=== PATIENT | female | born 1955 | race African-American/Black ===

== ENCOUNTER 2016-12-26 05:49 | Inpatient (IN) ==
[2016-12-26] MEDS ORDERED: ceFAZolin 1,000 MG VIAL ONE ×3 (05:56→15:41)
[2016-12-26 06:22] LABS: Hematocrit 25.8 VOL% (35.7-47.0); Hemoglobin 8.2 GM/DL (12.0-16.0)
--- NOTE | 2016-12-26 06:22 | History and Physical Update ---
History and Physical Update - History and Physical H&P was reviewed, the patient examined and there: are no changes in the patients condition since last H&P was completed. - Dictation Physical: refer to scanned H&P
[2016-12-26] MEDS: SODIUM CHLORIDE 0.9% 250 ML IV SCH (06:34)
[2016-12-26] MEDS ORDERED: THROMBIN TOPICAL (RECOMBINANT) 5,000 UNIT VIAL TOP ONE (06:39)
[2016-12-26] MEDS ORDERED: HEPARIN 5,000 UNIT/1 ML VIAL ONE ×2 (06:39→13:53)
[2016-12-26] MEDS ORDERED: BUPIVACAINE 0.25% 50 ML VIAL ONE ×2 (06:39→13:54)
[2016-12-26] MEDS ORDERED: PHENYLEPHRINE 1 MG/10 ML SYRINGE IV ONE (06:59)
[2016-12-26] MEDS ORDERED: PROPOFOL 200 MG/20 ML VIAL IV ONE (06:59)
[2016-12-26] MEDS ORDERED: LIDOCAINE 1% 5 ML VIAL ONE (06:59)
[2016-12-26] MEDS ORDERED: GLYCOPYRROLATE 0.4 MG/2 ML VIAL ONE (06:59)
--- NOTE | 2016-12-26 08:55 | Operative Note ---
Date of procedure: 12/26/16 Pre-op diagnosis: End-stage renal disease Post-op diagnosis: same Procedure: Preoperative diagnosis Renal failure Postoperative diagnosis Same Procedures performed Left upper arm brachiobasilic arteriovenous graft Findings An AV graft was created between the brachial artery at the antecubital fossa and the basilic vein in the axilla. There was a good thrill and bruit in the graft and still a pulse in the wrist after the graft was sewn in. Complications None apparent Specimen None Anesthesia Monitored local Blood loss 10 mL Indications Renal failure with need for dialysis access. The operative procedure including the risks, benefits, and alternatives of the operation were discussed with the patient and his family and all questions were answered. In particular, the risk of steal syndrome, arm edema, and failure to mature/need for further surgery were discussed in detail with the patient and all the questions were answered. Description of procedure The patient was taken to the operating room and transferred to the operating table in the supine position. Pressure points were padded and SCDs were placed lower extremities. Monitored anesthesia was administered and the left arm was prepped with chlorhexidine on an armboard and draped sterilely. Preoperative antibiotics were administered, and a timeout was performed. Incision was made above the antecubital fossa, after local anesthetic was administered, using a 15 blade scalpel. Electrocautery was used to dissect through the subcutaneous tissues and the brachial artery was dissected using sharp dissection. Side branches were ligated with silk sutures. A separate incision was made near the axilla and the basilic vein was controlled with vessel loops. An AV graft was tunneled. between the brachial artery and the basilic vein with a tunneler. The anastamosis on the vein and the artery was performed with an end-to-side technique and there was no suture line bleeding. This was done after arteriotomy and venotomy was performed with 11 blade scalpel and guthrie scissors and after the system was flushed with heparinized saline.] The clamps were released by releasing the venous clamp first and allowing allowing us to bleed through the suture line. The distal arterial clamp and the proximal arterial clamp was removed there was a good thrill and bruit in the graft and still a palpable radial pulse in the wrist. The wound was irrigated and closed with skin clips. A sterile dressing was applied. The patient was awakened from anesthesia and transferred to recovery. Anesthesia: MAC, local Surgeon / Physician: Yves Gutierrez Estimated blood loss: minimal Specimens: none sent Condition: stable Disposition: PACU Results - Labs CBC & BMP: 12/26/16 06:16 12/26/16 06:16 Discharge Plan - Discharge Data Disposition: Disch To Home/Self Care Condition at Discharge: Stable Discharge Diet: advance to your usual diet Activity: no lifting Hygiene: may shower (It is okay to remove the outer dressing in 2 days and start showering. Do not submerge her incision underwater.) Weight Bearing at Discharge: weight bear as tolerated Driving: other (Do not drive or operate heavy machinery for at least 24 hours and after you are off of narcotic pain medications.) Contact your physician if you experience:: fever over 101, Difficulty voiding, Redness or swelling, Nausea/Vomiting, Shortness of breath, Bleeding, pain uncontrolled by pain medications - Discharge Medications New HYDROcodone/ACETAMIN 7.5-325 [[place] 7.5-325] 1 tablet PO Q4H PRN #10 tablet PRN Reason: Pain Continue cloNIDine TAB [Catapres Tab] 0.2 mg PO BID Citalopram [CeleXA] 20 mg PO DAILY Insulin Glargine,Hum.rec.anlog [[place]jeo SoloStar] 20 unit SUBCUT BID Furosemide Tab [Lasix Tab] 40 mg PO BID DIURETIC #60 tablet Insulin Glargine [Lantus] 50 unit SUBCUT DAILY Carvedilol 12.5 mg PO DAILY - Follow Up or Referral Follow Up: Yves Gutierrez MD [Physician] - 2 Weeks - Forms/Instructions Instructions: Petar AV graft fistula
[2016-12-26] MEDS ORDERED: MIDAZOLAM 2 MG/2 ML VIAL ONE ×2 (09:05→15:39)
[2016-12-26] MEDS ORDERED: fentaNYL 100 MCG/2 ML VIAL ONE ×2 (09:06→15:39)
[2016-12-26] MEDS ORDERED: BUPIVACAINE 0.5% /EPI 10 ML VIAL ONE (13:53)
[2016-12-26] MEDS ORDERED: LIDOCAINE 1%/EPI INJ 20 ML VIAL ONE (13:53)
--- NOTE | 2016-12-26 14:05 | Event Note ---
I examined the patient in the day surgery area where she was complaining of significant pain in her hand. She has a doppler signal there but I cannot palpate a pulse there. Her left hand is slightly cooler than the right. I am concerned that there is an issue with perfusion to her hand. I have recommended going back to the OR for exploration and discussed the possibilities with the patient and her family, which include: 1. arteriogram showing spasm in which we could give it some time to resolve 2. technical problem which we would fix in the operating room 3. steal syndrome which would require ligation of the access The patient understands this and would like to proceed to the operating room.
--- NOTE | 2016-12-26 14:17 | Anesthesia Post-Op ---
Anesthesia Post OP - Post Ansesthetic Evaluation Patient seen in post op: Yes Resp: within normal limits CV: within normal limits Mental: within normal limits Temp: within normal limits Hedw-Ap-[id number]: within normal limits Nausea and Vomiting: within normal limits Pain: within normal limits
--- NOTE | 2016-12-26 15:14 | Operative Note ---
Date of procedure: 12/26/16 Procedure: Rn Tele's note on Sally Dominguez. medical library assistant Tart Procedure Dr. Gutierrez requested intraoperative evaluation of a newly formed AV fistula with what appears to be significant distal left ischemic pain. Wound is opened the anastomosis of the AV graft to the brachial artery is intact looks very good there does not appear to be any compression initial Doppler examination reveals high-grade flow from the brachial artery through the fistula and a decreased pulse in the distal brachial artery. With the fistula close pulse in the distal brachial artery improved. The fistula was secured and arteriogram with butterfly through the graft into the artery was carried out that showed good flow in the brachial artery and down through the brachial and into the radial and ulnar segment down to the wrist. We then opened the driscoll of the graft and examined the anterior there is very good-looking anastomosis with no evidence of flaps clot or abnormality of one half coronary dilator line dilator easily passes through the anastomosis into the distal brachial artery. The opening in the graft is closed a 0 silk was used to fully ligate the fistula and there is pulsatile flow by Doppler in the brachial artery above and below the anastomosis. I assisted Dr. Gutierrez with this procedure from opening to closure Surgeon / Physician: Joby Guadarrama Results - Labs CBC & BMP: 12/26/16 06:16 12/26/16 06:16 Discharge Plan - Discharge Data Disposition: Disch To Home/Self Care - Discharge Medications New HYDROcodone/ACETAMIN 7.5-325 [[place] 7.5-325] 1 tablet PO Q4H PRN #10 tablet PRN Reason: Pain Continue cloNIDine TAB [Catapres Tab] 0.2 mg PO BID Citalopram [CeleXA] 20 mg PO DAILY Insulin Glargine,Hum.rec.anlog [Cole SolAngelia] 20 unit SUBCUT BID Furosemide Tab [Lasix Tab] 40 mg PO BID DIURETIC #60 tablet Insulin Glargine [Lantus] 50 unit SUBCUT DAILY Carvedilol 12.5 mg PO DAILY - Follow Up or Referral Follow Up: Yves Gutierrez MD [Physician] - 01/09/17 1:45 pm - Forms/Instructions Instructions: Petar AV graft fistula
[2016-12-26] MEDS ORDERED: SEVOFLURANE 1 UNIT/15 MINUTE INH ONE (15:39)
[2016-12-26] MEDS ORDERED: KETAMINE 500 MG/10 ML VIAL ONE (15:40)
[2016-12-26] MEDS ORDERED: HEPARIN 10,000 UNIT/10 ML VIAL ONE (15:41)
[2016-12-26] MEDS ORDERED: ETOMIDATE 20 MG/10 ML VIAL IV ONE ×2 (15:41)
[2016-12-26] MEDS ORDERED: SUCCINYLCHOLINE 200 MG/10 ML VIAL ONE (15:41)
--- NOTE | 2016-12-26 15:57 | XRay Report ---
XR forearm LT Indication: AV graft. Comparison: None. Technique: AP and lateral images of the left forearm were performed. Findings: There is no evidence of fracture, dislocation, or significant soft tissue abnormality. Surgical clips are noted along the medial aspect of the lower arm proximal to elbow. Impression: 1. Postoperative changes. 12/26/2016 3:54 PM PROCEDURE INTERPRETED AT [facility] DEPARTMENT OF RADIOLOGY Final Report Signed by: Dr. Jamison Segura
--- NOTE | 2016-12-26 15:58 | XRay Report ---
XR chest 1V Indication: Aspiration. Comparison: Chest x-ray 11/28/2016 Technique: Portable AP chest was performed. Findings: Heart size is normal. Pulmonary vasculature appears within normal limits. No significant abnormality of the mediastinal contours demonstrated. Minimal interval increase in linear opacification of the mid to lower left chest could reflect difference in inspiration and atelectasis. Lungs otherwise appear clear. Bones and soft tissues demonstrate no significant abnormalities. Left-sided hemodialysis catheter is stable. Impression: 1. Minimal increase in discoid atelectasis is suggested in the mid to lower left lung. 12/26/2016 3:55 PM PROCEDURE INTERPRETED AT [facility] DEPARTMENT OF RADIOLOGY Final Report Signed by: Dr. Jamison Segura
[2016-12-26] MEDS ORDERED: ALBUTEROL/IPRATROPIUM 3 ML NEB RESP TX PRN (16:04)
[2016-12-26] MEDS ORDERED: NITROGLYCERIN 2% OINT 1 INCH/GM PACK TOP ONE (16:27)
[2016-12-26] MEDS ORDERED: CARVEDILOL 12.5 MG TABLET PO SCH (16:30)
[2016-12-26] MEDS ORDERED: FUROSEMIDE 40 MG TABLET PO SCH (16:30)
[2016-12-26] MEDS ORDERED: LACTATED RINGERS 1,000 ML IV SCH (16:30)
--- NOTE | 2016-12-26 17:09 | Pulmonology Consult Note ---
Assessment and Plan (1) Aspiration into airway Status: Acute Assessment and plan: The patient has been n.p.o. all day and went to surgery twice. She possibly aspirated some biliary material. Her respiratory status is fairly stable and she seems to be breathing comfortably. Her chest x-ray is clear. She could have a component of COPD. She does wheeze a little bit. She is started on Ancef and will continue with bronchodilator therapy. She looks stable at present. Current Visit: Yes (2) Smoker Status: Acute Assessment and plan: She is a smoker and may have some chronic lung disease. Will continue with bronchodilator therapy. Current Visit: Yes (3) Chronic kidney disease, stage V Status: Acute Assessment and plan: Patient will continue with dialysis Current Visit: No (4) Hypertension Status: Chronic Assessment and plan: She will continue with high blood pressure medicines. Current Visit: No (5) Diabetes mellitus Status: Chronic Assessment and plan: Her glucoses will be monitored. Current Visit: No (6) AV fistula thrombosis Status: Acute Assessment and plan: The patient came in and had a new AV fistula. Current Visit: No History of Present Illness Chief complaint: Possible aspiration History of present illness: Ms. Dominguez is a 61 year old black female who has end-stage renal disease. She is a diabetic with hypertension. She she came in to have an AV fistula in her left arm. She previously had had a tunneled dialysis catheter and a right upper arm AV fistula. This fistula apparently has clotted off. Today she went to the OR and had the fistula created. Postop her left hand was hurting and she went back to surgery. During the second case she apparently aspirated some bile. She is a smoker and occasionally wheezes. She apparently has had some coughing but is breathing comfortably now. Her chest x-ray is clear. She seems to be breathing comfortably at the present time. Home Medications Medication Instructions Recorded Confirmed Type Citalopram [CeleXA] 20 mg PO DAILY 09/03/14 12/26/16 History cloNIDine TAB [Catapres Tab] 0.2 mg PO BID 09/03/14 12/26/16 History Insulin Glargine [Lantus] 50 unit SUBCUT DAILY 09/05/16 12/26/16 History Insulin Glargine,Hum.rec.anlog 20 unit SUBCUT BID 09/05/16 12/26/16 History [Cole Almodovar] Furosemide Tab [Lasix Tab] 40 mg PO BID DIURETIC #60 tablet 09/07/16 12/26/16 Rx Carvedilol 12.5 mg PO DAILY 11/28/16 12/26/16 History HYDROcodone/ACETAMIN 7.5-325 1 tablet PO Q4H PRN #10 tablet 12/26/16 Rx [[place] 7.5-325] Allergies Allergy/AdvReac Type Severity Reaction Status Date / Time No Known Allergies Allergy Verified 12/12/16 14:58 - Constitutional Constitutional: Absent: fever(s), weight loss - EENT Eyes: Absent: blurry vision Ears: Absent: decreased hearing Nose, mouth and throat: Absent: dysphagia, sinus pressure - Cardiovascular Cardiovascular: Absent: chest pain at rest, dyspnea - Respiratory Respiratory: Present: cough, wheezing - Gastrointestinal Gastrointestinal: Present: vomiting. Absent: abdominal pain, dysphagia - Genitourinary Genitourinary: Present: other (She has chronic renal failure.) - Musculoskeletal Musculoskeletal: Absent: arthralgias Exam (Pulmonay) H&P - Constitutional Vitals: Period Temp Pulse Resp BP Sys/Tavares Pulse Ox Last 24 Hr 98.6 F-99.4 F 57-89 16-22 101-179/59-92 95-100 General appearance: normal weight, no acute distress (She looks reasonably comfortable at the present time.) - Head Head exam: Present: normal inspection, normocephalic - Eye Eye exam: Present: EOMI. Absent: scleral icterus Pupils: Present: SHERIF - ENT ENT exam: Present: normal exam - Neck Neck exam: Present: normal inspection. Absent: lymphadenopathy, thyromegaly - Respiratory Respiratory exam: Present: rhonchi, other (Patient has fairly good breath sounds with mild rhonchi.). Absent: accessory muscle use - Cardiovascular Cardiovascular exam: Present: regular rate and rhythm. Absent: gallop, systolic murmur - GI/Abdominal GI/Abdominal exam: Present: normal bowel sounds, soft. Absent: organomegaly, tenderness - Extremities Exam Extremities exam: Present: other (The left hand is a little cooler than the right.). Absent: calf tenderness, edema - Neurological Exam Neurological exam: Present: altered (She is still a little sleepy from surgery.) - Skin Skin exam: Present: warm, dry Medical,Surgical,& Family Hx - Medical History Cardio: History of: Hypertension Psychological: History of: Depression Neurology: History of: Cerebrovascular Accident (X3 2015 left sided weakness), Migraine (OCCASIONAL) No history of: Seizures HEENT: History of: Eye Problem (GLASSES), Dental Problems (MISSING TEETH) Endocrine: History of: Diabetes Mellitus (IDDM), Dyslipidemia Respiratory: No history of: Respiratory Problems (FLU VAC- YES; PNEU VAC- YES.) Renal: History of: Dialysis (T, ,SAT), Renal Failure (DR COOPER), Renal Problems (1 kidney) Gastrointestinal: History of: GERD, GI Problems (dysphagia, gerd) - Surgical History Thoracic Surgeries: Surgical HX of;: Kidney (Renal Surgery) Abdominal Surgeries: Surgical HX of: EGD Patient denies: Abdominal Surgery Reproductive Surgeries: Surgical HX of;: Genitourinary Surgery, Gynecologic Surgery, Tubal Ligation - Social History Smoking Status: Current every day smoker Frequency of Alcohol Use: None Type of Drug Use: None Results - Labs CBC & BMP: 12/26/16 06:16 12/26/16 06:16 - Diagnostic Findings Procedure: Chest x-ray: image reviewed by me, report reviewed by me (Chest x- ray is clear) Specialty Discharge - Follow Up or Referrals Follow up with: Yves Gutierrez MD [Physician] - 01/09/17 1:45 pm
[2016-12-26] MEDS ORDERED: ceFAZolin 2,000 MG in PREMIX 1 EACH IV SCH (18:00)
--- NOTE | 2016-12-26 18:16 | Operative Note ---
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 Exploration of left arm AV graft 2. Left upper arm arteriogram with runoff 3. Ligation of left upper arm AV graft Findings There were no obvious complications at the left upper arm AV graft site. An arteriogram was performed through the AV graft with compression of the graft distally and it showed no technical problems with the anastomosis. There is good runoff into the hand but there appeared to be some vasospasm and forearm vessels. The graft was also open and the anastomosis was directly inspected with no narrowing and easy passage of coronary dilators with no intimal flaps or technical problems seen. There is no clot. The graft was ligated in order to preserve function of the hand given the severity of the patient's ischemic symptoms postoperatively. There was improved flow at the hand after this was still some vasospasm related signal on the Doppler. Unfortunately, the images were captured improperly so nothing was able to be stored in our [employer] imaging system. Dr. Guadarrama served as a fleet assistant for this operation. The patient vomited during monitored anesthetic and was converted to general endotracheal anesthesia and bronchoscopy revealed minimal contamination of her lower airway. 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 Description of procedure The patient was taken to the operating room and transferred to the operating table in the supine position. Pressure points were padded and SCDs were placed lower extremities. Monitored anesthesia was administered. Left arm was placed on arm board and prepped Betadine. Preoperative antibiotics were administered and a timeout was performed. The distal arm incision was opened after clips were removed and retractors were placed. The Vesseloops were placed around the brachial artery which had no obvious complications present on initial inspection. The Vesseloops were placed and the graft was clamped distally. The butterfly catheter was inserted into the graft in a retrograde arteriogram was performed of the left upper extremity and the anastomosis. There was no technical consultations of the anastomosis. It appeared widely patent with no intimal flaps or thrombus present. There is good runoff into the hand through the forearm vessels but there was some vasospasm present. The butterfly catheter was removed after the system was flushed with heparinized saline. The arterial clamps were then applied and the graft was opened just above the anastomosis. The anastomosis was inspected and coronary dilators were passed which easily passed through the anastomosis and there was no evidence of narrowing or compression. There is no kinking of the artery. The graftotomy was closed and the system was flushed again prior to closure with heparinized saline. The patient was also heparinized with 5000 units of heparin prior to clamping the artery. The closure was performed with 6-0 Perkins-Yonatan sutures on the graftotomy and the graft was ligated with 0 silk sutures. The Doppler signal flow significantly improved but there was still some evidence of vasospasm afterwards. There is increased signal in the hand. The incision was irrigated with warm irrigation and local anesthetic was administered. The wound was closed with skin clips and dressed sterilely. The patient was awakened from anesthesia and transferred to recovery. It should be noted that in the middle of the operation the patient did vomit and there was concern for aspiration. She was converted to a general anesthetic by the anesthesia team and bronchoscopy after intubation showed no evidence of contamination of the lower airways. There is a large amount of bilious emesis on laryngoscope in the pharynx but nothing that appeared to go past the vocal cords. She was admitted to the ICU for pulmonary consultation and monitoring as well as pulse checks. This was all discussed with the patient's after the case. Postoperative plan Chest x-ray Pulmonary consult Monitor left hand pain and pulses Anesthesia: ARIELA PATRICK Surgeon / Physician: Yves Gutierrez Estimated blood loss: minimal Specimens: none sent Condition: stable Disposition: ICU Results - Labs CBC & BMP: 12/26/16 06:16 12/26/16 06:16 Discharge Plan - Discharge Data Disposition: Disch To Home/Self Care - Discharge Medications New HYDROcodone/ACETAMIN 7.5-325 [[place] 7.5-325] 1 tablet PO Q4H PRN #10 tablet PRN Reason: Pain Continue cloNIDine TAB [Catapres Tab] 0.2 mg PO BID Citalopram [CeleXA] 20 mg PO DAILY Insulin Glargine,Hum.rec.anlog [[place] SoloStar] 20 unit SUBCUT BID Furosemide Tab [Lasix Tab] 40 mg PO BID DIURETIC #60 tablet Insulin Glargine [Lantus] 50 unit SUBCUT DAILY Carvedilol 12.5 mg PO DAILY - Follow Up or Referral Follow Up: Yves Gutierrez MD [Physician] - 01/09/17 1:45 pm - Forms/Instructions Instructions: Petar AV graft fistula
[2016-12-26] MEDS: SODIUM CHLORIDE 0.9% 1,000 ML IV SCH ×3 (18:20→22:12)
[2016-12-26] MEDS: ONDANSETRON 4 MG/2 ML VIAL IV PRN (18:22)
--- NOTE | 2016-12-26 18:39 | Event Note ---
General Surgery Progress Note Chief complaint This patient is a 61-year-old woman admitted following left upper arm AV graft complicated by severe hand pain which was treated with arteriogram and ligation of left upper arm AV graft on 12/26/2016 Interval history The patient's operation was notable for an episode of possible aspiration that converted her to a general anesthetic. She was admitted to the ICU afterwards. Chest x-ray looks unremarkable. She has been seen by pulmonary. She has been throwing up since surgery but her blood pressure has also been low. Physical exam Afebrile, low blood pressure but heart rate is normal Patient is still sleepy and recovering from anesthesia, she wakes up and follows commands and answers questions appropriately. Left hand is more warm is still no palpable pulse yet. Labs None new Imaging Chest x-ray reviewed Assessment and plan I appreciate Dr. Padilla's help management of possible aspiration perioperatively Patient will be monitored in ICU overnight Monitor left hand pulses and symptoms Repeat labs tomorrow Nephrology consult We will give a small bolus of saline and put her on low rate of fluids
[2016-12-26] MEDS: ALBUTEROL/IPRATROPIUM 3 ML NEB RESP TX SCH (19:11)
[2016-12-26] MEDS ORDERED: SODIUM CHLORIDE 0.9% 1,000 ML IV SCH (19:15)
[2016-12-26] MEDS: CITALOPRAM 20 MG TABLET PO SCH (20:13)
[2016-12-26] MEDS: PANTOPRAZOLE 40 MG TABLET PO SCH (20:13)
[2016-12-26] MEDS: MORPHINE 2 MG/1 ML SYRINGE IV PRN (22:08)
--- NOTE | 2016-12-26 22:54 | Nephrology Consult Note ---
History of Present Illness Chief complaint: ESRD History of present illness: Ms. Dominguez is a 61 year old female With ESRD secondary to diabetes. She was admitted for AV fistula surgery. She tolerated the initial procedure well but developed ischemic pain in her left hand afterward. Arteriogram showed fistula was working well but apparently stealing flow from her hand. Fistula was ligated and her hand pain is much improved. She had questionable aspiration during the procedure and was admitted to the ICU for close observation. She is now awake and states that her hand pain is almost gone. Blood pressure is borderline low Home Medications Medication Instructions Recorded Confirmed Type Citalopram [CeleXA] 20 mg PO DAILY 09/03/14 12/26/16 History cloNIDine TAB [Catapres Tab] 0.2 mg PO BID 09/03/14 12/26/16 History Insulin Glargine [Lantus] 50 unit SUBCUT DAILY 09/05/16 12/26/16 History Insulin Glargine,Hum.rec.anlog 20 unit SUBCUT BID 09/05/16 12/26/16 History [[place] Almodovar] Furosemide Tab [Lasix Tab] 40 mg PO BID DIURETIC #60 tablet 09/07/16 12/26/16 Rx Carvedilol 12.5 mg PO DAILY 11/28/16 12/26/16 History HYDROcodone/ACETAMIN 7.5-325 1 tablet PO Q4H PRN #10 tablet 12/26/16 Rx [[place] 7.5-325] Allergies Allergy/AdvReac Type Severity Reaction Status Date / Time No Known Allergies Allergy Verified 12/12/16 14:58 Medical,Surgical,& Family Hx - Medical History Cardio: History of: Hypertension Psychological: History of: Depression Neurology: History of: Cerebrovascular Accident (X3 2015 left sided weakness), Migraine (OCCASIONAL) No history of: Seizures HEENT: History of: Eye Problem (GLASSES), Dental Problems (MISSING TEETH) Endocrine: History of: Diabetes Mellitus (IDDM), Dyslipidemia Respiratory: No history of: Respiratory Problems (FLU VAC- YES; PNEU VAC- YES.) Renal: History of: Dialysis (T, TH,SAT), Renal Failure (DR COOPER), Renal Problems (1 kidney) Gastrointestinal: History of: GERD, GI Problems (dysphagia, gerd) - Surgical History Thoracic Surgeries: Surgical HX of;: Kidney (Renal Surgery) Abdominal Surgeries: Surgical HX of: EGD Patient denies: Abdominal Surgery Reproductive Surgeries: Surgical HX of;: Genitourinary Surgery, Gynecologic Surgery, Tubal Ligation - Social History Smoking Status: Current every day smoker Frequency of Alcohol Use: None Type of Drug Use: None Review of Systems 12 point system: reviewed and no additional remarkable complaints except as stated Exam - Vital Signs Vital signs: Period Temp Pulse Resp BP Sys/Tavares Pulse Ox Last 24 Hr 97.2 F-99.4 F 57-110 16-33 66-193/55-92 94-100 Exam: Gen.: Alert and oriented x3. ENT: Pupils equal round reactive to light. EOMs intact. Mucous membranes moist. Neck: Supple. No JVD or bruit. Cardiovascular: Regular rate and rhythm. No murmur rub or gallop Lungs: Clear Abdomen: Soft. Nontender. Positive bowel sounds. No organomegaly Extremities: No edema Results - Labs CBC & BMP: 12/26/16 06:16 12/26/16 06:16 Assessment and Plan (1) ESRD (end stage renal disease) Status: Acute Assessment and plan: 61-year-old woman with: * ESRD. 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 It has been ligated * Diabetes mellitus * Aspiration * Hypertension. Blood pressure is borderline low. Coreg and clonidine held Current Visit: Yes (2) Aspiration into airway Status: Acute Current Visit: Yes (3) Cerebrovascular disease Status: Chronic Current Visit: No (4) Diabetes mellitus Status: Chronic Current Visit: No (5) Hypertension Status: Chronic Current Visit: No Specialty Discharge - Follow Up or Referrals Follow up with: Yvse Gutierrez MD [Physician] - 01/09/17 1:45 pm
[2016-12-27] MEDS: MORPHINE 2 MG/1 ML SYRINGE IV PRN (00:05)
[2016-12-27] MEDS: ALBUTEROL/IPRATROPIUM 3 ML NEB RESP TX SCH ×4 (00:40→21:03)
[2016-12-27 06:15] LABS: Calcium 7.2 MG/DL (8.5-10.1)
[2016-12-27 06:36] LABS: Basophils % 0.1 % (0.0-0.8); Eosinophils # 0.1 10*3/uL (0.0-0.87); Eosinophils % 0.3 % (0.00-10.9); Hematocrit 21.6 VOL% (35.7-47.0); Immature Granulocytes % 0.6 %; Immature Granulocytes Absolute 0.12 #; Lymphocytes # 0.6 10*3/uL (1.4-4.0); Lymphocytes % 3.2 % (21.3-54.2); Mean Corpuscular HGB Conc 31.9 GM/DL (32-36); Mean Corpuscular Hemoglobin 32 PG (27-34); Mean Corpuscular Volume 100.5 FL (87-102); Mean Platelet Volume 9.3 FL (9.6-12.0); Monocytes # 1.2 10*3/uL (0.11-0.8); Monocytes % 6.1 % (1.7-12.7); Neutrophils # 17.2 10*3/uL (1.4-7.4); Neutrophils % 89.7 % (38.7-73.9); Platelet Count 197 T/CUMM (130-400); Red Blood Count 2.15 MC/CUMM (3.8-5.5); Red Cell Distribution Width 13.5 % (9.3-17.3); White Blood Count 19.1 T/CUMM (4-12)
[2016-12-27 06:41] LABS: Hemoglobin 6.9 GM/DL (12.0-16.0)
[2016-12-27 07:09] LABS: Band Neutrophils 15 % (0-10); Hypochromasia 1+; Lymphocytes 3 % (20-55); Metamyelocytes 3 %; Microcytosis Slight; Segmented Neutrophils 72 % (50-85); Total Cells Counted 100
--- NOTE | 2016-12-27 07:30 | Pulmonology Progress Note ---
Pulmonary - PN: Subj Interval history: The patient is a 61-year-old black lady with end-stage renal disease. She has diabetes and hypertension has had trouble with her AV fistula. She came in yesterday for a left arm AV fistula postop her left hand was hurting. She had to go back and have this revised. At one point yesterday she may have aspirated some biliary-looking material. She had been n.p.o. all day. She is a smoker and may have a component of COPD. She was coughing and wheezing for little bit but her chest x-ray looks clear. She has done fairly well through the night and is breathing better. She has no distress now. Exam (Progress Note) - Constitutional Vitals: Period Temp Pulse Resp BP Sys/Tavares Pulse Ox Last 24 Hr 97.2 F-99.4 F 68-110 16-33 66-193/50-92 94-100 Exam: General appearance: normal weight, no acute distress (She is alert and talking and looks comfortable.) - Head Head exam: Present: normal inspection, normocephalic - Eye Eye exam: Present: EOMI. Absent: scleral icterus Pupils: Present: SHERIF - ENT ENT exam: Present: normal exam - Neck Neck exam: Present: normal inspection. Absent: lymphadenopathy, thyromegaly - Respiratory Respiratory exam: Present: She has good breath sounds bilaterally is moving air well without any definite wheezing. - Cardiovascular Cardiovascular exam: Present: regular rate and rhythm. Absent: gallop, systolic murmur - GI/Abdominal GI/Abdominal exam: Present: normal bowel sounds, soft. Absent: organomegaly, tenderness - Extremities Exam Extremities exam: Present: She is moving her left arm okay and she has no swelling. - Neurological Exam Neurological exam: Present: altered (She is awake and wanting something to drink.) - Skin Skin exam: Present: warm, dry Results - Labs CBC & BMP: 12/27/16 06:29 12/27/16 04:12 Assessment and Plan (1) Aspiration into airway Status: Acute Assessment and plan: The patient has been n.p.o. all day and went to surgery twice. She possibly aspirated some biliary material. Her respiratory status is fairly stable and she seems to be breathing comfortably. Her chest x-ray is clear. She could have a component of COPD. She does wheeze a little bit. She was given some respiratory therapy and Ancef. She had a fairly good night and her breathing is better. She is not wheezing now. She is very anemic and may need some blood. She can probably move to a regular room. Current Visit: Yes (2) Smoker Status: Acute Assessment and plan: She is a smoker and may have some chronic lung disease. Will continue with bronchodilator therapy. Current Visit: Yes (3) Chronic kidney disease, stage V Status: Acute Assessment and plan: Patient will continue with dialysis Current Visit: No (4) Hypertension Status: Chronic Assessment and plan: She will continue with high blood pressure medicines. Her blood pressure has been stable. Current Visit: No (5) Diabetes mellitus Status: Chronic Assessment and plan: Her glucoses will be monitored. Her glucose is 90 this morning. Current Visit: No (6) AV fistula thrombosis Status: Acute Assessment and plan: The patient came in and had a new AV fistula. Current Visit: No Specialty Discharge - Follow Up or Referrals Follow up with: Yves Gutierrez MD [Physician] - 01/09/17 1:45 pm
[2016-12-27] MEDS ORDERED: ENOXAPARIN 30 MG/0.3 ML SYRINGE SUBCUT SCH (09:00)
[2016-12-27] MEDS: SODIUM CHLORIDE 0.9% 250 ML IV SCH ×2 (09:24→09:25)
[2016-12-27] MEDS ORDERED: SKIN HEALING OINT (AQUAPHOR) 50 GM TUBE TOP PRN (10:35)
[2016-12-27] MEDS: CITALOPRAM 20 MG TABLET PO SCH (11:33)
[2016-12-27] MEDS: PANTOPRAZOLE 40 MG TABLET PO SCH (11:34)
[2016-12-27] MEDS ORDERED: IRON SUCROSE 100 MG/5 ML VIAL IV PRN (13:26)
[2016-12-27] MEDS ORDERED: HEPARIN 10,000 UNIT/10 ML VIAL IV PRN (13:26)
[2016-12-27 15:07] LABS: Hepatitis B Surface Ag Quant 0.49 Index; Hepatitis B Surface Ag Result Negative (Negative)
--- NOTE | 2016-12-27 15:47 | Event Note ---
General Surgery Progress Note Chief complaint This patient is a 61-year-old woman admitted following left upper arm AV graft complicated by severe hand pain which was treated with arteriogram and ligation of left upper arm AV graft on 12/26/2016 Interval history The patient had a good night last night. Her hemoglobin is low at 6.9. Her white blood cell count is up some. She got some steroids yesterday in the OR. Her hand is completely better and she has a palpable pulse now. She is scheduled to go to dialysis shortly. Physical exam Afebrile, low blood pressure but heart rate is normal Patient is still sleepy and recovering from anesthesia, she wakes up and follows commands and answers questions appropriately. Left hand is more warm is still no palpable pulse yet. Labs None new Imaging Chest x-ray reviewed Assessment and plan Continue current management. Transfer to floor. 2 units packed red blood cells during dialysis today. Discharge home tomorrow if hemoglobin and white count are improving
[2016-12-27] MEDS: ONDANSETRON 4 MG/2 ML VIAL IV PRN (16:55)
[2016-12-27] MEDS ORDERED: GLUCAGON 1 MG VIAL IM PRN (18:56)
[2016-12-27] MEDS: INSULIN REGULAR 100 UNIT/ML SUBCUT SCH (21:00)
--- NOTE | 2016-12-27 21:38 | Nephrology Progress Note ---
Nephrology - PN: Subj Interval history: She feels better today. No shortness of breath. Pain in left hand has resolved Exam (PN)-Nephrology - Vital Signs Vital signs: Period Temp Pulse Resp BP Sys/Tavares Pulse Ox Last 24 Hr 97.0 F-99.1 F 73-95 15-28 90-175/47-74 94-100 Exam: Gen.: Alert and oriented x3. ENT: Pupils equal round reactive to light. EOMs intact. Mucous membranes moist. Neck: Supple. No JVD or bruit. Cardiovascular: Regular rate and rhythm. No murmur rub or gallop Lungs: Clear Abdomen: Soft. Nontender. Positive bowel sounds. No organomegaly Extremities: No edema - Lab 12/27/16 06:29 12/27/16 04:12 Most recent lab results Calcium 7.2 MG/DL (8.5-10.1) L 12/27/16 04:12 Assessment and Plan (1) ESRD (end stage renal disease) Status: Acute Assessment and plan: 61-year-old woman with: * ESRD. Stable during dialysis. 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 It has been ligated * Diabetes mellitus * Aspiration * Hypertension. * Anemia. She is being transfused during dialysis Current Visit: Yes (2) Aspiration into airway Status: Acute Current Visit: Yes (3) Cerebrovascular disease Status: Chronic Current Visit: No (4) Diabetes mellitus Status: Chronic Current Visit: No (5) Hypertension Status: Chronic Current Visit: No Specialty Discharge - Follow Up or Referrals Follow up with: Yves Gutierrez MD [Physician] - 01/09/17 1:45 pm
[2016-12-28] MEDS: ONDANSETRON 4 MG/2 ML VIAL IV PRN ×4 (00:57→21:49)
[2016-12-28] MEDS: ALBUTEROL/IPRATROPIUM 3 ML NEB RESP TX SCH ×4 (02:05→20:13)
[2016-12-28] MEDS: INSULIN REGULAR 100 UNIT/ML SUBCUT SCH ×5 (04:14→21:43)
[2016-12-28 05:24] LABS: Basophils % 0.1 % (0.0-0.8); Eosinophils # 0.1 10*3/uL (0.0-0.87); Eosinophils % 0.2 % (0.00-10.9); Hematocrit 33.1 VOL% (35.7-47.0); Hemoglobin 11.1 GM/DL (12.0-16.0); Immature Granulocytes % 2.9 %; Immature Granulocytes Absolute 0.71 #; Lymphocytes # 0.7 10*3/uL (1.4-4.0); Lymphocytes % 2.8 % (21.3-54.2); Mean Corpuscular HGB Conc 33.5 GM/DL (32-36); Mean Corpuscular Hemoglobin 30 PG (27-34); Mean Corpuscular Volume 89.7 FL (87-102); Mean Platelet Volume 9.8 FL (9.6-12.0); Monocytes # 1.1 10*3/uL (0.11-0.8); Monocytes % 4.6 % (1.7-12.7); Neutrophils # 21.7 10*3/uL (1.4-7.4); Neutrophils % 89.4 % (38.7-73.9); Platelet Count 199 T/CUMM (130-400); Red Blood Count 3.69 MC/CUMM (3.8-5.5); Red Cell Distribution Width 17.6 % (9.3-17.3); White Blood Count 24.3 T/CUMM (4-12)
[2016-12-28 06:19] LABS: Anisocytosis 1+; Band Neutrophils 6 % (0-10); Hypochromasia Slight; Lymphocytes 1 % (20-55); Microcytosis 1+; Platelet Estimate Adequate; Segmented Neutrophils 86 % (50-85); Total Cells Counted 100
--- NOTE | 2016-12-28 08:29 | XRay Report ---
XR abdomen 2V Indication: Nausea vomiting Comparison: None available Findings: No free fluid or free air seen. The bowel gas pattern appears within normal limits. No abnormal calcifications are present. No other abnormality is identified. Impression: No evidence of abnormality demonstrated PROCEDURE INTERPRETED AT [facility] DEPARTMENT OF RADIOLOGY Final Report Signed by: Dr. Hector Mccarthy
[2016-12-28] MEDS: PROMETHAZINE 25 MG/1 ML VIAL IM PRN (09:02)
[2016-12-28] MEDS: PANTOPRAZOLE 40 MG TABLET PO SCH (09:02)
[2016-12-28] MEDS: CITALOPRAM 20 MG TABLET PO SCH (09:02)
[2016-12-28] MEDS ORDERED: CARVEDILOL 12.5 MG TABLET PO SCH (10:00)
--- NOTE | 2016-12-28 10:39 | Hospitalist Consult Note ---
<Olive Mitchell - Last Filed: 12/28/16 10:32> Assessment and Plan (1) Hypertension Status: Chronic Assessment and plan: The patient's blood pressure has remained consistently elevated. We have reviewed her home medications and resume clonidine as previously ordered. In addition, we will add hydralazine 50 mg p.o. twice daily. We appreciate the consultation from Dr. Gutierrez. We will continue to monitor. Current Visit: No History of Present Illness - Consult Narrative Reason for consult: Hypertension magement History of present illness: This is a chronically ill 61-year-old female that presented to [facility] on November 25, 2016 for the elective creation of an arterial venous fistula to the left upper arm for continuation of hemodialysis treatment. The patient has a medical history significant for end-stage renal disease, hypertension, depression, chronic anemia, and insulin-dependent diabetes mellitus. On the day of presentation, the patient underwent left upper arm brachial basilic arteriovenous graft placement. Shortly after completion, the patient developed some significant pain in her left hand. There was concern regarding circulation compromise and the patient was sent to the OR for further evaluation. The patient subsequently underwent exploration of the left upper arm arteriovenous graft with arteriogram with runoff and ligation of the left upper arm arteriovenous graft. The patient developed an acute onset of nausea and vomiting. There was concern that the patient could have possibly aspirated. A pulmonary consultation was requested the patient was seen and evaluated and recommendations were given. The patient was noted to have a gradual increase in blood pressure. Hospital medicine was consulted to assist in the management of the patient's hypertension. CC: Yves Gutierrez MD - Home Medications and Allergies Home Medications: Home Medications Medication Instructions Recorded Confirmed Type Citalopram [CeleXA] 20 mg PO DAILY 09/03/14 12/26/16 History cloNIDine TAB [Catapres Tab] 0.2 mg PO BID 09/03/14 12/26/16 History Insulin Glargine [Lantus] 50 unit SUBCUT DAILY 09/05/16 12/26/16 History Insulin Glargine,Hum.rec.anlog 20 unit SUBCUT BID 09/05/16 12/26/16 History [[place] Almodovar] Furosemide Tab [Lasix Tab] 40 mg PO BID DIURETIC #60 tablet 09/07/16 12/26/16 Rx Carvedilol 12.5 mg PO DAILY 11/28/16 12/26/16 History HYDROcodone/ACETAMIN 7.5-325 1 tablet PO Q4H PRN #10 tablet 12/26/16 Rx [[place] 7.5-325] Allergies/Adverse Reactions: Allergies Allergy/AdvReac Type Severity Reaction Status Date / Time No Known Allergies Allergy Verified 12/12/16 14:58 Medical,Surgical,& Family Hx - Medical History Cardio: History of: Hypertension Psychological: History of: Depression Neurology: History of: Cerebrovascular Accident (X3 2015 left sided weakness), Migraine (OCCASIONAL) No history of: Seizures HEENT: History of: Eye Problem (GLASSES), Dental Problems (MISSING TEETH) Endocrine: History of: Diabetes Mellitus (IDDM), Dyslipidemia Respiratory: No history of: Respiratory Problems (FLU VAC- YES; PNEU VAC- YES.) Renal: History of: Dialysis (T, TH,SAT), Renal Failure (DR COOPER), Renal Problems (1 kidney) Gastrointestinal: History of: GERD, GI Problems (dysphagia, gerd) - Surgical History Thoracic Surgeries: Surgical HX of;: Kidney (Renal Surgery) Abdominal Surgeries: Surgical HX of: EGD Patient denies: Abdominal Surgery Reproductive Surgeries: Surgical HX of;: Genitourinary Surgery, Gynecologic Surgery, Tubal Ligation - Social History Smoking Status: Current every day smoker Frequency of Alcohol Use: None Type of Drug Use: None Exam - Constitutional Vitals: Period Temp Pulse Resp BP Sys/Tavares Pulse Ox Last 24 Hr 96.0 F-98.9 F 73-93 16-28 131-210/47-104 93-100 General appearance: no acute distress, under weight - Head Head exam: Present: normal inspection, normocephalic, atraumatic - Eye Eye exam: Present: EOMI. Absent: conjunctival injection Pupils: Present: SHERIF, normal accommodation - ENT ENT exam: Present: normal exam, normal external ear exam, normal oropharynx - Neck Neck exam: Present: normal inspection. Absent: lymphadenopathy, meningismus, thyromegaly - Respiratory Respiratory exam: Present: clear to auscultation bilaterally. Absent: rales, rhonchi, stridor, wheezes - Cardiovascular Cardiovascular exam: Present: regular rate and rhythm - GI/Abdominal GI/Abdominal exam: Present: normal bowel sounds, soft - Extremities Exam Extremities exam: Present: other (Left upper arm AV fistula intact positive bruit positive thrill) - Back Exam Back exam: Present: normal inspection - Neurological Exam Neurological exam: Present: alert, oriented X3 - Psychiatric Psychiatric exam: Present: flat affect - Skin Skin exam: Present: normal color, dry Results - Labs CBC & BMP: 12/28/16 04:50 12/27/16 04:12 Lab Results: I have reviewed the past 24 hour labs Specialty Discharge - Follow Up or Referrals Follow up with: Yves Gutierrez MD [Physician] - 01/09/17 1:45 pm <Bernard Rhoades - Last Filed: 12/28/16 15:19> Assessment and Plan - Time spent with patient Time spent with patient: Greater than 30 minutes (I saw and evaluated pt in her room today. I reviewed pt's lab results today. I discussed with pt's in regarding her clinical status today. I agree with history, physical, assessment and plan listed by our IMMIGRATION MANAGER. Resume home meds. Monitor BP. Reeval in am. Will dc hydralazine.) History of Present Illness - Consult Narrative History of present illness: Ms. Dominguez is a 61 year old female CC: Yves Gutierrez MD Exam - Constitutional Vitals: Period Temp Pulse Resp BP Sys/Tavares Pulse Ox Last 24 Hr 96.0 F-98.9 F 81-93 16-28 119-210/47-104 92-100 Results - Labs CBC & BMP: 12/28/16 04:50 12/28/16 11:25
--- NOTE | 2016-12-28 11:29 | Event Note ---
General Surgery Progress Note Chief complaint This patient is a 61-year-old woman admitted following left upper arm AV graft complicated by severe hand pain which was treated with arteriogram and ligation of left upper arm AV graft on 12/26/2016 Interval history Blood counts responded to transfusion. White blood cell count continues to rise. Patient is afebrile. She has a lot of nausea and bilious emesis still. She has no abdominal pain. Physical exam Afebrile, the patient is severely hypertensive but otherwise her vital signs are unremarkable. Chest is clear Heart is regular Abdomen is soft and nondistended nontender. Normal bowel sounds. Left arm with no infection and palpable pulse in the left wrist Labs Reviewed Imaging Abdominal x-ray with nonspecific gas pattern Assessment and plan Infectious workup including urinalysis, urine culture, and chest x-ray as well as blood cultures We will get LFTs and lipase to evaluate her nausea and vomiting. Hospitalist consult for blood pressure management
--- NOTE | 2016-12-28 11:29 | XRay Report ---
XR chest 1V portable Indication: Leukocytosis Comparison: 26 December 2016 Findings: The heart and mediastinum are normal in size and configuration. Left internal jugular catheter is unchanged in position. The pulmonary vascularity is prominent but similar to previous. Lung volumes are increased with prominent bronchial markings. No lung infiltrates, effusions, pneumothorax or other abnormality is demonstrated. Impression: Chronic lung changes. No acute process or significant change. PROCEDURE INTERPRETED AT [facility] DEPARTMENT OF RADIOLOGY Final Report Signed by: Dr. Hector Mccarthy
[2016-12-28 12:36] LABS: Alanine Aminotransferase < 6 U/L (13-56); Alkaline Phosphatase 120 U/L (45-117); Aspartate Amino Transferase 24 U/L (0-37); Blood Urea Nitrogen 33 MG/DL (7-18); Calcium 8.9 MG/DL (8.5-10.1); Glucose 159 MG/DL (74-106); Osmolality,Calculated 282.8 MOS/KG (273-304); Sodium 137 MMOL/L (136-145)
--- NOTE | 2016-12-28 13:32 | Pulmonology Progress Note ---
Pulmonary - PN: Subj Interval history: The patient is a 61-year-old black lady with end-stage renal disease. She has diabetes and hypertension has had trouble with her AV fistula. She came in yesterday for a left arm AV fistula postop her left hand was hurting. She had to go back and have this revised. At one point yesterday she may have aspirated some biliary-looking material. She had been n.p.o. all day. She is a smoker and may have a component of COPD. She was coughing and wheezing for little bit but her chest x-ray looks clear. She says her breathing is still doing well. She is not coughing or having any shortness of breath now. She is having some nausea and GI symptoms. Her arm pain is better. Exam (Progress Note) - Constitutional Vitals: Period Temp Pulse Resp BP Sys/Tavares Pulse Ox Last 24 Hr 96.0 F-98.9 F 73-93 16-28 119-210/47-104 92-100 Exam: General appearance: normal weight, no acute distress (She is alert and talking and looks comfortable. She is not having any respiratory distress.) - Head Head exam: Present: normal inspection, normocephalic - Eye Eye exam: Present: EOMI. Absent: scleral icterus Pupils: Present: SHERIF - ENT ENT exam: Present: normal exam - Neck Neck exam: Present: normal inspection. Absent: lymphadenopathy, thyromegaly - Respiratory Respiratory exam: Present: She has good breath sounds bilaterally and is moving air well without any definite wheezing. Her lungs sound okay today. - Cardiovascular Cardiovascular exam: Present: regular rate and rhythm. Absent: gallop, systolic murmur - GI/Abdominal GI/Abdominal exam: Present: normal bowel sounds, soft. She has no abdominal tenderness. - Extremities Exam Extremities exam: Present: She is moving her left arm okay and she has no swelling. - Neurological Exam Neurological exam: Present: altered (She is awake and wanting something to drink.) - Skin Skin exam: Present: warm, dry Results - Labs CBC & BMP: 12/28/16 04:50 12/28/16 11:25 Assessment and Plan (1) Aspiration into airway Status: Acute Assessment and plan: The patient has been n.p.o. all day and went to surgery twice. She possibly aspirated some biliary material. Her respiratory status is fairly stable and she seems to be breathing comfortably. Her chest x-ray is clear. She could have a component of COPD. She does wheeze a little bit. She was given some respiratory therapy and Ancef. She has continues to do well with her breathing is not short of breath. Her lungs sound reasonably clear. She is stable from a pulmonary standpoint and I will sign off. Current Visit: Yes (2) Smoker Status: Acute Assessment and plan: She is a smoker and may have some chronic lung disease. Will continue with bronchodilator therapy. Current Visit: Yes (3) Chronic kidney disease, stage V Status: Acute Assessment and plan: Patient will continue with dialysis Current Visit: No (4) Hypertension Status: Chronic Assessment and plan: She will continue with high blood pressure medicines. Her blood pressure is up this morning but is better now. Current Visit: No (5) Diabetes mellitus Status: Chronic Assessment and plan: Her glucoses will be monitored. Her glucose is 159 this morning. Current Visit: No (6) AV fistula thrombosis Status: Acute Assessment and plan: The patient came in and had a new AV fistula. Current Visit: No Specialty Discharge - Follow Up or Referrals Follow up with: Yves Gutierrez MD [Physician] - 01/09/17 1:45 pm
[2016-12-28] MEDS ORDERED: LACTATED RINGERS 250 ML IV ONE (15:40)
[2016-12-28] MEDS: hydrALAZINE 20 MG/1 ML VIAL IV PRN (15:47)
--- NOTE | 2016-12-28 22:03 | Nephrology Progress Note ---
Nephrology - PN: Subj Interval history: She has had some nausea today. Blood pressure has been higher. Left hand pain much improved Exam (PN)-Nephrology - Vital Signs Vital signs: Period Temp Pulse Resp BP Sys/Tavares Pulse Ox Last 24 Hr 96.0 F-98.3 F 83-93 18-24 119-221/62-104 92-100 Exam: ENT: Normal Cardiovascular: Regular rate and rhythm. No murmur rub or gallop Lungs: Clear Extremities: No edema - Lab 12/28/16 04:50 12/28/16 11:25 Most recent lab results Calcium 8.9 MG/DL (8.5-10.1) D 12/28/16 11:25 Assessment and Plan (1) ESRD (end stage renal disease) Status: Acute Assessment and plan: 61-year-old woman with: * ESRD. 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 It has been ligated * Diabetes mellitus * Aspiration * Hypertension. Blood pressure medications were held postop due to hypotension. They have been restarted * Anemia. Posttransfusion Current Visit: Yes (2) Aspiration into airway Status: Acute Current Visit: Yes (3) Cerebrovascular disease Status: Chronic Current Visit: No (4) Diabetes mellitus Status: Chronic Current Visit: No (5) Hypertension Status: Chronic Current Visit: No Specialty Discharge - Follow Up or Referrals Follow up with: Yves Gutierrez MD [Physician] - 01/09/17 1:45 pm
[2016-12-29] MEDS: ALBUTEROL/IPRATROPIUM 3 ML NEB RESP TX SCH ×4 (00:13→19:35)
[2016-12-29 03:29] LABS: Basophils % 0.1 % (0.0-0.8); Eosinophils # 0.1 10*3/uL (0.0-0.87); Eosinophils % 0.4 % (0.00-10.9); Hematocrit 32.3 VOL% (35.7-47.0); Hemoglobin 10.7 GM/DL (12.0-16.0); Immature Granulocytes % 1.9 %; Immature Granulocytes Absolute 0.39 #; Lymphocytes # 1.2 10*3/uL (1.4-4.0); Mean Corpuscular HGB Conc 33.1 GM/DL (32-36); Mean Corpuscular Hemoglobin 30 PG (27-34); Mean Corpuscular Volume 89.5 FL (87-102); Monocytes # 1.1 10*3/uL (0.11-0.8); Monocytes % 5.5 % (1.7-12.7); Neutrophils # 17.4 10*3/uL (1.4-7.4); Neutrophils % 86.1 % (38.7-73.9); Platelet Count 220 T/CUMM (130-400); Red Blood Count 3.61 MC/CUMM (3.8-5.5); Red Cell Distribution Width 17.6 % (9.3-17.3); White Blood Count 20.2 T/CUMM (4-12)
[2016-12-29 03:49] LABS: Alanine Aminotransferase < 6 U/L (13-56); Albumin 2.7 G/DL (3.4-5.0); Alkaline Phosphatase 113 U/L (45-117); Aspartate Amino Transferase 18 U/L (0-37); Blood Urea Nitrogen 51 MG/DL (7-18); Calcium 8.5 MG/DL (8.5-10.1); Glucose 97 MG/DL (74-106); Magnesium 2.1 MG/DL (1.8-2.4); Osmolality,Calculated 292.4 MOS/KG (273-304); Potassium 3.1 MMOL/L (3.5-5.1); Sodium 140 MMOL/L (136-145); Total Protein 6.4 G/DL (6.4-8.3)
[2016-12-29 05:10] LABS: Band Neutrophils 3 % (0-10); Lymphocytes 7 % (20-55); Metamyelocytes 1 %; Platelet Estimate Normal; Polychromasia Few; Segmented Neutrophils 85 % (50-85); Total Cells Counted 100
[2016-12-29] MEDS: INSULIN REGULAR 100 UNIT/ML SUBCUT SCH ×4 (08:00→21:29)
[2016-12-29] MEDS: ONDANSETRON 4 MG/2 ML VIAL IV PRN ×3 (09:03→21:38)
[2016-12-29] MEDS: PANTOPRAZOLE 40 MG TABLET PO SCH (09:06)
[2016-12-29] MEDS: CITALOPRAM 20 MG TABLET PO SCH (09:07)
--- NOTE | 2016-12-29 10:36 | Hospitalist Progress Note ---
Assessment and Plan (1) Hypertension Status: Chronic Assessment and plan: The patient's blood pressure has remained consistently elevated. We have reviewed her home medications and resume clonidine as previously ordered. In addition, we will add hydralazine 50 mg p.o. twice daily. We appreciate the consultation from Dr. Gutierrez. We will continue to monitor. 12/29-noted improvement in patient's blood pressure. We will continue hydralazine 50 mg twice a day and provide supportive measures. Current Visit: No Hospitalist: Subjective Interval history: Patient seen and examined. No significant overnight events reported per staff. Noted improvement in blood pressure since start of hydralazine on yesterday. Hemodialysis scheduled for today per nephrology. Exam - Constitutional Vitals: Period Temp Pulse Resp BP Sys/Tavares Pulse Ox Last 24 Hr 96.9 F-98.9 F 77-91 17-22 119-221/62-100 92-99 General appearance: under weight - Head Head exam: Present: normal inspection, normocephalic, atraumatic - Eye Eye exam: Present: EOMI. Absent: conjunctival injection Pupils: Present: SHERIF, normal accommodation - ENT ENT exam: Present: normal exam, normal external ear exam, normal oropharynx - Neck Neck exam: Present: normal inspection. Absent: lymphadenopathy, meningismus, tenderness, thyromegaly - Respiratory Respiratory exam: Present: clear to auscultation bilaterally. Absent: rales, rhonchi, stridor, wheezes - Cardiovascular Cardiovascular exam: Present: regular rate and rhythm - GI/Abdominal GI/Abdominal exam: Present: normal bowel sounds, soft - Extremities Exam Extremities exam: Present: other (AV fistula noted to left upper extremity positive bruit positive thrill noted) - Back Exam Back exam: Present: normal inspection - Neurological Exam Neurological exam: Present: alert, oriented X3, CN II-XII intact - Psychiatric Psychiatric exam: Present: normal affect, normal mood - Skin Skin exam: Present: normal color, warm, dry Results - Labs CBC & BMP: 12/29/16 02:10 12/29/16 02:11 Lab Results: I have reviewed the past 24 hour labs Specialty Discharge - Follow Up or Referrals Follow up with: Yves Gutierrez MD [Physician] - 01/09/17 1:45 pm
[2016-12-29] MEDS: CARVEDILOL 6.25 MG TABLET PO SCH (11:25)
--- NOTE | 2016-12-29 11:46 | Event Note ---
12/29/2016. Patient is afebrile at this point time and the pain in her left hand is improved since her surgery. The wound is little bit of drainage present. She is for dialysis today. She has been complaining of some nausea and vomiting abdomen looks soft this point. Will have to observe this and see how this progresses and hopefully this can get better after dialysis.
[2016-12-29 11:54] LABS: Apearance,Urine CLEAR (Clear); Bilirubin,Urine Negative (Negative); Blood, Urine Small mg/dL (Negative); Glucose,Urine (UA) 50 mg/dL (Negative); Ketones,Urine 20 mg/dL (Negative); Nitrite,Urine Negative (Negative); Protein,Urine 100 MG/DL; RBC,Urine <1 /HPF (0-4); Urine Color Yellow (Yellow); Urine Specific Gravity 1.008 (1.001-1.035); Urine Urobilinogen < 2.0 EU/DL (0.2-1.0); WBC,Urine 1 /HPF (0-6)
--- NOTE | 2016-12-29 13:55 | Dialysis Note ---
Dialysis Note - Dialysis Note Patient seen on dialysis she is tolerating the procedure. Blood pressure is 99/ 41. Cardiovascular regular rate. Lungs are clear to auscultation. Abdomen is soft.
[2016-12-29] MEDS: PROMETHAZINE 25 MG/1 ML VIAL IM PRN (18:16)
[2016-12-29] MEDS: hydrALAZINE 20 MG/1 ML VIAL IV PRN (21:42)
[2016-12-30] MEDS: ALBUTEROL/IPRATROPIUM 3 ML NEB RESP TX SCH ×4 (00:15→19:37)
[2016-12-30] MEDS: CARVEDILOL 6.25 MG TABLET PO SCH ×2 (01:35→09:00)
[2016-12-30] MEDS: ONDANSETRON 4 MG/2 ML VIAL IV PRN ×4 (02:23→21:52)
[2016-12-30] MEDS: MORPHINE 2 MG/1 ML SYRINGE IV PRN (02:23)
[2016-12-30] MEDS: hydrALAZINE 20 MG/1 ML VIAL IV PRN (03:22)
[2016-12-30] MEDS: PROMETHAZINE 25 MG/1 ML VIAL IM PRN (07:09)
[2016-12-30] MEDS ORDERED: hydrALAZINE 20 MG/1 ML VIAL IV ONE ×2 (07:52→15:23)
--- NOTE | 2016-12-30 08:20 | XRay Report ---
Exam: XR KUB Date: 12/30/2016 7:38 AM Comparison: 12/28/2016 Indication: Generalized abdominal pain, nausea and vomiting Technique:[Supine abdomen] Findings: Nonobstructed bowel gas pattern. No obvious mass or acute osseous findings. Atelectasis at the left lung base. Impression: Nonobstructed bowel gas pattern. Atelectasis at the left lung base. PROCEDURE INTERPRETED AT [facility] DEPARTMENT OF RADIOLOGY Final Report Signed by: Dr. Yamileth Argueta
[2016-12-30] MEDS: INSULIN REGULAR 100 UNIT/ML SUBCUT SCH ×4 (08:21→20:29)
[2016-12-30 08:37] LABS: Basophils % 0.2 % (0.0-0.8); Hematocrit 39.7 VOL% (35.7-47.0); Hemoglobin 13.4 GM/DL (12.0-16.0); Immature Granulocytes % 0.7 %; Immature Granulocytes Absolute 0.12 #; Lymphocytes # 0.8 10*3/uL (1.4-4.0); Lymphocytes % 4.6 % (21.3-54.2); Mean Corpuscular HGB Conc 33.8 GM/DL (32-36); Mean Corpuscular Hemoglobin 30 PG (27-34); Mean Corpuscular Volume 89.4 FL (87-102); Mean Platelet Volume 9.6 FL (9.6-12.0); Monocytes # 0.9 10*3/uL (0.11-0.8); Neutrophils # 15.7 10*3/uL (1.4-7.4); Neutrophils % 89.5 % (38.7-73.9); Platelet Count 288 T/CUMM (130-400); Red Blood Count 4.44 MC/CUMM (3.8-5.5); Red Cell Distribution Width 17.1 % (9.3-17.3); White Blood Count 17.6 T/CUMM (4-12)
--- NOTE | 2016-12-30 08:46 | Event Note ---
12/30/2016. Call this morning because patient continues to have nausea and vomiting. She had it yesterday when I saw her but she was going for dialysis. She did not clear the nausea and vomiting following dialysis and is continued to have that throughout the night. There is no real complaint of abdominal pain and does not seem to be any food intolerance prior to the onset of this. She is having some pickups and I do not know whether this could be related to gastroparesis at this time. KUB was unremarkable with no distention of the stomach and the bowel pattern was normal. We will also call because she was hypertensive with a diastolic of 144 Dr. Cruz was consulted for treatment. She is complaining of some headaches associated with that and this may be the etiology of her nausea and vomiting. Her white count is up at 17,000. We will plan to get a CT abdomen and CT brain just to see if we can understand if there is any 8 thing else going on that might be causing this problem.
[2016-12-30 09:01] LABS: Lymphocytes 3 % (20-55); Microcytosis Slight; Platelet Estimate Adequate; Segmented Neutrophils 93 % (50-85); Total Cells Counted 100
[2016-12-30 09:10] LABS: Alanine Aminotransferase < 6 U/L (13-56); Albumin 3.7 G/DL (3.4-5.0); Alkaline Phosphatase 144 U/L (45-117); Aspartate Amino Transferase 25 U/L (0-37); Blood Urea Nitrogen 63 MG/DL (7-18); Calcium 9.8 MG/DL (8.5-10.1); Glucose 243 MG/DL (74-106); Osmolality,Calculated 295.1 MOS/KG (273-304); Potassium 3.6 MMOL/L (3.5-5.1); Sodium 135 MMOL/L (136-145); Total Protein 8.5 G/DL (6.4-8.3)
--- NOTE | 2016-12-30 10:08 | Hospitalist Progress Note ---
<Olive Mitchell - Last Filed: 12/30/16 10:06> Assessment and Plan (1) Hypertension Status: Chronic Assessment and plan: The patient's blood pressure has remained consistently elevated. We have reviewed her home medications and resume clonidine as previously ordered. In addition, we will add hydralazine 50 mg p.o. twice daily. We appreciate the consultation from Dr. Gutierrez. We will continue to monitor. 12/29-noted improvement in patient's blood pressure. We will continue hydralazine 50 mg twice a day and provide supportive measures. 12/30-the patient experienced multiple episodes of hypertension on last night. Upon review of her medication, the patient's hydroxyzine previously ordered had been changed to intravenously. We will restart hydralazine 50 mg 3 times daily at 6 AM, 2 PM, and 10 PM. Upon review of the patient's medical record, the patient had been previously on a dose of Coreg which caused palpitations and profound bradycardia. We will stop Coreg and start Isordil 20 mg twice daily and reassess in a.m. Current Visit: No (2) Aspiration into airway Status: Acute Current Visit: Yes (3) ESRD (end stage renal disease) Status: Acute Assessment and plan: The patient is experiencing persistent leukocytosis. I suspect due to the multiple episodes of nausea and vomiting that the patient could have possibly aspirated. White blood cell count is noted at 17.6. We will start Zosyn 2.225 every 12 hours. We will obtain chest x-ray now and in a.m. Current Visit: Yes Hospitalist: Subjective Interval history: Patient seen and examined. Chart reviewed. The patient has experienced multiple episodes of nausea and vomiting on last night. In addition, the patient was also noted to be grossly hypertensive. Exam - Constitutional Vitals: Period Temp Pulse Resp BP Sys/Tavares Pulse Ox Last 24 Hr 96.8 F-97.5 F 63-111 16-28 160-204/79-120 92-100 General appearance: under weight - Head Head exam: Present: normal inspection, normocephalic, atraumatic - Eye Eye exam: Present: EOMI. Absent: conjunctival injection Pupils: Present: SHERIF, normal accommodation - ENT ENT exam: Present: normal exam, normal external ear exam, normal oropharynx - Neck Neck exam: Present: normal inspection. Absent: lymphadenopathy, meningismus, tenderness, thyromegaly - Respiratory Respiratory exam: Present: clear to auscultation bilaterally. Absent: rales, rhonchi, stridor, wheezes - Cardiovascular Cardiovascular exam: Present: regular rate and rhythm. Absent: carotid bruit, diastolic murmur, gallop, JVD, rubs, systolic murmur - GI/Abdominal GI/Abdominal exam: Present: normal bowel sounds, other (Multiple episodes of nausea and vomiting noted) - Extremities Exam Extremities exam: Present: normal inspection, normal capillary refill, full ROM , other (AV fistula to the left upper extremity noted positive bruit +3; ) - Back Exam Back exam: Present: normal inspection - Neurological Exam Neurological exam: Present: alert, oriented X3, CN II-XII intact - Psychiatric Psychiatric exam: Present: normal affect, normal mood - Skin Skin exam: Present: normal color, warm, dry Results - Labs CBC & BMP: 12/30/16 07:54 12/30/16 07:54 Lab Results: I have reviewed the past 24 hour labs Specialty Discharge - Follow Up or Referrals Follow up with: Yves Gutierrez MD [Physician] - 01/09/17 1:45 pm <Jose Alberto Gomez - Last Filed: 12/30/16 11:14> Assessment and Plan (1) Leukocytosis Status: Acute Assessment and plan: This is rather persistent. Chest x-ray shows improved left basilar infiltrate from a previous one she is continuing to vomit. There is no obvious aspiration pneumonia on the right side. The patient has abdominal discomfort. CT scan may inform us more as she is going for a CT scan of the abdomen and pelvis this morning. She started on Zosyn 2.25 g IV every 12 hours Current Visit: Yes Exam - Constitutional Vitals: Period Temp Pulse Resp BP Sys/Tavares Pulse Ox Last 24 Hr 96.8 F-97.5 F 63-111 16-28 160-204/79-120 92-100 Results - Labs CBC & BMP: 12/30/16 07:54 12/30/16 07:54
--- NOTE | 2016-12-30 10:22 | XRay Report ---
Exam: XR chest 1V Date: 12/30/2016 9:22 AM Comparison: 12/28/2016 Indication: Aspiration, leukocytosis Technique:[AP sitting chest] Findings: The heart is smaller in size with stable left IJ venous dialysis catheter. Decreased parenchymal findings at the left lung base with smaller left pleural effusion. Postoperative findings in the left arm with degenerative changes. Stable mediastinum. Impression: COPD with chronic scarring. Reduced infiltration in the left lower lung zone with smaller pleural effusion. PROCEDURE INTERPRETED AT [facility] DEPARTMENT OF RADIOLOGY Final Report Signed by: Dr. Yamileth Argueta
--- NOTE | 2016-12-30 10:25 | CT Report ---
Exam: CT brain without and with contrast Date: 12/30/2016 8:43 AM History: Nausea, vomiting, headache, hypertension, dialysis patient Comparison: 10/14/2013 Technique: Sequential axial scans of the brain were obtained before and after the injection of 80 cc Omnipaque 350. Total DLP: 2023.20 Findings: The left lateral ventricle is minimally larger in size in the right. 50 mm chronic left parieto-occipital infarct. Minimal bilateral basal ganglia calcifications are noted with arterial calcifications. Additional diffuse atrophy and cerebral hypodensities. No acute infarction, area of hemorrhage, mass, extra cerebral collection, or skull pathology, or abnormal enhancement. The visualized paranasal sinuses, orbits, and temporal bones have an unremarkable appearance. Impression: No acute intracranial pathology identified. Chronic left parieto-occipital infarct with atrophy and microvascular disease. This CT exam was performed using water for the following dose reduction techniques: Automated exposure control, adjustment of the MA and/or KV according to patient size, or use of iterative reconstruction technique. PROCEDURE INTERPRETED AT [facility] DEPARTMENT OF RADIOLOGY Final Report Signed by: Dr. Yamileth Argueta
[2016-12-30] MEDS ORDERED: PIPERACILLIN/TAZOBACTAM 3,375 MG in SODIUM CHLORIDE 0.9% 100 ML IV SCH (10:30)
--- NOTE | 2016-12-30 10:32 | CT Report ---
Referring physician: Yves Gutierrez EXAM: CT abdomen and pelvis with contrast DATE: 12/30/2016 COMPARISON: None REASON: Nausea, vomiting, dialysis patient TECHNIQUE: Axial images of the abdomen and pelvis were obtained after administration of 80 cc of Omnipaque 350 IV contrast. Coronal and sagittal reformatted images were also provided. Total DLP is 512.90 mGy*cm. FINDINGS: Minimal atelectasis/infiltration at the lung bases, especially the left. Cardiomegaly with small pericardial effusion. Elongation of the right lobe of the liver with no masses or dilated ducts. Layering calcified gallstones in the dependent gallbladder location. The gallbladder is distended with minimal enhancement of the wall of the gallbladder. The spleen, pancreas and adrenal glands have an unremarkable appearance. Cortical scarring in the kidneys with decreased excretion of contrast and probable small cysts. Calcification in the wall of the nondilated abdominal aorta with no adjacent adenopathy. Diffuse arterial calcifications are noted. Small hiatal hernia with possible thickening of the wall of the stomach. No dilatation of the small bowel. Limited evaluation of bowel without oral contrast with no evidence of definite diverticulitis, appendicitis, free air, or free fluid. Retroverted atrophic uterus with no definite pelvic masses. No obvious bladder pathology is identified. Degenerative changes are noted. IMPRESSION: Minimal atelectasis/infiltration at the lung bases with cardiomegaly and small pericardial effusion. Cholelithiasis with gallbladder distention and minimal enhancement of the wall of the gallbladder. Gallbladder ultrasound and/or biliary scan with ejection fraction may be helpful for further evaluation. Cortical scarring kidneys with decreased excretion of contrast and probable small renal cysts. Extensive arterial calcifications. Small hiatal hernia with limited evaluation of bowel without oral contrast. Possible thickening of the wall of the stomach which could be related to gastritis, etc. Atrophic uterus. The CT exam was performed using one or more of the following dose reduction techniques: Automated exposure control and adjustment of the mA and/or kV according to patient size. PROCEDURE INTERPRETED AT [facility] DEPARTMENT OF RADIOLOGY Final Report Signed by: Dr. Yamileth Argueta
[2016-12-30] MEDS: CITALOPRAM 20 MG TABLET PO SCH (11:52)
[2016-12-30] MEDS: PANTOPRAZOLE 40 MG TABLET PO SCH (11:52)
[2016-12-30] MEDS: ISOSORBIDE MONONITRATE 20 MG TABLET PO SCH ×2 (11:53→21:53)
[2016-12-30] MEDS: PIPERACILLIN/TAZOBACTAM 3,375 MG in SODIUM CHLORIDE 0.9% 100 ML IV SCH ×2 (12:51→23:22)
--- NOTE | 2016-12-30 14:16 | Event Note ---
12/30/2016 1430 hrs. Patient has returned from x-ray with a CT head being normal with no area of bleed or major problems associated with the brain. CT abdomen though shows gallstones and this could well be the source of her nausea and vomiting. We will set her up for ultrasound and HIDA scan tomorrow to see if this looks significant enough for her to need surgery.
--- NOTE | 2016-12-30 15:11 | Nephrology Progress Note ---
Nephrology - PN: Subj Interval history: Patient is resting comfortably. Tolerated dialysis on yesterday. Nausea vomiting throughout the day today. Workup has shown evidence of gallstones. Blood pressure has been elevated. No fevers or chills. Exam (PN)-Nephrology - Vital Signs Vital signs: Period Temp Pulse Resp BP Sys/Tavares Pulse Ox Last 24 Hr 96.8 F-97.5 F 64-111 16-28 160-204/79-120 92-100 - General Appearance General appearance: well-developed, fatigue, frail EENT: ATNC Neck: supple Respiratory: clear Cardiology: regular rate, regular rhythm Gastrointestinal: normoactive bowel sounds, no tenderness Neurologic: alert and oriented x3 Musculoskeletal: no clubbing Psychiatric: mood/affect appropriate - Lab 12/30/16 07:54 12/30/16 07:54 Most recent lab results Calcium 9.8 MG/DL (8.5-10.1) 12/30/16 07:54 Magnesium 2.1 MG/DL (1.8-2.4) 12/29/16 02:11 Assessment and Plan (1) Hypertension Status: Chronic Current Visit: No (2) Diabetes mellitus Status: Chronic Current Visit: No Qualifiers: Diabetes mellitus type: type 2 (3) ESRD (end stage renal disease) Status: Chronic Current Visit: Yes (4) Leukocytosis Status: Acute Current Visit: Yes (5) Cholelithiasis Status: Acute Assessment and plan: Ultrasound in a.m. Current Visit: Yes Specialty Discharge - Follow Up or Referrals Follow up with: Yves Gutierrez MD [Physician] - 01/09/17 1:45 pm
[2016-12-31] MEDS: ALBUTEROL/IPRATROPIUM 3 ML NEB RESP TX SCH ×4 (01:04→19:05)
[2016-12-31 06:11] LABS: Basophils % 0.2 % (0.0-0.8); Eosinophils % 0.1 % (0.00-10.9); Hematocrit 37.2 VOL% (35.7-47.0); Hemoglobin 12.7 GM/DL (12.0-16.0); Immature Granulocytes % 0.9 %; Immature Granulocytes Absolute 0.19 #; Lymphocytes # 1.4 10*3/uL (1.4-4.0); Lymphocytes % 6.7 % (21.3-54.2); Mean Corpuscular HGB Conc 34.1 GM/DL (32-36); Mean Corpuscular Hemoglobin 30 PG (27-34); Mean Corpuscular Volume 87.7 FL (87-102); Mean Platelet Volume 9.8 FL (9.6-12.0); Monocytes # 1.6 10*3/uL (0.11-0.8); Monocytes % 7.6 % (1.7-12.7); Neutrophils # 17.5 10*3/uL (1.4-7.4); Neutrophils % 84.5 % (38.7-73.9); Platelet Count 284 T/CUMM (130-400); Red Blood Count 4.24 MC/CUMM (3.8-5.5); Red Cell Distribution Width 16.6 % (9.3-17.3); White Blood Count 20.7 T/CUMM (4-12)
[2016-12-31 06:19] LABS: INR 1.1; PT Patient Result 11.5 SECS; Partial Thromboplastin Time 29.6 SECS (0-40)
[2016-12-31 06:41] LABS: Alanine Aminotransferase < 6 U/L (13-56); Alkaline Phosphatase 114 U/L (45-117); Amylase 175 U/L (25-115); Aspartate Amino Transferase 23 U/L (0-37); Blood Urea Nitrogen 83 MG/DL (7-18); Calcium 9.6 MG/DL (8.5-10.1); Glucose 139 MG/DL (74-106); Osmolality,Calculated 286.8 MOS/KG (273-304); Potassium 3.2 MMOL/L (3.5-5.1); Sodium 130 MMOL/L (136-145); Total Protein 7.5 G/DL (6.4-8.3)
[2016-12-31 06:58] LABS: Lymphocytes 8 % (20-55); Macrocytosis 1+; Polychromasia Slight; Segmented Neutrophils 85 % (50-85); Target Cells Slight; Total Cells Counted 100
[2016-12-31 06:59] LABS: Platelet Estimate Adequate
--- NOTE | 2016-12-31 09:28 | Ultrasound Report ---
US gallbladder Indication: Nausea and vomiting. Cholelithiasis on CT. ULTRASOUND ABDOMEN, limited Comparison: 09/03/2014 Findings: Liver: Diffusely echogenic. Normal size and smooth contour without focal lesion. Gallbladder: Multiple stones and sludge are present throughout the gallbladder lumen. Positive sonographic Anderson's sign. 4 mm gallbladder wall. No pericholecystic fluid. Common bile duct: 8 mm Pancreas: Unremarkable Right kidney: 8.4 cm length. No mass, cyst, calcification or obstruction Impression: 1. Cholelithiasis with secondary findings of acute cholecystitis. 2. 8 mm common bile duct is dilated. Cannot exclude downstream obstruction. Consider ERCP or MRCP. 3. Hepatic steatosis. PROCEDURE INTERPRETED AT [facility] DEPARTMENT OF RADIOLOGY Final Report Signed by: Jordon Adams M.D.
--- NOTE | 2016-12-31 11:27 | General Surgery Progress Note ---
Assessment and Plan (1) Biliary acute pancreatitis Status: Acute Assessment and plan: We will treat the patient with complete bowel rest and IV fluids as needed. This will be a little bit challenging given her renal failure. I will consult gastroenterology for preoperative ERCP given her bile duct dilation and elevated alkaline phosphatase in the face of rising lipase. We will hold off on surgical intervention until her bile duct has been cleared for pancreatitis resolves. Current Visit: Yes Subjective Patient reports: Present: no new complaints, nausea, vomiting, afebrile Narrative: The patient started having some abdominal pain over the weekend and her nausea and vomiting persisted. She was diagnosed with biliary pancreatitis. She feels about the same today. White blood cell count is still elevated. There was no evidence of necrotizing pancreatitis or air-fluid in the pancreas. Exam - Constitutional Vitals: Period Temp Pulse Resp BP Sys/Tavares Pulse Ox Last 24 Hr 96.4 F-98.0 F 83-111 16-20 103-195/65-116 94-100 General appearance: normal weight, no acute distress - Head Head exam: Present: normal inspection, normocephalic - Eye Eye exam: Present: EOMI. Absent: scleral icterus Pupils: Present: SHERIF - ENT ENT exam: Present: normal exam Mouth exam: Present: normal external inspection, normal voice - Neck Neck exam: Present: normal inspection, trachea midline - Respiratory Respiratory exam: Present: clear to auscultation bilaterally. Absent: accessory muscle use, chest wall tenderness - Cardiovascular Cardiovascular exam: Present: RRR. Absent: systolic murmur, tachycardia - GI/Abdominal GI/Abdominal exam: Present: normal bowel sounds, tenderness (Minimal right upper quadrant tenderness), soft. Absent: rebound - Extremities Exam Extremities exam: Present: normal inspection, normal capillary refill - Back Exam Back exam: Present: normal inspection - Neurological Exam Neurological exam: Present: alert, oriented X3 Speech: Present: normal - Skin Skin exam: Present: normal color, warm Results - Labs CBC & BMP: 12/31/16 05:23 12/31/16 05:23 Quality Measures - VTE Contraindication to Pharmacological VTE Prophylaxis: High Risk of Bleeding Specialty Discharge - Follow Up or Referrals Follow up with: Yves Gutierrez MD [Physician] - 01/09/17 1:45 pm
[2016-12-31] MEDS ORDERED: DEXTROSE 50% 25 GM/50 ML VIAL IV PRN (13:03)
[2016-12-31] MEDS ORDERED: GLUCAGON 1 MG VIAL IM PRN (13:03)
--- NOTE | 2016-12-31 13:08 | Nuclear Medicine Report ---
Exam: Biliary Scan Date: 12/31/2016 Comparison: Gallbladder ultrasound 12/31/2016 Reason: Nausea and vomiting, cholelithiasis Technique: The patient was administered 5 mCi of technetium 99m Choletec IV. Images of the right upper quadrant were then acquired over 60 minutes. The patient refused to drink ensure and therefore ejection fraction was not calculated. Findings: Satisfactory filling of the distended gallbladder. No evidence of bile duct obstruction. Ejection fraction not performed due to refusal of the patient to drink ensure. Impression: Satisfactorily filling of the distended gallbladder with no bile duct obstruction. PROCEDURE INTERPRETED AT [facility] DEPARTMENT OF RADIOLOGY Final Report Signed by: Dr. Yamileth Argueta
[2016-12-31] MEDS: CITALOPRAM 20 MG TABLET PO SCH (13:10)
[2016-12-31] MEDS: ISOSORBIDE MONONITRATE 20 MG TABLET PO SCH ×2 (13:11→22:11)
[2016-12-31] MEDS: PANTOPRAZOLE 40 MG TABLET PO SCH (13:11)
[2016-12-31] MEDS: INSULIN REGULAR 100 UNIT/ML SUBCUT SCH ×3 (13:12→22:12)
[2016-12-31] MEDS: PIPERACILLIN/TAZOBACTAM 3,375 MG in SODIUM CHLORIDE 0.9% 100 ML IV SCH ×2 (13:14→22:07)
--- NOTE | 2016-12-31 13:18 | Hospitalist Progress Note ---
Assessment and Plan (1) Leukocytosis Status: Acute Assessment and plan: Patient has biliary pancreatitis likely some cholangitis. Is pending MRCP Current Visit: Yes (2) ESRD (end stage renal disease) Status: Chronic Assessment and plan: Patient is on dialysis Current Visit: Yes (3) Biliary acute pancreatitis Status: Acute Assessment and plan: Patient is currently n.p.o. been planned for MRCP to evaluate the ducts more than likely in the near future have laparoscopic cholecystectomy. Current Visit: Yes Hospitalist: Subjective Interval history: Interviewed and examined chart has been reviewed. Patient remains nauseous and vomiting. Cannot find that she has gallstone pancreatitis. Her lipase is 177 122 alkaline phosphatase of 101 14. And noticed that the surgeries on the case and GI will see the patient patient for possible endoscopic retrograde pancreatography using MRI (MRCP). Previously the gallbladder will need to come out at one point and is now n.p.o. Exam - Constitutional Vitals: Period Temp Pulse Resp BP Sys/Tavares Pulse Ox Last 24 Hr 97.1 F-98.0 F 83-111 16-20 103-195/65-104 94-100 General appearance: normal weight, mild distress - Head Head exam: Present: normocephalic - Eye Eye exam: Present: EOMI, other (Anicteric sclera no conjunctival petechia) Pupils: Present: SHERIF - ENT ENT exam: Present: normal exam - Neck Neck exam: Present: normal inspection - Respiratory Respiratory exam: Present: clear to auscultation bilaterally, other (No wheezing no rales) - Cardiovascular Cardiovascular exam: Present: regular rate and rhythm - GI/Abdominal GI/Abdominal exam: Present: normal bowel sounds, soft - Extremities Exam Extremities exam: Present: other (Asthenia but no focal neurologic deficit) - Neurological Exam Neurological exam: Present: alert, oriented X3, CN II-XII intact - Psychiatric Psychiatric exam: Present: other (Subdued affect appropriate cognitive output) - Skin Skin exam: Present: normal color, warm, dry, other (Patient has a surgical site where the AV fistula was placed in the left brachial area) Results - Labs CBC & BMP: 12/31/16 05:23 12/31/16 05:23 Lab Results: I have reviewed the past 24 hour labs (Noted hypokalemia 3.2 patient is supplemented by protocol we need to check magnesium) Quality Measures - VTE Contraindication to Pharmacological VTE Prophylaxis: High Risk of Bleeding Specialty Discharge - Follow Up or Referrals Follow up with: Yves Gutierrez MD [Physician] - 01/09/17 1:45 pm
--- NOTE | 2016-12-31 14:20 | Gastrointestinal Consult Note ---
Assessment and Plan (1) Abdominal pain Status: Acute Assessment and plan: 12/31-5 day history of abdominal pain with nausea and vomiting. Findings on CT scan and ultrasound as below. LFTs are unremarkable. Elevated lipase levels. Further plan an addendum to follow by Dr. Del Rosario. Current Visit: Yes History of Present Illness Chief complaint: Abdominal pain History of present illness: Ms. Dominguez is a 61 year old female who was admitted to the hospital on 12/26 far AV graft placement by Dr. Gutierrez. Patient is noted to also have to return back for repeat exploration of AV graft ligation. Patient has a prior history of chronic kidney disease on dialysis, hypertension, diabetes mellitus. She states that she was in her usual state of health prior to coming in for AV graft placement however shortly after this, she had a fairly sudden onset of upper abdominal pain with associated nausea vomiting. She states that the pain seems to be precipitated by meals and she is unable to keep anything down at this time. She denies any fever or chills associated with this. She states that she has never had this pain before in the past. Patient denies any recent weight loss. She denies any coffee-ground or hematemesis with the vomiting episodes. She denies any melena or hematochezia. She had abdominal CT on yesterday with findings of cholelithiasis with gallbladder distention. She also was found to have 8 mm common bile duct without ability to exclude downstream obstruction. Multiple stones and sludge are seen in the gallbladder lumen. Findings also mention of hepatic steatosis. Patient also found to have elevated lipase levels at 1722 however transaminases are unremarkable. Home Medications Medication Instructions Recorded Confirmed Type Citalopram [CeleXA] 20 mg PO DAILY 09/03/14 12/26/16 History cloNIDine TAB [Catapres Tab] 0.2 mg PO BID 09/03/14 12/26/16 History Insulin Glargine [Lantus] 50 unit SUBCUT DAILY 09/05/16 12/26/16 History Insulin Glargine,Hum.rec.anlog 20 unit SUBCUT BID 09/05/16 12/26/16 History [Cole Almodovar] Furosemide Tab [Lasix Tab] 40 mg PO BID DIURETIC #60 tablet 09/07/16 12/26/16 Rx Carvedilol 12.5 mg PO DAILY 11/28/16 12/26/16 History HYDROcodone/ACETAMIN 7.5-325 1 tablet PO Q4H PRN #10 tablet 12/26/16 Rx [[place] 7.5-325] Allergies Allergy/AdvReac Type Severity Reaction Status Date / Time No Known Allergies Allergy Verified 12/12/16 14:58 Medical,Surgical,& Family Hx - Medical History Cardio: History of: Hypertension Psychological: History of: Depression Neurology: History of: Cerebrovascular Accident (X3 2015 left sided weakness), Migraine (OCCASIONAL) No history of: Seizures HEENT: History of: Eye Problem (GLASSES), Dental Problems (MISSING TEETH) Endocrine: History of: Diabetes Mellitus (IDDM), Dyslipidemia Respiratory: No history of: Respiratory Problems (FLU VAC- YES; PNEU VAC- YES.) Renal: History of: Dialysis (T, ,SAT), Renal Failure (DR COOPER), Renal Problems (1 kidney) Gastrointestinal: History of: GERD, GI Problems (dysphagia, gerd) - Surgical History Thoracic Surgeries: Surgical HX of;: Kidney (Renal Surgery) Abdominal Surgeries: Surgical HX of: EGD Patient denies: Abdominal Surgery Reproductive Surgeries: Surgical HX of;: Genitourinary Surgery, Gynecologic Surgery, Tubal Ligation - Social History Smoking Status: Current every day smoker Frequency of Alcohol Use: None Type of Drug Use: None 12 point system: reviewed and no additional remarkable complaints except as stated - Constitutional Constitutional: Present: as per HPI - EENT Eyes: Present: as per HPI Ears: Present: as per HPI Nose, mouth and throat: Present: as per HPI - Cardiovascular Cardiovascular: Present: as per HPI - Respiratory Respiratory: Present: as per HPI - Gastrointestinal Gastrointestinal: Present: as per HPI, abdominal pain, nausea, vomiting - Genitourinary Genitourinary: Present: as per HPI - Musculoskeletal Musculoskeletal: Present: as per HPI - Neurological Neurological: Present: as per HPI - Psychiatric Psychiatric: Present: as per HPI - Endocrine Endocrine: Present: as per HPI - Hematologic/Lymphatic Hematologic/Lymphatic: Present: as per HPI Exam - Constitutional Vitals: Period Temp Pulse Resp BP Sys/Tavares Pulse Ox Last 24 Hr 97.1 F-98.0 F 83-113 18-20 103-195/65-104 94-100 General appearance: normal weight, no acute distress - Head Head exam: Present: normal inspection, normocephalic - Eye Eye exam: Present: other (Lids and conjunctive are unremarkable). Absent: scleral icterus - ENT ENT exam: Present: normal exam, normal oropharynx - Neck Neck exam: Present: normal inspection - Respiratory Respiratory exam: Present: clear to auscultation bilaterally. Absent: rales, rhonchi, wheezes - Cardiovascular Cardiovascular exam: Present: regular rate and rhythm. Absent: diastolic murmur , JVD, systolic murmur - GI/Abdominal GI/Abdominal exam: Present: normal bowel sounds, soft. Absent: ascites, distended, mass, organomegaly, tenderness - Extremities Exam Extremities exam: Present: normal inspection, full ROM - Back Exam Back exam: Present: normal inspection - Neurological Exam Neurological exam: Present: alert, oriented X3 - Psychiatric Psychiatric exam: Present: normal affect, normal mood - Skin Skin exam: Present: normal color, warm, dry Results - Labs CBC & BMP: 12/31/16 05:23 12/31/16 05:23 Lab Results: I have reviewed the past 24 hour labs - Diagnostic Findings Procedure: CT Abdomen and Pelvis: report reviewed by me, Ultrasound: report reviewed by me Quality Measures - VTE Contraindication to Pharmacological VTE Prophylaxis: High Risk of Bleeding Specialty Discharge - Follow Up or Referrals Follow up with: Yves Gutierrez MD [Physician] - 01/09/17 1:45 pm
--- NOTE | 2016-12-31 22:22 | Nephrology Progress Note ---
Nephrology - PN: Subj Interval history: She has had abdominal pain and nausea over the weekend. Ultrasound shows cholelithiasis. No shortness of breath. Exam (PN)-Nephrology - Vital Signs Vital signs: Period Temp Pulse Resp BP Sys/Tavares Pulse Ox Last 24 Hr 97.1 F-97.5 F 83-113 17-21 103-167/62-98 92-99 Exam: Gen.: Alert and oriented x3. ENT: Pupils equal round reactive to light. EOMs intact. Neck: Supple. No JVD or bruit. Cardiovascular: Regular rate and rhythm. No murmur rub or gallop Lungs: Clear Abdomen: Soft. Mild right upper quadrant tenderness Extremities: No edema - Lab 12/31/16 05:23 12/31/16 05:23 Most recent lab results Calcium 9.6 MG/DL (8.5-10.1) 12/31/16 05:23 Magnesium 2.6 MG/DL (1.8-2.4) H 12/31/16 05:17 Assessment and Plan (1) ESRD (end stage renal disease) Status: Chronic Assessment and plan: 61-year-old woman with: * ESRD. 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 It has been ligated * Diabetes mellitus * Aspiration * Hypertension. Improved control * Anemia. Posttransfusion * Cholelithiasis with pancreatitis. ERCP tomorrow Current Visit: Yes (2) Aspiration into airway Status: Acute Current Visit: Yes (3) Cerebrovascular disease Status: Chronic Current Visit: No (4) Diabetes mellitus Status: Chronic Current Visit: No Qualifiers: Diabetes mellitus type: type 2 (5) Hypertension Status: Chronic Current Visit: No Specialty Discharge - Follow Up or Referrals Follow up with: Yves Gutierrez MD [Physician] - 01/09/17 1:45 pm
[2017-01-01] MEDS: ALBUTEROL/IPRATROPIUM 3 ML NEB RESP TX SCH ×4 (00:26→19:03)
[2017-01-01] MEDS: DEXTROSE 50% 25 GM/50 ML SYRINGE IV PRN (04:32)
[2017-01-01] MEDS ORDERED: DEXAMETHASONE 10 MG/1 ML VIAL ONE (07:50)
[2017-01-01] MEDS ORDERED: NEOSTIGMINE 10 MG/10 ML VIAL ONE (07:50)
[2017-01-01] MEDS ORDERED: ROCURONIUM 100 MG/10 ML VIAL IV ONE (07:50)
[2017-01-01] MEDS ORDERED: PROPOFOL 200 MG/20 ML VIAL IV ONE (07:50)
[2017-01-01] MEDS ORDERED: SUCCINYLCHOLINE 200 MG/10 ML VIAL ONE (07:50)
[2017-01-01] MEDS ORDERED: LIDOCAINE 2% 5 ML VIAL ONE (07:50)
[2017-01-01] MEDS ORDERED: PHENYLEPHRINE 50 MG/5 ML VIAL ONE (07:50)
--- NOTE | 2017-01-01 08:01 | Event Note ---
General Surgery Progress Note Chief complaint This patient is a 61-year-old woman admitted following left upper arm AV graft complicated by severe hand pain which was treated with arteriogram and ligation of left upper arm AV graft on 12/26/2016 Interval history No events overnight. Patient remains nauseated. Plans are in process for ERCP today. Physical exam Afebrile, the patient is severely hypertensive but otherwise her vital signs are unremarkable. Chest is clear Heart is regular Abdomen is soft and nondistended. Normal bowel sounds. The abdomen is minimally tender to palpation in the right upper quadrant Left arm with no infection and palpable pulse in the left wrist Labs Reviewed Imaging None new Assessment and plan Plan for ERCP today The patient will benefit from interval cholecystectomy after ERCP and after her pancreatitis has resolved. I have discussed the risks, benefits, and alternatives of laparoscopic cholecystectomy with the patient, and the expected outcomes have been reviewed. I have also discussed the possibility of open cholecystectomy if needed. In particular, I discussed the risk of bleeding, infection, hernias of the abdominal wall, injury to the intestines or liver, pancreatitis, dropped or retained stones in the abdomen, bile leak, and bile duct injury. The patient's questions have been answered.
--- NOTE | 2017-01-01 08:17 | History and Physical Update ---
History and Physical Update - History and Physical H&P was reviewed, the patient examined and there: are no changes in the patients condition since last H&P was completed. - Physical Exam Mental Status: alert and oriented Heart: regular rate and rhythm Lung: clear to auscultation Abdomen: within normal limits Vitals: within normal limits
[2017-01-01] MEDS ORDERED: GLUCAGON 1 MG VIAL ONE (08:35)
--- NOTE | 2017-01-01 09:14 | Operative Note ---
Date of procedure: 01/01/17 Pre-op diagnosis: Gallstone pancreatitis, dilated common bile duct Procedure: Procedure: Endoscopic retrograde cholangiopancreatography with common bile duct sphincterotomy Brief clinical abstract: Patient is a 61-year-old female with multiple medical problems. She has had a gallstone pancreatitis episode this admission with dilated common bile duct and cholelithiasis noted on ultrasound. Liver tests were notable only for mild alkaline phosphatase elevation. Procedure findings: After informed consent was obtained, patient was placed in the prone position. Diagnostic video duodenoscope was inserted into the upper esophagus in blind fashion with no resistance encountered. Esophageal mucosa appeared normal. Stomach was examined including retroflex view with no abnormality seen. The pyloric channel, duodenal bulb, second and third portion of the duodenum including the appearance of the ampulla were normal. Sphincterotome was used and initially pancreatogram obtained. Pancreatic duct was moderately ectatic with ductal diameter in the head around 4 mm but no obstructive lesions were seen. Caliber of the main pancreatic duct and side branches appeared normal. The endoscope was repositioned. Cholangiogram was obtained. Right and left intrahepatic systems were normal. Common bile duct and common hepatic duct were moderately dilated to 9-10 mm maximally. No obvious filling defects were seen. There was a small submucosal injection near the ampulla which limited visibility in the distal common bile duct. Deep cannulation of common bile duct was achieved. I elected to do a common bile duct sphincterotomy given dilated bile duct and inability to completely visualize distal common bile duct with the submucosal injection. An approximately 1 cm common bile duct sphincterotomy was performed over a 0.035 inch guidewire located in the bile duct. No bleeding was noted from the sphincterotomy site. The sphincterotome was removed leaving the guidewire in place. 10 mm occlusion balloon was advanced into the proximal common hepatic duct this was dragged distally. A few sand-like fragments of sludge material were noted on the balloon with initial passage into the duodenum. 2 other passes were made dragging the bile duct with no other significant stones/sludge material seen. There was excellent drainage through the sphincterotomy opening afterwards. The cystic duct never filled during the procedure. The endoscope was removed. She appeared to tolerate the procedure well. Impression: #1 small amount of common bile duct sludge removed with occlusion balloon #2 dilated common bile duct #3 nonfilling of cystic duct-? Occluded #4 ectatic pancreatic duct Recommendations: Cholecystectomy as planned. Anesthesia: GETA Surgeon / Physician: Urban Del Rosario Estimated blood loss: none Specimens: none sent Condition: stable Disposition: post procedure unit Results - Labs CBC & BMP: 12/31/16 05:23 12/31/16 05:23 Discharge Plan - Discharge Medications New HYDROcodone/ACETAMIN 7.5-325 [[place] 7.5-325] 1 tablet PO Q4H PRN #10 tablet PRN Reason: Pain Continue cloNIDine TAB [Catapres Tab] 0.2 mg PO BID Citalopram [CeleXA] 20 mg PO DAILY Insulin Glargine,Hum.rec.anlog [[place] SoloStar] 20 unit SUBCUT BID Furosemide Tab [Lasix Tab] 40 mg PO BID DIURETIC #60 tablet Insulin Glargine [Lantus] 50 unit SUBCUT DAILY Carvedilol 12.5 mg PO DAILY - Follow Up or Referral Follow Up: Yves Gutierrez MD [Physician] - 01/09/17 1:45 pm - Forms/Instructions Instructions: Petar AV graft fistula
--- NOTE | 2017-01-01 09:33 | Anesthesia Post-Op ---
Anesthesia Post OP - Post Ansesthetic Evaluation Patient seen in post op: Yes Resp: within normal limits CV: within normal limits Mental: within normal limits Temp: within normal limits [id number]: within normal limits Nausea and Vomiting: within normal limits Pain: within normal limits
--- NOTE | 2017-01-01 09:58 | Fluoroscopy Report ---
[place] ERCP w sphincterotomy Indication: Acute pancreatitis. Gallstones. ERCP: Fluoroscopy time 10.27 minutes. 20 images captured in total. Initial contrast injection opacifies the pancreatic duct which shows a small filling defect distally near the confluence of the common bile duct, present only a small stone. Pancreatic duct is not dilated. Balloon sweep of the distal pancreatic duct is then performed. Retrograde filling of the common bile duct shows no persistent filling defects after balloon sweep of the CHD and CBD. No dilation, strictures or masses shown. Impression: Balloon sweep of both the distal pancreatic duct and common hepatic and common bile ducts. No residual stones identified. PROCEDURE INTERPRETED AT [facility] DEPARTMENT OF RADIOLOGY Final Report Signed by: Jordon Adams M.D.
[2017-01-01] MEDS: PIPERACILLIN/TAZOBACTAM 3,375 MG in SODIUM CHLORIDE 0.9% 100 ML IV SCH ×2 (12:01→22:06)
[2017-01-01] MEDS: PANTOPRAZOLE 40 MG TABLET PO SCH (12:06)
[2017-01-01] MEDS: CITALOPRAM 20 MG TABLET PO SCH (12:06)
[2017-01-01] MEDS: ISOSORBIDE MONONITRATE 20 MG TABLET PO SCH ×2 (12:06→22:18)
--- NOTE | 2017-01-01 12:30 | Hospitalist Progress Note ---
Assessment and Plan (1) Leukocytosis Status: Acute Assessment and plan: Patient has biliary pancreatitis likely some cholangitis. Patient has a sludge taken out on ERCP this morning. Continue to follow clinically Current Visit: Yes (2) ESRD (end stage renal disease) Status: Chronic Assessment and plan: Patient is on dialysis Current Visit: Yes (3) Biliary acute pancreatitis Status: Acute Assessment and plan: Patient is currently n.p.o. been planned for MRCP to evaluate the ducts more than likely in the near future have laparoscopic cholecystectomy. 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 Patient should have a venous Doppler to rule out DVT. Check a d-dimer Current Visit: Yes Hospitalist: Subjective Interval history: Patient is seen interviewed and examined and chart has been reviewed. Patient has been seen after ERCP. she is still complaining of being nauseous. Also noticed that the right upper extremity is swollen. Swelling all the way from the hand into the brachial areas I will order an ultrasound to rule out DVT. Patient admitted to the hospital end-stage renal disease had an AV fistula placed and subsequently developed distal arterial steal. Patient is on dialysis. She also has a cholecystitis with cholelithiasis and they undergone ERCP today with the finding of sludge in the common bile duct. Reportedly this was clean. Has had a leukocytosis this has not resolved. Today the total white count of 20,700 and neutrophilia. I will broaden the antibiotics with addition of vancomycin to P penicillin tazobactam. Will consult pharmacy for management of vancomycin dosing on pharmacokinetics. On and off she has had hypokalemia there that is associated with hyponatremia 1 30 mmol/L chloride of 8 and 9 which is suspect is due to her nonstop vomiting she does have elevated lipase ingesting gallstone pancreatitis. Surgery is on the case and GI is on the case. Exam - Constitutional Vitals: Period Temp Pulse Resp BP Sys/Tavares Pulse Ox Last 24 Hr 96.3 F-97.9 F 63-113 14-21 79-167/44-98 92-100 General appearance: normal weight, mild distress - Head Head exam: Present: normocephalic, atraumatic - Eye Eye exam: Present: EOMI, other (Anicteric sclera no conjunctival petechia) Pupils: Present: SEHRIF - Respiratory Respiratory exam: Present: clear to auscultation bilaterally - Cardiovascular Cardiovascular exam: Present: regular rate and rhythm - GI/Abdominal GI/Abdominal exam: Present: normal bowel sounds, soft - Extremities Exam Extremities exam: Present: full ROM, other (Generalized) - Neurological Exam Neurological exam: Present: alert, oriented X3, CN II-XII intact - Psychiatric Psychiatric exam: Present: other - Skin Skin exam: Present: normal color (Subdued affect and weak), warm, dry, other ( She has an area of surgery on the left brachium) Results - Labs CBC & BMP: 12/31/16 05:23 12/31/16 05:23 Lab Results: I have reviewed the past 24 hour labs (Persistent leukocytosis a history of cholecystitis and cholangitis status post ERCP patient also has elevated lipase. I notice hypokalemia and mild hyponatremia. Potassium was supplemented per protocol) Quality Measures - VTE Contraindication to Pharmacological VTE Prophylaxis: High Risk of Bleeding Specialty Discharge - Follow Up or Referrals Follow up with: Yves Gutierrez MD [Physician] - 01/09/17 1:45 pm
[2017-01-01] MEDS: INSULIN REGULAR 100 UNIT/ML SUBCUT SCH ×4 (13:30→22:18)
[2017-01-01] MEDS ORDERED: VANCOMYCIN INJ 750 MG in SODIUM CHLORIDE 0.9% 250 ML IV PRN (14:41)
[2017-01-01] MEDS ORDERED: SODIUM CHLORIDE 0.9% 250 ML IV ONE (14:59)
[2017-01-01] MEDS ORDERED: SEVOFLURANE 1 UNIT/15 MINUTE INH ONE (14:59)
[2017-01-01] MEDS ORDERED: VANCOMYCIN INJ 1,250 MG in SODIUM CHLORIDE 0.9% 250 ML IV ONE (15:00)
[2017-01-01] MEDS ORDERED: VANCOMYCIN INJ 500 MG in SODIUM CHLORIDE 0.9% 250 ML IV PRN (15:00)
[2017-01-01] MEDS ORDERED: VANCOMYCIN INJ 750 MG in SODIUM CHLORIDE 0.9% 250 ML IV ONE (15:00)
--- NOTE | 2017-01-01 15:06 | Ultrasound Report ---
Right upper extremity venous Doppler. Indication: Pain and swelling. Right upper extremity venous Doppler. Indication: Pain and swelling. Grayscale, color-flow, and spectral analysis performed and interpreted. There is occlusive thrombus present within the jugular vein, basilic vein and proximal brachial vein. The second brachial vein is patent. The cephalic vein is not identified. The axillary vein is patent. Impression: Multifocal occlusive thrombus involving the right jugular vein, the basilic vein, and the proximal brachial vein. The Ultrasound images were captured and stored. PROCEDURE INTERPRETED AT [facility] DEPARTMENT OF RADIOLOGY Final Report Signed by: Dr. Rosa Maria Garcia
--- NOTE | 2017-01-01 18:08 | Nephrology Progress Note ---
Nephrology - PN: Subj Interval history: She was seen just after ERCP completed. She is still mildly sedated. She denies shortness of breath. She still has nausea Exam (PN)-Nephrology - Vital Signs Vital signs: Period Temp Pulse Resp BP Sys/Tavares Pulse Ox Last 24 Hr 96.3 F-97.9 F 63-101 14-21 79-152/44-76 92-100 Exam: ENT: Normal Cardiovascular: Regular rate and rhythm. No murmur rub or gallop Lungs: Clear Extremities: No edema - Lab 12/31/16 05:23 12/31/16 05:23 Most recent lab results Calcium 9.6 MG/DL (8.5-10.1) 12/31/16 05:23 Magnesium 2.6 MG/DL (1.8-2.4) H 12/31/16 05:17 Assessment and Plan (1) ESRD (end stage renal disease) Status: Chronic Assessment and plan: 61-year-old woman with: * ESRD. 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 It has been ligated * Diabetes mellitus * Aspiration * Hypertension. Improved control * Anemia. Posttransfusion * Cholelithiasis with pancreatitis. ERCP today Current Visit: Yes (2) Aspiration into airway Status: Acute Current Visit: Yes (3) Cerebrovascular disease Status: Chronic Current Visit: No (4) Diabetes mellitus Status: Chronic Current Visit: No Qualifiers: Diabetes mellitus type: type 2 (5) Hypertension Status: Chronic Current Visit: No Specialty Discharge - Follow Up or Referrals Follow up with: Yves Gutierrez MD [Physician] - 01/09/17 1:45 pm
[2017-01-01] MEDS: ONDANSETRON 4 MG/2 ML VIAL IV PRN (22:06)
[2017-01-02] MEDS: ALBUTEROL/IPRATROPIUM 3 ML NEB RESP TX SCH ×4 (00:20→19:35)
[2017-01-02] MEDS: PROMETHAZINE 25 MG/1 ML VIAL IM PRN ×2 (01:36→08:55)
[2017-01-02] MEDS: ONDANSETRON 4 MG/2 ML VIAL IV PRN ×2 (05:05→14:05)
[2017-01-02 05:31] LABS: Basophils % 0.2 % (0.0-0.8); Hematocrit 29.9 VOL% (35.7-47.0); Hemoglobin 10.2 GM/DL (12.0-16.0); Immature Granulocytes % 2.8 %; Immature Granulocytes Absolute 0.56 #; Lymphocytes # 1.5 10*3/uL (1.4-4.0); Lymphocytes % 7.4 % (21.3-54.2); Mean Corpuscular HGB Conc 34.1 GM/DL (32-36); Mean Corpuscular Hemoglobin 30 PG (27-34); Mean Platelet Volume 9.9 FL (9.6-12.0); Monocytes # 2.1 10*3/uL (0.11-0.8); Monocytes % 10.6 % (1.7-12.7); Neutrophils # 15.6 10*3/uL (1.4-7.4); Platelet Count 295 T/CUMM (130-400); Red Blood Count 3.36 MC/CUMM (3.8-5.5); Red Cell Distribution Width 15.9 % (9.3-17.3); White Blood Count 19.8 T/CUMM (4-12)
[2017-01-02 05:58] LABS: Band Neutrophils 2 % (0-10); Giant Platelets Few; Hypochromasia Slight; Lymphocytes 6 % (20-55); Ovalocytes Slight; Platelet Estimate Adequate; Segmented Neutrophils 87 % (50-85); Total Cells Counted 100
[2017-01-02 05:59] LABS: Microcytosis Slight
[2017-01-02 06:18] LABS: Albumin 2.8 G/DL (3.4-5.0); Bilirubin,Total 0.7 MG/DL (0.2-1.0); Calcium 9.1 MG/DL (8.5-10.1); Osmolality,Calculated 290.2 MOS/KG (273-304); Potassium 3.5 MMOL/L (3.5-5.1); Total Protein 6.5 G/DL (6.4-8.3)
--- NOTE | 2017-01-02 08:28 | General Surgery Progress Note ---
Assessment and Plan (1) Biliary acute pancreatitis Status: Acute Assessment and plan: This patient has resolving pancreatitis clinically with her lipase went up today. I think it be better to wait another day prior to cholecystectomy to allow her pancreatic inflammation to calm down. We will repeat her labs tomorrow and plan for surgery tomorrow if she is improving on her serology. This was discussed with the patient and her in the room. Current Visit: Yes Subjective Patient reports: Present: no new complaints, pain is less, nausea, afebrile. Absent: vomiting Exam - Constitutional Vitals: Period Temp Pulse Resp BP Sys/Tavares Pulse Ox Last 24 Hr 96.5 F-98.0 F 63-99 14-22 85-152/49-91 95-100 General appearance: normal weight, no acute distress - Head Head exam: Present: normal inspection, normocephalic - Eye Eye exam: Present: EOMI. Absent: scleral icterus Pupils: Present: SHERIF - ENT ENT exam: Present: normal exam Mouth exam: Present: normal external inspection, normal voice - Neck Neck exam: Present: normal inspection, trachea midline - Respiratory Respiratory exam: Present: clear to auscultation bilaterally. Absent: accessory muscle use, chest wall tenderness - Cardiovascular Cardiovascular exam: Present: RRR. Absent: systolic murmur, tachycardia - GI/Abdominal GI/Abdominal exam: Present: tenderness (There is some right upper quadrant tenderness present), soft. Absent: rebound - Extremities Exam Extremities exam: Present: normal inspection, normal capillary refill - Back Exam Back exam: Present: normal inspection - Neurological Exam Neurological exam: Present: alert, oriented X3 Speech: Present: normal - Skin Skin exam: Present: normal color, warm Results - Labs CBC & BMP: 01/02/17 04:27 01/02/17 04:27 Quality Measures - VTE Contraindication to Pharmacological VTE Prophylaxis: High Risk of Bleeding Specialty Discharge - Follow Up or Referrals Follow up with: Yves Gutierrez MD [Physician] - 01/09/17 1:45 pm
[2017-01-02] MEDS: CITALOPRAM 20 MG TABLET PO SCH (08:51)
[2017-01-02] MEDS: PANTOPRAZOLE 40 MG TABLET PO SCH (08:51)
[2017-01-02] MEDS: INSULIN REGULAR 100 UNIT/ML SUBCUT SCH ×4 (08:51→21:09)
[2017-01-02] MEDS: ISOSORBIDE MONONITRATE 20 MG TABLET PO SCH ×2 (08:51→21:08)
[2017-01-02] MEDS: PIPERACILLIN/TAZOBACTAM 3,375 MG in SODIUM CHLORIDE 0.9% 100 ML IV SCH ×2 (09:03→21:02)
--- NOTE | 2017-01-02 09:58 | Gastrointestinal Progress Note ---
Assessment and Plan (1) Abdominal pain Status: Acute Assessment and plan: 01/02-ERCP findings noted. Lipase elevated today. For tentative cholecystectomy tomorrow. Plan an addendum to follow Dr. Del Rosario. 12/31-5 day history of abdominal pain with nausea and vomiting. Findings on CT scan and ultrasound as below. LFTs are unremarkable. Elevated lipase levels. Further plan an addendum to follow by Dr. Del Rosario. Current Visit: Yes Gastroenterology - PN: Subj Interval history: CC: Gallstone pancreatitis Patient is seen awake and alert with family at bedside. States that she rested fairly well last night. States her pain is more controlled at this time denies any nausea or vomiting. ERCP findings noted on yesterday. Patient is tentatively scheduled for cholecystectomy on tomorrow. Lipase levels noted to be elevated today at 3454. Also noted to have a drop in her H&H today at 03/17 without overt bleeding. Abdomen soft, nontender ROS: Denies chest pain or shortness of breath Exam (Progress Note) - Constitutional Vitals: Period Temp Pulse Resp BP Sys/Tavares Pulse Ox Last 24 Hr 96.5 F-98.0 F 64-99 14-22 85-147/49-91 95-100 General appearance: normal weight, no acute distress - Head Head exam: Present: normal inspection, normocephalic - Eye Eye exam: Present: other (Lids and conjunctivae are unremarkable). Absent: scleral icterus - ENT ENT exam: Present: normal exam, normal oropharynx - Neck Neck exam: Present: normal inspection - Respiratory Respiratory exam: Present: clear to auscultation bilaterally. Absent: rales, rhonchi, wheezes - Cardiovascular Cardiovascular exam: Present: regular rate and rhythm. Absent: diastolic murmur , JVD, systolic murmur - GI/Abdominal GI/Abdominal exam: Present: normal bowel sounds, soft. Absent: ascites, distended, mass, organomegaly, tenderness - Extremities Exam Extremities exam: Present: normal inspection, full ROM - Back Exam Back exam: Present: normal inspection - Neurological Exam Neurological exam: Present: alert, oriented X3 - Psychiatric Psychiatric exam: Present: normal affect, normal mood - Skin Skin exam: Present: normal color, warm, dry Results - Labs CBC & BMP: 01/02/17 04:27 01/02/17 04:27 Lab Results: I have reviewed the past 24 hour labs Specialty Discharge - Follow Up or Referrals Follow up with: Yves Gutierrez MD [Physician] - 01/09/17 1:45 pm
--- NOTE | 2017-01-02 17:07 | Nephrology Progress Note ---
Nephrology - PN: Subj Interval history: Mild nausea but no abdominal pain at present. No shortness of breath Exam (PN)-Nephrology - Vital Signs Vital signs: Period Temp Pulse Resp BP Sys/Tavares Pulse Ox Last 24 Hr 96.5 F-98.0 F 70-99 16-24 110-147/73-91 95-100 Exam: ENT: Normal Cardiovascular: Regular rate and rhythm. No murmur rub or gallop Lungs: Clear Abdomen: Mild left upper quadrant tenderness Extremities: No edema - Lab 01/02/17 04:27 01/02/17 04:27 Most recent lab results Calcium 9.1 MG/DL (8.5-10.1) 01/02/17 04:27 Magnesium 2.6 MG/DL (1.8-2.4) H 12/31/16 05:17 Assessment and Plan (1) ESRD (end stage renal disease) Status: Chronic Assessment and plan: 61-year-old woman with: * ESRD. 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 It has been ligated * Diabetes mellitus * Aspiration * Hypertension. Improved control * Anemia. Posttransfusion * Cholelithiasis with pancreatitis. Probable cholecystectomy tomorrow Current Visit: Yes (2) Aspiration into airway Status: Acute Current Visit: Yes (3) Cerebrovascular disease Status: Chronic Current Visit: No (4) Diabetes mellitus Status: Chronic Current Visit: No Qualifiers: Diabetes mellitus type: type 2 (5) Hypertension Status: Chronic Current Visit: No Specialty Discharge - Follow Up or Referrals Follow up with: Yves Gutierrez MD [Physician] - 01/09/17 1:45 pm
[2017-01-02] MEDS: DEXTROSE 50% 25 GM/50 ML SYRINGE IV PRN (18:48)
[2017-01-03] MEDS: ALBUTEROL/IPRATROPIUM 3 ML NEB RESP TX SCH ×4 (00:50→19:51)
[2017-01-03] MEDS: ONDANSETRON 4 MG/2 ML VIAL IV PRN ×2 (05:48→13:30)
[2017-01-03 07:24] LABS: Basophils % 0.1 % (0.0-0.8); Eosinophils % 0.2 % (0.00-10.9); Hematocrit 29.6 VOL% (35.7-47.0); Hemoglobin 9.9 GM/DL (12.0-16.0); Immature Granulocytes % 1.3 %; Immature Granulocytes Absolute 0.21 #; Lymphocytes # 1.7 10*3/uL (1.4-4.0); Lymphocytes % 10.4 % (21.3-54.2); Mean Corpuscular HGB Conc 33.4 GM/DL (32-36); Mean Corpuscular Hemoglobin 30 PG (27-34); Mean Platelet Volume 10.3 FL (9.6-12.0); Monocytes # 1.8 10*3/uL (0.11-0.8); Monocytes % 11.2 % (1.7-12.7); Neutrophils # 12.6 10*3/uL (1.4-7.4); Neutrophils % 76.8 % (38.7-73.9); Platelet Count 333 T/CUMM (130-400); Red Blood Count 3.29 MC/CUMM (3.8-5.5); Red Cell Distribution Width 16.2 % (9.3-17.3); White Blood Count 16.4 T/CUMM (4-12)
--- NOTE | 2017-01-03 07:33 | Hospitalist Progress Note ---
Assessment and Plan (1) Hypertension Status: Chronic Assessment and plan: Home medications Current Visit: No (2) Diabetes mellitus Status: Chronic Current Visit: No Qualifiers: Diabetes mellitus type: type 2 (3) ESRD (end stage renal disease) Status: Chronic Assessment and plan: Nephrology Current Visit: Yes (4) Biliary acute pancreatitis Status: Acute Assessment and plan: Cholecystectomy tomorrow Current Visit: Yes (5) Abdominal pain Status: Acute Current Visit: Yes Hospitalist: Subjective Interval history: No acute events overnight. Patient reports nausea and vomiting, still unable to keep food down. Exam - Constitutional Vitals: Period Temp Pulse Resp BP Sys/Tavares Pulse Ox Last 24 Hr 96.5 F-98.7 F 73-99 16-24 116-147/56-91 95-100 General appearance: normal weight - Head Head exam: Present: normocephalic, atraumatic - Eye Eye exam: Present: EOMI Pupils: Present: SHERIF - ENT ENT exam: Present: normal exam - Neck Neck exam: Present: normal inspection - Respiratory Respiratory exam: Present: clear to auscultation bilaterally - Cardiovascular Cardiovascular exam: Present: regular rate and rhythm - GI/Abdominal GI/Abdominal exam: Present: normal bowel sounds, soft. Absent: tenderness, rebound - Extremities Exam Extremities exam: Present: normal inspection - Back Exam Back exam: Present: normal inspection - Neurological Exam Neurological exam: Present: alert, oriented X3 - Psychiatric Psychiatric exam: Present: normal affect, normal mood - Skin Skin exam: Present: warm, intact Results - Labs CBC & BMP: 01/03/17 06:07 01/02/17 04:27 Quality Measures - VTE Contraindication to Pharmacological VTE Prophylaxis: High Risk of Bleeding Specialty Discharge - Follow Up or Referrals Follow up with: Yves Gutierrez MD [Physician] - 01/09/17 1:45 pm
[2017-01-03 08:09] LABS: Albumin 2.7 G/DL (3.4-5.0); Bilirubin,Total 0.5 MG/DL (0.2-1.0); Calcium 8.9 MG/DL (8.5-10.1); Osmolality,Calculated 297.1 MOS/KG (273-304); Potassium 3.6 MMOL/L (3.5-5.1); Total Protein 6.4 G/DL (6.4-8.3)
[2017-01-03] MEDS: INSULIN REGULAR 100 UNIT/ML SUBCUT SCH ×4 (08:25→21:29)
--- NOTE | 2017-01-03 08:49 | Gastrointestinal Progress Note ---
Assessment and Plan (1) Abdominal pain Status: Acute Assessment and plan: 01/03-lipase level up slightly at 3961. Continued abdominal tenderness with nausea and vomiting. For cholecystectomy this morning following dialysis. Plan an addendum to followed by Dr. Del Rosario. 01/02-ERCP findings noted. Lipase elevated today. For tentative cholecystectomy tomorrow. Plan an addendum to follow Dr. Del Rosario. 12/31-5 day history of abdominal pain with nausea and vomiting. Findings on CT scan and ultrasound as below. LFTs are unremarkable. Elevated lipase levels. Further plan an addendum to follow by Dr. Del Rosario. Current Visit: Yes Gastroenterology - PN: Subj Interval history: CC: Abdominal pain Patient is seen, awake and alert, however not feeling well today. She is having continued episodes of nausea and vomiting. She also is complaining of some upper quadrant pain. She is scheduled for the cholecystectomy today however she must go to dialysis prior to this. Lipase levels are at 3961 today. H&H is holding at 02/15. Abdomen is soft, mildly tender to palpation. ROS: Denies shortness of breath or chest pain Exam (Progress Note) - Constitutional Vitals: Period Temp Pulse Resp BP Sys/Tavares Pulse Ox Last 24 Hr 96.5 F-98.7 F 73-105 16-24 116-163/56-83 95-100 General appearance: normal weight, no acute distress - Head Head exam: Present: normal inspection, normocephalic - Eye Eye exam: Present: other (Lids and conjunctivae are unremarkable). Absent: scleral icterus - ENT ENT exam: Present: normal exam, normal oropharynx - Neck Neck exam: Present: normal inspection - Respiratory Respiratory exam: Present: clear to auscultation bilaterally. Absent: rales, rhonchi, wheezes - Cardiovascular Cardiovascular exam: Present: regular rate and rhythm. Absent: diastolic murmur , JVD, systolic murmur - GI/Abdominal GI/Abdominal exam: Present: normal bowel sounds, soft. Absent: ascites, distended, mass, organomegaly, tenderness - Extremities Exam Extremities exam: Present: normal inspection, full ROM - Back Exam Back exam: Present: normal inspection - Neurological Exam Neurological exam: Present: alert, oriented X3 - Psychiatric Psychiatric exam: Present: normal affect, normal mood - Skin Skin exam: Present: normal color, warm, dry Results - Labs CBC & BMP: 01/03/17 06:07 01/03/17 06:07 Lab Results: I have reviewed the past 24 hour labs Specialty Discharge - Follow Up or Referrals Follow up with: Yves Gutierrez MD [Physician] - 01/09/17 1:45 pm
[2017-01-03] MEDS: ISOSORBIDE MONONITRATE 20 MG TABLET PO SCH ×2 (08:50→21:57)
[2017-01-03] MEDS: CITALOPRAM 20 MG TABLET PO SCH (08:50)
[2017-01-03] MEDS: PANTOPRAZOLE 40 MG TABLET PO SCH (08:51)
[2017-01-03] MEDS: PIPERACILLIN/TAZOBACTAM 3,375 MG in SODIUM CHLORIDE 0.9% 100 ML IV SCH ×2 (08:53→23:35)
[2017-01-03] MEDS ORDERED: HEPARIN 5,000 UNIT/1 ML VIAL IV ONE (10:10)
[2017-01-03] MEDS: HEPARIN DRIP 25,000 UNITS/500 ML PREMIX IV SCH (11:11)
[2017-01-03] MEDS ORDERED: SODIUM CHLORIDE 0.9% 250 ML IV ONE (13:15)
--- NOTE | 2017-01-03 13:18 | Hospitalist Progress Note ---
Assessment and Plan (1) Hypertension Status: Chronic Assessment and plan: Home medications Current Visit: No (2) Diabetes mellitus Status: Chronic Current Visit: No Qualifiers: Diabetes mellitus type: type 2 (3) ESRD (end stage renal disease) Status: Chronic Assessment and plan: Nephrology Current Visit: Yes (4) Biliary acute pancreatitis Status: Acute Assessment and plan: Cholecystectomy cancelled today due to thrombus of RUE Surgery and GI managing Lipase a little higher Current Visit: Yes (5) Abdominal pain Status: Acute Current Visit: Yes (6) Intractable nausea and vomiting Status: Acute Assessment and plan: Zofran and phenergan prn Will try compazine prn today Current Visit: Yes (7) Occlusive thrombus Status: Acute Assessment and plan: Of RUE involving jugular vein, basilic vein and proximal brachial vein Discussed this with Dr. Gutierrez today, agree that this thrombus does need to be treated. Surgery has now been delayed. Heparin infusion started, will hold off on noac or coumadin until all procedures are done Current Visit: Yes Hospitalist: Subjective Interval history: No acute events overnight. Patient still with intractable nausea and vomiting. This afternoon called due to drop in blood pressure. Holding her hydralazine and giving a small 250cc bolus. Looking back in the chart, her blood pressure has been intermittently low for a couple of days. Exam - Constitutional Vitals: Period Temp Pulse Resp BP Sys/Tavares Pulse Ox Last 24 Hr 96.5 F-98.7 F 73-105 16-20 118-163/56-83 95-100 General appearance: normal weight - Head Head exam: Present: normocephalic, atraumatic - Eye Eye exam: Present: EOMI Pupils: Present: SHERIF - ENT ENT exam: Present: normal exam - Neck Neck exam: Present: normal inspection - Respiratory Respiratory exam: Present: clear to auscultation bilaterally. Absent: rhonchi, wheezes - Cardiovascular Cardiovascular exam: Present: regular rate and rhythm - GI/Abdominal GI/Abdominal exam: Present: normal bowel sounds, soft. Absent: tenderness, rebound - Extremities Exam Extremities exam: Present: normal inspection - Back Exam Back exam: Present: normal inspection - Neurological Exam Neurological exam: Present: alert, oriented X3 - Psychiatric Psychiatric exam: Present: normal affect, normal mood - Skin Skin exam: Present: warm, intact Results - Labs CBC & BMP: 01/03/17 06:07 01/03/17 06:07 Quality Measures - VTE Contraindication to Pharmacological VTE Prophylaxis: High Risk of Bleeding Specialty Discharge - Follow Up or Referrals Follow up with: Yves Gutierrez MD [Physician] - 01/09/17 1:45 pm
--- NOTE | 2017-01-03 13:29 | General Surgery Progress Note ---
Assessment and Plan (1) Biliary acute pancreatitis Status: Acute Assessment and plan: Unfortunately, the patient now needs to be on a heparin infusion for her venous thrombosis to prevent propagation and pulmonary embolism. I think that doing a cholecystectomy given all the patient's other medical problems that expect up against her would be too risky for this patient and it could delay her anticoagulation more than a cholecystostomy tube would in my opinion. I have recommended percutaneous cholecystostomy to the patient and her family and they are agreeable. They understand that this tube will need to stay in for a couple weeks afterwards and they understand the basic risks. I have discussed this with interventional radiology and they will be by to see her shortly today. Current Visit: Yes Subjective Patient reports: Present: no new complaints, still having pain, nausea, afebrile. Absent: vomiting Narrative: Ultrasound was done which showed right arm venous thrombosis. The patient has been started on a heparin infusion. Exam - Constitutional Vitals: Period Temp Pulse Resp BP Sys/Tavares Pulse Ox Last 24 Hr 96.5 F-98.7 F 73-105 16-20 82-163/47-83 95-100 General appearance: normal weight, no acute distress - Head Head exam: Present: normal inspection, normocephalic - Eye Eye exam: Present: EOMI. Absent: scleral icterus Pupils: Present: SHERIF - ENT ENT exam: Present: normal exam Mouth exam: Present: normal external inspection, normal voice - Neck Neck exam: Present: normal inspection, trachea midline - Respiratory Respiratory exam: Present: clear to auscultation bilaterally. Absent: accessory muscle use, chest wall tenderness - Cardiovascular Cardiovascular exam: Present: RRR. Absent: systolic murmur, tachycardia - GI/Abdominal GI/Abdominal exam: Present: normal bowel sounds, tenderness (There is mild tenderness in the right upper quadrant), soft. Absent: Anderson's sign - Extremities Exam Extremities exam: Present: normal inspection, normal capillary refill - Back Exam Back exam: Present: normal inspection - Neurological Exam Neurological exam: Present: alert, oriented X3 Speech: Present: normal - Skin Skin exam: Present: normal color, warm Results - Labs CBC & BMP: 01/03/17 06:07 01/03/17 06:07 Quality Measures - VTE Contraindication to Pharmacological VTE Prophylaxis: High Risk of Bleeding Specialty Discharge - Follow Up or Referrals Follow up with: Yves Gutierrez MD [Physician] - 01/09/17 1:45 pm
--- NOTE | 2017-01-03 13:41 | Nephrology Progress Note ---
Nephrology - PN: Subj Interval history: Nausea has improved. No S OB Exam (PN)-Nephrology - Vital Signs Vital signs: Period Temp Pulse Resp BP Sys/Tavares Pulse Ox Last 24 Hr 96.5 F-98.7 F 73-105 16-20 82-163/47-83 95-100 Exam: ENT: Normal Cardiovascular: Regular rate and rhythm. No murmur rub or gallop Lungs: Clear Extremities: No edema. Swelling in her right arm is markedly improved - Lab 01/03/17 06:07 01/03/17 06:07 Most recent lab results Calcium 8.9 MG/DL (8.5-10.1) 01/03/17 06:07 Magnesium 2.6 MG/DL (1.8-2.4) H 12/31/16 05:17 Assessment and Plan (1) ESRD (end stage renal disease) Status: Chronic Assessment and plan: 61-year-old woman with: * ESRD. 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 It has been ligated * Diabetes mellitus * Aspiration * Hypertension. Improved control * Anemia. Posttransfusion * Cholelithiasis with pancreatitis. Lipase higher. Surgery postponed Current Visit: Yes (2) Aspiration into airway Status: Acute Current Visit: Yes (3) Cerebrovascular disease Status: Chronic Current Visit: No (4) Diabetes mellitus Status: Chronic Current Visit: No Qualifiers: Diabetes mellitus type: type 2 (5) Hypertension Status: Chronic Current Visit: No Specialty Discharge - Follow Up or Referrals Follow up with: Yves Gutierrez MD [Physician] - 01/09/17 1:45 pm
--- NOTE | 2017-01-03 14:22 | Inventional Radiology Consult ---
Assessment and Plan - Time spent with patient Time spent with patient: Less than 30 minutes (1) Cholelithiasis Problem details: sludge on U/s although NM HIDA was normal. ERCP did no vis cystic duct and patient now on heparin and surgery has increased risks Status : Acute Assessment and plan: plan for GB drain catheter placement today Heparin stopped and repeat BP with 98 sys Current Visit: Yes IR Consult - Data of Consult Patient: new to practice Consult date: 01/03/17 Requesting Physician: Yves Gutierrez - Consult Narrative Reason for consult: post ERCP pancreatitis, n/v and possible cystic duct obstruction History of present illness: Alberto is a 61 year old F With a calculated history following dialysis fistula placement and subsequent takedown with bilateral aspiration, subsequent cholecystitis and post ERCP pancreatitis as well as development of right upper extremity deep venous thrombosis now on anticoagulation. The patient continues to have some abdominal pain possibly related to the ongoing pancreatitis although underlying cholecystitis given that the cystic duct appeared instructed on the ERCP performed yesterday is possible. A loop of colon to the OR for cholecystectomy and with the increased risks related to anticoagulation now in place, surgery has requested a gallbladder drainage catheter for palliation of possible smoldering cholecystitis. Risks and benefits were discussed with the patient and she agrees to proceed. Additional history includes end-stage renal disease on dialysis. ASA III - Home Medications and Allergies Home Medications: Home Medications Medication Instructions Recorded Confirmed Type Citalopram [CeleXA] 20 mg PO DAILY 09/03/14 12/26/16 History cloNIDine TAB [Catapres Tab] 0.2 mg PO BID 09/03/14 12/26/16 History Insulin Glargine [Lantus] 50 unit SUBCUT DAILY 09/05/16 12/26/16 History Insulin Glargine,Hum.rec.anlog 20 unit SUBCUT BID 09/05/16 12/26/16 History [Toujeo SoloStar] Furosemide Tab [Lasix Tab] 40 mg PO BID DIURETIC #60 tablet 09/07/16 12/26/16 Rx Carvedilol 12.5 mg PO DAILY 11/28/16 12/26/16 History HYDROcodone/ACETAMIN 7.5-325 1 tablet PO Q4H PRN #10 tablet 12/26/16 Rx [Hope 7.5-325] Allergies/Adverse Reactions: Allergies Allergy/AdvReac Type Severity Reaction Status Date / Time No Known Allergies Allergy Verified 12/12/16 14:58 12 point system: reviewed and no additional remarkable complaints except as stated Medical,Surgical,& Family Hx - Medical History Cardio: History of: Hypertension Psychological: History of: Depression Neurology: History of: Cerebrovascular Accident (X3 2015 left sided weakness), Migraine (OCCASIONAL) No history of: Seizures HEENT: History of: Eye Problem (GLASSES), Dental Problems (MISSING TEETH) Endocrine: History of: Diabetes Mellitus (IDDM), Dyslipidemia Respiratory: No history of: Respiratory Problems (FLU VAC- YES; PNEU VAC- YES.) Renal: History of: Dialysis (T, TH,SAT), Renal Failure (DR COOPER), Renal Problems (1 kidney) Gastrointestinal: History of: GERD, GI Problems (dysphagia, gerd) - Surgical History Thoracic Surgeries: Surgical HX of;: Kidney (Renal Surgery) Abdominal Surgeries: Surgical HX of: EGD Patient denies: Abdominal Surgery Reproductive Surgeries: Surgical HX of;: Genitourinary Surgery, Gynecologic Surgery, Tubal Ligation - Social History Smoking Status: Current every day smoker Frequency of Alcohol Use: None Type of Drug Use: None Exam - Labs CBC & BMP: 01/03/17 06:07 01/03/17 06:07 Labs: INR 1.1 12/31/16 05:23 - Constitutional Vitals: Period Temp Pulse Resp BP Sys/Tavares Pulse Ox Last 24 Hr 96.5 F-98.7 F 73-105 16-20 82-163/47-83 95-100 General appearance: under weight - Eye Eye exam: Present: EOMI, conjunctival injection - Respiratory Respiratory exam: Present: clear to auscultation bilaterally - Cardiovascular Cardiovascular exam: Present: regular rate and rhythm - GI/Abdominal GI/Abdominal exam: Present: guarding, hyperactive bowel sounds, tenderness ( midline upper/lower). Absent: ascites, distended, mass - Neurological Exam Neurological exam: Present: alert, oriented X3 - Psychiatric Psychiatric exam: Present: normal affect, normal mood - Skin Skin exam: Present: normal color, dry
[2017-01-03] MEDS ORDERED: ONDANSETRON 4 MG/2 ML VIAL ONE (14:24)
[2017-01-03] MEDS ORDERED: ONDANSETRON 4 MG/2 ML VIAL IV ONE (15:11)
--- NOTE | 2017-01-03 17:18 | Post Interventional Procedure ---
Pre-op diagnosis: cholecystitis, gallstones Post-op diagnosis: same Procedure: cholecystostomy tube placement Contrast: 5 mL Flouroscopy: 0.8 min Radiologist: Mani Osorio Anesthesia: local Specimens: none sent Estimated blood loss: none Complications: none Condition: stable Description/Findings: 8 Fr pigtail drain placed into the gallbladder with u/s and fluoro guidance patient because nauseated with pain, which is typical/expected otherwise tolerated well Assessment and Plan - Time spent with patient Time spent with patient: Less than 30 minutes (1) Cholelithiasis Problem details: sludge on U/s although NM HIDA was normal. ERCP did no vis cystic duct and patient now on heparin and surgery has increased risks Status : Acute Assessment and plan: plan for GB drain catheter placement today Heparin stopped and repeat BP with 98 sys Current Visit: Yes
--- NOTE | 2017-01-03 17:24 | Interventional Radiology Rpt ---
IR cholecystostomy complete Cholecystostomy catheter placement using ultrasound and fluoroscopic guidance Cholecystogram Abdominal ultrasound Clinical Information: 61-year-old female with cholelithiasis and cholecystitis with post ERCP pancreatitis and nonvisualization of the cystic duct suggesting obstruction during ERCP. The patient is not a surgical candidate due to deep venous thrombosis and ongoing anticoagulation with hypotension. Physician[s]: Dr. Osorio Procedure: The patient was advised of the benefits, risks, and alternatives of the procedure and informed consent was obtained. A time out was performed with verification of the patient's name, MRN, site of procedure, and type of procedure to be performed. The patient was positioned in the supine position on the angiographic table. The site was prepped and draped in the usual sterile fashion. Given the patient's current issues with hypotension, local anesthesia only was used for the procedure. A drug counselor radiograph reveals no relevant abnormality. A preliminary ultrasound of the abdomen demonstrates markedly dilated gallbladder with sludge layering dependently. The overlying soft tissues were anesthetized with lidocaine. A 20-gauge Chiba wall needle was passed into the gallbladders under sonographic guidance. A cholecystogram was performed to confirm the needle tip location. An Amplatz wire was then inserted into the gallbladder under fluoroscopic guidance. An 8 Maced[place] Cook all-purpose drain was passed into the gallbladder over the wire. The pigtail was formed and locked in position. A final cholecystogram was performed demonstrating the pigtail appropriately positioned with the gallbladder lumen. The gallbladder appears distended. The cystic duct was not visualized. The catheter was secured in place with Percu-Stay device and a sterile dressing applied. The catheter was placed to gravity drainage. The patient tolerated the procedure well and was returned to the PRU in stable condition. EBL: < 5 mL. Complications: None. Total fluoroscopy time: 0.8 minutes. The number of images for the procedure: 6 Conclusion: 1. Ultrasound of the abdomen demonstrates markedly dilated gallbladder with sludge. 2. Cholecystogram demonstrates partial filling of the dilated gallbladder. The cystic duct was not visualized. 3. Successful cholecystostomy catheter placement. 4. The catheter should be flushed daily with 5 ml normal saline. 5. If the patient remains non-operative, the catheter can be evaluated after 6 weeks for possible removal. PROCEDURE INTERPRETED AT [facility] DEPARTMENT OF RADIOLOGY Final Report Signed by: Mani Osorio
[2017-01-03] MEDS: MORPHINE 2 MG/1 ML SYRINGE IV PRN ×2 (19:42→21:59)
[2017-01-03] MEDS ORDERED: VANCOMYCIN INJ 750 MG in SODIUM CHLORIDE 0.9% 250 ML IV ONE (21:00)
[2017-01-04] MEDS: MORPHINE 2 MG/1 ML SYRINGE IV PRN ×2 (00:09→08:14)
[2017-01-04] MEDS: ALBUTEROL/IPRATROPIUM 3 ML NEB RESP TX SCH ×4 (00:38→19:18)
[2017-01-04] MEDS: PANTOPRAZOLE 40 MG TABLET PO SCH (08:14)
[2017-01-04] MEDS: CITALOPRAM 20 MG TABLET PO SCH (08:14)
[2017-01-04] MEDS: ISOSORBIDE MONONITRATE 20 MG TABLET PO SCH ×2 (08:14→20:45)
[2017-01-04] MEDS: PIPERACILLIN/TAZOBACTAM 3,375 MG in SODIUM CHLORIDE 0.9% 100 ML IV SCH ×2 (08:15→20:46)
[2017-01-04 08:19] LABS: Basophils % 0.1 % (0.0-0.8); Hematocrit 25.9 VOL% (35.7-47.0); Hemoglobin 8.5 GM/DL (12.0-16.0); Immature Granulocytes % 1.1 %; Immature Granulocytes Absolute 0.29 #; Lymphocytes # 0.9 10*3/uL (1.4-4.0); Lymphocytes % 3.3 % (21.3-54.2); Mean Corpuscular HGB Conc 32.8 GM/DL (32-36); Mean Corpuscular Hemoglobin 30 PG (27-34); Mean Corpuscular Volume 92.5 FL (87-102); Mean Platelet Volume 10.3 FL (9.6-12.0); Monocytes # 1.4 10*3/uL (0.11-0.8); Monocytes % 5.3 % (1.7-12.7); Neutrophils # 23.3 10*3/uL (1.4-7.4); Neutrophils % 90.2 % (38.7-73.9); Platelet Count 291 T/CUMM (130-400); Red Cell Distribution Width 16.1 % (9.3-17.3); White Blood Count 25.8 T/CUMM (4-12)
[2017-01-04] MEDS: INSULIN REGULAR 100 UNIT/ML SUBCUT SCH ×4 (08:24→21:59)
[2017-01-04 08:43] LABS: Band Neutrophils 2 % (0-10); Giant Platelets Few; Hypochromasia 1+; Lymphocytes 2 % (20-55); Microcytosis Slight; Ovalocytes Slight; Platelet Estimate Adequate; Segmented Neutrophils 94 % (50-85); Total Cells Counted 100
[2017-01-04 08:45] LABS: Albumin 2.5 G/DL (3.4-5.0); Bilirubin,Total 0.9 MG/DL (0.2-1.0); Calcium 8.7 MG/DL (8.5-10.1); Osmolality,Calculated 286.7 MOS/KG (273-304); Potassium 3.8 MMOL/L (3.5-5.1)
--- NOTE | 2017-01-04 08:45 | General Surgery Progress Note ---
Assessment and Plan (1) Biliary acute pancreatitis Status: Acute Assessment and plan: The patient has a rising leukocytosis. Her lipase is still pending this morning. I am going to order a repeat CT abdomen pelvis to make sure there is no necrotizing pancreatitis or evidence of infection within the pancreas. She is on a heparin infusion for her upper extremity DVT. She will need to remain n.p.o. until her lipase begins to normalize and she may need a central line today with TPN if she cannot eat today Current Visit: Yes Subjective Patient reports: Present: no new complaints, still having pain, afebrile. Absent: nausea, vomiting Narrative: Percutaneous cholecystostomy tube placed yesterday with dark bile. WBC up to 25 ,000 today. CMP pending. Exam - Constitutional Vitals: Period Temp Pulse Resp BP Sys/Tavares Pulse Ox Last 24 Hr 96.2 F-98.2 F 83-105 16-20 82-137/47-83 92-100 General appearance: normal weight, no acute distress - Head Head exam: Present: normal inspection, normocephalic - Eye Eye exam: Present: EOMI. Absent: scleral icterus Pupils: Present: SHERIF - ENT ENT exam: Present: normal exam Mouth exam: Present: normal external inspection, normal voice - Neck Neck exam: Present: normal inspection, trachea midline - Respiratory Respiratory exam: Present: clear to auscultation bilaterally. Absent: accessory muscle use, chest wall tenderness - Cardiovascular Cardiovascular exam: Present: RRR. Absent: systolic murmur, tachycardia - GI/Abdominal GI/Abdominal exam: Present: normal bowel sounds, tenderness (The patient is mostly tender around the percutaneous drain.), soft. Absent: rebound - Extremities Exam Extremities exam: Present: other (The right arm swelling is improved. The left arm incisions are clean and there is a palpable pulse in the wrist) - Back Exam Back exam: Present: normal inspection - Neurological Exam Neurological exam: Present: alert, oriented X3 - Skin Skin exam: Present: normal color, warm Results - Labs CBC & BMP: 01/04/17 08:05 01/03/17 06:07 Quality Measures - VTE Contraindication to Pharmacological VTE Prophylaxis: High Risk of Bleeding Specialty Discharge - Follow Up or Referrals Follow up with: Yves Gutierrez MD [Physician] - 01/09/17 1:45 pm
--- NOTE | 2017-01-04 09:03 | Gastrointestinal Progress Note ---
<DayamiadelaidaCarla Lidia - Last Filed: 01/04/17 08:59> Assessment and Plan (1) Abdominal pain Status: Acute Assessment and plan: 01/04-lipase levels remain elevated at 3917. Percutaneous cholecystostomy tube placed on yesterday. WBCs up at 25,000. CT of abdomen is pending this morning. Plan an addendum to followed by Dr. Del Rosario. 01/03-lipase level up slightly at 3961. Continued abdominal tenderness with nausea and vomiting. For cholecystectomy this morning following dialysis. Plan an addendum to followed by Dr. Del Rosario. 01/02-ERCP findings noted. Lipase elevated today. For tentative cholecystectomy tomorrow. Plan an addendum to follow Dr. Del Rosario. 12/31-5 day history of abdominal pain with nausea and vomiting. Findings on CT scan and ultrasound as below. LFTs are unremarkable. Elevated lipase levels. Further plan an addendum to follow by Dr. Del Rosario. Current Visit: Yes Gastroenterology - PN: Subj Interval history: CC: Biliary pancreatitis Patient is seen, asleep, however is arousable but falls back asleep during visit. She is denying any pain at this time. Percutaneous cholecystostomy tube is patent with bilious drainage noted. Patient's WBCs are elevated at 25, 000. H&H is at 01/11 with no overt bleeding reported. Lipase levels remain elevated at 3917. She is also noted to have initiation of heparin after findings of venous thrombus to right arm. She also has a CT of abdomen pending this morning due to elevation in her white blood cell count. Abdomen soft, mildly tender. ROS: Denies shortness of breath or chest pain Exam (Progress Note) - Constitutional Vitals: Period Temp Pulse Resp BP Sys/Tavares Pulse Ox Last 24 Hr 96.2 F-98.2 F 83-105 16-20 82-137/47-83 92-100 General appearance: normal weight, no acute distress - Head Head exam: Present: normal inspection, normocephalic - Eye Eye exam: Present: other (Lids and conjunctivae are unremarkable). Absent: scleral icterus - ENT ENT exam: Present: normal exam, normal oropharynx - Neck Neck exam: Present: normal inspection - Respiratory Respiratory exam: Present: clear to auscultation bilaterally. Absent: rales, rhonchi, wheezes - Cardiovascular Cardiovascular exam: Present: regular rate and rhythm. Absent: diastolic murmur , JVD, systolic murmur - GI/Abdominal GI/Abdominal exam: Present: normal bowel sounds, tenderness, soft. Absent: ascites, distended, mass, organomegaly - Extremities Exam Extremities exam: Present: normal inspection, full ROM - Back Exam Back exam: Present: normal inspection - Neurological Exam Neurological exam: Present: alert, oriented X3 - Psychiatric Psychiatric exam: Present: normal affect, normal mood - Skin Skin exam: Present: normal color, warm, dry Results - Labs CBC & BMP: 01/04/17 08:05 01/04/17 08:05 Lab Results: I have reviewed the past 24 hour labs Specialty Discharge - Follow Up or Referrals Follow up with: Yves Gutierrez MD [Physician] - 01/09/17 1:45 pm <Urban Del Rosario - Last Filed: 01/04/17 13:56> Exam (Progress Note) - Constitutional Vitals: Period Temp Pulse Resp BP Sys/Tavares Pulse Ox Last 24 Hr 96.2 F-98.2 F 83-105 16-20 87-137/59-83 92-100 Results - Labs CBC & BMP: 01/04/17 08:05 01/04/17 08:05
--- NOTE | 2017-01-04 10:23 | CT Report ---
Referring physician: Yves Gutierrez EXAM: CT abdomen and pelvis with contrast DATE: 01/04/2017 COMPARISON: 12/30/2016 REASON: WBC 25,000, pancreatitis TECHNIQUE: Axial images of the abdomen and pelvis were obtained after administration of 100 cc of Omnipaque 350 IV contrast. Oral contrast was also administered. Coronal and sagittal reformatted images were also provided. Total DLP is 377.90 mGy*cm. FINDINGS: Minimally progressive atelectasis/infiltration at the lung bases, especially in the left lower lobe. There is associated small pleural-based pulmonary opacities. Persistent elongation of the right lobe of the liver with no masses or dilated ducts. Interval insertion of a cholecystostomy tube which projects in the anterior gallbladder location. The gallbladder is less distended with calcified gallstones. Persistent enhancement of the wall of the gallbladder. The spleen, adrenal glands, and kidneys are stable in appearance with small renal cysts. The pancreas is minimally larger in size with the main pancreatic duct identified measuring 1.87 mm. Calcification in the wall of the nondilated abdominal aorta with no adjacent adenopathy. Small hiatal hernia with persistent possible thickening of the wall of the stomach. No dilatation of the small bowel. No evidence of diverticulitis, appendicitis, or free air. Minimal abdominal and pelvic ascites. Atrophic uterus and ovaries. Unremarkable urinary bladder. No acute osseous findings. IMPRESSION: Progressive atelectasis/infiltration especially in the left lower lobe. Insertion of cholecystostomy tube which projects in the anterior gallbladder location. The gallbladder is less distended with persistent evidence of cholelithiasis and enhancement of the minimally thickened gallbladder wall. The pancreas is minimally larger in size which can be seen with mild pancreatitis. Minimal ascites. It is difficult to exclude possible persistent nonspecific thickening of the wall of the stomach. The CT exam was performed using one or more of the following dose reduction techniques: Automated exposure control and adjustment of the mA and/or kV according to patient size. PROCEDURE INTERPRETED AT [facility] DEPARTMENT OF RADIOLOGY Final Report Signed by: Dr. Yamileth Argueta
--- NOTE | 2017-01-04 11:33 | Nephrology Progress Note ---
Nephrology - PN: Subj Interval history: Cholecystostomy tube placed yesterday. Less abdominal pain. No nausea this morning. No shortness of breath Exam (PN)-Nephrology - Vital Signs Vital signs: Period Temp Pulse Resp BP Sys/Tavares Pulse Ox Last 24 Hr 96.2 F-98.2 F 83-105 16-20 82-137/47-83 92-100 Exam: Gen.: Alert and oriented x3. ENT: Pupils equal round reactive to light. EOMs intact. Mucous membranes moist. Neck: Supple. No JVD or bruit. Cardiovascular: Regular rate and rhythm. No murmur rub or gallop Lungs: Clear Abdomen: Soft. Mild left upper quadrant tenderness Extremities: No edema - Lab 01/04/17 08:05 01/04/17 08:05 Most recent lab results Calcium 8.7 MG/DL (8.5-10.1) 01/04/17 08:05 Magnesium 2.6 MG/DL (1.8-2.4) H 12/31/16 05:17 Assessment and Plan (1) ESRD (end stage renal disease) Status: Chronic Assessment and plan: 61-year-old woman with: * ESRD. 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 It has been ligated * Diabetes mellitus * Aspiration * Hypertension. Improved control * Anemia. Posttransfusion * DVT right arm * Cholelithiasis with pancreatitis. Lipase higher. Cholecystostomy tube placed Current Visit: Yes (2) Aspiration into airway Status: Acute Current Visit: Yes (3) Cerebrovascular disease Status: Chronic Current Visit: No (4) Diabetes mellitus Status: Chronic Current Visit: No Qualifiers: Diabetes mellitus type: type 2 (5) Hypertension Status: Chronic Current Visit: No Specialty Discharge - Follow Up or Referrals Follow up with: Yves Gutierrez MD [Physician] - 01/09/17 1:45 pm
[2017-01-04] MEDS ORDERED: HEPARIN 5,000 UNIT/1 ML VIAL IV ONE (13:53)
[2017-01-04] MEDS: HEPARIN DRIP 25,000 UNITS/500 ML PREMIX IV SCH ×2 (14:13→23:47)
--- NOTE | 2017-01-04 15:45 | Hospitalist Progress Note ---
Assessment and Plan (1) Hypertension Status: Chronic Assessment and plan: Home medications Current Visit: No (2) Diabetes mellitus Status: Chronic Current Visit: No Qualifiers: Diabetes mellitus type: type 2 (3) ESRD (end stage renal disease) Status: Chronic Assessment and plan: Nephrology Current Visit: Yes (4) Biliary acute pancreatitis Status: Acute Assessment and plan: Cholecystectomy cancelled today due to thrombus of RUE Surgery and GI managing Cholecystostomy tube placed 01/03/17 Patient feeling better Lipase remains elevated Will hydrate her very gently today Current Visit: Yes (5) Abdominal pain Status: Acute Current Visit: Yes (6) Intractable nausea and vomiting Status: Acute Assessment and plan: Improving Zofran and phenergan prn Current Visit: Yes (7) Occlusive thrombus Status: Acute Assessment and plan: Of RUE involving jugular vein, basilic vein and proximal brachial vein Continue heparin infusion Current Visit: Yes Hospitalist: Subjective Interval history: No acute events overnight. Patient feels better today, she denies nausea. She still has some abdominal pain. Exam - Constitutional Vitals: Period Temp Pulse Resp BP Sys/Tavares Pulse Ox Last 24 Hr 96.2 F-98.2 F 82-105 16-20 106-137/67-76 92-100 General appearance: normal weight - Head Head exam: Present: normocephalic, atraumatic - Eye Eye exam: Present: EOMI Pupils: Present: SHERIF - ENT ENT exam: Present: normal exam - Neck Neck exam: Present: normal inspection - Respiratory Respiratory exam: Present: clear to auscultation bilaterally. Absent: rhonchi, wheezes - Cardiovascular Cardiovascular exam: Present: regular rate and rhythm - GI/Abdominal GI/Abdominal exam: Present: normal bowel sounds, soft. Absent: tenderness, rebound - Extremities Exam Extremities exam: Present: normal inspection - Back Exam Back exam: Present: normal inspection - Neurological Exam Neurological exam: Present: alert, oriented X3 - Psychiatric Psychiatric exam: Present: normal affect, normal mood - Skin Skin exam: Present: warm, intact Results - Labs CBC & BMP: 01/04/17 08:05 01/04/17 08:05 Quality Measures - VTE Contraindication to Pharmacological VTE Prophylaxis: High Risk of Bleeding Specialty Discharge - Follow Up or Referrals Follow up with: Yves Gutierrez MD [Physician] - 01/09/17 1:45 pm
[2017-01-04] MEDS: SODIUM CHLORIDE 0.9% 1,000 ML IV SCH (16:22)
[2017-01-04] MEDS ORDERED: SODIUM CHLORIDE 0.9% 500 ML IV ONE (16:39)
--- NOTE | 2017-01-04 16:41 | Event Note ---
I reevaluated this patient had a CT scan done earlier today. There is no evidence of necrotizing pancreatitis or abscess in the pancreas. The cholecystostomy tube appears in the appropriate position. The patient's blood pressure is drifted some during the day today and certainly she could require some IV fluids given her pancreatitis. I have ordered a bolus of normal saline. The patient is on dialysis but I think she needs a little bit of volume today to support her as she goes through this pancreatitis. Her lipase was starting to trend down today so I would like to avoid TPN if possible and go ahead and see what her labs look like tomorrow possibly starting a liquid diet if her pancreatitis appears to continue to improve. There is certainly no findings on CT scan that suggest that she should get better with time I think the risk of a central line TPN in this patient who already has venous thrombosis and some LFT abnormalities is not justified yet.
[2017-01-04] MEDS: cloNIDine 0.1 MG TABLET PO SCH (21:59)
[2017-01-04 23:43] LABS: INR 1.2; PT Patient Result 13.3 SECS
[2017-01-05] MEDS: ALBUTEROL/IPRATROPIUM 3 ML NEB RESP TX SCH ×4 (02:07→20:12)
[2017-01-05 04:00] LABS: Basophils % 0.1 % (0.0-0.8); Eosinophils % 0.1 % (0.00-10.9); Hematocrit 19.4 VOL% (35.7-47.0); Immature Granulocytes % 1.5 %; Immature Granulocytes Absolute 0.37 #; Lymphocytes # 1.5 10*3/uL (1.4-4.0); Lymphocytes % 5.7 % (21.3-54.2); Mean Corpuscular HGB Conc 32.5 GM/DL (32-36); Mean Corpuscular Hemoglobin 30 PG (27-34); Mean Corpuscular Volume 93.3 FL (87-102); Mean Platelet Volume 10.2 FL (9.6-12.0); Monocytes # 1.1 10*3/uL (0.11-0.8); Monocytes % 4.2 % (1.7-12.7); Neutrophils # 22.5 10*3/uL (1.4-7.4); Neutrophils % 88.4 % (38.7-73.9); Platelet Count 282 T/CUMM (130-400); Red Blood Count 2.08 MC/CUMM (3.8-5.5); Red Cell Distribution Width 16.5 % (9.3-17.3); White Blood Count 25.4 T/CUMM (4-12)
[2017-01-05] MEDS: SODIUM CHLORIDE 0.9% 1,000 ML IV SCH (04:15)
[2017-01-05 04:16] LABS: Hemoglobin 6.3 GM/DL (12.0-16.0)
[2017-01-05 04:20] LABS: Anisocytosis 1+; Band Neutrophils 3 % (0-10); Lymphocytes 10 % (20-55); Platelet Estimate Normal; Segmented Neutrophils 83 % (50-85); Total Cells Counted 100
[2017-01-05 04:29] LABS: Calcium 7.5 MG/DL (8.5-10.1); Magnesium 2.2 MG/DL (1.8-2.4); Osmolality,Calculated 290.5 MOS/KG (273-304); Potassium 3.9 MMOL/L (3.5-5.1)
[2017-01-05] MEDS ORDERED: SODIUM CHLORIDE 0.9% 250 ML IV PRN ×2 (04:33→11:36)
[2017-01-05 05:00] LABS: Alanine Aminotransferase < 6 U/L (13-56); Albumin 1.9 G/DL (3.4-5.0); Alkaline Phosphatase 55 U/L (45-117); Aspartate Amino Transferase 131 U/L (0-37); Bilirubin,Indirect 0.2 MG/DL (0.0-1.0); Total Protein 4.9 G/DL (6.4-8.3)
[2017-01-05] MEDS: INSULIN REGULAR 100 UNIT/ML SUBCUT SCH ×4 (07:57→21:06)
[2017-01-05] MEDS: ISOSORBIDE MONONITRATE 20 MG TABLET PO SCH ×2 (08:03→21:05)
[2017-01-05] MEDS: CITALOPRAM 20 MG TABLET PO SCH (08:03)
[2017-01-05] MEDS: PANTOPRAZOLE 40 MG TABLET PO SCH (08:03)
[2017-01-05] MEDS: cloNIDine 0.1 MG TABLET PO SCH ×2 (08:06→21:05)
[2017-01-05] MEDS: PIPERACILLIN/TAZOBACTAM 3,375 MG in SODIUM CHLORIDE 0.9% 100 ML IV SCH ×2 (09:21→23:55)
[2017-01-05] MEDS: MORPHINE 2 MG/1 ML SYRINGE IV PRN (10:10)
--- NOTE | 2017-01-05 10:32 | Event Note ---
She says she has less abdominal pain today than yesterday and feels a little better. Patient is afebrile with stable vital signs. The abdomen is benign. Lipase is still elevated suggestive of ongoing pancreatitis. The effect of her gallbladder and cholecystostomy on the course of the pancreatitis is unclear. Patient clinically does not appear to have acute cholecystitis. She does have normal transaminases. I do not see evidence of biliary obstruction. I would continue with conservative treatment of pancreatitis as you are doing.
--- NOTE | 2017-01-05 11:41 | Nephrology Progress Note ---
Nephrology - PN: Subj Interval history: Patient is without complaints. She denies shortness of breath. Review of systems GI she denies nausea or vomiting, patient is n.p.o. she states she has not eaten very much since being admitted over a week ago may be 3 meals since she has been here Physical exam general the patient is chronically ill-appearing, she has no pitting edema Assessment/plan 1. End-stage renal disease-we will continue hemodialysis support 2. Anemia-I am going to transfuse her 2 units packed red blood cells today 3. Cholecystitis-patient has a cholecystostomy in place she continues to have problems with p.o. intake and is presently n.p.o., I am going to start her on D10 W with some vitamins and thiamine to give her some nutrition, she should probably be started on parenteral nutrition if she does not begin to improve soon, of note the patient's albumin is 1.9 down from around 2.7 earlier in the hospitalization 4. DVT Exam (PN)-Nephrology - Vital Signs Vital signs: Period Temp Pulse Resp BP Sys/Tavares Pulse Ox Last 24 Hr 97.0 F-98.6 F 69-96 16-20 73-128/40-70 94-100 - Lab 01/05/17 03:10 01/05/17 03:10 Most recent lab results Calcium 7.5 MG/DL (8.5-10.1) L 01/05/17 03:10 Magnesium 2.2 MG/DL (1.8-2.4) 01/05/17 03:10 Specialty Discharge - Follow Up or Referrals Follow up with: Yves Gutierrez MD [Physician] - 01/09/17 1:45 pm
--- NOTE | 2017-01-05 14:36 | Dialysis Note ---
Dialysis Note - Dialysis Note Patient seen on hemodialysis, she is tolerating this well will continue her treatment unchanged.
--- NOTE | 2017-01-05 16:57 | Hospitalist Progress Note ---
Assessment and Plan (1) Hypertension Status: Chronic Assessment and plan: Home medications Current Visit: No (2) Diabetes mellitus Status: Chronic Current Visit: No Qualifiers: Diabetes mellitus type: type 2 (3) ESRD (end stage renal disease) Status: Chronic Assessment and plan: Nephrology Current Visit: Yes (4) Biliary acute pancreatitis Status: Acute Assessment and plan: Cholecystectomy cancelled today due to thrombus of RUE Surgery and GI managing Cholecystostomy tube placed 01/03/17 Patient feeling better Lipase remains elevated, but slightly better Will attempt clear liquid diet Current Visit: Yes (5) Abdominal pain Status: Acute Current Visit: Yes (6) Intractable nausea and vomiting Status: Acute Assessment and plan: Improving Zofran and phenergan prn Current Visit: Yes (7) Occlusive thrombus Status: Acute Assessment and plan: Of RUE involving jugular vein, basilic vein and proximal brachial vein Continue heparin infusion Current Visit: Yes Hospitalist: Subjective Interval history: No acute events overnight. Patient reports that her abdominal pain and nausea are improved. Lipase is down a very little. Will attempt a clear liquid diet this evening. Exam - Constitutional Vitals: Period Temp Pulse Resp BP Sys/Tavares Pulse Ox Last 24 Hr 97.0 F-98.6 F 80-96 18-20 93-128/54-69 94-100 General appearance: normal weight - Head Head exam: Present: normocephalic, atraumatic - Eye Eye exam: Present: EOMI Pupils: Present: SHERIF - ENT ENT exam: Present: normal exam - Neck Neck exam: Present: normal inspection - Respiratory Respiratory exam: Present: clear to auscultation bilaterally. Absent: rhonchi, wheezes - Cardiovascular Cardiovascular exam: Present: regular rate and rhythm - GI/Abdominal GI/Abdominal exam: Present: normal bowel sounds, soft. Absent: tenderness, rebound - Extremities Exam Extremities exam: Present: normal inspection - Back Exam Back exam: Present: normal inspection - Neurological Exam Neurological exam: Present: alert, oriented X3 - Psychiatric Psychiatric exam: Present: normal affect, normal mood - Skin Skin exam: Present: warm, intact Results - Labs CBC & BMP: 01/05/17 03:10 01/05/17 03:10 Quality Measures - VTE Contraindication to Pharmacological VTE Prophylaxis: High Risk of Bleeding Specialty Discharge - Follow Up or Referrals Follow up with: Yves Gutierrez MD [Physician] - 01/09/17 1:45 pm
[2017-01-05] MEDS ORDERED: VANCOMYCIN INJ 750 MG in SODIUM CHLORIDE 0.9% 250 ML IV ONE (21:00)
[2017-01-05] MEDS: DEXTROSE 10% IV SCH (21:03)
[2017-01-05] MEDS: MULTIVITAMIN IV SCH (21:03)
[2017-01-05] MEDS: THIAMINE IV SCH (21:03)
[2017-01-06] MEDS: MORPHINE 2 MG/1 ML SYRINGE IV PRN ×3 (00:55→20:38)
[2017-01-06] MEDS: ALBUTEROL/IPRATROPIUM 3 ML NEB RESP TX SCH ×4 (01:19→19:59)
[2017-01-06 05:45] LABS: Basophils % 0.2 % (0.0-0.8); Eosinophils # 0.1 10*3/uL (0.0-0.87); Eosinophils % 0.3 % (0.00-10.9); Hematocrit 30.9 VOL% (35.7-47.0); Hemoglobin 10.4 GM/DL (12.0-16.0); Immature Granulocytes % 1.5 %; Immature Granulocytes Absolute 0.29 #; Lymphocytes % 4.9 % (21.3-54.2); Mean Corpuscular HGB Conc 33.7 GM/DL (32-36); Mean Corpuscular Hemoglobin 30 PG (27-34); Mean Platelet Volume 10.4 FL (9.6-12.0); Monocytes # 0.8 10*3/uL (0.11-0.8); Monocytes % 4.1 % (1.7-12.7); Neutrophils # 17.3 10*3/uL (1.4-7.4); Platelet Count 311 T/CUMM (130-400); Red Blood Count 3.51 MC/CUMM (3.8-5.5); Red Cell Distribution Width 16.5 % (9.3-17.3); White Blood Count 19.4 T/CUMM (4-12)
[2017-01-06 06:25] LABS: Band Neutrophils 2 % (0-10); Lymphocytes 14 % (20-55); Myelocytes 3 %; Segmented Neutrophils 80 % (50-85); Total Cells Counted 100
[2017-01-06 06:26] LABS: Anisocytosis 1+; Platelet Estimate Normal
[2017-01-06 06:31] LABS: Magnesium 2.1 MG/DL (1.8-2.4); Osmolality,Calculated 281.5 MOS/KG (273-304); Potassium 3.7 MMOL/L (3.5-5.1)
[2017-01-06] MEDS: cloNIDine 0.1 MG TABLET PO SCH ×2 (09:21→21:34)
[2017-01-06] MEDS: PANTOPRAZOLE 40 MG TABLET PO SCH (09:21)
[2017-01-06] MEDS: ISOSORBIDE MONONITRATE 20 MG TABLET PO SCH ×2 (09:21→21:34)
[2017-01-06] MEDS: CITALOPRAM 20 MG TABLET PO SCH (09:21)
[2017-01-06] MEDS: INSULIN REGULAR 100 UNIT/ML SUBCUT SCH ×4 (09:24→21:33)
[2017-01-06] MEDS: PIPERACILLIN/TAZOBACTAM 3,375 MG in SODIUM CHLORIDE 0.9% 100 ML IV SCH ×2 (09:29→21:34)
--- NOTE | 2017-01-06 10:16 | General Surgery Progress Note ---
Assessment and Plan - Time spent with patient Time spent with patient: Less than 30 minutes (1) Biliary acute pancreatitis Status: Acute Assessment and plan: She states that her abdomen feels much better. She appears to be having resolution of her pancreatitis clinically I not convinced that her gallbladder is related to her elevated white blood cell count. This does not seem to really seem consistent with acute cholecystitis. Current Visit: Yes Subjective Patient reports: Present: feels better, pain is less. Absent: nausea, vomiting , shortness of breath Exam - Constitutional Vitals: Period Temp Pulse Resp BP Sys/Tavares Pulse Ox Last 24 Hr 96.6 F-98.0 F 77-96 16-22 118-182/58-83 22-100 General appearance: no acute distress - Eye Eye exam: Absent: scleral icterus - Respiratory Respiratory exam: Absent: accessory muscle use - GI/Abdominal GI/Abdominal exam: Present: soft. Absent: distended, tenderness, rebound Results - Labs CBC & BMP: 01/06/17 04:49 01/06/17 04:49 Lab Results: I have reviewed the past 24 hour labs Quality Measures - VTE Contraindication to Pharmacological VTE Prophylaxis: High Risk of Bleeding Specialty Discharge - Follow Up or Referrals Follow up with: Yves Gutierrez MD [Physician] - 01/09/17 1:45 pm
--- NOTE | 2017-01-06 10:33 | Nephrology Progress Note ---
Nephrology - PN: Subj Interval history: Patient feels a little better today. She denies shortness of breath. Review of systems GI-she states her abdominal pain is better Physical exam general the patient is chronically ill-appearing Assessment/plan 1. End-stage renal disease-we will continue hemodialysis support 2. Cholecystitis-patient has a cholecystostomy 3. Anemia 4. Malnutrition-Dr. Lopes is started the patient on clear liquids however she did have an increase in her lipase, we may need to start her on TPN if she cannot tolerate p.o. intake soon. Discussed patient's case with Dr. Lopes Exam (PN)-Nephrology - Vital Signs Vital signs: Period Temp Pulse Resp BP Sys/Tavares Pulse Ox Last 24 Hr 96.6 F-98.0 F 77-96 16-22 118-182/58-83 22-100 - Lab 01/06/17 04:49 01/06/17 04:49 Most recent lab results Calcium 8.0 MG/DL (8.5-10.1) L 01/06/17 04:49 Magnesium 2.1 MG/DL (1.8-2.4) 01/06/17 04:49 Specialty Discharge - Follow Up or Referrals Follow up with: Yves Gutierrez MD [Physician] - 01/09/17 1:45 pm
--- NOTE | 2017-01-06 14:11 | Hospitalist Progress Note ---
Assessment and Plan (1) Hypertension Status: Chronic Assessment and plan: Home medications Current Visit: No (2) Diabetes mellitus Status: Chronic Current Visit: No Qualifiers: Diabetes mellitus type: type 2 (3) ESRD (end stage renal disease) Status: Chronic Assessment and plan: Nephrology Current Visit: Yes (4) Biliary acute pancreatitis Status: Acute Assessment and plan: Cholecystectomy cancelled today due to thrombus of RUE Surgery and GI managing Cholecystostomy tube placed 01/03/17 Patient feeling better Lipase increased Tolerating clear liquid diet, lipase increased but will continue minimal clears for now She could benefit from intense IV hydration, this is more difficult with her ESRD She is on D5 at 50 Current Visit: Yes (5) Abdominal pain Status: Acute Current Visit: Yes (6) Intractable nausea and vomiting Status: Acute Assessment and plan: Improving Zofran and phenergan prn Current Visit: Yes (7) Occlusive thrombus Status: Acute Assessment and plan: Of RUE involving jugular vein, basilic vein and proximal brachial vein Continue heparin infusion Current Visit: Yes Hospitalist: Subjective Interval history: No acute events overnight. Patient is clinically doing much better today, denies abdominal pain or nausea. Started on clears for dinner last night, tolerated well. She did have a big jump in her lipase today. Exam - Constitutional Vitals: Period Temp Pulse Resp BP Sys/Tavares Pulse Ox Last 24 Hr 96.6 F-98.0 F 77-98 16-22 110-182/64-83 22-100 General appearance: normal weight - Head Head exam: Present: normocephalic, atraumatic - Eye Eye exam: Present: EOMI Pupils: Present: SHERIF - ENT ENT exam: Present: normal exam - Neck Neck exam: Present: normal inspection - Respiratory Respiratory exam: Present: clear to auscultation bilaterally - Cardiovascular Cardiovascular exam: Present: regular rate and rhythm - GI/Abdominal GI/Abdominal exam: Present: normal bowel sounds, soft. Absent: tenderness, rebound - Extremities Exam Extremities exam: Present: normal inspection - Back Exam Back exam: Present: normal inspection - Neurological Exam Neurological exam: Present: alert, oriented X3 - Psychiatric Psychiatric exam: Present: normal affect, normal mood - Skin Skin exam: Present: warm, intact Results - Labs CBC & BMP: 01/06/17 04:49 01/06/17 04:49 Quality Measures - VTE Contraindication to Pharmacological VTE Prophylaxis: High Risk of Bleeding Specialty Discharge - Follow Up or Referrals Follow up with: Yves Gutierrez MD [Physician] - 01/09/17 1:45 pm
[2017-01-06] MEDS ORDERED: HEPARIN 5,000 UNIT/1 ML VIAL IV ONE (17:18)
[2017-01-06] MEDS: THIAMINE IV SCH (23:00)
[2017-01-06] MEDS: MULTIVITAMIN IV SCH (23:00)
[2017-01-06] MEDS: DEXTROSE 10% IV SCH (23:00)
[2017-01-07] MEDS: MORPHINE 2 MG/1 ML SYRINGE IV PRN ×3 (00:43→08:47)
[2017-01-07] MEDS: ALBUTEROL/IPRATROPIUM 3 ML NEB RESP TX SCH ×4 (01:52→19:30)
[2017-01-07] MEDS: ONDANSETRON 4 MG/2 ML VIAL IV PRN (03:53)
[2017-01-07 06:18] LABS: Basophils # 0.1 10*3/uL (0.0-0.2); Basophils % 0.2 % (0.0-0.8); Eosinophils # 0.2 10*3/uL (0.0-0.87); Eosinophils % 0.7 % (0.00-10.9); Hematocrit 30.6 VOL% (35.7-47.0); Hemoglobin 10.5 GM/DL (12.0-16.0); Immature Granulocytes % 1.6 %; Immature Granulocytes Absolute 0.45 #; Lymphocytes # 1.2 10*3/uL (1.4-4.0); Lymphocytes % 4.4 % (21.3-54.2); Mean Corpuscular HGB Conc 34.3 GM/DL (32-36); Mean Corpuscular Hemoglobin 30 PG (27-34); Mean Corpuscular Volume 87.9 FL (87-102); Mean Platelet Volume 10.5 FL (9.6-12.0); Monocytes # 1.1 10*3/uL (0.11-0.8); Monocytes % 4.1 % (1.7-12.7); NRBC # 0.02 10*3/uL; Neutrophils # 24.4 10*3/uL (1.4-7.4); Platelet Count 323 T/CUMM (130-400); Red Blood Count 3.48 MC/CUMM (3.8-5.5); Red Cell Distribution Width 16.2 % (9.3-17.3); White Blood Count 27.5 T/CUMM (4-12)
[2017-01-07 06:49] LABS: Burr Cells 1+; Hypochromasia Slight; Lymphocytes 4 % (20-55); Platelet Estimate Adequate; Segmented Neutrophils 95 % (50-85); Total Cells Counted 100
[2017-01-07 07:12] LABS: Calcium 7.8 MG/DL (8.5-10.1); Magnesium 2.2 MG/DL (1.8-2.4); Osmolality,Calculated 279.2 MOS/KG (273-304); Potassium 3.2 MMOL/L (3.5-5.1)
[2017-01-07] MEDS: PROMETHAZINE 25 MG/1 ML VIAL IM PRN (08:47)
[2017-01-07] MEDS: INSULIN REGULAR 100 UNIT/ML SUBCUT SCH ×4 (08:52→22:12)
[2017-01-07] MEDS: HEPARIN DRIP 25,000 UNITS/500 ML PREMIX IV SCH (08:55)
[2017-01-07] MEDS: PIPERACILLIN/TAZOBACTAM 3,375 MG in SODIUM CHLORIDE 0.9% 100 ML IV SCH ×2 (09:00→21:45)
[2017-01-07] MEDS ORDERED: HEPARIN 5,000 UNIT/1 ML VIAL IV ONE (09:00)
--- NOTE | 2017-01-07 09:14 | General Surgery Progress Note ---
Assessment and Plan (1) Biliary acute pancreatitis Status: Acute Assessment and plan: Patient's white blood cell count and lipase is going back up again. I have recommended return to n.p.o. and a central line for TPN access. We will repeat her CT scan later today to make sure that there is no necrotizing pancreatitis or abscess. Current Visit: Yes Subjective Patient reports: Present: still having pain, nausea, vomiting, afebrile Narrative: The patient was improving on Saturday and Saturday morning but her lipase has gone back up and she is vomiting again. She is having some return of pain in her upper abdomen. Exam - Constitutional Vitals: Period Temp Pulse Resp BP Sys/Tavares Pulse Ox Last 24 Hr 97.2 F-98.7 F 84-98 18-24 110-155/61-80 97-99 General appearance: normal weight, no acute distress - Head Head exam: Present: normal inspection, normocephalic - Eye Eye exam: Present: EOMI Pupils: Present: SHERIF - ENT ENT exam: Present: normal exam Mouth exam: Present: normal external inspection, normal voice - Neck Neck exam: Present: normal inspection, trachea midline - Respiratory Respiratory exam: Present: clear to auscultation bilaterally. Absent: accessory muscle use, chest wall tenderness - Cardiovascular Cardiovascular exam: Present: RRR. Absent: systolic murmur, tachycardia - GI/Abdominal GI/Abdominal exam: Present: normal bowel sounds, tenderness (There is tenderness in the upper abdomen with no peritoneal signs), soft. Absent: rebound - Extremities Exam Extremities exam: Present: normal inspection, normal capillary refill - Back Exam Back exam: Present: normal inspection - Neurological Exam Neurological exam: Present: alert, oriented X3 Speech: Present: normal - Skin Skin exam: Present: normal color, warm Results - Labs CBC & BMP: 01/07/17 05:04 01/07/17 05:04 Quality Measures - VTE Contraindication to Pharmacological VTE Prophylaxis: High Risk of Bleeding Specialty Discharge - Follow Up or Referrals Follow up with: Yves Gutierrez MD [Physician] - 01/09/17 1:45 pm
--- NOTE | 2017-01-07 09:22 | Gastrointestinal Progress Note ---
Assessment and Plan (1) Abdominal pain Status: Acute Assessment and plan: 01/07-lipase levels elevated at 5663. WBCs elevated at 27,000. For central line placement and repeat CT scan today. N.p.o. status. Continue to monitor this time. Plan an addendum to follow Dr. Del Rosario. 01/04-lipase levels remain elevated at 3917. Percutaneous cholecystostomy tube placed on yesterday. WBCs up at 25,000. CT of abdomen is pending this morning. Plan an addendum to followed by Dr. Del Rosario. 01/03-lipase level up slightly at 3961. Continued abdominal tenderness with nausea and vomiting. For cholecystectomy this morning following dialysis. Plan an addendum to followed by Dr. Del Rosario. 01/02-ERCP findings noted. Lipase elevated today. For tentative cholecystectomy tomorrow. Plan an addendum to follow Dr. Del Rosario. 12/31-5 day history of abdominal pain with nausea and vomiting. Findings on CT scan and ultrasound as below. LFTs are unremarkable. Elevated lipase levels. Further plan an addendum to follow by Dr. Del Rosario. Current Visit: Yes Gastroenterology - PN: Subj Interval history: CC: Pancreatitis Patient is seen, awake and alert, resting in bed. States that she has had continued nausea with some episodes of vomiting. She is also having some continued abdominal pain however primarily at the cholecystostomy site. Noted to have continued bilious output from this. She is afebrile however her white counts have increased to 24,000. Her lipase is also increased to 5663. Patient has had very poor appetite with minimal to no intake with clear liquids. She is noted to have a central line to be placed today and possibility of TPN initiation however she has a repeat CT scan ordered for later today to reassess her pancreatitis. Abdomen is soft, tender to palpation. ROS: Denies shortness of breath or chest pain Exam (Progress Note) - Constitutional Vitals: Period Temp Pulse Resp BP Sys/Tavares Pulse Ox Last 24 Hr 97.2 F-98.7 F 84-98 18-24 110-155/61-80 97-99 General appearance: normal weight, no acute distress - Head Head exam: Present: normal inspection, normocephalic - Eye Eye exam: Present: other (Lids and conjunctive are unremarkable). Absent: scleral icterus - ENT ENT exam: Present: normal exam - Neck Neck exam: Present: normal inspection - Respiratory Respiratory exam: Present: clear to auscultation bilaterally. Absent: rales, rhonchi, wheezes - Cardiovascular Cardiovascular exam: Present: regular rate and rhythm. Absent: diastolic murmur , JVD, systolic murmur - GI/Abdominal GI/Abdominal exam: Present: normal bowel sounds, tenderness, soft. Absent: ascites, distended, mass, organomegaly - Extremities Exam Extremities exam: Present: normal inspection, full ROM - Back Exam Back exam: Present: normal inspection - Neurological Exam Neurological exam: Present: alert, oriented X3 - Psychiatric Psychiatric exam: Present: normal affect, normal mood - Skin Skin exam: Present: normal color, warm, dry Results - Labs CBC & BMP: 01/07/17 05:04 01/07/17 05:04 Lab Results: I have reviewed the past 24 hour labs Specialty Discharge - Follow Up or Referrals Follow up with: Yves Gutierrez MD [Physician] - 01/09/17 1:45 pm
--- NOTE | 2017-01-07 11:37 | CT Report ---
CT of the abdomen and pelvis with intravenous contrast. 100 cc Omni 350. Axial images were obtained with sagittal and coronal 2-D reconstructions. Comparison: January 04, 2017. Oral contrast was administered. The heart is mildly enlarged. Pericardial effusion has diminished somewhat. There is edematous thickening of the distal esophageal wall consistent with esophagitis and possible small hiatal hernia. There is scarring and atelectasis within the lung bases. No significant pleural effusion. The liver is normal in size. It enhances normally. The gallbladder is moderately distended, and inflammatory changes are seen around its inferior aspect. There is contrast material or milk of calcium within its lumen. There is a drainage catheter for the gallbladder, only a small portion of the tip is still within the gallbladder. The extrahepatic biliary duct has increased in diameter, now at 9.4 mm. The pancreatic duct is mildly dilated, similar to the previous exam. No inflammatory changes are noted involving the pancreas. Good perfusion of the pancreas is seen, without focal abnormality. There is no adrenal enlargement. There is no splenic enlargement. The kidneys are normal in size, location, and contour. There is delayed excretion, the urinary bladder presents a normal appearance. It is filled with contrast, possibly from the previous study. There is prominent mixed plaque present within a normal caliber abdominal aorta. Small amount of free fluid is suspected within the pelvis. The pelvic organs are not enlarged. No evidence of bowel obstruction. Stable osseous structures. Impression: 1. The gallbladder is more distended than seen previously, and inflammatory changes are seen associated with its lower aspect. Correlation as to whether any drainage is coming from the catheter. The catheter appears retracted with only the distalmost tip still in the lumen. 2. Development of extrahepatic biliary ductal dilatation. 3. Small amount of free fluid in the pelvis. 4. Delayed renal excretion. Correlation with creatinine recommended. The urinary bladder is distended with contrast material. This is similar to previous exams. The CT exam was performed using one or more of the following dose reduction techniques: Automated exposure control, adjustment of the mA and/or kV according to patient size, or use of iterative reconstruction technique. PROCEDURE INTERPRETED AT [facility] DEPARTMENT OF RADIOLOGY Final Report Signed by: Dr. Rosa Maria Garcia
--- NOTE | 2017-01-07 11:51 | Nephrology Progress Note ---
Nephrology - PN: Subj Interval history: She has nausea and some left upper quadrant abdominal pain. No shortness of breath. She is having a central line placed this morning Exam (PN)-Nephrology - Vital Signs Vital signs: Period Temp Pulse Resp BP Sys/Tavares Pulse Ox Last 24 Hr 97.2 F-98.7 F 84-98 18-24 110-155/61-80 97-99 Exam: Gen.: Alert and oriented x3. ENT: Pupils equal round reactive to light. EOMs intact. Mucous membranes moist. Neck: Supple. No JVD or bruit. Cardiovascular: Regular rate and rhythm. No murmur rub or gallop Lungs: Clear Abdomen: Soft. Left upper quadrant tenderness Extremities: Trace edema - Lab 01/07/17 05:04 01/07/17 05:04 Most recent lab results Calcium 7.8 MG/DL (8.5-10.1) L 01/07/17 05:04 Magnesium 2.2 MG/DL (1.8-2.4) 01/07/17 05:04 Assessment and Plan (1) ESRD (end stage renal disease) Status: Chronic Assessment and plan: 61-year-old woman with: * ESRD. 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 It has been ligated * Diabetes mellitus * Aspiration * Hypertension. Improved control * Anemia. Posttransfusion * DVT right arm * Cholelithiasis with pancreatitis. Cholecystostomy tube in place. Lipase has risen. She is having central line placed for TPN Current Visit: Yes (2) Aspiration into airway Status: Acute Current Visit: Yes (3) Cerebrovascular disease Status: Chronic Current Visit: No (4) Diabetes mellitus Status: Chronic Current Visit: No Qualifiers: Diabetes mellitus type: type 2 (5) Hypertension Status: Chronic Current Visit: No Specialty Discharge - Follow Up or Referrals Follow up with: Yves Gutierrez MD [Physician] - 01/09/17 1:45 pm
--- NOTE | 2017-01-07 11:59 | Hospitalist Progress Note ---
Assessment and Plan (1) Hypertension Status: Chronic Assessment and plan: Home medications Current Visit: No (2) Diabetes mellitus Status: Chronic Current Visit: No Qualifiers: Diabetes mellitus type: type 2 (3) ESRD (end stage renal disease) Status: Chronic Assessment and plan: Nephrology Current Visit: Yes (4) Biliary acute pancreatitis Status: Acute Assessment and plan: Cholecystectomy cancelled today due to thrombus of RUE Surgery and GI managing Cholecystostomy tube placed 01/03/17 Patient has been made NPO again, primary is considering TPN, central line has been placed IV NS, monitor closely as patient is ESRD Current Visit: Yes (5) Abdominal pain Status: Acute Current Visit: Yes (6) Intractable nausea and vomiting Status: Acute Assessment and plan: Improving Zofran and phenergan prn Current Visit: Yes (7) Occlusive thrombus Status: Acute Assessment and plan: Of RUE involving jugular vein, basilic vein and proximal brachial vein Continue heparin infusion Will start coumadin tonight, pharmacy to assist with dosing Current Visit: Yes (8) Leukocytosis Status: Acute Assessment and plan: Ongoing since admission, fluctuating in nature She has remained afebrile She is currently on vancomycin and zosyn CT A/P without acute pathology, being repeated today Will repeat infectious work-up to include: CXR, UA and blood cultures Will check ESR and CRP in am Current Visit: Yes (9) Hyponatremia Status: Acute Assessment and plan: Secondary to receiving D10 Now changed to NS Current Visit: Yes Hospitalist: Subjective Interval history: Over the weekend patient with improvement in abdominal pain and nausea. She reports the return of nausea this morning. She only had one ensure yesterday, no other intake. Exam - Constitutional Vitals: Period Temp Pulse Resp BP Sys/Tavares Pulse Ox Last 24 Hr 97.2 F-98.7 F 84-98 18-24 110-155/61-80 97-99 General appearance: normal weight - Head Head exam: Present: normocephalic, atraumatic - Eye Eye exam: Present: EOMI Pupils: Present: SHERIF - ENT ENT exam: Present: normal exam - Neck Neck exam: Present: normal inspection - Respiratory Respiratory exam: Present: clear to auscultation bilaterally - Cardiovascular Cardiovascular exam: Present: regular rate and rhythm - GI/Abdominal GI/Abdominal exam: Present: normal bowel sounds, soft. Absent: tenderness, rebound - Extremities Exam Extremities exam: Present: normal inspection - Back Exam Back exam: Present: normal inspection - Neurological Exam Neurological exam: Present: alert, oriented X3 - Psychiatric Psychiatric exam: Present: normal affect, normal mood - Skin Skin exam: Present: warm, intact Results - Labs CBC & BMP: 01/07/17 05:04 01/07/17 05:04 Quality Measures - VTE Contraindication to Pharmacological VTE Prophylaxis: High Risk of Bleeding Specialty Discharge - Follow Up or Referrals Follow up with: Yves Gutierrez MD [Physician] - 01/09/17 1:45 pm
--- NOTE | 2017-01-07 11:59 | Operative Note ---
Date of procedure: 01/07/17 Pre-op diagnosis: Malnutrition moderate degree Post-op diagnosis: same Procedure: Preoperative diagnosis Need for central access for TPN Postoperative diagnosis Same Procedures performed Right common femoral vein central line placement Findings The right common femoral vein was accessed on first stick with venous nonpulsatile blood return. Seldinger technique was used to place a triple- lumen catheter the catheter was placed at 20 centimeters at the skin level. Complications None apparent Specimen None Anesthesia Local 10 cc lidocaine Indication Need for central venous access for TPN Description of procedure The patient was placed in the supine position in her hospital bed. The right groin was prepped with chlorhexidine and draped sterilely. Timeout was called. Local anesthetic was administered medial to the pulse of the right femoral artery. The vein was accessed with a needle on the first attempt. Venous nonpulsatile blood return was obtained. A wire was passed easily into the venous system. A skin incision was made alongside the wire and the dilator was placed over the wire. Seldinger technique was used to place a triple-lumen catheter and it was threaded over the wire up to 20 centimeters at the skin. The catheter was sewn in place at this location. All 3 lm returned blood easily and were flushed with saline. The catheter was sewn in place with 3-0 silk sutures in a Biopatch sterile dressing was placed with Tegaderm. Postoperative plan Begin TPN Surgeon / Physician: Yves Gutierrez Results - Labs CBC & BMP: 01/07/17 05:04 01/07/17 05:04 Discharge Plan - Discharge Medications New HYDROcodone/ACETAMIN 7.5-325 [[place] 7.5-325] 1 tablet PO Q4H PRN #10 tablet PRN Reason: Pain Continue cloNIDine TAB [Catapres Tab] 0.2 mg PO BID Citalopram [CeleXA] 20 mg PO DAILY Insulin Glargine,Hum.rec.anlog [Toujeo SoloStar] 20 unit SUBCUT BID Furosemide Tab [Lasix Tab] 40 mg PO BID DIURETIC #60 tablet Insulin Glargine [Lantus] 50 unit SUBCUT DAILY Carvedilol 12.5 mg PO DAILY - Follow Up or Referral Follow Up: Yves Gutierrez MD [Physician] - 01/09/17 1:45 pm - Forms/Instructions Instructions: Petar AV graft fistula
--- NOTE | 2017-01-07 12:09 | XRay Report ---
Portable chest. Indication: Leukocytosis. Comparison: December 30, 2016. The heart is normal in size. A dual-lumen catheter is in satisfactory position. The pulmonary vasculature is normal. The lung [place] are clear. Surgical skin rajeev project at the left arm. Impression: No acute cardiopulmonary abnormality is seen. PROCEDURE INTERPRETED AT [facility] DEPARTMENT OF RADIOLOGY Final Report Signed by: Dr. Rosa Maria Garcia
[2017-01-07] MEDS: SODIUM CHLORIDE 0.9% 1,000 ML IV SCH (13:13)
[2017-01-07] MEDS: PANTOPRAZOLE 40 MG TABLET PO SCH (13:14)
[2017-01-07] MEDS: cloNIDine 0.1 MG TABLET PO SCH ×2 (13:14→22:00)
[2017-01-07] MEDS: ISOSORBIDE MONONITRATE 20 MG TABLET PO SCH ×2 (13:14→21:59)
[2017-01-07] MEDS: CITALOPRAM 20 MG TABLET PO SCH (13:14)
[2017-01-07 14:44] LABS: Apearance,Urine CLEAR (Clear); Bacteria,Urine Occasional /HPF (Few); Bilirubin,Urine Negative (Negative); Blood, Urine Small mg/dL (Negative); Glucose,Urine (UA) 50 mg/dL (Negative); Ketones,Urine Negative (Negative); Nitrite,Urine Negative (Negative); Protein,Urine >=500 MG/DL; RBC,Urine 4 /HPF (0-4); Squamous Epithelial Cell,Urine Occasional /HPF (0-10); Urine Color Yellow (Yellow); Urine Specific Gravity 1.026 (1.001-1.035); Urine Urobilinogen < 2.0 EU/DL (0.2-1.0); WBC,Urine 5 /HPF (0-6)
[2017-01-07] MEDS: WARFARIN 5 MG TABLET PO SCH (17:50)
[2017-01-07] MEDS: DEXTROSE 10% IV SCH (22:13)
[2017-01-07] MEDS: MULTIVITAMIN IV SCH (22:13)
[2017-01-07] MEDS: THIAMINE IV SCH (22:13)
[2017-01-08] MEDS: ALBUTEROL/IPRATROPIUM 3 ML NEB RESP TX SCH ×4 (01:09→19:26)
[2017-01-08 07:25] LABS: Basophils # 0.1 10*3/uL (0.0-0.2); Basophils % 0.3 % (0.0-0.8); Eosinophils # 0.3 10*3/uL (0.0-0.87); Eosinophils % 1.4 % (0.00-10.9); Hematocrit 24.3 VOL% (35.7-47.0); Immature Granulocytes % 1.9 %; Immature Granulocytes Absolute 0.35 #; Lymphocytes # 1.7 10*3/uL (1.4-4.0); Lymphocytes % 9.1 % (21.3-54.2); Mean Corpuscular HGB Conc 34.2 GM/DL (32-36); Mean Corpuscular Hemoglobin 30 PG (27-34); Mean Corpuscular Volume 87.4 FL (87-102); Mean Platelet Volume 10.1 FL (9.6-12.0); Monocytes # 1.2 10*3/uL (0.11-0.8); Monocytes % 6.2 % (1.7-12.7); Neutrophils # 15.2 10*3/uL (1.4-7.4); Neutrophils % 81.1 % (38.7-73.9); Platelet Count 307 T/CUMM (130-400); Red Cell Distribution Width 15.9 % (9.3-17.3)
[2017-01-08 07:40] LABS: INR 1.1; PT Patient Result 11.9 SECS
[2017-01-08 07:41] LABS: Hemoglobin 8.3 GM/DL (12.0-16.0); Red Blood Count 2.78 MC/CUMM (3.8-5.5); White Blood Count 18.8 T/CUMM (4-12)
[2017-01-08 08:35] LABS: Albumin 1.6 G/DL (3.4-5.0); Bilirubin,Total 0.7 MG/DL (0.2-1.0); Calcium 7.5 MG/DL (8.5-10.1); Osmolality,Calculated 275.1 MOS/KG (273-304); Potassium 3.2 MMOL/L (3.5-5.1)
[2017-01-08] MEDS: INSULIN REGULAR 100 UNIT/ML SUBCUT SCH ×4 (09:12→23:43)
[2017-01-08] MEDS: SODIUM CHLORIDE 0.9% 1,000 ML IV SCH (09:14)
[2017-01-08] MEDS: PIPERACILLIN/TAZOBACTAM 3,375 MG in SODIUM CHLORIDE 0.9% 100 ML IV SCH ×2 (09:15→21:45)
[2017-01-08] MEDS: ISOSORBIDE MONONITRATE 20 MG TABLET PO SCH ×2 (09:21→20:16)
[2017-01-08] MEDS: PANTOPRAZOLE 40 MG TABLET PO SCH (09:21)
[2017-01-08] MEDS: cloNIDine 0.1 MG TABLET PO SCH ×2 (09:21→20:17)
[2017-01-08] MEDS: CITALOPRAM 20 MG TABLET PO SCH (09:21)
--- NOTE | 2017-01-08 09:45 | General Surgery Progress Note ---
Assessment and Plan (1) Biliary acute pancreatitis Status: Acute Assessment and plan: CT scan yesterday showed no acute problems with the pancreas. The gallbladder drain had retracted some but its tip was still in the gallbladder. There is some free fluid in the pelvis. The patient is actually improving since yesterday and her lipase is coming down nicely. She is feeling better as far as her nausea and pain. I will discuss her cholecystostomy tube with interventional radiologist and defer the repositioning of that to them if they think it needs to be done. Otherwise, we will continue current treatment with n.p.o. and I will make sure the dietitian is consulted today for TPN administration. Hopefully the electrolyte problems can be corrected with TPN and dialysate. Continue n.p.o. until pancreatitis has completely resolved. Current Visit: Yes Subjective Patient reports: Present: no new complaints, feels better, pain is less, nausea , afebrile. Absent: vomiting Narrative: His central line was placed yesterday for institution of TPN but it was not started. The patient says she feels better overall. Exam - Constitutional Vitals: Period Temp Pulse Resp BP Sys/Tavares Pulse Ox Last 24 Hr 97 F-98.4 F 79-92 17-20 113-162/57-88 97-100 General appearance: normal weight, no acute distress - Head Head exam: Present: normal inspection - Eye Eye exam: Present: EOMI. Absent: scleral icterus Pupils: Present: SHERIF - ENT ENT exam: Present: normal exam Mouth exam: Present: normal external inspection, normal voice - Neck Neck exam: Present: normal inspection, trachea midline - Respiratory Respiratory exam: Present: clear to auscultation bilaterally. Absent: accessory muscle use, chest wall tenderness - Cardiovascular Cardiovascular exam: Present: RRR. Absent: systolic murmur, tachycardia - GI/Abdominal GI/Abdominal exam: Present: tenderness (The patient is still having some tenderness but is decreased from yesterday. Her cholecystostomy tube is still draining bilious fluid.), soft. Absent: rebound - Extremities Exam Extremities exam: Present: normal inspection, normal capillary refill, other ( The left arm incisions are clean. The hand perfusion is normal.) - Back Exam Back exam: Present: normal inspection - Neurological Exam Neurological exam: Present: alert, oriented X3 Speech: Present: normal - Skin Skin exam: Present: normal color, warm Results - Labs CBC & BMP: 01/08/17 06:23 01/08/17 06:23 Quality Measures - VTE Contraindication to Pharmacological VTE Prophylaxis: High Risk of Bleeding Specialty Discharge - Follow Up or Referrals Follow up with: Yves Gutierrez MD [Physician] - 01/09/17 1:45 pm
[2017-01-08] MEDS: ONDANSETRON 4 MG/2 ML VIAL IV PRN ×2 (10:22→18:19)
[2017-01-08] MEDS: HEPARIN DRIP 25,000 UNITS/500 ML PREMIX IV SCH ×4 (10:24→18:53)
--- NOTE | 2017-01-08 11:05 | Gastrointestinal Progress Note ---
Assessment and Plan (1) Abdominal pain Status: Acute Assessment and plan: 01/08-lipase levels trending downward. WBCs down 18,000. Far dietary consult for TPN initiation today. Plan an addendum to followed by Dr. Del Rosario. 01/07-lipase levels elevated at 5663. WBCs elevated at 27,000. For central line placement and repeat CT scan today. N.p.o. status. Continue to monitor this time. Plan an addendum to follow Dr. Del Rosario. 01/04-lipase levels remain elevated at 3917. Percutaneous cholecystostomy tube placed on yesterday. WBCs up at 25,000. CT of abdomen is pending this morning. Plan an addendum to followed by Dr. Del Rosario. 01/03-lipase level up slightly at 3961. Continued abdominal tenderness with nausea and vomiting. For cholecystectomy this morning following dialysis. Plan an addendum to followed by Dr. Del Rosario. 01/02-ERCP findings noted. Lipase elevated today. For tentative cholecystectomy tomorrow. Plan an addendum to follow Dr. Del Rosario. 12/31-5 day history of abdominal pain with nausea and vomiting. Findings on CT scan and ultrasound as below. LFTs are unremarkable. Elevated lipase levels. Further plan an addendum to follow by Dr. Del Rosario. Current Visit: Yes Gastroenterology - PN: Subj Interval history: CC: Abdominal pain Patient is seen awake and alert sitting up in bed with family at side. States she had an uneventful night. States that she has no abdominal pain at this time. She continues with some mild nausea but no reports of vomiting. Her lipase levels have trended down to 3658. She is noted to have an elevated ESR as well as CRP. Also noted to have hypokalemia as well as hyponatremia. WBCs are trending down at 18,000. H&H is 8. Abdomen is soft, nontender. Noted that dietitian has been consulted today for TPN administration. Repeat blood cultures are negative at this time and patient is afebrile. ROS: Denies shortness of breath or chest pain. Exam (Progress Note) - Constitutional Vitals: Period Temp Pulse Resp BP Sys/Tavares Pulse Ox Last 24 Hr 97 F-98.4 F 79-92 10-20 113-162/57-88 80-100 - Other Additional findings: General appearance: normal weight, no acute distress - Head Head exam: Present: normal inspection, normocephalic - Eye Eye exam: Present: other (Lids and conjunctive are unremarkable). Absent: scleral icterus - ENT ENT exam: Present: normal exam - Neck Neck exam: Present: normal inspection - Respiratory Respiratory exam: Present: clear to auscultation bilaterally. Absent: rales, rhonchi, wheezes - Cardiovascular Cardiovascular exam: Present: regular rate and rhythm. Absent: diastolic murmur , JVD, systolic murmur - GI/Abdominal GI/Abdominal exam: Present: normal bowel sounds, tenderness, soft. Absent: ascites, distended, mass, organomegaly - Extremities Exam Extremities exam: Present: normal inspection, full ROM - Back Exam Back exam: Present: normal inspection - Neurological Exam Neurological exam: Present: alert, oriented X3 - Psychiatric Psychiatric exam: Present: normal affect, normal mood - Skin Skin exam: Present: normal color, warm, dry Results - Labs CBC & BMP: 01/08/17 06:23 01/08/17 06:23 Lab Results: I have reviewed the past 24 hour labs Specialty Discharge - Follow Up or Referrals Follow up with: Yves Gutierrez MD [Physician] - 01/09/17 1:45 pm
[2017-01-08] MEDS: FAT EMULSION 20% 250 ML IV SCH (13:51)
--- NOTE | 2017-01-08 14:02 | Hospitalist Progress Note ---
Assessment and Plan (1) Hypertension Status: Chronic Assessment and plan: Home medications Current Visit: No (2) Diabetes mellitus Status: Chronic Current Visit: No Qualifiers: Diabetes mellitus type: type 2 (3) ESRD (end stage renal disease) Status: Chronic Assessment and plan: Nephrology Current Visit: Yes (4) Biliary acute pancreatitis Status: Acute Assessment and plan: Cholecystectomy cancelled today due to thrombus of RUE Surgery and GI managing Cholecystostomy tube placed 01/03/17 Patient has been made NPO again, TPN being started today monitor closely as patient is ESRD Current Visit: Yes (5) Abdominal pain Status: Acute Current Visit: Yes (6) Intractable nausea and vomiting Status: Acute Assessment and plan: Improving Zofran and phenergan prn Current Visit: Yes (7) Occlusive thrombus Status: Acute Assessment and plan: Of RUE involving jugular vein, basilic vein and proximal brachial vein Continue heparin infusion Continue coumadin, pharmacy to assist with dosing Current Visit: Yes (8) Leukocytosis Status: Acute Assessment and plan: Ongoing since admission, fluctuating in nature, trending down today She has remained afebrile She is currently on vancomycin and zosyn CT A/P without acute pathology, being repeated today Infectious work-up repeated. CXR and UA without acute process. Blood cultures pending It is possible that this is reactive Her ESR and CRP are elevated Procalcitonin is pending Current Visit: Yes (9) Hyponatremia Status: Acute Assessment and plan: TPN should help with correction Current Visit: Yes Hospitalist: Subjective Interval history: No acute events overnight. Patient with episode of emesis this afternoon. Does report that the her abdominal pain is better. Exam - Constitutional Vitals: Period Temp Pulse Resp BP Sys/Tavares Pulse Ox Last 24 Hr 97 F-97.9 F 79-98 10-20 113-162/57-88 80-100 General appearance: normal weight - Head Head exam: Present: normocephalic, atraumatic - Eye Eye exam: Present: EOMI Pupils: Present: SHERIF - ENT ENT exam: Present: normal exam - Neck Neck exam: Present: normal inspection - Respiratory Respiratory exam: Present: clear to auscultation bilaterally - Cardiovascular Cardiovascular exam: Present: regular rate and rhythm - GI/Abdominal GI/Abdominal exam: Present: normal bowel sounds, soft. Absent: tenderness, rebound - Extremities Exam Extremities exam: Present: normal inspection - Back Exam Back exam: Present: normal inspection - Neurological Exam Neurological exam: Present: alert, oriented X3 - Psychiatric Psychiatric exam: Present: normal affect, normal mood - Skin Skin exam: Present: warm, intact Results - Labs CBC & BMP: 01/08/17 06:23 01/08/17 06:23 Quality Measures - VTE Contraindication to Pharmacological VTE Prophylaxis: High Risk of Bleeding Specialty Discharge - Follow Up or Referrals Follow up with: Yves Gutierrez MD [Physician] - 01/09/17 1:45 pm
--- NOTE | 2017-01-08 16:22 | Event Note ---
notified by Dr. Gutierrez that the ana tube is draining but looks to be pulled out on the CT I agree that this needs to be replaced. I will d/w patient. NPO after midnight with plan to remove/replace a new tube in the morning
[2017-01-08] MEDS ORDERED: VANCOMYCIN INJ 500 MG in SODIUM CHLORIDE 0.9% 250 ML IV ONE (18:00)
[2017-01-08] MEDS: ELECTROLYTE CONCENTRATE 20 ML, TRACE ELEMENTS (5) 1 ML, MULTIVITAMIN INJ 10 ML in AMINO... IV SCH (18:16)
[2017-01-08] MEDS: WARFARIN 5 MG TABLET PO SCH ×2 (18:17→20:22)
[2017-01-08] MEDS: MORPHINE 2 MG/1 ML SYRINGE IV PRN (20:12)
--- NOTE | 2017-01-08 20:51 | Nephrology Progress Note ---
Nephrology - PN: Subj Interval history: Assessment abdominal pain this morning. No shortness of breath Exam (PN)-Nephrology - Vital Signs Vital signs: Period Temp Pulse Resp BP Sys/Tavares Pulse Ox Last 24 Hr 97.3 F-97.9 F 79-98 10-20 113-154/57-87 80-100 Exam: Gen.: Alert and oriented x3. ENT: Pupils equal round reactive to light. EOMs intact. Neck: Supple. No JVD or bruit. Cardiovascular: Regular rate and rhythm. No murmur rub or gallop Lungs: Clear Abdomen: Soft. Nontender. Positive bowel sounds. No organomegaly Extremities: No edema - Lab 01/08/17 06:23 01/08/17 06:23 Most recent lab results Calcium 7.5 MG/DL (8.5-10.1) L 01/08/17 06:23 Magnesium 2.2 MG/DL (1.8-2.4) 01/07/17 05:04 Assessment and Plan (1) ESRD (end stage renal disease) Status: Chronic Assessment and plan: 61-year-old woman with: * ESRD. 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 It has been ligated * Diabetes mellitus * Aspiration resolved * Hypertension. Improved control * Anemia. Posttransfusion * DVT right arm * Cholelithiasis with pancreatitis. Cholecystostomy tube to be repositioned tomorrow. Lipase decreasing. Continue TPN. Current Visit: Yes (2) Aspiration into airway Status: Acute Current Visit: Yes (3) Cerebrovascular disease Status: Chronic Current Visit: No (4) Diabetes mellitus Status: Chronic Current Visit: No Qualifiers: Diabetes mellitus type: type 2 (5) Hypertension Status: Chronic Current Visit: No Specialty Discharge - Follow Up or Referrals Follow up with: Yves Gutierrez MD [Physician] - 01/09/17 1:45 pm
[2017-01-08] MEDS: PROCHLORPERAZINE 5 MG TABLET PO PRN (21:17)
[2017-01-08] MEDS: PROMETHAZINE 25 MG/1 ML VIAL IM PRN (23:44)
[2017-01-09] MEDS: ALBUTEROL/IPRATROPIUM 3 ML NEB RESP TX SCH ×4 (01:02→19:11)
[2017-01-09] MEDS: MORPHINE 2 MG/1 ML SYRINGE IV PRN ×2 (02:07→09:48)
[2017-01-09] MEDS: ONDANSETRON 4 MG/2 ML VIAL IV PRN ×4 (02:20→18:22)
[2017-01-09] MEDS ORDERED: ONDANSETRON 4 MG/2 ML VIAL ONE ×2 (08:00→08:07)
[2017-01-09] MEDS ORDERED: MORPHINE 2 MG/1 ML SYRINGE ONE (08:06)
--- NOTE | 2017-01-09 08:24 | General Surgery Progress Note ---
Assessment and Plan (1) Biliary acute pancreatitis Status: Acute Assessment and plan: Continue TPN and n.p.o. Follow-up labs today Repositioning of cholecystostomy tube today Current Visit: Yes Subjective Patient reports: Present: no new complaints, feels better, pain is less, nausea , afebrile. Absent: vomiting Exam - Constitutional Vitals: Period Temp Pulse Resp BP Sys/Tavares Pulse Ox Last 24 Hr 96.8 F-97.5 F 84-109 10-20 102-157/64-103 97-100 General appearance: normal weight, no acute distress - Head Head exam: Present: normal inspection, normocephalic - Eye Eye exam: Present: EOMI. Absent: scleral icterus Pupils: Present: SHERIF - ENT ENT exam: Present: normal exam Mouth exam: Present: normal external inspection, normal voice - Neck Neck exam: Present: normal inspection, trachea midline - Respiratory Respiratory exam: Present: clear to auscultation bilaterally. Absent: accessory muscle use, chest wall tenderness - Cardiovascular Cardiovascular exam: Present: RRR. Absent: systolic murmur, tachycardia - GI/Abdominal GI/Abdominal exam: Present: soft. Absent: tenderness, rebound - Extremities Exam Extremities exam: Present: other (Left arm incisions are clean and dry) - Back Exam Back exam: Present: normal inspection - Neurological Exam Neurological exam: Present: alert Speech: Present: normal - Skin Skin exam: Present: normal color, warm Results - Labs CBC & BMP: 01/08/17 06:23 01/08/17 06:23 Quality Measures - VTE Contraindication to Pharmacological VTE Prophylaxis: High Risk of Bleeding Specialty Discharge - Follow Up or Referrals Follow up with: Yves Gutierrez MD [Physician] - 01/09/17 1:45 pm
[2017-01-09] MEDS: cloNIDine 0.1 MG TABLET PO SCH (09:20)
[2017-01-09] MEDS: INSULIN REGULAR 100 UNIT/ML SUBCUT SCH ×4 (09:34→20:43)
[2017-01-09] MEDS: CITALOPRAM 20 MG TABLET PO SCH (09:34)
[2017-01-09] MEDS: ISOSORBIDE MONONITRATE 20 MG TABLET PO SCH (09:35)
[2017-01-09] MEDS: PIPERACILLIN/TAZOBACTAM 3,375 MG in SODIUM CHLORIDE 0.9% 100 ML IV SCH ×2 (09:35→23:01)
[2017-01-09] MEDS: PANTOPRAZOLE 40 MG TABLET PO SCH (09:35)
[2017-01-09] MEDS: PROMETHAZINE 25 MG/1 ML VIAL IM PRN ×2 (09:49→19:23)
--- NOTE | 2017-01-09 09:54 | Post Interventional Procedure ---
Pre-op diagnosis: cholecystostomy tube pulled out, not draining well Post-op diagnosis: same Procedure: remove tube and place new cholecystostomy tube Contrast: 5 mL Flouroscopy: 4.8 min Radiologist: Mani Osorio Anesthesia: local Specimens: none sent Estimated blood loss: none Complications: none Condition: stable Description/Findings: Indwelling tube was noted to be "unlocked" with the pigtail disengaged on the preprocedural imaging. Additionally, the position of the tube isn't significantly changed from final positioning on the prior study 01/03/2017. Minimal contrast injection demonstrates small probable gallbladder fossa collection with intraperitoneal contrast indication. Brief probing with the wire demonstrates truncation with the peritoneal cavity. Therefore the indwelling tube was removed. Utilizing the subcutaneous tract, the 20-gauge Chiba needle was advanced with ultrasound guidance into the gallbladder with 1 attempt. A cope wire was advanced and looped into the gallbladder. Over the wire, the triaxial access set was advanced and brief contrast injection again demonstrates positioning within the gallbladder. Cystic duct was not visualized. A new 8 [place] pigtail catheter was then placed into the gallbladder without difficulty. The catheter was secured to the skin with upper extremity device. The pigtail was confirmed in the "locked" position and this portion of the catheter should not be disabled for any reason. Assessment and Plan - Time spent with patient Time spent with patient: Less than 30 minutes (1) Cholelithiasis Problem details: sludge on U/s although NM HIDA was normal. ERCP did no vis cystic duct and patient now on heparin and surgery has increased risks Status : Acute Assessment and plan: plan for GB drain catheter placement today Heparin stopped and repeat BP with 98 sys update 01/09/2017: Old tube pigtail was unlocked and pulled out. New tube placed in to the GB for drainage. The patient tolerated the procedure well. Current Visit: Yes
--- NOTE | 2017-01-09 10:03 | Interventional Radiology Rpt ---
IR cholecystostomy complete Cholecystostomy catheter placement using ultrasound and fluoroscopic guidance Cholecystogram Abdominal ultrasound Clinical Information: The patient is not a surgical candidate due to multiple medical problems including current anticoagulation for right upper extremity DVT. The previously placed cholecystostomy tube (placed 5 days ago) was noted to be "unlocked" position on the preprocedural images. Physician[s]: Dr. Osorio Procedure: The patient was advised of the benefits, risks, and alternatives of the procedure and informed consent was obtained. A time out was performed with verification of the patient's name, MRN, site of procedure, and type of procedure to be performed. The patient was positioned in the supine position on the angiographic table. The site was prepped and draped in the usual sterile fashion. Local anesthesia only was used for the procedure. A sawdust machine operator radiograph reveals no relevant abnormality. A preliminary ultrasound of the abdomen demonstrates mildly dilated gallbladder with sludge. Indwelling tube was injected with 5 mL contrast was demonstrated collection about the catheter but not within the gallbladder, compatible with malpositioning. Brief probing with the [employer] wire resulted in passage into the peritoneal cavity. Therefore, the catheter was removed. The overlying soft tissues were anesthetized with lidocaine. Utilizing the previous puncture site, a 20-gauge Chiba needle was passed into the gallbladder under sonographic guidance. A cholecystogram was performed to confirm the needle tip location. A J-wire was then inserted into the gallbladder under fluoroscopic guidance. An 8 [place] all-purpose drain was passed into the gallbladder over the wire. The pigtail was formed and locked in position. A final cholecystogram was performed demonstrating the pigtail appropriately positioned with the gallbladder lumen. The gallbladder appears dilated. The cystic duct is not visualized. A fluid sample was aspirated and sent to the laboratory for analysis. The catheter was sutured in position with Percu-Stay device and a sterile dressing applied. The catheter was placed to gravity drainage. The patient tolerated the procedure well and was returned to the PRU in stable condition. EBL: < 5 mL. Complications: None. Total number of images for the procedure: 6 Conclusion: 1. Ultrasound of the abdomen demonstrates dilated gallbladder with sludge. Preliminary evaluation also demonstrates the tube to be in significantly different position when compared to the final images from the placement study. Additionally, the locking mechanism of the pigtail had been disabled. 2. Cholecystogram demonstrates dilated gallbladder, as seen previously. 3. Successful cholecystostomy catheter placement. 4. Record catheter output. Do not flush catheter remains patent with drainage. 5. If the patient remains non-operative, the catheter can be evaluated after 6 weeks for possible removal. PROCEDURE INTERPRETED AT [facility] DEPARTMENT OF RADIOLOGY Final Report Signed by: Mani Osorio
[2017-01-09 10:21] LABS: Basophils % 0.1 % (0.0-0.8); Eosinophils # 0.1 10*3/uL (0.0-0.87); Eosinophils % 0.7 % (0.00-10.9); Hematocrit 19.4 VOL% (35.7-47.0); Hemoglobin 6.7 GM/DL (12.0-16.0); Immature Granulocytes % 1.6 %; Immature Granulocytes Absolute 0.35 #; Lymphocytes % 4.7 % (21.3-54.2); Mean Corpuscular HGB Conc 34.5 GM/DL (32-36); Mean Corpuscular Hemoglobin 30 PG (27-34); Mean Platelet Volume 10.4 FL (9.6-12.0); Monocytes # 1.2 10*3/uL (0.11-0.8); Monocytes % 5.8 % (1.7-12.7); Neutrophils # 18.5 10*3/uL (1.4-7.4); Neutrophils % 87.1 % (38.7-73.9); Platelet Count 291 T/CUMM (130-400); Red Blood Count 2.23 MC/CUMM (3.8-5.5); Red Cell Distribution Width 15.9 % (9.3-17.3); White Blood Count 21.3 T/CUMM (4-12)
--- NOTE | 2017-01-09 10:34 | Gastrointestinal Progress Note ---
Assessment and Plan (1) Abdominal pain Status: Acute Assessment and plan: 01/09-no complaints of pain. TPN initiated. Cholecystostomy tube replaced today. Plan an addendum to followed by Dr. Del Rosario. 01/08-lipase levels trending downward. WBCs down 18,000. Far dietary consult for TPN initiation today. Plan an addendum to followed by Dr. Del Rosario. 01/07-lipase levels elevated at 5663. WBCs elevated at 27,000. For central line placement and repeat CT scan today. N.p.o. status. Continue to monitor this time. Plan an addendum to follow Dr. Del Rosario. 01/04-lipase levels remain elevated at 3917. Percutaneous cholecystostomy tube placed on yesterday. WBCs up at 25,000. CT of abdomen is pending this morning. Plan an addendum to followed by Dr. Del Rosario. 01/03-lipase level up slightly at 3961. Continued abdominal tenderness with nausea and vomiting. For cholecystectomy this morning following dialysis. Plan an addendum to followed by Dr. Del Rosario. 01/02-ERCP findings noted. Lipase elevated today. For tentative cholecystectomy tomorrow. Plan an addendum to follow Dr. Del Rosario. 12/31-5 day history of abdominal pain with nausea and vomiting. Findings on CT scan and ultrasound as below. LFTs are unremarkable. Elevated lipase levels. Further plan an addendum to follow by Dr. Del Rosario. Current Visit: Yes Gastroenterology - PN: Subj Interval history: CC: Abdominal pain Patient is seen awake and alert lying in bed with family at side. She denies any abdominal pain other than some soreness of the cholecystostomy site. She is noted to have had a new cholecystostomy tube placed this morning and she tolerated this well. No repeat labs noted for today. She is afebrile. Abdomen is soft, nontender. TPN has been initiated. ROS: Denies shortness of breath or chest Exam (Progress Note) - Constitutional Vitals: Period Temp Pulse Resp BP Sys/Tavares Pulse Ox Last 24 Hr 96.8 F-97.5 F 86-109 10-20 102-157/64-103 97-100 - Other Additional findings: General appearance: normal weight, no acute distress - Head Head exam: Present: normal inspection, normocephalic - Eye Eye exam: Present: other (Lids and conjunctive are unremarkable). Absent: scleral icterus - ENT ENT exam: Present: normal exam - Neck Neck exam: Present: normal inspection - Respiratory Respiratory exam: Present: clear to auscultation bilaterally. Absent: rales, rhonchi, wheezes - Cardiovascular Cardiovascular exam: Present: regular rate and rhythm. Absent: diastolic murmur , JVD, systolic murmur - GI/Abdominal GI/Abdominal exam: Present: normal bowel sounds, tenderness, soft. Absent: ascites, distended, mass, organomegaly - Extremities Exam Extremities exam: Present: normal inspection, full ROM - Back Exam Back exam: Present: normal inspection - Neurological Exam Neurological exam: Present: alert, oriented X3 - Psychiatric Psychiatric exam: Present: normal affect, normal mood - Skin Skin exam: Present: normal color, warm, dry Results - Labs CBC & BMP: 01/08/17 06:23 01/08/17 06:23 Lab Results: I have reviewed the past 24 hour labs Specialty Discharge - Follow Up or Referrals Follow up with: Yves Gutierrez MD [Physician] - 01/09/17 1:45 pm
[2017-01-09 10:38] LABS: INR 1.2; PT Patient Result 12.6 SECS
[2017-01-09] MEDS: HEPARIN DRIP 25,000 UNITS/500 ML PREMIX IV SCH (10:39)
[2017-01-09 10:41] LABS: Lymphocytes 2 % (20-55); Segmented Neutrophils 93 % (50-85); Total Cells Counted 100
[2017-01-09 10:53] LABS: Calcium 7.9 MG/DL (8.5-10.1); Osmolality,Calculated 292.5 MOS/KG (273-304); Potassium 3.1 MMOL/L (3.5-5.1)
[2017-01-09 10:55] LABS: Magnesium 2.1 MG/DL (1.8-2.4)
[2017-01-09 11:00] LABS: Hypochromasia 1+; Microcytosis 1+; Platelet Estimate Normal; Polychromasia Slight
[2017-01-09] MEDS ORDERED: HEPARIN 5,000 UNIT/1 ML VIAL IV ONE (12:00)
[2017-01-09] MEDS: FAT EMULSION 20% 250 ML IV SCH (14:41)
[2017-01-09] MEDS: ELECTROLYTE CONCENTRATE 20 ML, TRACE ELEMENTS (5) 1 ML, MULTIVITAMIN INJ 10 ML, INSULIN... IV SCH (14:41)
[2017-01-09] MEDS: ELECTROLYTE CONCENTRATE 20 ML, TRACE ELEMENTS (5) 1 ML, MULTIVITAMIN INJ 10 ML in AMINO... IV SCH (14:41)
--- NOTE | 2017-01-09 14:52 | Hospitalist Progress Note ---
Assessment and Plan (1) Diabetes mellitus Status: Chronic Assessment and plan: She continues on sliding scale insulin coverage. Current Visit: No Qualifiers: Diabetes mellitus type: type 2 (2) AV fistula thrombosis Status: Acute Assessment and plan: She continues on heparin and warfarin anticoagulation. Current Visit: No (3) ESRD (end stage renal disease) Status: Chronic Assessment and plan: She continues on hemodialysis under the management of Nephrology. Current Visit: Yes (4) Cholelithiasis Problem details: sludge on U/s although NM HIDA was normal. ERCP did no vis cystic duct and patient now on heparin and surgery has increased risks Status : Acute Assessment and plan: She underwent replacement of her cholecystostomy tube today. She is being followed by Surgery. Current Visit: Yes Qualifiers: Cholelithiasis location: gallbladder and bile duct (5) Biliary acute pancreatitis Status: Acute Assessment and plan: Her lipase today is 3450. She continues to complain of nausea and vomiting. She is being followed by GI. Current Visit: Yes (6) Intractable nausea and vomiting Status: Acute Assessment and plan: She is being treated with Phenergan and Zofran as needed. Current Visit: Yes Hospitalist: Subjective Interval history: Continues to complain of nausea and vomiting. She has mild abdominal pain at the cholecystostomy site. She underwent replacement of the cholecystostomy tube today. Exam - Constitutional Vitals: Period Temp Pulse Resp BP Sys/Tavares Pulse Ox Last 24 Hr 96.8 F-97.3 F 93-110 14-20 91-157/57-103 97-100 General appearance: no acute distress, under weight - Head Head exam: Present: normal inspection - Neck Neck exam: Present: normal inspection - Respiratory Respiratory exam: Present: clear to auscultation bilaterally - Cardiovascular Cardiovascular exam: Present: regular rate and rhythm - GI/Abdominal GI/Abdominal exam: Present: normal bowel sounds, soft, other (Cholecystostomy tube.) - Extremities Exam Extremities exam: Present: normal inspection - Skin Skin exam: Present: normal color, warm, intact Results - Labs CBC & BMP: 01/09/17 09:31 01/09/17 09:31 Quality Measures - VTE Contraindication to Pharmacological VTE Prophylaxis: High Risk of Bleeding Specialty Discharge - Follow Up or Referrals Follow up with: Yves Gutierrez MD [Physician] - 01/09/17 1:45 pm
[2017-01-09] MEDS ORDERED: SODIUM CHLORIDE 0.9% 500 ML IV ONE (15:39)
[2017-01-09 16:04] LABS: Eosinophils # 0.1 10*3/uL (0.0-0.87); Eosinophils % 0.3 % (0.00-10.9); Hematocrit 16.6 VOL% (35.7-47.0); Immature Granulocytes % 2.1 %; Immature Granulocytes Absolute 0.57 #; Lymphocytes # 1.2 10*3/uL (1.4-4.0); Lymphocytes % 4.3 % (21.3-54.2); Mean Corpuscular HGB Conc 34.9 GM/DL (32-36); Mean Corpuscular Hemoglobin 31 PG (27-34); Mean Corpuscular Volume 88.8 FL (87-102); Mean Platelet Volume 10.3 FL (9.6-12.0); Monocytes # 1.5 10*3/uL (0.11-0.8); Monocytes % 5.6 % (1.7-12.7); NRBC # 0.03 10*3/uL; Neutrophils # 23.7 10*3/uL (1.4-7.4); Neutrophils % 87.7 % (38.7-73.9); Platelet Count 278 T/CUMM (130-400); Red Blood Count 1.87 MC/CUMM (3.8-5.5); Red Cell Distribution Width 16.2 % (9.3-17.3); White Blood Count 27.1 T/CUMM (4-12)
[2017-01-09 16:09] LABS: Hemoglobin 5.8 GM/DL (12.0-16.0)
--- NOTE | 2017-01-09 16:34 | Event Note ---
Patient continues to do poorly. She has been hypotensive with systolic BP 80 mm Hg. She has been vomiting dark brown vomitus. Her H/H has decreased to 15.6 and 5.6. She is presently being transfused the first of 2 units of PRBC's. She will be transferred to the ICU. GI will be reconsulted for presumed recurrent GI bleeding.
[2017-01-09] MEDS ORDERED: PHENYLEPHRINE DRIP 40 MG/250 ML PREMIX IV ONE (17:01)
[2017-01-09] MEDS: PHENYLEPHRINE DRIP 40 MG/250 ML PREMIX IV SCH (17:33)
[2017-01-09] MEDS: NOREPINEPHRINE 8 MG in SODIUM CHLORIDE 0.9% 242 ML IV SCH (17:34)
[2017-01-09] MEDS ORDERED: WARFARIN 7.5 MG TABLET PO SCH (18:00)
[2017-01-09] MEDS ORDERED: SODIUM CHLORIDE 0.9% 1,000 ML IV ONE (18:30)
[2017-01-09] MEDS ORDERED: HEPARIN/NACL 0.9% 2 UNITS/ML 500 ML IV ONE (18:55)
[2017-01-09 19:11] LABS: Basophils % 0.1 % (0.0-0.8); Eosinophils # 0.1 10*3/uL (0.0-0.87); Eosinophils % 0.3 % (0.00-10.9); Hematocrit 18.6 VOL% (35.7-47.0); Hemoglobin 6.7 GM/DL (12.0-16.0); Immature Granulocytes % 3.7 %; Immature Granulocytes Absolute 1.09 #; Lymphocytes # 1.4 10*3/uL (1.4-4.0); Lymphocytes % 4.6 % (21.3-54.2); Mean Corpuscular Hemoglobin 31 PG (27-34); Mean Corpuscular Volume 85.3 FL (87-102); Monocytes # 1.9 10*3/uL (0.11-0.8); Monocytes % 6.6 % (1.7-12.7); NRBC # 0.02 10*3/uL; Neutrophils # 24.8 10*3/uL (1.4-7.4); Neutrophils % 84.7 % (38.7-73.9); Platelet Count 222 T/CUMM (130-400); Red Blood Count 2.18 MC/CUMM (3.8-5.5); Red Cell Distribution Width 15.5 % (9.3-17.3); White Blood Count 29.3 T/CUMM (4-12)
[2017-01-09 19:20] LABS: Lymphocytes 3 % (20-55); Platelet Estimate Normal; Segmented Neutrophils 95 % (50-85); Total Cells Counted 100
[2017-01-09 19:47] LABS: Band Neutrophils 1 % (0-10); Lymphocytes 5 % (20-55); Platelet Estimate Normal; Segmented Neutrophils 91 % (50-85); Total Cells Counted 100
[2017-01-09] MEDS ORDERED: PANTOPRAZOLE 40 MG VIAL IV SCH (21:00)
[2017-01-09] MEDS ORDERED: LIDOCAINE 2% 5 ML VIAL ONE (21:00)
[2017-01-09] MEDS ORDERED: PHENYLEPHRINE 1 MG/10 ML SYRINGE IV ONE (21:00)
[2017-01-09] MEDS ORDERED: PROPOFOL 200 MG/20 ML VIAL IV ONE (21:00)
[2017-01-09] MEDS ORDERED: ETOMIDATE 20 MG/10 ML VIAL IV ONE (21:00)
--- NOTE | 2017-01-09 21:06 | Event Note ---
I was notified around 1850 on 01/09/2017 that the patient had decompensated during the day and been transferred to the ICU by the hospitalist service. Apparently her lab work came back hemoglobin of 6.7 and this was done at 9:30 AM instead of a.m. labs will try to order the day before. Nobody notified me of this critical lab value. The patient was washed by the hospitalist service who ordered a repeat hemoglobin and it had decreased about another gram per deciliter. Apparently at that time the patient was transferred down to the ICU and I was again not notified of her change in condition. I was eventually notified by 1 of the hospitalist physician assistants of the patient's condition throughout the day. She is currently receiving a blood transfusion and I have been at the bedside now for about an hour and 15 minutes. We have repeated a PTT which demonstrated return to normal value and Dr. Del Rosario is planning on EGD to evaluate for source of her bleeding. We will need to hold her heparin drip overnight tonight and transfuse as necessary. She does have blood coming out of her cholecystostomy tube so we will need to keep an eye on this as well and it is certainly possible that she could be bleeding from some liver parenchyma that occurred during cholecystostomy tube placement. We will continue to monitor her closely in the ICU tonight. She is stable now after receiving blood and fluids.
--- NOTE | 2017-01-09 21:50 | Operative Note ---
Date of procedure: 01/09/17 Pre-op diagnosis: Upper GI bleeding Procedure: Procedure: Esophagogastroduodenoscopy with epinephrine injection at bleeding site Brief clinical abstract: Patient is a 61-year-old female with multiple medical problems who has had complicated hospital course. She had gallstone pancreatitis with ERCP and common bile duct sphincterotomy early last week. Patient developed a DVT in her right upper extremity requiring IV heparin in the last few days and has developed upper GI bleeding. She was hypotensive earlier this evening with hemoglobin down to 5.8 and was transferred to the ICU. She has been stabilized with transfusion and IV fluids. Her PTT had corrected to 29 prior to the procedure. Indication for procedure: Upper GI bleed Endoscopic findings:[After informed consent was obtained, the patient was placed in the left lateral decubitus position. The gastroscope was inserted in the upper esophagus under direct vision with no resistance encountered. Esophageal mucosa appeared normal down to the midesophagus. There was circumferential ulceration in the distal half of the esophagus with some friability noted but no visible vessel or adherent clot. Patient had a moderate sized hiatal hernia. The endoscope was advanced in the stomach which was carefully examined including retroflexed view of the cardia and fundus with no abnormality seen. There was minimal amount of blood in the stomach. The pyloric channel and duodenal bulb appeared normal. The endoscope was advanced further into the duodenum and a fairly large clot was noted in the region of the ampulla/previous sphincterotomy. The gastroscope was withdrawn and duodenoscope advanced to this level to improve visibility. A stable appearing clot was noted in the area of the sphincterotomy site. We washed this with water through the endoscope extensively and it was noted to be adherent. There was no evident bleeding from the site and I elected to inject epinephrine 1: 10, 000 concentration adjacent to the adherent clot with a total of 5 cc injected using sclerotherapy needle. I felt it prudent not to try to remove the clot at this time with the duodenoscope required if aggressive endoscopic therapy were needed in the case of potential active bleeding. The endoscope was removed and patient appeared to tolerate the procedure well. Impression: #1 severe distal ulcerative esophagitis-related to GERD and also possibly from recent vomiting #2 adherent clot at sphincterotomy site Recommendations: Continue observation with serial hemoglobins and blood product support holding heparin for now. High-dose IV Protonix for now. Would probably do second look endoscopy in 24-48 hours for possible therapy (clipping versus coagulation) depending on appearance. F F Anesthesia: MAC Surgeon / Physician: Urban Del Rosario Estimated blood loss: minimal Specimens: none sent Condition: stable Disposition: no change Results - Labs CBC & BMP: 01/09/17 18:56 01/09/17 09:31 Discharge Plan - Discharge Medications New HYDROcodone/ACETAMIN 7.5-325 [[place] 7.5-325] 1 tablet PO Q4H PRN #10 tablet PRN Reason: Pain Continue cloNIDine TAB [Catapres Tab] 0.2 mg PO BID Citalopram [CeleXA] 20 mg PO DAILY Insulin Glargine,Hum.rec.anlog [Touchepe SoloStar] 20 unit SUBCUT BID Furosemide Tab [Lasix Tab] 40 mg PO BID DIURETIC #60 tablet Insulin Glargine [Lantus] 50 unit SUBCUT DAILY Carvedilol 12.5 mg PO DAILY - Follow Up or Referral Follow Up: Yves Gutierrez MD [Physician] - 01/09/17 1:45 pm - Forms/Instructions Instructions: Petar AV graft fistula
--- NOTE | 2017-01-09 21:52 | Anesthesia Post-Op ---
Anesthesia Post OP - Post Ansesthetic Evaluation Patient seen in post op: Yes Resp: within normal limits CV: within normal limits Mental: within normal limits Temp: within normal limits [id number]: within normal limits Nausea and Vomiting: within normal limits Pain: within normal limits
[2017-01-09] MEDS ORDERED: EPINEPHrine 1 MG/ML VIAL ONE (22:01)
[2017-01-09] MEDS ORDERED: PANTOPRAZOLE INJ 80 MG in SODIUM CHLORIDE 0.9% 100 ML IV ONE (23:00)
--- NOTE | 2017-01-09 23:40 | Nephrology Progress Note ---
Nephrology - PN: Subj Interval history: I saw patient approximately noon today. At that time she complained of mild nausea which had improved with Phenergan. She denied abdominal pain or shortness of breath. Exam (PN)-Nephrology - Vital Signs Vital signs: Period Temp Pulse Resp BP Sys/Tavares Pulse Ox Last 24 Hr 97.2 F-102 F 56-115 12-30 69-157/45-103 91-100 Exam: Gen.: Alert and oriented x3. ENT: Pupils equal round reactive to light. EOMs intact. Mucous membranes moist. Neck: Supple. No JVD or bruit. Cardiovascular: Regular rate and rhythm. No murmur rub or gallop Lungs: Clear Abdomen: Soft. Mild epigastric tenderness. No rebound Extremities: No edema - Lab 01/09/17 18:56 01/09/17 09:31 Most recent lab results Calcium 7.9 MG/DL (8.5-10.1) L 01/09/17 09:31 Phosphorus 5.0 MG/DL (2.5-4.9) H 01/09/17 09:31 Magnesium 2.1 MG/DL (1.8-2.4) 01/09/17 09:31 Assessment and Plan (1) ESRD (end stage renal disease) Status: Chronic Assessment and plan: 61-year-old woman with: * ESRD. 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 It has been ligated * Diabetes mellitus * Hypertension. Improved control * Anemia. Blood count has dropped since yesterday. Transfusion ordered * DVT right arm * Cholelithiasis with pancreatitis. Cholecystostomy tube repositioned Current Visit: Yes (2) Aspiration into airway Status: Acute Current Visit: Yes (3) Cerebrovascular disease Status: Chronic Current Visit: No (4) Diabetes mellitus Status: Chronic Current Visit: No Qualifiers: Diabetes mellitus type: type 2 (5) Hypertension Status: Chronic Current Visit: No Specialty Discharge - Follow Up or Referrals Follow up with: Yves Gutierrez MD [Physician] - 01/09/17 1:45 pm
[2017-01-09 23:58] LABS: Basophils # 0.1 10*3/uL (0.0-0.2); Basophils % 0.2 % (0.0-0.8); Eosinophils # 0.1 10*3/uL (0.0-0.87); Eosinophils % 0.3 % (0.00-10.9); Hematocrit 29.3 VOL% (35.7-47.0); Hemoglobin 10.5 GM/DL (12.0-16.0); Immature Granulocytes % 4.1 %; Immature Granulocytes Absolute 1.16 #; Lymphocytes # 1.8 10*3/uL (1.4-4.0); Lymphocytes % 6.4 % (21.3-54.2); Mean Corpuscular HGB Conc 35.8 GM/DL (32-36); Mean Corpuscular Hemoglobin 31 PG (27-34); Mean Corpuscular Volume 85.7 FL (87-102); Mean Platelet Volume 10.4 FL (9.6-12.0); Monocytes # 1.7 10*3/uL (0.11-0.8); Monocytes % 5.9 % (1.7-12.7); NRBC # 0.06 10*3/uL; Neutrophils # 23.4 10*3/uL (1.4-7.4); Neutrophils % 83.1 % (38.7-73.9); Platelet Count 188 T/CUMM (130-400); Red Blood Count 3.42 MC/CUMM (3.8-5.5); Red Cell Distribution Width 15.7 % (9.3-17.3); White Blood Count 28.2 T/CUMM (4-12)
[2017-01-10] MEDS: PANTOPRAZOLE INJ 200 MG in SODIUM CHLORIDE 0.9% 250 ML IV SCH (00:58)
[2017-01-10] MEDS: ONDANSETRON 4 MG/2 ML VIAL IV PRN ×2 (00:58→06:26)
[2017-01-10 01:02] LABS: Albumin 1.5 G/DL (3.4-5.0); Bilirubin,Total 0.8 MG/DL (0.2-1.0); Calcium 7.4 MG/DL (8.5-10.1); Potassium 2.8 MMOL/L (3.5-5.1); Total Protein 4.5 G/DL (6.4-8.3)
[2017-01-10 01:04] LABS: Band Neutrophils 1 % (0-10); Lymphocytes 8 % (20-55); Myelocytes 2 %; Segmented Neutrophils 88 % (50-85); Total Cells Counted 100
[2017-01-10 01:05] LABS: Anisocytosis 1+
[2017-01-10 01:06] LABS: Platelet Estimate Normal
[2017-01-10] MEDS: ALBUTEROL/IPRATROPIUM 3 ML NEB RESP TX SCH ×4 (01:44→20:05)
[2017-01-10 04:00] LABS: Basophils # 0.1 10*3/uL (0.0-0.2); Basophils % 0.2 % (0.0-0.8); Eosinophils # 0.2 10*3/uL (0.0-0.87); Eosinophils % 0.7 % (0.00-10.9); Hematocrit 25.9 VOL% (35.7-47.0); Hemoglobin 9.2 GM/DL (12.0-16.0); Immature Granulocytes % 3.5 %; Immature Granulocytes Absolute 0.98 #; Lymphocytes % 6.9 % (21.3-54.2); Mean Corpuscular HGB Conc 35.5 GM/DL (32-36); Mean Corpuscular Hemoglobin 30 PG (27-34); Mean Corpuscular Volume 84.9 FL (87-102); Mean Platelet Volume 9.9 FL (9.6-12.0); Monocytes # 1.5 10*3/uL (0.11-0.8); Monocytes % 5.5 % (1.7-12.7); NRBC # 0.03 10*3/uL; Neutrophils # 23.4 10*3/uL (1.4-7.4); Neutrophils % 83.2 % (38.7-73.9); Platelet Count 194 T/CUMM (130-400); Red Blood Count 3.05 MC/CUMM (3.8-5.5); Red Cell Distribution Width 15.8 % (9.3-17.3); White Blood Count 28.2 T/CUMM (4-12)
[2017-01-10 04:13] LABS: INR 1.1; PT Patient Result 11.9 SECS
[2017-01-10 04:17] LABS: Calcium 7.4 MG/DL (8.5-10.1); Osmolality,Calculated 296.8 MOS/KG (273-304); Potassium 2.8 MMOL/L (3.5-5.1)
[2017-01-10 04:24] LABS: Band Neutrophils 3 % (0-10); Eosinophils 1 % (0-10); Lymphocytes 4 % (20-55); Segmented Neutrophils 86 % (50-85); Total Cells Counted 100
[2017-01-10 04:25] LABS: Giant Platelets Few; Hypochromasia 1+; Platelet Estimate Adequate; Polychromasia Slight
[2017-01-10 04:26] LABS: Macrocytosis Slight
[2017-01-10] MEDS: INSULIN REGULAR 100 UNIT/ML SUBCUT SCH ×3 (08:43→18:20)
--- NOTE | 2017-01-10 09:05 | General Surgery Progress Note ---
Assessment and Plan (1) Biliary acute pancreatitis Status: Acute Assessment and plan: The patient is adequately resuscitated and her hemoglobin is over 9 g/dL. We will continue to trend serial hemoglobins today and keep her in the ICU. There is potential for repeat endoscopy in the next day or 2 but I will defer Dr. Del Rosario on this. The patient's heparin drip will need to be held. I have explained to her and her that if there is a risk of propagation of her DVT as well as pulmonary embolism but that the life-threatening condition that we need to treat right now as her bleeding and this prohibits any anticoagulation. Unfortunately a filter is not an option for an upper extremity DVT. Continue n.p.o. and TPN. Await resolution of pancreatitis which is slowly getting better. Continue cholecystostomy tube drain and monitor output for resolution of hemobilia. This is likely coming from the sphincterotomy site and not from a fistula between the hepatic artery branch and the biliary system. We will continue to monitor this We will attempt to correct the patient's electrolytes derangements and dialysis. Her potassium is only 2.8 today. Current Visit: Yes Subjective Narrative: The patient developed GI bleeding yesterday and was transferred to the ICU. She received 2 units of packed red blood cells and some crystalloid resuscitation. Endoscopy done by Dr. Del Rosario showed bleeding from the sphincterotomy site but no active bleeding at the time of endoscopy. The area was injected with epinephrine NG tube was placed. The patient pulled her NG tube out overnight. Her lipase is downtrending but is basically the same as yesterday. Her cholecystostomy tube drainage has decreased but still has some blood in it. She responded well to her blood transfusion but her hemoglobin is drifting down again this morning. Her potassium is down to 2.8. Exam - Constitutional Vitals: Period Temp Pulse Resp BP Sys/Tavares Pulse Ox Last 24 Hr 97.2 F-102 F 56-115 12-30 69-158/45-96 91-100 General appearance: normal weight, no acute distress - Head Head exam: Present: normal inspection, normocephalic - Eye Eye exam: Present: EOMI Pupils: Present: SHERIF - ENT ENT exam: Present: normal exam Mouth exam: Present: normal external inspection, normal voice - Neck Neck exam: Present: normal inspection, trachea midline - Respiratory Respiratory exam: Present: clear to auscultation bilaterally. Absent: accessory muscle use, chest wall tenderness - Cardiovascular Cardiovascular exam: Present: RRR. Absent: systolic murmur, tachycardia - GI/Abdominal GI/Abdominal exam: Present: normal bowel sounds, tenderness (Mild tenderness around the cholecystostomy tube draining. No peritoneal signs), soft. Absent: rebound - Extremities Exam Extremities exam: Present: normal inspection, normal capillary refill - Back Exam Back exam: Present: normal inspection - Neurological Exam Neurological exam: Present: alert Speech: Present: normal - Skin Skin exam: Present: normal color, warm Results - Labs CBC & BMP: 01/10/17 03:45 01/10/17 03:45 Quality Measures - VTE Contraindication to Pharmacological VTE Prophylaxis: High Risk of Bleeding Specialty Discharge - Follow Up or Referrals Follow up with: Yves Gutierrez MD [Physician] - 01/09/17 1:45 pm
[2017-01-10] MEDS: CITALOPRAM 20 MG TABLET PO SCH (09:33)
--- NOTE | 2017-01-10 10:34 | Gastrointestinal Progress Note ---
Assessment and Plan (1) Abdominal pain Status: Acute Assessment and plan: 01/10-no complaints of abdominal pain. Findings of EGD noted as below. Nausea and vomiting controlled at present time. Plan an addendum to followed by Dr. Del Rosario. 01/09-no complaints of pain. TPN initiated. Cholecystostomy tube replaced today. Plan an addendum to followed by Dr. Del Rosario. 01/08-lipase levels trending downward. WBCs down 18,000. Far dietary consult for TPN initiation today. Plan an addendum to followed by Dr. Del Rosario. 01/07-lipase levels elevated at 5663. WBCs elevated at 27,000. For central line placement and repeat CT scan today. N.p.o. status. Continue to monitor this time. Plan an addendum to follow Dr. Del Rosario. 01/04-lipase levels remain elevated at 3917. Percutaneous cholecystostomy tube placed on yesterday. WBCs up at 25,000. CT of abdomen is pending this morning. Plan an addendum to followed by Dr. Del Rosario. 01/03-lipase level up slightly at 3961. Continued abdominal tenderness with nausea and vomiting. For cholecystectomy this morning following dialysis. Plan an addendum to followed by Dr. Del Rosario. 01/02-ERCP findings noted. Lipase elevated today. For tentative cholecystectomy tomorrow. Plan an addendum to follow Dr. Del Rosario. 12/31-5 day history of abdominal pain with nausea and vomiting. Findings on CT scan and ultrasound as below. LFTs are unremarkable. Elevated lipase levels. Further plan an addendum to follow by Dr. Del Rosario. Current Visit: Yes Gastroenterology - PN: Subj Interval history: CC: Hematemesis, hematochezia Patient is seen, awake and alert, with family at bedside, in ICU. She has remained stable overnight and no pressor support required at this time. EGD findings noted last night. H&H is stable at 02/11 however has trended down slightly from yesterday evening at 03/17. No reports of overt bleeding at this time. Patient denies any nausea or vomiting. She denies any abdominal pain. Abdomen is soft, nontender. Potassium noted at 2.8. NG tube noted to be discontinued by patient overnight. Cholecystostomy tube is patent with continued output. She will be for possible repeat EGD tomorrow unless patient becomes unstable or has increasing overt bleeding and they would proceed at that time. ROS: Denies shortness of breath or chest pain Exam (Progress Note) - Constitutional Vitals: Period Temp Pulse Resp BP Sys/Tavares Pulse Ox Last 24 Hr 97.2 F-102 F 56-115 12-30 69-158/45-96 91-100 General appearance: normal weight, no acute distress - Head Head exam: Present: normal inspection, normocephalic - Eye Eye exam: Present: other (Lids and conjunctive are unremarkable). Absent: scleral icterus - ENT ENT exam: Present: normal exam, normal oropharynx - Neck Neck exam: Present: normal inspection - Respiratory Respiratory exam: Present: clear to auscultation bilaterally. Absent: rales, rhonchi, wheezes - Cardiovascular Cardiovascular exam: Present: regular rate and rhythm. Absent: diastolic murmur , JVD, systolic murmur - GI/Abdominal GI/Abdominal exam: Present: normal bowel sounds, soft. Absent: ascites, distended, mass, organomegaly, tenderness - Extremities Exam Extremities exam: Present: normal inspection, full ROM - Back Exam Back exam: Present: normal inspection - Neurological Exam Neurological exam: Present: alert, oriented X3 - Psychiatric Psychiatric exam: Present: normal affect, normal mood - Skin Skin exam: Present: normal color, warm, dry Results - Labs CBC & BMP: 01/10/17 03:45 01/10/17 03:45 Lab Results: I have reviewed the past 24 hour labs Specialty Discharge - Follow Up or Referrals Follow up with: Yves Gutierrez MD [Physician] - 01/09/17 1:45 pm
--- NOTE | 2017-01-10 10:49 | Hospitalist Progress Note ---
Assessment and Plan (1) Diabetes mellitus Status: Chronic Assessment and plan: The patient continues on supportive care in the intensive care unit. Dr. Del Rosario indicated the might repeat esophagogastroduodenoscopy tomorrow. I coordinate care with the patient's family and updated her daughter at the bedside concerning the plan of care. I coordinated care with Dr. gutierrez. Current Visit: No Qualifiers: Diabetes mellitus type: type 2 (2) ESRD (end stage renal disease) Status: Chronic Current Visit: Yes (3) Biliary acute pancreatitis Status: Acute Current Visit: Yes Hospitalist: Subjective Interval history: Mrs. Topete is resting quietly today. I coordinated care with Dr. Gutierrez. The patient does not have any outward signs of bleeding at this time and the patient continues on treatment for deep vein thrombosis. Exam - Constitutional Vitals: Period Temp Pulse Resp BP Sys/Tavares Pulse Ox Last 24 Hr 97.2 F-102 F 56-115 12-30 69-158/45-96 91-100 Exam: Constitutional System: Mild distress. No tremulousness. Head: Normocephalic, atraumatic. Ears, Nose and Throat System: No evidence of Otitis or Mastoiditis. No epistaxis or discharge Eyes System: Pupils equal, round, and reactive. Extraocular muscles intact. Neck: Supple, without adenopathy, No jugular venous distention. No thyromegaly , neck mass, or prior surgery apparent. Respiratory System: Chest clear to auscultation. Cardiovascular System: Heart with regular rate and rhythm. No murmur. Results - Labs CBC & BMP: 01/10/17 03:45 01/10/17 03:45 Lab Results: I have reviewed the past 24 hour labs Quality Measures - VTE Contraindication to Pharmacological VTE Prophylaxis: High Risk of Bleeding Specialty Discharge - Follow Up or Referrals Follow up with: Yves Gutierrez MD [Physician] - 01/09/17 1:45 pm
[2017-01-10] MEDS: ELECTROLYTE CONCENTRATE 20 ML, TRACE ELEMENTS (5) 1 ML, MULTIVITAMIN INJ 10 ML, INSULIN... IV SCH (12:14)
[2017-01-10] MEDS: PIPERACILLIN/TAZOBACTAM 3,375 MG in SODIUM CHLORIDE 0.9% 100 ML IV SCH (12:55)
[2017-01-10] MEDS: FAT EMULSION 20% 250 ML IV SCH (14:18)
[2017-01-10 14:56] LABS: Hematocrit 22.6 VOL% (35.7-47.0); Hemoglobin 8.1 GM/DL (12.0-16.0)
[2017-01-10] MEDS ORDERED: VANCOMYCIN INJ 500 MG in SODIUM CHLORIDE 0.9% 100 ML IV ONE (15:00)
[2017-01-10] MEDS: PHENYLEPHRINE DRIP 40 MG/250 ML PREMIX IV SCH (16:54)
[2017-01-10] MEDS: NOREPINEPHRINE 8 MG in SODIUM CHLORIDE 0.9% 242 ML IV SCH (16:54)
[2017-01-10 21:10] LABS: Hematocrit 22.1 VOL% (35.7-47.0); Hemoglobin 7.9 GM/DL (12.0-16.0)
--- NOTE | 2017-01-10 23:48 | Nephrology Progress Note ---
Nephrology - PN: Subj Interval history: No shortness of breath today. She is not requiring pressor support. No obvious bleeding overnight Exam (PN)-Nephrology - Vital Signs Vital signs: Period Temp Pulse Resp BP Sys/Tavares Pulse Ox Last 24 Hr 97.1 F-98.9 F 73-107 10-22 101-162/50-93 96-100 Exam: Gen.: Alert and oriented x3. ENT: Pupils equal round reactive to light. EOMs intact. Mucous membranes moist. Neck: Supple. No JVD or bruit. Cardiovascular: Regular rate and rhythm. No murmur rub or gallop Lungs: Clear Abdomen: Soft. Mild epigastric tenderness Extremities: No edema - Lab 01/10/17 20:58 01/10/17 03:45 Most recent lab results Calcium 7.4 MG/DL (8.5-10.1) L 01/10/17 03:45 Phosphorus 4.3 MG/DL (2.5-4.9) 01/10/17 03:45 Magnesium 2.0 MG/DL (1.8-2.4) 01/10/17 03:45 Assessment and Plan (1) ESRD (end stage renal disease) Status: Chronic Assessment and plan: 61-year-old woman with: * ESRD. Dialysis TTS. 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 It has been ligated * Diabetes mellitus * Hypertension. Improved control * Anemia. Secondary to GI bleed. This appears stable today * DVT right arm * Cholelithiasis with pancreatitis. Cholecystostomy tube repositioned Current Visit: Yes (2) Aspiration into airway Status: Acute Current Visit: Yes (3) Cerebrovascular disease Status: Chronic Current Visit: No (4) Diabetes mellitus Status: Chronic Current Visit: No Qualifiers: Diabetes mellitus type: type 2 (5) Hypertension Status: Chronic Current Visit: No Specialty Discharge - Follow Up or Referrals Follow up with: Yves Gutierrez MD [Physician] - 01/09/17 1:45 pm
[2017-01-11] MEDS: INSULIN REGULAR 100 UNIT/ML SUBCUT SCH ×4 (01:06→18:17)
[2017-01-11] MEDS: PIPERACILLIN/TAZOBACTAM 3,375 MG in SODIUM CHLORIDE 0.9% 100 ML IV SCH ×2 (01:07→14:42)
[2017-01-11] MEDS: PANTOPRAZOLE INJ 200 MG in SODIUM CHLORIDE 0.9% 250 ML IV SCH (01:07)
[2017-01-11] MEDS: ALBUTEROL/IPRATROPIUM 3 ML NEB RESP TX SCH ×4 (01:32→19:29)
[2017-01-11 05:01] LABS: Basophils # 0.1 10*3/uL (0.0-0.2); Basophils % 0.3 % (0.0-0.8); Eosinophils # 0.4 10*3/uL (0.0-0.87); Eosinophils % 1.9 % (0.00-10.9); Hematocrit 22.8 VOL% (35.7-47.0); Hemoglobin 7.8 GM/DL (12.0-16.0); Immature Granulocytes % 4.4 %; Immature Granulocytes Absolute 1.02 #; Lymphocytes # 1.7 10*3/uL (1.4-4.0); Lymphocytes % 7.3 % (21.3-54.2); Mean Corpuscular HGB Conc 34.2 GM/DL (32-36); Mean Corpuscular Hemoglobin 30 PG (27-34); Mean Platelet Volume 10.1 FL (9.6-12.0); Monocytes # 1.5 10*3/uL (0.11-0.8); Monocytes % 6.4 % (1.7-12.7); NRBC # 0.04 10*3/uL; Neutrophils # 18.3 10*3/uL (1.4-7.4); Neutrophils % 79.7 % (38.7-73.9); Platelet Count 211 T/CUMM (130-400); Red Blood Count 2.62 MC/CUMM (3.8-5.5); Red Cell Distribution Width 16.6 % (9.3-17.3)
[2017-01-11 05:27] LABS: Band Neutrophils 1 % (0-10); Eosinophils 2 % (0-10); Hypochromasia 1+; Lymphocytes 7 % (20-55); Platelet Estimate Adequate; Segmented Neutrophils 85 % (50-85); Total Cells Counted 100
[2017-01-11 05:28] LABS: Basophilic Stippling Slight; Giant Platelets Few; Macrocytosis Slight; Polychromasia Slight
[2017-01-11 05:31] LABS: Calcium 7.8 MG/DL (8.5-10.1); Magnesium 2.1 MG/DL (1.8-2.4); Osmolality,Calculated 295.5 MOS/KG (273-304); Potassium 3.1 MMOL/L (3.5-5.1)
--- NOTE | 2017-01-11 07:38 | General Surgery Progress Note ---
Assessment and Plan (1) Biliary acute pancreatitis Status: Acute Assessment and plan: The patient is scheduled for repeat endoscopy today. Continue to hold heparin and follow-up results of endoscopy. Continue TPN and await resolution of pancreatitis. Although the patient's lipase is going back up she feels a lot better clinically. We will continue to follow this. Current Visit: Yes Subjective Patient reports: Present: no new complaints, afebrile. Absent: nausea, vomiting Narrative: The patient's cholecystostomy tube drainage has decreased and is less bloody today. She is not complaining of any nausea. Her hemoglobins have stabilized in the last one was 7.8 g/dL. She is afebrile with stable vital signs. She is not complaining of any abdominal pain. Her lipase is gone back up to above 3000. Exam - Constitutional Vitals: Period Temp Pulse Resp BP Sys/Tavares Pulse Ox Last 24 Hr 97.1 F-97.9 F 73-100 10-22 101-162/50-96 96-100 General appearance: normal weight, no acute distress - Head Head exam: Present: normal inspection, normocephalic - Eye Eye exam: Present: EOMI Pupils: Present: SHERIF - ENT ENT exam: Present: normal exam Mouth exam: Present: normal external inspection, normal voice - Neck Neck exam: Present: normal inspection, trachea midline - Respiratory Respiratory exam: Present: clear to auscultation bilaterally. Absent: accessory muscle use, chest wall tenderness - Cardiovascular Cardiovascular exam: Present: RRR. Absent: systolic murmur, tachycardia - GI/Abdominal GI/Abdominal exam: Present: hypoactive bowel sounds, soft. Absent: tenderness, rebound - Extremities Exam Extremities exam: Present: other (The left arm incisions are clean.) - Back Exam Back exam: Present: normal inspection - Neurological Exam Neurological exam: Present: alert Speech: Present: normal - Skin Skin exam: Present: normal color, warm Results - Labs CBC & BMP: 01/11/17 03:40 01/11/17 03:40 Quality Measures - VTE Contraindication to Pharmacological VTE Prophylaxis: High Risk of Bleeding Specialty Discharge - Follow Up or Referrals Follow up with: Yves Gutierrez MD [Physician] - 01/09/17 1:45 pm
[2017-01-11] MEDS ORDERED: POTASSIUM CHLORIDE RIDER 20 MEQ in PREMIX 1 EACH IV ONE (08:41)
[2017-01-11] MEDS: ELECTROLYTE CONCENTRATE 20 ML, TRACE ELEMENTS (5) 1 ML, MULTIVITAMIN INJ 10 ML, INSULIN... IV SCH (09:10)
[2017-01-11] MEDS: CITALOPRAM 20 MG TABLET PO SCH (10:17)
--- NOTE | 2017-01-11 11:07 | Physician Query Form ---
CLICK EDIT DOCUMENT TO SELECT QUERY ANSWER --> OK --> SIGN Siena Segura RN, CCDS Certified Clinical Satellite Instruction Facilitator W) [phone] (f) [phone] [email or web address] PROVIDERS: Make your selection(s) from the choices in EACH section by typing an "x" and enter comments in the comment section. Please use your independent medical judgment in providing your response. This request does not imply that any particular answer is desired or expected. CLINICAL INDICATORS: (Providers should not edit this section) "She has been vomiting dark brown vomitus. Her H/H has decreased to 15.6 and 5.6. She is presently being transfused the first of 2 units of PRBC's" Based on the above, could you clarify which of the following conditions you are evaluating, treating, and/or monitoring? (x ) Blood loss anemia ( x) acute ( ) chronic ( ) acute on chronic ( ) Acute blood loss anemia on baseline chronic anemia ( ) Acute blood loss anemia as a complication of a procedure ( ) Iron deficiency anemia not associated with blood loss ( ) Dilutional anemia due to IV fluids ( ) Anemia due to chemotherapy ( ) Anemia due to neoplastic disease ( ) Anemia due to chronic kidney disease ( ) Pernicious anemia ( ) Aplastic anemia ( ) Hemolytic anemia ( ) immune ( ) non-immune - please specify cause: ( ) Anemia due to other condition, please specify: ( ) Clinically unable to determine COMMENTS: PLEASE ALSO DOCUMENT RESPONSE IN PROGRESS NOTES AND/OR DISCHARGE SUMMARY Use of terms such as suspected, likely, or probable (associated with a specific diagnosis that is being evaluated, monitored, or treated as if it exists) are acceptable and can be restated in the discharge summary if not ruled out. MTDD
[2017-01-11] MEDS ORDERED: LIDOCAINE 2% 5 ML VIAL ONE (11:50)
[2017-01-11] MEDS ORDERED: PROPOFOL 200 MG/20 ML VIAL IV ONE (11:50)
[2017-01-11] MEDS ORDERED: GLUCAGON 1 MG VIAL ONE (12:16)
--- NOTE | 2017-01-11 12:34 | Anesthesia Post-Op ---
Anesthesia Post OP - Post Ansesthetic Evaluation Patient seen in post op: Yes Resp: within normal limits CV: within normal limits Mental: within normal limits Temp: within normal limits [id number]: within normal limits Nausea and Vomiting: within normal limits Pain: within normal limits
--- NOTE | 2017-01-11 12:36 | Operative Note ---
Date of procedure: 01/11/17 Pre-op diagnosis: Upper GI bleed Procedure: Procedure: Esophagogastroduodenoscopy with heater probe coagulation of duodenal vessel Brief clinical abstract: 61-year-old female had recent upper GI bleeding while on heparin. She had had ERCP with common bile duct sphincterotomy for gallstone pancreatitis last week. At EGD 2 days ago there was a large adherent clot at the sphincterotomy site. Indication for procedure: Upper GI bleed, second look Endoscopic findings:[After informed consent was obtained, the patient was placed in the left lateral decubitus position. The diagnostic duodenoscope was inserted in the upper esophagus under direct vision with no resistance encountered. Esophageal mucosa appeared normal down to the distal half of the esophagus. There was still circumferential ulceration extending to the GE junction consistent with reflux etiology. Patient had a moderate sized hiatal hernia. The endoscope was advanced in the stomach which was carefully examined including retroflexed view of the cardia and fundus with no abnormality seen. The pyloric channel and duodenal bulb were normal. At the level of the ampulla sphincterotomy was visualized. There was a small protuberant vessel at the apex of the sphincterotomy which was slightly oozing. I attempted to pass an endoscopic instinct clip through the duodenoscope but would not pass beyond the elevator. This was withdrawn. Heater probe was advanced through the endoscope and bleeding site cauterized on a setting of 15 W with 3 separate 1 second applications administered. There appeared to be good results endoscopically with no further bleeding. We watched for a couple of minutes afterwards with good hemostasis noted. The endoscope was then removed. She appeared to tolerate the procedure well. Impression: #1 small visible vessel at previous common bile duct sphincterotomy site-status post heater probe coagulation #2 distal ulcerative esophagitis #3 hiatal hernia Recommendations: Continue to follow clinically for now on high-dose PPI therapy. Would hold heparin/anticoagulation for at least another 72 hours. visible vessel at sphinxy site w/ oozing--------------> Jazmín heater probe-------------------------------> G Anesthesia: MAC Surgeon / Physician: Urban Del Rosario Estimated blood loss: minimal Specimens: none sent Condition: stable Disposition: post procedure unit Results - Labs CBC & BMP: 01/11/17 03:40 01/11/17 03:40 Discharge Plan - Discharge Medications New HYDROcodone/ACETAMIN 7.5-325 [[place] 7.5-325] 1 tablet PO Q4H PRN #10 tablet PRN Reason: Pain Continue cloNIDine TAB [Catapres Tab] 0.2 mg PO BID Citalopram [CeleXA] 20 mg PO DAILY Insulin Glargine,Hum.rec.anlog [Toujeo SoloStar] 20 unit SUBCUT BID Furosemide Tab [Lasix Tab] 40 mg PO BID DIURETIC #60 tablet Insulin Glargine [Lantus] 50 unit SUBCUT DAILY Carvedilol 12.5 mg PO DAILY - Follow Up or Referral Follow Up: Yves Gutierrez MD [Physician] - 01/09/17 1:45 pm - Forms/Instructions Instructions: Petar AV graft fistula
--- NOTE | 2017-01-11 13:28 | Nephrology Progress Note ---
Nephrology - PN: Subj Interval history: She is seen in the GI lab. She is sedated Exam (PN)-Nephrology - Vital Signs Vital signs: Period Temp Pulse Resp BP Sys/Tavares Pulse Ox Last 24 Hr 97.1 F-98.0 F 83-100 04-11 101-177/50-088 96-100 Exam: Gen.: Sedated for her EGD ENT: Pupils equal round reactive to light. Neck: Supple. No JVD or bruit. Cardiovascular: Regular rate and rhythm. No murmur rub or gallop Lungs: Clear Abdomen: Soft. Nontender. Positive bowel sounds. No organomegaly Extremities: No edema - Lab 01/11/17 03:40 01/11/17 03:40 Most recent lab results Calcium 7.8 MG/DL (8.5-10.1) L 01/11/17 03:40 Phosphorus 4.3 MG/DL (2.5-4.9) 01/10/17 03:45 Magnesium 2.1 MG/DL (1.8-2.4) 01/11/17 03:40 Assessment and Plan (1) ESRD (end stage renal disease) Status: Chronic Assessment and plan: 61-year-old woman with: * ESRD. Dialysis TTS. 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 It has been ligated * Diabetes mellitus * Hypertension. Improved control * Anemia. Secondary to GI bleed. EGD noted. Transfuse during dialysis tomorrow or sooner if needed * DVT right arm * Cholelithiasis with pancreatitis. Cholecystostomy tube repositioned Current Visit: Yes (2) Aspiration into airway Status: Acute Current Visit: Yes (3) Cerebrovascular disease Status: Chronic Current Visit: No (4) Diabetes mellitus Status: Chronic Current Visit: No Qualifiers: Diabetes mellitus type: type 2 (5) Hypertension Status: Chronic Current Visit: No Specialty Discharge - Follow Up or Referrals Follow up with: Yves Gutierrez MD [Physician] - 01/09/17 1:45 pm
--- NOTE | 2017-01-11 14:09 | Hospitalist Progress Note ---
Assessment and Plan (1) Diabetes mellitus Status: Chronic Assessment and plan: The patient continues on supportive care in the intensive care unit. The patient's pancreatitis seems to be improving very slowly. Current Visit: No Qualifiers: Diabetes mellitus type: type 2 (2) ESRD (end stage renal disease) Status: Chronic Current Visit: Yes (3) Biliary acute pancreatitis Status: Acute Current Visit: Yes Hospitalist: Subjective Interval history: The patient continues with incremental improvement today. I reviewed the plan of care with the patient's family at the bedside. Exam - Constitutional Vitals: Period Temp Pulse Resp BP Sys/Tavares Pulse Ox Last 24 Hr 97.1 F-98.0 F 84-100 11-23 101-177/50-088 96-100 Exam: Constitutional System: Mild distress. No tremulousness. Head: Normocephalic, atraumatic. Ears, Nose and Throat System: No evidence of Otitis or Mastoiditis. No epistaxis or discharge Eyes System: Pupils equal, round, and reactive. Extraocular muscles intact. Neck: Supple, without adenopathy, No jugular venous distention. No thyromegaly , neck mass, or prior surgery apparent. Respiratory System: Chest clear to auscultation. Cardiovascular System: Heart with regular rate and rhythm. No murmur. Results - Labs CBC & BMP: 01/11/17 03:40 01/11/17 03:40 Lab Results: I have reviewed the past 24 hour labs Quality Measures - VTE Contraindication to Pharmacological VTE Prophylaxis: High Risk of Bleeding Specialty Discharge - Follow Up or Referrals Follow up with: Yves Gutierrez MD [Physician] - 01/09/17 1:45 pm
[2017-01-11] MEDS: FAT EMULSION 20% 250 ML IV SCH (14:40)
[2017-01-11] MEDS: NOREPINEPHRINE 8 MG in SODIUM CHLORIDE 0.9% 242 ML IV SCH (17:11)
[2017-01-11] MEDS: ONDANSETRON 4 MG/2 ML VIAL IV PRN (17:34)
[2017-01-11] MEDS: MULTIVITAMIN IV SCH (17:35)
[2017-01-11] MEDS: TRACE ELEMENTS IV SCH (17:35)
[2017-01-11] MEDS: ELECTROLYTE IV SCH (17:35)
[2017-01-11] MEDS: [UNRECOGNIZED DRUG - OTHER] IV SCH (17:35)
[2017-01-11] MEDS: PHENYLEPHRINE DRIP 40 MG/250 ML PREMIX IV SCH (18:13)
[2017-01-11 20:59] LABS: Hematocrit 22.3 VOL% (35.7-47.0); Hemoglobin 7.8 GM/DL (12.0-16.0)
[2017-01-11] MEDS: PROMETHAZINE 25 MG/1 ML VIAL IM PRN (22:11)
[2017-01-12] MEDS: ONDANSETRON 4 MG/2 ML VIAL IV PRN ×2 (00:28→14:51)
[2017-01-12] MEDS: PIPERACILLIN/TAZOBACTAM 3,375 MG in SODIUM CHLORIDE 0.9% 100 ML IV SCH ×2 (00:28→14:52)
[2017-01-12] MEDS: INSULIN REGULAR 100 UNIT/ML SUBCUT SCH ×4 (00:42→19:09)
[2017-01-12] MEDS: ALBUTEROL/IPRATROPIUM 3 ML NEB RESP TX SCH ×4 (00:53→20:18)
[2017-01-12] MEDS: PROCHLORPERAZINE 5 MG TABLET PO PRN (03:58)
[2017-01-12 04:59] LABS: Basophils # 0.1 10*3/uL (0.0-0.2); Basophils % 0.2 % (0.0-0.8); Eosinophils # 0.3 10*3/uL (0.0-0.87); Eosinophils % 1.3 % (0.00-10.9); Hematocrit 21.7 VOL% (35.7-47.0); Hemoglobin 7.3 GM/DL (12.0-16.0); Immature Granulocytes Absolute 0.93 #; Lymphocytes # 1.7 10*3/uL (1.4-4.0); Lymphocytes % 7.2 % (21.3-54.2); Mean Corpuscular HGB Conc 33.6 GM/DL (32-36); Mean Corpuscular Hemoglobin 30 PG (27-34); Mean Corpuscular Volume 89.3 FL (87-102); Mean Platelet Volume 9.7 FL (9.6-12.0); Monocytes # 1.8 10*3/uL (0.11-0.8); Monocytes % 7.5 % (1.7-12.7); NRBC # 0.04 10*3/uL; Neutrophils # 18.6 10*3/uL (1.4-7.4); Neutrophils % 79.8 % (38.7-73.9); Platelet Count 205 T/CUMM (130-400); Red Blood Count 2.43 MC/CUMM (3.8-5.5); Red Cell Distribution Width 16.8 % (9.3-17.3); White Blood Count 23.3 T/CUMM (4-12)
[2017-01-12 05:15] LABS: Calcium 8.1 MG/DL (8.5-10.1); Osmolality,Calculated 297.8 MOS/KG (273-304); Potassium 3.4 MMOL/L (3.5-5.1)
[2017-01-12] MEDS: PANTOPRAZOLE INJ 200 MG in SODIUM CHLORIDE 0.9% 250 ML IV SCH (06:05)
[2017-01-12 06:39] LABS: Acanthocytes Few; Anisocytosis 1+; Band Neutrophils 3 % (0-10); Eosinophils 2 % (0-10); Lymphocytes 9 % (20-55); Macrocytosis 1+; Platelet Estimate Normal; Segmented Neutrophils 78 % (50-85); Total Cells Counted 100
[2017-01-12] MEDS: CITALOPRAM 20 MG TABLET PO SCH (09:18)
--- NOTE | 2017-01-12 09:42 | Nephrology Progress Note ---
Nephrology - PN: Subj Interval history: Ms. Dominguez is seen in follow-up of her end-stage renal disease. Her hematocrit is 22% and she will receive 2 units packed cells on dialysis today. She is alert and in no distress she is lying flat and breathing comfortably will dialyze today Exam (PN)-Nephrology - Vital Signs Vital signs: Period Temp Pulse Resp BP Sys/Tavares Pulse Ox Last 24 Hr 97.2 F-99.0 F 84-113 - 124-169/74-105 99-100 - Lab 01/12/17 03:38 01/12/17 03:38 Most recent lab results Calcium 8.1 MG/DL (8.5-10.1) L 01/12/17 03:38 Phosphorus 4.3 MG/DL (2.5-4.9) 01/10/17 03:45 Magnesium 2.1 MG/DL (1.8-2.4) 01/11/17 03:40 Specialty Discharge - Follow Up or Referrals Follow up with: Yves Gutierrez MD [Physician] - 01/09/17 1:45 pm
--- NOTE | 2017-01-12 12:37 | Dialysis Note ---
Dialysis Note - Dialysis Note Ms. Khan is seen during her hemodialysis. She is tolerating it well and is receiving blood transfusion during dialysis. Blood pressures remaining stable
[2017-01-12] MEDS: FAT EMULSION 20% 250 ML IV SCH (14:51)
--- NOTE | 2017-01-12 15:23 | Hospitalist Progress Note ---
Assessment and Plan (1) Diabetes mellitus Status: Chronic Assessment and plan: The patient continues on supportive care in the intensive care unit. The patient's pancreatitis seems to be improving very slowly. Current Visit: No Qualifiers: Diabetes mellitus type: type 2 (2) ESRD (end stage renal disease) Status: Chronic Current Visit: Yes (3) Biliary acute pancreatitis Status: Acute Current Visit: Yes Hospitalist: Subjective Interval history: Mrs. Dominguez is more alert today. The patient had dialysis today. The patient is not complaining of shortness of breath or chest pain. Cholecystostomy tube remains draining. Exam - Constitutional Vitals: Period Temp Pulse Resp BP Sys/Tavares Pulse Ox Last 24 Hr 97.2 F-99.0 F 77-113 10-25 127-165/74-105 99-100 Exam: Constitutional System: Mild distress. No tremulousness. Head: Normocephalic, atraumatic. Ears, Nose and Throat System: No evidence of Otitis or Mastoiditis. No epistaxis or discharge Eyes System: Pupils equal, round, and reactive. Extraocular muscles intact. Neck: Supple, without adenopathy, No jugular venous distention. No thyromegaly , neck mass, or prior surgery apparent. Respiratory System: Chest clear to auscultation. Cardiovascular System: Heart with regular rate and rhythm. No murmur. Results - Labs CBC & BMP: 01/12/17 03:38 01/12/17 03:38 Lab Results: I have reviewed the past 24 hour labs Quality Measures - VTE Contraindication to Pharmacological VTE Prophylaxis: High Risk of Bleeding Specialty Discharge - Follow Up or Referrals Follow up with: Yves Gutierrez MD [Physician] - 01/09/17 1:45 pm
[2017-01-12] MEDS: [UNRECOGNIZED DRUG - OTHER] IV SCH (16:21)
[2017-01-12] MEDS: TRACE ELEMENTS IV SCH (16:21)
[2017-01-12] MEDS: ELECTROLYTE IV SCH (16:21)
[2017-01-12] MEDS: MULTIVITAMIN IV SCH (16:21)
[2017-01-12] MEDS: NOREPINEPHRINE 8 MG in SODIUM CHLORIDE 0.9% 242 ML IV SCH (17:07)
--- NOTE | 2017-01-12 17:49 | General Surgery Progress Note ---
Assessment and Plan (1) Biliary acute pancreatitis Status: Acute Assessment and plan: Patient still has intermittent vomiting but it is a decrease in volume. She does still feel nauseated. We will continue TPN and full liquids as tolerated. Lipase has been ordered by the hospitalist service for tomorrow. We will follow-up on this. She received 2 units of packed red blood cells today but there is no evidence of ongoing bleeding. We will repeat a CBC tomorrow. Continue to hold anticoagulation for now. May restart heparin tomorrow if no evidence of bleeding. Current Visit: Yes Subjective Patient reports: Present: no new complaints, feels better, nausea, vomiting, afebrile. Absent: diarrhea, blood in stool Exam - Constitutional Vitals: Period Temp Pulse Resp BP Sys/Tavares Pulse Ox Last 24 Hr 97.2 F-99.0 F 77-113 10-25 127-165/74-99 99-100 General appearance: normal weight, no acute distress - Head Head exam: Present: normal inspection, normocephalic - Eye Eye exam: Present: EOMI Pupils: Present: SHERIF - ENT ENT exam: Present: normal exam Mouth exam: Present: normal external inspection, normal voice - Neck Neck exam: Present: normal inspection, trachea midline - Respiratory Respiratory exam: Present: clear to auscultation bilaterally. Absent: accessory muscle use, chest wall tenderness - Cardiovascular Cardiovascular exam: Present: RRR. Absent: systolic murmur, tachycardia - GI/Abdominal GI/Abdominal exam: Present: hypoactive bowel sounds, soft, other ( Cholecystostomy tube is draining acosta bile with no blood). Absent: tenderness, rebound - Extremities Exam Extremities exam: Present: other (Right arm swelling is stable. Left arm incisions are clean and dry no erythema or drainage) - Back Exam Back exam: Present: normal inspection - Neurological Exam Neurological exam: Present: alert Speech: Present: normal - Skin Skin exam: Present: normal color, warm Results - Labs CBC & BMP: 01/12/17 03:38 01/12/17 03:38 Quality Measures - VTE Contraindication to Pharmacological VTE Prophylaxis: High Risk of Bleeding Specialty Discharge - Follow Up or Referrals Follow up with: Yves Gutierrez MD [Physician] - 01/09/17 1:45 pm
[2017-01-12] MEDS: PHENYLEPHRINE DRIP 40 MG/250 ML PREMIX IV SCH (19:30)
[2017-01-12] MEDS ORDERED: VANCOMYCIN INJ 500 MG in SODIUM CHLORIDE 0.9% 100 ML IV ONE (21:00)
[2017-01-13] MEDS: ALBUTEROL/IPRATROPIUM 3 ML NEB RESP TX SCH ×4 (01:03→19:17)
[2017-01-13] MEDS: INSULIN REGULAR 100 UNIT/ML SUBCUT SCH ×4 (01:28→18:39)
[2017-01-13] MEDS: PIPERACILLIN/TAZOBACTAM 3,375 MG in SODIUM CHLORIDE 0.9% 100 ML IV SCH ×2 (01:28→15:36)
[2017-01-13 05:25] LABS: Basophils # 0.1 10*3/uL (0.0-0.2); Basophils % 0.4 % (0.0-0.8); Eosinophils # 0.2 10*3/uL (0.0-0.87); Eosinophils % 1.1 % (0.00-10.9); Hematocrit 31.9 VOL% (35.7-47.0); Hemoglobin 11.2 GM/DL (12.0-16.0); Immature Granulocytes Absolute 0.94 #; Lymphocytes # 1.1 10*3/uL (1.4-4.0); Lymphocytes % 5.9 % (21.3-54.2); Mean Corpuscular HGB Conc 35.1 GM/DL (32-36); Mean Corpuscular Hemoglobin 30 PG (27-34); Mean Corpuscular Volume 85.5 FL (87-102); Mean Platelet Volume 9.2 FL (9.6-12.0); Monocytes # 1.6 10*3/uL (0.11-0.8); Monocytes % 8.7 % (1.7-12.7); NRBC # 0.04 10*3/uL; Neutrophils # 14.9 10*3/uL (1.4-7.4); Neutrophils % 78.9 % (38.7-73.9); Platelet Count 214 T/CUMM (130-400); Red Blood Count 3.73 MC/CUMM (3.8-5.5); Red Cell Distribution Width 15.5 % (9.3-17.3); White Blood Count 18.9 T/CUMM (4-12)
[2017-01-13 05:43] LABS: Calcium 7.8 MG/DL (8.5-10.1); Osmolality,Calculated 289.7 MOS/KG (273-304); Potassium 3.2 MMOL/L (3.5-5.1)
[2017-01-13 07:29] LABS: Lymphocytes 8 % (20-55); Nucleated Red Blood Cells 1 (0-5); Platelet Estimate Adequate; Polychromasia Slight; Segmented Neutrophils 86 % (50-85); Target Cells Slight; Total Cells Counted 100
--- NOTE | 2017-01-13 09:30 | Nephrology Progress Note ---
Nephrology - PN: Subj Interval history: Ms. Dominguez is seen in follow-up of her end-stage renal disease. She is doing fairly well today she is tolerating hyperalimentation. She dialyzed yesterday and received transfusion. Her hematocrit is 31%. Her lipase is 4500. She is able to lie flat and is in no distress. Exam (PN)-Nephrology - Vital Signs Vital signs: Period Temp Pulse Resp BP Sys/Tavares Pulse Ox Last 24 Hr 97.8 F-99.2 F 77-109 12- 122-169/74-126 97-100 - Lab 01/13/17 04:45 01/13/17 04:45 Most recent lab results Calcium 7.8 MG/DL (8.5-10.1) L 01/13/17 04:45 Phosphorus 4.3 MG/DL (2.5-4.9) 01/10/17 03:45 Magnesium 2.1 MG/DL (1.8-2.4) 01/11/17 03:40 Specialty Discharge - Follow Up or Referrals Follow up with: Yves Gutierrez MD [Physician] - 01/09/17 1:45 pm
--- NOTE | 2017-01-13 10:14 | General Surgery Progress Note ---
Assessment and Plan (1) Biliary acute pancreatitis Status: Acute Assessment and plan: Patient's lipase is still elevated above 4000 but I think this is a false positive based on how she looks clinically. Certainly could be part of was causing her nausea but we have done multiple CT scan was never demonstrated any inflammatory changes whatsoever around her pancreas even several days after her pancreatitis had been going on and up to a week afterwards. Her nausea is still a little bit of a ministry but she is doing better as the days go by. Her white blood cell count is improving. She does not have any evidence of ongoing bleeding. I would like to wait another 24 hours prior to starting her back on a heparin drip because of the amount of bleeding that she had in the trouble she got in from her sphincterotomy site even a week after sphincterotomy before. We will transfer her to the floor today and repeat labs tomorrow and plan to restart heparin drip tomorrow morning if she is doing well and no evidence of bleeding. Current Visit: Yes Subjective Patient reports: Present: no new complaints, feels better, tolerating liquids well, nausea, vomiting Narrative: Patient is having some small-volume emesis but much better than it was before. She continues on Protonix and TPN. Her cholecystostomy tube is draining well and put out 700 cc yesterday. There is no further hematemesis or blood in the cholecystostomy tube. Exam - Constitutional Vitals: Period Temp Pulse Resp BP Sys/Tavares Pulse Ox Last 24 Hr 97.8 F-99.2 F 77-109 12-28 122-169/74-126 97-100 General appearance: normal weight, no acute distress - Head Head exam: Present: normal inspection, normocephalic - Eye Eye exam: Present: EOMI. Absent: scleral icterus Pupils: Present: SHERIF - ENT ENT exam: Present: normal exam Mouth exam: Present: normal external inspection, normal voice - Neck Neck exam: Present: normal inspection, trachea midline - Respiratory Respiratory exam: Present: clear to auscultation bilaterally. Absent: accessory muscle use, chest wall tenderness - Cardiovascular Cardiovascular exam: Present: RRR. Absent: systolic murmur, tachycardia - GI/Abdominal GI/Abdominal exam: Present: soft, other (Cholecystostomy tube is draining clear acosta bile). Absent: tenderness, rebound - Extremities Exam Extremities exam: Present: other (Extremities without significant edema or changes from yesterday) - Back Exam Back exam: Present: normal inspection - Neurological Exam Neurological exam: Present: alert, oriented X3 Speech: Present: normal - Skin Skin exam: Present: normal color, warm Results - Labs CBC & BMP: 01/13/17 04:45 01/13/17 04:45 Quality Measures - VTE Contraindication to Pharmacological VTE Prophylaxis: High Risk of Bleeding Specialty Discharge - Follow Up or Referrals Follow up with: Yves Gutierrez MD [Physician] - 01/09/17 1:45 pm
[2017-01-13] MEDS: CITALOPRAM 20 MG TABLET PO SCH (10:22)
[2017-01-13] MEDS: TRACE ELEMENTS IV SCH (11:10)
[2017-01-13] MEDS: ELECTROLYTE IV SCH (11:10)
[2017-01-13] MEDS: [UNRECOGNIZED DRUG - OTHER] IV SCH (11:10)
[2017-01-13] MEDS: MULTIVITAMIN IV SCH (11:10)
[2017-01-13] MEDS ORDERED: hydrALAZINE 20 MG/1 ML VIAL IV PRN (12:10)
--- NOTE | 2017-01-13 12:37 | Hospitalist Progress Note ---
Assessment and Plan (1) Diabetes mellitus Status: Chronic Assessment and plan: The patient continues on supportive care in the intensive care unit. The patient's pancreatitis seems to be improving very slowly. I discussed potassium with Dr. Chaudhry as well as the patient's nurse today we will going to recheck tomorrow and hold on repletion while she is having renal failure. Current Visit: No Qualifiers: Diabetes mellitus type: type 2 (2) ESRD (end stage renal disease) Status: Chronic Current Visit: Yes (3) Biliary acute pancreatitis Status: Acute Current Visit: Yes Hospitalist: Subjective Interval history: Ms. Dominguez was originally admitted with pancreatitis and cholecystitis. She had bleeding complication and required transfer to intensive care unit. Cholecystostomy tube is temporizing her right upper quadrant infection. The patient's pancreatitis is ongoing and lipase is elevated to 4500 today. The patient is arousable but drowsy. Exam - Constitutional Vitals: Period Temp Pulse Resp BP Sys/Tavares Pulse Ox Last 24 Hr 97.1 F-99.2 F 77-111 12-28 122-183/74-126 97-100 Exam: Constitutional System: Mild distress. No tremulousness. Head: Normocephalic, atraumatic. Ears, Nose and Throat System: No evidence of Otitis or Mastoiditis. No epistaxis or discharge Eyes System: Pupils equal, round, and reactive. Extraocular muscles intact. Neck: Supple, without adenopathy, No jugular venous distention. No thyromegaly , neck mass, or prior surgery apparent. Respiratory System: Chest clear to auscultation. Cardiovascular System: Heart with regular rate and rhythm. No murmur. Results - Labs CBC & BMP: 01/13/17 04:45 01/13/17 04:45 Lab Results: I have reviewed the past 24 hour labs Quality Measures - VTE Contraindication to Pharmacological VTE Prophylaxis: High Risk of Bleeding Specialty Discharge - Follow Up or Referrals Follow up with: Yves Gutierrez MD [Physician] - 01/09/17 1:45 pm
[2017-01-13] MEDS: ONDANSETRON 4 MG/2 ML VIAL IV PRN ×2 (14:58→21:05)
[2017-01-13] MEDS: FAT EMULSION 20% 250 ML IV SCH (15:36)
[2017-01-13] MEDS: ACETAMINOPHEN 325 MG TABLET PO PRN (17:01)
[2017-01-13] MEDS: PHENYLEPHRINE DRIP 40 MG/250 ML PREMIX IV SCH (17:30)
[2017-01-13] MEDS: ACETAMINOPHEN 325 MG SUPP RECTAL PRN (18:07)
[2017-01-13] MEDS: PANTOPRAZOLE 40 MG VIAL IV SCH (21:05)
[2017-01-13] MEDS: PROMETHAZINE 25 MG/1 ML VIAL IM PRN (22:34)
[2017-01-14] MEDS: ALBUTEROL/IPRATROPIUM 3 ML NEB RESP TX SCH ×4 (00:31→20:34)
[2017-01-14] MEDS: INSULIN REGULAR 100 UNIT/ML SUBCUT SCH ×4 (01:42→18:34)
[2017-01-14 06:31] LABS: Magnesium 2.2 MG/DL (1.8-2.4); Osmolality,Calculated 299.8 MOS/KG (273-304); Phosphorous 0.9 MG/DL (2.5-4.9); Potassium 3.1 MMOL/L (3.5-5.1)
[2017-01-14] MEDS: MULTIVITAMIN IV SCH (06:52)
[2017-01-14] MEDS: TRACE ELEMENTS IV SCH (06:52)
[2017-01-14] MEDS: [UNRECOGNIZED DRUG - OTHER] IV SCH (06:52)
[2017-01-14] MEDS: ELECTROLYTE IV SCH (06:52)
[2017-01-14] MEDS: PANTOPRAZOLE 40 MG VIAL IV SCH ×2 (08:40→21:06)
[2017-01-14] MEDS: CITALOPRAM 20 MG TABLET PO SCH (08:40)
[2017-01-14] MEDS: ONDANSETRON 4 MG/2 ML VIAL IV PRN ×3 (08:40→21:07)
--- NOTE | 2017-01-14 09:43 | Gastrointestinal Progress Note ---
Assessment and Plan (1) Abdominal pain Status: Acute Assessment and plan: 01/14-vague abdominal pain reported. No overt bleeding. Nausea with reported vomiting the patient. H&H as well as lipase pending this morning. Plan an addendum to followed by Dr. Del Rosario. 01/10-no complaints of abdominal pain. Findings of EGD noted as below. Nausea and vomiting controlled at present time. Plan an addendum to followed by Dr. Del Rosario. 01/09-no complaints of pain. TPN initiated. Cholecystostomy tube replaced today. Plan an addendum to followed by Dr. Del Rosario. 01/08-lipase levels trending downward. WBCs down 18,000. Far dietary consult for TPN initiation today. Plan an addendum to followed by Dr. Del Rosario. 01/07-lipase levels elevated at 5663. WBCs elevated at 27,000. For central line placement and repeat CT scan today. N.p.o. status. Continue to monitor this time. Plan an addendum to follow Dr. Del Rosario. 01/04-lipase levels remain elevated at 3917. Percutaneous cholecystostomy tube placed on yesterday. WBCs up at 25,000. CT of abdomen is pending this morning. Plan an addendum to followed by Dr. Del Rosario. 01/03-lipase level up slightly at 3961. Continued abdominal tenderness with nausea and vomiting. For cholecystectomy this morning following dialysis. Plan an addendum to followed by Dr. Del Rosario. 01/02-ERCP findings noted. Lipase elevated today. For tentative cholecystectomy tomorrow. Plan an addendum to follow Dr. Del Rosario. 12/31-5 day history of abdominal pain with nausea and vomiting. Findings on CT scan and ultrasound as below. LFTs are unremarkable. Elevated lipase levels. Further plan an addendum to follow by Dr. Del Rosario. Current Visit: Yes Gastroenterology - PN: Subj Interval history: CC: GI bleed Patient is seen, lying in bed asleep, however arousable to verbal stimuli. States she is feeling fair at this time. She is having some vague abdominal pain as well as nausea and she reports having some episodes of vomiting however uncertain as to this at this present time. Repeat EGD on Saturday noted to show small visible vessel at the prior sphincterotomy site which was treated with heater probe coagulation. She states that her bowels are moving she denies any rectal bleeding that she is aware of. Her H&H is holding at this time is noted to receive 2 units of packed red blood cells on yesterday. Potassium is down at 3.1 however this is not to be repleted at this time due to her current renal failure status. Repeat labs for H&H as well as lipase are pending this morning. Continued percutaneous cholecystostomy drainage noted, decreased in amount. Abdomen soft, mild tenderness palpation. ROS: Denies shortness of breath or chest pain Exam (Progress Note) - Constitutional Vitals: Period Temp Pulse Resp BP Sys/Tavares Pulse Ox Last 24 Hr 97.1 F-102.0 F 82-117 16-27 131-183/72-123 92-100 General appearance: normal weight, no acute distress - Head Head exam: Present: normal inspection, normocephalic - Eye Eye exam: Present: other (Lids and conjunctive are unremarkable). Absent: scleral icterus - ENT ENT exam: Present: normal exam, normal oropharynx - Neck Neck exam: Present: normal inspection - Respiratory Respiratory exam: Present: clear to auscultation bilaterally. Absent: rales, rhonchi, wheezes - Cardiovascular Cardiovascular exam: Present: regular rate and rhythm. Absent: diastolic murmur , JVD, systolic murmur - GI/Abdominal GI/Abdominal exam: Present: normal bowel sounds, soft. Absent: ascites, distended, mass, organomegaly, tenderness - Extremities Exam Extremities exam: Present: normal inspection, full ROM - Back Exam Back exam: Present: normal inspection - Neurological Exam Neurological exam: Present: alert, oriented X3 - Psychiatric Psychiatric exam: Present: normal affect, normal mood - Skin Skin exam: Present: normal color, warm, dry Results - Labs CBC & BMP: 01/13/17 04:45 01/14/17 05:02 Lab Results: I have reviewed the past 24 hour labs Specialty Discharge - Follow Up or Referrals Follow up with: Yves Gutierrez MD [Physician] - 01/09/17 1:45 pm
[2017-01-14 09:52] LABS: Hematocrit 31.3 VOL% (35.7-47.0); Hemoglobin 10.9 GM/DL (12.0-16.0)
--- NOTE | 2017-01-14 12:12 | General Surgery Progress Note ---
Assessment and Plan (1) Biliary acute pancreatitis Status: Acute Assessment and plan: The patient has persistent nausea and lipase elevation. I am going to repeat her abdominal CT today to make sure that there is no necrotizing pancreatitis or infection is contributing. We will repeat start the heparin drip for her DVT in her upper extremities since her hemoglobins have stabilized Current Visit: Yes Subjective Patient reports: Present: no new complaints, pain is less, nausea, afebrile. Absent: vomiting Exam - Constitutional Vitals: Period Temp Pulse Resp BP Sys/Tavares Pulse Ox Last 24 Hr 97.4 F-102.0 F 82-117 16-27 131-175/72-103 92-100 General appearance: normal weight, no acute distress - Head Head exam: Present: normal inspection, normocephalic - Eye Eye exam: Present: EOMI. Absent: scleral icterus Pupils: Present: SHERIF - ENT ENT exam: Present: normal exam Mouth exam: Present: normal external inspection, normal voice - Neck Neck exam: Present: normal inspection, trachea midline - Respiratory Respiratory exam: Present: clear to auscultation bilaterally. Absent: accessory muscle use, chest wall tenderness - Cardiovascular Cardiovascular exam: Present: RRR. Absent: systolic murmur, tachycardia - GI/Abdominal GI/Abdominal exam: Present: soft. Absent: tenderness, rebound - Extremities Exam Extremities exam: Present: other (Left arm incisions are clean and dry and healing well. Right arm edema is stable) - Back Exam Back exam: Present: normal inspection - Neurological Exam Neurological exam: Present: alert Speech: Present: normal - Skin Skin exam: Present: normal color, warm Results - Labs CBC & BMP: 01/14/17 09:26 01/14/17 05:02 Quality Measures - VTE Contraindication to Pharmacological VTE Prophylaxis: High Risk of Bleeding Specialty Discharge - Follow Up or Referrals Follow up with: Yves Gutierrez MD [Physician] - 01/09/17 1:45 pm
[2017-01-14] MEDS: HEPARIN DRIP 25,000 UNITS/500 ML PREMIX IV SCH (12:25)
--- NOTE | 2017-01-14 13:57 | CT Report ---
Referring physician: Yves Gutierrez EXAM: CT abdomen and pelvis with contrast DATE: 01/14/2017 COMPARISON: 01/07/2017 REASON: Pancreatitis TECHNIQUE: Axial images of the abdomen and pelvis were obtained after administration of 100 cc of Omnipaque 350 IV contrast. Coronal and sagittal reformatted images were also provided. Total DLP is 437.90 mGy*cm. FINDINGS: Small pleural effusions with progressive atelectasis/infiltration especially in the left lower lobe. The liver remains normal in size with no definite masses. Insertion of new cholecystostomy tube with decompressed gallbladder. Diminished hyperdense findings in the gallbladder. The spleen and adrenal glands are stable in appearance. Small renal cysts with persistent diminished excretion of the contrast material by the kidneys. The pancreas is stable in size with persistent visualization of the minimally dilated pancreatic duct. No significant residual dilatation of the bile ducts. Calcification in the wall of the nondilated abdominal aorta with no adjacent adenopathy. Small hiatal hernia with no dilatation of the small bowel. Increased fecal material in the colon and diverticulosis of the colon. No evidence of diverticulitis, definite appendicitis, free air, or free fluid. Atrophic uterus and ovaries with limited contrast in the urinary bladder. Degenerative changes are noted. IMPRESSION: Interval insertion of a new cholecystostomy tube. The gallbladder is decompressed with no residual dilatation of the bile ducts. Diminished hyperdensity in the gallbladder. Persistent minimal dilatation of the pancreatic duct with no significant change in the size of the pancreas. Minimal pancreatitis may be occult on CT. Small renal cysts with persistent diminished excretion of contrast material by the kidneys. Small hiatal hernia with diverticulosis of the colon. The CT exam was performed using one or more of the following dose reduction techniques: Automated exposure control and adjustment of the mA and/or kV according to patient size. PROCEDURE INTERPRETED AT [facility] DEPARTMENT OF RADIOLOGY Final Report Signed by: Dr. Yamileth Argueta
[2017-01-14] MEDS: FAT EMULSION 20% 250 ML IV SCH (15:11)
--- NOTE | 2017-01-14 16:08 | Event Note ---
There is no evidence of significant pancreatitis or abdominal pathology on CT scan. I have discussed the patient's care were Dr. Del Rosario. We have no infectious source that we are treating so we will stop the antibiotics and all other unnecessary medicines on service. We will also check urinalysis and C. difficile since she has been on antibiotics for some time and see if that could be contributing.
[2017-01-14] MEDS: ELECTROLYTE CONCENTRATE 20 ML, TRACE ELEMENTS (5) 1 ML, MULTIVITAMIN INJ 10 ML, INSULIN... IV SCH (16:21)
[2017-01-14] MEDS ORDERED: DEXTROSE 10% 1,000 ML IV PRN (17:00)
[2017-01-14 17:29] LABS: Apearance,Urine Slightly Hazy (Clear); Bilirubin,Urine Negative (Negative); Blood, Urine Moderate mg/dL (Negative); Glucose,Urine (UA) 50 mg/dL (Negative); Ketones,Urine Negative (Negative); Nitrite,Urine Negative (Negative); Protein,Urine 100 MG/DL; RBC,Urine 10 /HPF (0-4); Squamous Epithelial Cell,Urine Occasional /HPF (0-10); Urine Color Yellow (Yellow); Urine Specific Gravity 1.013 (1.001-1.035); Urine Urobilinogen < 2.0 EU/DL (0.2-1.0); WBC,Urine 13 /HPF (0-6)
--- NOTE | 2017-01-14 18:37 | Hospitalist Progress Note ---
Hospitalist: Subjective Interval history: 61-year-old -[place]iqu[place] female in the hospital for pancreatitis and cholecystitis. She had some abdominal pain today with nausea and vomiting, currently comfortable Exam - Constitutional Vitals: Period Temp Pulse Resp BP Sys/Tavares Pulse Ox Last 24 Hr 97.4 F-101.6 F 82-117 16-20 131-152/72-96 92-100 Exam: General: No Acute Distress HEENT: Normocephalic, atraumatic, Extra ocular movements intact Neck: Supple, No JVD Chest: Clear to auscultation B/L CV: S1 + S2 audible without murmur, gallop or rub Abd: soft, NT, Non-distended, BS + Ext: No edema Skin: No purpura, bruising or rash Rheumatologic: No Joint deformities Neurologic: no gross sensory deficits Results - Labs CBC & BMP: 01/14/17 09:26 01/14/17 05:02 - Impressions Assessment and Plan: Acute biliary pancreatitis Status: Acute Assessment and plan: Patient underwent CT scan of the abdomen today did not show any significant pancreatitis. Antibiotics were discontinued. She has persistent lipase elevation Current Visit: Yes Acute cholecystitis Status: Acute Assessment and plan: She has a cholecystotomy tube in place Current Visit: Yes Leukocytosis Status: Acute Assessment and plan: This has been persistent, and agree with checking C. difficile. I will go ahead and check a portable chest x-ray to rule out occult pneumonia Current Visit: Yes RUE DVT Status: Acute Assessment and plan: Of RUE involving jugular vein, basilic vein and proximal brachial vein, Continue heparin infusion Current Visit: Yes ESRD (end stage renal disease) on chronic HD Status: Chronic Assessment and plan: Nephrology is following Current Visit: Yes Hypokalemia Status: Acute Assessment and plan: This is at present being monitored and not replaced due to her ESRD status however if drops further may need replacement Current Visit: Yes Anemia of chronic kidney disease Status: Chronic Assessment and plan: Transfuse as needed with hemodialysis for anemia Current Visit: Yes Ess Hypertension Status: Chronic Current Visit: No Diabetes mellitus-II Status: Chronic Current Visit: No Chronic depression Status: Chronic Assessment and plan: Stable on SSRI Current Visit: No Nutrition: Patient is getting TPN Quality Measures - VTE Contraindication to Pharmacological VTE Prophylaxis: High Risk of Bleeding Specialty Discharge - Follow Up or Referrals Follow up with: Yves Gutierrez MD [Physician] - 01/09/17 1:45 pm
--- NOTE | 2017-01-14 20:01 | XRay Report ---
XR chest 1V portable Indication: Leukocytosis. Comparison: Chest x-ray 01/07/2017. Technique: Portable AP chest was performed. Findings: Left-sided hemodialysis catheter is stable. Heart size is borderline. Interval increase in stranding within the left cardiophrenic angle suggest worsening atelectasis. Minimal blunting of the left costophrenic angle is demonstrated. Lungs otherwise are clear. Bones and soft tissues demonstrate no acute findings. Cholecystostomy tube is present. Impression: 1. Stranding in the left cardiac phrenic angle is favored to reflect atelectatic change. Minimal pleural effusion is not excluded. 01/14/2017 7:58 PM PROCEDURE INTERPRETED AT [facility] DEPARTMENT OF RADIOLOGY Final Report Signed by: Dr. Jamison Segura
--- NOTE | 2017-01-14 20:56 | Nephrology Progress Note ---
Nephrology - PN: Subj Interval history: No shortness of breath. She continues to be weak. Exam (PN)-Nephrology - Vital Signs Vital signs: Period Temp Pulse Resp BP Sys/Tavares Pulse Ox Last 24 Hr 97.4 F-99.4 F 85-112 18-20 131-152/72-96 92-99 Exam: ENT: Normal Cardiovascular: Regular rate and rhythm. No murmur rub or gallop Lungs: Clear Extremities: No edema - Lab 01/14/17 09:26 01/14/17 05:02 Most recent lab results Calcium 8.0 MG/DL (8.5-10.1) L 01/14/17 05:02 Phosphorus 0.9 MG/DL (2.5-4.9) L 01/14/17 05:02 Magnesium 2.2 MG/DL (1.8-2.4) 01/14/17 05:02 Assessment and Plan (1) ESRD (end stage renal disease) Status: Chronic Assessment and plan: 61-year-old woman with: * ESRD. Dialysis TTS. * Diabetes mellitus * Hypertension. Improved control * Anemia. Secondary to GI bleed. Hematocrit stable * DVT right arm * Cholelithiasis with pancreatitis. Cholecystostomy tube. Continue TPN Current Visit: Yes (2) Aspiration into airway Status: Acute Current Visit: Yes (3) Cerebrovascular disease Status: Chronic Current Visit: No (4) Diabetes mellitus Status: Chronic Current Visit: No Qualifiers: Diabetes mellitus type: type 2 (5) Hypertension Status: Chronic Current Visit: No Specialty Discharge - Follow Up or Referrals Follow up with: Yves Gutierrez MD [Physician] - 01/09/17 1:45 pm
[2017-01-14] MEDS: ACETAMINOPHEN 325 MG TABLET PO PRN (23:00)
[2017-01-14] MEDS: PROMETHAZINE 25 MG/1 ML VIAL IM PRN (23:19)
[2017-01-15] MEDS: INSULIN REGULAR 100 UNIT/ML SUBCUT SCH ×4 (00:24→18:43)
[2017-01-15] MEDS: ALBUTEROL/IPRATROPIUM 3 ML NEB RESP TX SCH ×4 (01:09→19:40)
[2017-01-15] MEDS: ONDANSETRON 4 MG/2 ML VIAL IV PRN ×2 (06:30→16:23)
[2017-01-15 08:34] LABS: Basophils # 0.1 10*3/uL (0.0-0.2); Basophils % 0.3 % (0.0-0.8); Eosinophils # 0.4 10*3/uL (0.0-0.87); Eosinophils % 1.3 % (0.00-10.9); Hemoglobin 11.4 GM/DL (12.0-16.0); Immature Granulocytes % 3.8 %; Immature Granulocytes Absolute 1.04 #; Lymphocytes # 1.1 10*3/uL (1.4-4.0); Lymphocytes % 3.8 % (21.3-54.2); Mean Corpuscular HGB Conc 35.6 GM/DL (32-36); Mean Corpuscular Hemoglobin 30 PG (27-34); Mean Corpuscular Volume 83.8 FL (87-102); Mean Platelet Volume 9.4 FL (9.6-12.0); Monocytes # 1.3 10*3/uL (0.11-0.8); Monocytes % 4.8 % (1.7-12.7); NRBC # 0.02 10*3/uL; Neutrophils # 23.8 10*3/uL (1.4-7.4); Platelet Count 226 T/CUMM (130-400); Red Blood Count 3.82 MC/CUMM (3.8-5.5); Red Cell Distribution Width 16.2 % (9.3-17.3); White Blood Count 27.7 T/CUMM (4-12)
[2017-01-15 08:53] LABS: Band Neutrophils 3 % (0-10); Eosinophils 4 % (0-10); Lymphocytes 4 % (20-55); Segmented Neutrophils 86 % (50-85); Total Cells Counted 100
[2017-01-15 08:54] LABS: Hypochromasia 1+; Microcytosis 1+; Ovalocytes Slight; Platelet Estimate Normal
--- NOTE | 2017-01-15 09:28 | Gastrointestinal Progress Note ---
Assessment and Plan (1) Abdominal pain Status: Acute Assessment and plan: 01/15-no complaints of abdominal pain. Continue nausea vomiting reported. Cortisol level is currently pending for this morning. Plan an addendum to followed by Dr. Del Rosario. 01/14-vague abdominal pain reported. No overt bleeding. Nausea with reported vomiting the patient. H&H as well as lipase pending this morning. Plan an addendum to followed by Dr. Del Rosario. 01/10-no complaints of abdominal pain. Findings of EGD noted as below. Nausea and vomiting controlled at present time. Plan an addendum to followed by Dr. Del Rosario. 01/09-no complaints of pain. TPN initiated. Cholecystostomy tube replaced today. Plan an addendum to followed by Dr. Del Rosario. 01/08-lipase levels trending downward. WBCs down 18,000. Far dietary consult for TPN initiation today. Plan an addendum to followed by Dr. Del Rosario. 01/07-lipase levels elevated at 5663. WBCs elevated at 27,000. For central line placement and repeat CT scan today. N.p.o. status. Continue to monitor this time. Plan an addendum to follow Dr. Del Rosario. 01/04-lipase levels remain elevated at 3917. Percutaneous cholecystostomy tube placed on yesterday. WBCs up at 25,000. CT of abdomen is pending this morning. Plan an addendum to followed by Dr. Del Rosario. 01/03-lipase level up slightly at 3961. Continued abdominal tenderness with nausea and vomiting. For cholecystectomy this morning following dialysis. Plan an addendum to followed by Dr. Del Rosario. 01/02-ERCP findings noted. Lipase elevated today. For tentative cholecystectomy tomorrow. Plan an addendum to follow Dr. Del Rosario. 12/31-5 day history of abdominal pain with nausea and vomiting. Findings on CT scan and ultrasound as below. LFTs are unremarkable. Elevated lipase levels. Further plan an addendum to follow by Dr. Del Rosario. Current Visit: Yes Gastroenterology - PN: Subj Interval history: CC: Abdominal pain Pt is seen in dialysis, awake and alert, however states she is not feeling well today. She denies any abdominal pain however is continued having nausea and vomiting. Abdomen is soft, nontender. Her cortisol levels are still pending for this morning. She states that she has no appetite with very minimal intake. ROS: Denies shortness of breath or chest pain Exam (Progress Note) - Constitutional Vitals: Period Temp Pulse Resp BP Sys/Tavares Pulse Ox Last 24 Hr 97.9 F-103.0 F 85-117 16-22 116-163/71-96 96-100 General appearance: normal weight, no acute distress - Head Head exam: Present: normal inspection, normocephalic - Eye Eye exam: Present: other (Lids and conjunctivae are unremarkable). Absent: scleral icterus - ENT ENT exam: Present: normal exam, normal oropharynx - Neck Neck exam: Present: normal inspection - Respiratory Respiratory exam: Present: clear to auscultation bilaterally. Absent: rales, rhonchi, wheezes - Cardiovascular Cardiovascular exam: Present: regular rate and rhythm. Absent: diastolic murmur , JVD, systolic murmur - GI/Abdominal GI/Abdominal exam: Present: normal bowel sounds, soft. Absent: ascites, distended, mass, organomegaly, tenderness - Extremities Exam Extremities exam: Present: normal inspection, full ROM - Back Exam Back exam: Present: normal inspection - Neurological Exam Neurological exam: Present: alert, oriented X3 - Psychiatric Psychiatric exam: Present: normal affect, normal mood - Skin Skin exam: Present: normal color, warm, dry Results - Labs CBC & BMP: 01/15/17 08:27 01/14/17 05:02 Lab Results: I have reviewed the past 24 hour labs Specialty Discharge - Follow Up or Referrals Follow up with: Yves Gutierrez MD [Physician] -
--- NOTE | 2017-01-15 09:33 | General Surgery Progress Note ---
Assessment and Plan (1) Biliary acute pancreatitis Status: Acute Assessment and plan: This seems to be improving. The patient is now febrile with positive urine cultures for yeast. I have placed an infectious disease consult for assistance with management. She may need to have all of her lines removed she is bacteremic but I will wait to see what Dr. Tamayo thinks first. Current Visit: Yes Subjective Patient reports: Present: nausea, vomiting, fever Narrative: Patient had a fever yesterday after her antibiotics were stopped. Urine cultures have grown greater than 100,000 colony-forming units of yeast. Blood cultures are pending. She is afebrile this morning. Exam - Constitutional Vitals: Period Temp Pulse Resp BP Sys/Tavares Pulse Ox Last 24 Hr 97.9 F-103.0 F 85-117 16-22 116-163/71-96 96-100 General appearance: normal weight, mild distress - Head Head exam: Present: normal inspection, normocephalic - Eye Eye exam: Present: EOMI Pupils: Present: SHERIF - ENT ENT exam: Present: normal exam Mouth exam: Present: normal external inspection, normal voice - Neck Neck exam: Present: normal inspection, trachea midline - Respiratory Respiratory exam: Present: clear to auscultation bilaterally. Absent: accessory muscle use, chest wall tenderness - Cardiovascular Cardiovascular exam: Present: RRR. Absent: systolic murmur, tachycardia - GI/Abdominal GI/Abdominal exam: Present: soft, other (Cholecystostomy tube is draining acosta bile). Absent: tenderness, rebound - Extremities Exam Extremities exam: Present: normal inspection, normal capillary refill (There is no infection of the left arm wound) - Back Exam Back exam: Present: normal inspection - Neurological Exam Neurological exam: Present: alert Speech: Present: normal - Skin Skin exam: Present: normal color, warm Results - Labs CBC & BMP: 01/15/17 08:27 01/14/17 05:02 Quality Measures - VTE Contraindication to Pharmacological VTE Prophylaxis: High Risk of Bleeding Specialty Discharge - Follow Up or Referrals Follow up with: Yves Gutierrez MD [Physician] -
--- NOTE | 2017-01-15 09:50 | Infectious Disease Consult ---
Assessment and Plan (1) Fever Status: Acute Assessment and plan: Patient has been the hospital for prolonged period and is at risk for healthcare associated infections particularly bloodstream infections given the presence of central lines. I am especially concerned about possible fungal anemia since she has been on TPN for the last week. No evidence of pneumonia clinically on chest x-ray. Urinalysis not very supportive of UTI. Recommendations: 1. Start micafungin 100 mg IV daily 2. Meropenem renally dosed at 1 g daily 3. Since she has been on vancomycin will cover for possible VRE with daptomycin renally dosed at 6 mg/kg IV every 48 hours 4. Follow-up results of blood culture sent off yesterday. 5. Would not remove central line unless patient becomes hemodynamically unstable or we get a positive blood culture Thank you very much for the consult. Will follow. Current Visit: Yes (2) Intractable nausea and vomiting Status: Acute Current Visit: Yes (3) Leukocytosis Status: Acute Current Visit: Yes (4) ESRD (end stage renal disease) Status: Chronic Current Visit: Yes (5) Diabetes mellitus Status: Chronic Current Visit: No Qualifiers: Diabetes mellitus type: type 2 (6) Hypertension Status: Chronic Current Visit: No History of Present Illness Chief complaint: Fever History of present illness: Patient was a poor historian so much of the history was obtained from the nurses and surgery physician assistant front office manager. Ms. Dominguez is 61 year old female with several comorbid including diabetes and end-stage renal disease on hemodialysis. She was admitted almost 3 weeks ago electively for ligation of her left arm AV fistula. At a after she came in she developed severe nausea and it was felt that she may have had pancreatitis given elevated lipase although imaging studies did not show an inflamed pancreas. Patient subsequently went on to develop cholecystitis however this was managed conservatively with a cholecystostomy tube. Patient has had multiple complications during this hospitalization including right upper extremity DVT treated with heparin drip, then GI bleed related to the heparin. Patient throughout this hospitalization has had persisting severe nausea not been able to eat anything and so week ago she was started on TPN. In terms of antibiotic therapy on the she was started on Zosyn and this was continued until yesterday. On the she was put on vancomycin because of persistent leukocytosis and this was also stopped yesterday. She had gotten a few doses of cefazolin from the ninth and 10th perioperatively. 2 days ago patient spiked fever to 102, then last night she had fever of 103. I am asked to assist with management. She has a right femoral central line for more than a week now. She is currently being dialyzed with a tunneled left subclavian dialysis catheter which has been in place since before admission. Patient denied abdominal pain to me, no diarrhea, she does have melena stools according to the nurses. She does not have any cough or significant shortness of breath. She still makes a lot of urine and was retaining so she is gets in and out bladder catheterizations 3 times per day. Home Medications Medication Instructions Recorded Confirmed Type Citalopram [CeleXA] 20 mg PO DAILY 09/03/14 12/26/16 History cloNIDine TAB [Catapres Tab] 0.2 mg PO BID 09/03/14 12/26/16 History Insulin Glargine [Lantus] 50 unit SUBCUT DAILY 09/05/16 12/26/16 History Insulin Glargine,Hum.rec.anlog 20 unit SUBCUT BID 09/05/16 12/26/16 History [Toujeo SoloStar] Furosemide Tab [Lasix Tab] 40 mg PO BID DIURETIC #60 tablet 09/07/16 12/26/16 Rx Carvedilol 12.5 mg PO DAILY 11/28/16 12/26/16 History HYDROcodone/ACETAMIN 7.5-325 1 tablet PO Q4H PRN #10 tablet 12/26/16 Rx [[place] 7.5-325] Allergies Allergy/AdvReac Type Severity Reaction Status Date / Time No Known Allergies Allergy Verified 12/12/16 14:58 12 point system: reviewed and no additional remarkable complaints except as stated (Per HPI) Medical,Surgical,& Family Hx - Medical History Cardio: History of: Hypertension Psychological: History of: Depression Neurology: History of: Cerebrovascular Accident (X3 2015 left sided weakness), Migraine (OCCASIONAL) No history of: Seizures HEENT: History of: Eye Problem (GLASSES), Dental Problems (MISSING TEETH) Endocrine: History of: Diabetes Mellitus (IDDM), Dyslipidemia Respiratory: No history of: Respiratory Problems (FLU VAC- YES; PNEU VAC- YES.) Renal: History of: Dialysis (T, TH,SAT), Renal Failure (DR COOPER), Renal Problems (1 kidney) Gastrointestinal: History of: GERD, GI Problems (dysphagia, gerd) - Surgical History Thoracic Surgeries: Surgical HX of;: Kidney (Renal Surgery) Abdominal Surgeries: Surgical HX of: EGD Patient denies: Abdominal Surgery Reproductive Surgeries: Surgical HX of;: Genitourinary Surgery, Gynecologic Surgery, Tubal Ligation - Social History Smoking Status: Current every day smoker Frequency of Alcohol Use: None Type of Drug Use: None Infectious Disease Exam H&P - Constitutional Vitals: Vital Signs Temp Pulse Resp BP Pulse Ox 98.6 F 85 18 163/96 98 01/15/17 06:57 01/15/17 07:15 01/15/17 07:15 01/15/17 06:57 01/15/17 07:15 Intake and Output 01/14/17 01/15/17 01/15/17 23:59 07:59 15:59 Intake Total 250 / 250 250 / 250 Output Total 350 / 350 525 / 525 Balance -100 / -100 -275 / -275 Intake: IV 250 / 250 250 / 250 Intralipid 20% 250 ml @ 250 / 250 25 mls/hr IV Q24H CAPRI Rx# :[id number] Heparin Drip 25,000 Units 250 / 250 /500 ml25,000 units In 500 ml @ 18 UNITS/KG/HR 21.06 mls/hr IV TITRATE CAPRI Rx#:[id number] Output: Drainage 50 / 50 Right Abdomen 50 / 50 Urine 350 / 350 475 / 475 Other: Voiding Method In and Out Catheter Brief # Voids 1 # Bowel Movements 1 Weight 57.759 kg Patient Weight 01/15/17 23:59 Weight 57.759 kg Exam: General: Patient uncomfortable appearing, she was getting dialysis at the time I saw her HEENT: Mucous membranes pale and moist, anicteric acyanotic, SHERIF, no oropharyngeal exudates, crusted scab to center of lower lip Neck: Supple, no thyroid gland enlargement, no lymphadenopathy Respiratory system: Breath sounds vesicular, no crepitations or wheezes Cardiovascular: Left subclavian tunneled dialysis catheter with clean dressing, normal S1 and S2, no murmurs appreciated Abdomen: Normal bowel sounds, soft nontender throughout, no organomegaly or mass appreciated Genitourinary: No suprapubic pain or bladder distention, right groin central line without any drainage at exit site no surrounding induration Extremities: no edema Skin: No rash Reports - Labs CBC & BMP: 01/15/17 08:27 01/14/17 05:02 Labs: Laboratory Results - last 24 hr 01/14/17 01/14/17 01/14/17 09:26 09:26 10:48 WBC RBC Hgb 10.9 L Hct 31.3 L MCV MCH MCHC RDW Plt Count MPV Neut % (Auto) Lymph % (Auto) [place] % (Auto) Eos % (Auto) Baso % (Auto) Neut # (Auto) Lymph # (Auto) [place] # (Auto) Eos # (Auto) Baso # (Auto) Total Counted Immature Gran % Nucleated RBC % Immature Gran # Segmented Neutrophils Band Neutrophils Lymphocytes Monocytes Eosinophils Nucleated RBCs # Platelet Estimate Immature Plt Fraction Hypochromasia Microcytosis Ovalocytes Circ Anticoag PTT POC Glucose 163 H Phosphorus Lipase 4515.0 H Urine Color Urine Appearance Urine pH Ur Specific [place] Urine Protein Urine Glucose (UA) Urine Ketones Urine Blood Urine Nitrate Urine Bilirubin Urine Urobilinogen Urine Leukocytes Urine RBC Urine WBC Ur Squamous Epith Cells Urine Yeast (Budding) Ur Culture Indicated? 01/14/17 01/14/17 01/14/17 16:01 16:36 17:13 WBC RBC Hgb Hct MCV MCH MCHC RDW Plt Count MPV Neut % (Auto) Lymph % (Auto) [place] % (Auto) Eos % (Auto) Baso % (Auto) Neut # (Auto) Lymph # (Auto) [place] # (Auto) Eos # (Auto) Baso # (Auto) Total Counted Immature Gran % Nucleated RBC % Immature Gran # Segmented Neutrophils Band Neutrophils Lymphocytes Monocytes Eosinophils Nucleated RBCs # Platelet Estimate Immature Plt Fraction Hypochromasia Microcytosis Ovalocytes Circ Anticoag PTT 48.5 H D POC Glucose 183 H Phosphorus Lipase Urine Color Yellow Urine Appearance Slightly hazy Urine pH 6.0 Ur Specific [place] 1.013 Urine Protein 100 Urine Glucose (UA) 50 Urine Ketones Negative Urine Blood Moderate Urine Nitrate Negative Urine Bilirubin Negative Urine Urobilinogen < 2.0 H Urine Leukocytes Trace Urine RBC 10 Urine WBC 13 Ur Squamous Epith Cells Occasional Urine Yeast (Budding) Many Ur Culture Indicated? Results to follow 01/14/17 01/15/17 01/15/17 21:56 00:19 04:36 WBC RBC Hgb Hct MCV MCH MCHC RDW Plt Count MPV Neut % (Auto) Lymph % (Auto) [place] % (Auto) Eos % (Auto) Baso % (Auto) Neut # (Auto) Lymph # (Auto) [place] # (Auto) Eos # (Auto) Baso # (Auto) Total Counted Immature Gran % Nucleated RBC % Immature Gran # Segmented Neutrophils Band Neutrophils Lymphocytes Monocytes Eosinophils Nucleated RBCs # Platelet Estimate Immature Plt Fraction Hypochromasia Microcytosis Ovalocytes Circ Anticoag PTT 52.7 H POC Glucose 228 H Phosphorus 1.9 L Lipase Urine Color Urine Appearance Urine pH Ur Specific [place] Urine Protein Urine Glucose (UA) Urine Ketones Urine Blood Urine Nitrate Urine Bilirubin Urine Urobilinogen Urine Leukocytes Urine RBC Urine WBC Ur Squamous Epith Cells Urine Yeast (Budding) Ur Culture Indicated? 01/15/17 01/15/17 01/15/17 05:24 08:27 08:27 WBC 27.7 H D RBC 3.82 Hgb 11.4 L Hct 32.0 L MCV 83.8 L MCH 30 MCHC 35.6 RDW 16.2 Plt Count 226 MPV 9.4 L Neut % (Auto) 86.0 H Lymph % (Auto) 3.8 L [place] % (Auto) 4.8 Eos % (Auto) 1.3 Baso % (Auto) 0.3 Neut # (Auto) 23.8 H Lymph # (Auto) 1.1 L [place] # (Auto) 1.3 H Eos # (Auto) 0.4 Baso # (Auto) 0.1 Total Counted 100 Immature Gran % 3.8 Nucleated RBC % 0.1 Immature Gran # 1.04 Segmented Neutrophils 86 H Band Neutrophils 3 Lymphocytes 4 L Monocytes 3 Eosinophils 4 Nucleated RBCs # 0.02 Platelet Estimate Normal Immature Plt Fraction 0.0 Hypochromasia 1+ Microcytosis 1+ Ovalocytes Slight Circ Anticoag PTT 66.1 H D POC Glucose 164 H Phosphorus Lipase Urine Color Urine Appearance Urine pH Ur Specific [place] Urine Protein Urine Glucose (UA) Urine Ketones Urine Blood Urine Nitrate Urine Bilirubin Urine Urobilinogen Urine Leukocytes Urine RBC Urine WBC Ur Squamous Epith Cells Urine Yeast (Budding) Ur Culture Indicated? - Reports Microbiology: Microbiology 01/14/17 Unknown Urine Culture - Preliminary Urine,Voided Yeast 01/14/17 17:13 Clostridium difficile Toxin Assay - Final Stool Negative for CDiff A &/or B Ag - Diagnostic Findings Procedure: Chest x-ray: image reviewed by me, report reviewed by me (No consolidation or effusion appreciated), CT Abdomen and Pelvis: report reviewed by me (Unremarkable) Specialty Discharge - Follow Up or Referrals Follow up with: Yves Gutierrez MD [Physician] -
[2017-01-15] MEDS: PANTOPRAZOLE 40 MG VIAL IV SCH ×2 (10:52→21:46)
[2017-01-15] MEDS: CITALOPRAM 20 MG TABLET PO SCH (10:52)
[2017-01-15] MEDS: MEROPENEM 1,000 MG in SODIUM CHLORIDE 0.9% 100 ML IV SCH (10:52)
[2017-01-15] MEDS: PROMETHAZINE 25 MG/1 ML VIAL IM PRN ×2 (11:07→21:58)
[2017-01-15] MEDS: HEPARIN DRIP 25,000 UNITS/500 ML PREMIX IV SCH ×2 (11:08→13:42)
--- NOTE | 2017-01-15 11:45 | Nephrology Progress Note ---
Nephrology - PN: Subj Interval history: She is seen during dialysis. She is currently afebrile but had fever to 103 yesterday. She reports nausea but no abdominal pain Exam (PN)-Nephrology - Vital Signs Vital signs: Period Temp Pulse Resp BP Sys/Tavares Pulse Ox Last 24 Hr 97.9 F-103.0 F 85-117 16-22 116-163/71-96 94-100 Exam: Gen.: Alert and oriented x3. ENT: Pupils equal round reactive to light. EOMs intact. Mucous membranes moist. Neck: Supple. No JVD or bruit. Cardiovascular: Regular rate and rhythm. No murmur rub or gallop Lungs: Clear Abdomen: Soft. Minimal epigastric tenderness Extremities: No edema - Lab 01/15/17 08:27 01/14/17 05:02 Most recent lab results Calcium 8.0 MG/DL (8.5-10.1) L 01/14/17 05:02 Phosphorus 1.9 MG/DL (2.5-4.9) L 01/15/17 04:36 Magnesium 2.2 MG/DL (1.8-2.4) 01/14/17 05:02 Assessment and Plan (1) ESRD (end stage renal disease) Status: Chronic Assessment and plan: 61-year-old woman with: * ESRD. Stable during dialysis * Diabetes mellitus * Hypertension. Improved control * Anemia. Secondary to GI bleed. Hematocrit stable * DVT right arm * Cholelithiasis with pancreatitis. Cholecystostomy tube. Continue TPN * Fever. Infectious disease evaluating today. Antibiotics adjusted Current Visit: Yes (2) Aspiration into airway Status: Acute Current Visit: Yes (3) Cerebrovascular disease Status: Chronic Current Visit: No (4) Diabetes mellitus Status: Chronic Current Visit: No Qualifiers: Diabetes mellitus type: type 2 (5) Hypertension Status: Chronic Current Visit: No Specialty Discharge - Follow Up or Referrals Follow up with: Yves Gutierrez MD [Physician] -
[2017-01-15] MEDS: MICAFUNGIN 100 MG in SODIUM CHLORIDE 0.9% 100 ML IV SCH (12:23)
[2017-01-15] MEDS: ELECTROLYTE CONCENTRATE 20 ML, TRACE ELEMENTS (5) 1 ML, MULTIVITAMIN INJ 10 ML, INSULIN... IV SCH (13:31)
[2017-01-15] MEDS: FAT EMULSION 20% 250 ML IV SCH (13:37)
--- NOTE | 2017-01-15 14:05 | Hospitalist Progress Note ---
Assessment and Plan (1) Intractable nausea and vomiting Status: Acute Assessment and plan: The patient continues to have an elevated lipase. Percutaneous cholecystostomy tube has been placed. Current Visit: Yes (2) Pancreatitis Status: Acute Current Visit: Yes Qualifiers: Chronicity: acute Pancreatitis type: biliary Acute pancreatitis complication: unspecified Qualified Code(s): K85.10 - Biliary acute pancreatitis without necrosis or infection (3) Diabetes mellitus Status: Chronic Assessment and plan: Continue Accu-Cheks and sliding scale insulin. The patient is on TPN. Blood sugars have been adequately controlled in the 150-180 Current Visit: No Qualifiers: Diabetes mellitus type: type 2 Diabetes mellitus complication status: with kidney complications Diabetes mellitus complication detail: with chronic kidney disease Diabetes mellitus joint terminal attack controller insulin use: without joint terminal attack controller use Chronic kidney disease stage: on chronic dialysis Qualified Code(s): E11.22 - Type 2 diabetes mellitus with diabetic chronic kidney disease; N18.6 - End stage renal disease; Z99.2 - Dependence on renal dialysis (4) AV fistula thrombosis Status: Resolved Current Visit: Yes Qualifiers: Encounter type: initial encounter Qualified Code(s): T82.868A - Thrombosis due to vascular prosthetic devices, implants and grafts, initial encounter (5) ESRD (end stage renal disease) Status: Chronic Assessment and plan: Nephrology following. Dialysis performed today. Current Visit: Yes (6) Leukocytosis Status: Acute Current Visit: Yes (7) Cholelithiasis Problem details: sludge on U/s although NM HIDA was normal. ERCP did no vis cystic duct and patient now on heparin and surgery has increased risks Status : Acute Assessment and plan: Status post percutaneous cholecystostomy tube Current Visit: Yes Qualifiers: Cholelithiasis location: gallbladder and bile duct (8) Abdominal pain Status: Acute Current Visit: Yes Qualifiers: Abdominal location: generalized Qualified Code(s): R10.84 - Generalized abdominal pain Hospitalist: Subjective Interval history: Patient seen and examined. No acute events overnight. Case discussed with nursing staff. Labs reviewed. The patient remains very ill. Her leukocytosis has worsened and she had fever yesterday. Infectious disease consult performed today and reviewed by me. Case discussed with case management regarding LTAC referral. Exam - Constitutional Vitals: Period Temp Pulse Resp BP Sys/Tavares Pulse Ox Last 24 Hr 97.9 F-103.0 F 85-117 16-22 116-163/71-96 94-100 Exam: Constitutional System: Moderate distress. No tremulousness. Thin and frail. Complains of nausea. Head: Normocephalic, atraumatic. Ears, Nose and Throat System: No pain or tenderness. No epistaxis or discharge Eyes System: Pupils equal, round, and reactive. Extraocular muscles intact. Neck: Supple, without adenopathy, No jugular venous distention. No thyromegaly, neck mass, or prior surgery apparent. Respiratory System: Chest clear to auscultation. Cardiovascular System: Heart with regular rate and rhythm. No murmur. GI System: Abdomen is soft and mildly tender. Normo active bowel sounds present. Percutaneous cholecystostomy tube noted Musculoskeletal System: limbs with no pedal edema. Full distal pulses. Normal capillary refill. Results - Labs CBC & BMP: 01/15/17 08:27 01/14/17 05:02 Lab Results: I have reviewed the past 24 hour labs - Diagnostic Findings Procedure: CT Abdomen and Pelvis: image reviewed by me, report reviewed by me Quality Measures - VTE Contraindication to Pharmacological VTE Prophylaxis: High Risk of Bleeding Specialty Discharge - Follow Up or Referrals Follow up with: Yves Gutierrez MD [Physician] -
[2017-01-15] MEDS: ACETAMINOPHEN 325 MG SUPP RECTAL PRN (16:17)
[2017-01-16] MEDS: ALBUTEROL/IPRATROPIUM 3 ML NEB RESP TX SCH ×4 (00:30→18:43)
[2017-01-16] MEDS: INSULIN REGULAR 100 UNIT/ML SUBCUT SCH ×4 (00:50→18:44)
[2017-01-16] MEDS: ONDANSETRON 4 MG/2 ML VIAL IV PRN ×2 (06:28→21:18)
[2017-01-16] MEDS: PROMETHAZINE 25 MG/1 ML VIAL IM PRN (08:22)
[2017-01-16] MEDS: PANTOPRAZOLE 40 MG VIAL IV SCH ×2 (08:24→22:28)
[2017-01-16] MEDS: HEPARIN DRIP 25,000 UNITS/500 ML PREMIX IV SCH ×2 (09:40→12:30)
--- NOTE | 2017-01-16 09:50 | Gastrointestinal Progress Note ---
Assessment and Plan (1) Abdominal pain Status: Acute Assessment and plan: 01/16-no complaints of pain however continued nausea and vomiting episodes. Temp up to 100.[address] Tamayo is following at this time. Plan an addendum to follow Dr. Del Rosario. 01/15-no complaints of abdominal pain. Continue nausea vomiting reported. Cortisol level is currently pending for this morning. Plan an addendum to followed by Dr. Del Rosario. 01/14-vague abdominal pain reported. No overt bleeding. Nausea with reported vomiting the patient. H&H as well as lipase pending this morning. Plan an addendum to followed by Dr. Del Rosario. 01/10-no complaints of abdominal pain. Findings of EGD noted as below. Nausea and vomiting controlled at present time. Plan an addendum to followed by Dr. Del Rosario. 01/09-no complaints of pain. TPN initiated. Cholecystostomy tube replaced today. Plan an addendum to followed by Dr. Del Rosario. 01/08-lipase levels trending downward. WBCs down 18,000. Far dietary consult for TPN initiation today. Plan an addendum to followed by Dr. Del Rosario. 01/07-lipase levels elevated at 5663. WBCs elevated at 27,000. For central line placement and repeat CT scan today. N.p.o. status. Continue to monitor this time. Plan an addendum to follow Dr. Del Rosario. 01/04-lipase levels remain elevated at 3917. Percutaneous cholecystostomy tube placed on yesterday. WBCs up at 25,000. CT of abdomen is pending this morning. Plan an addendum to followed by Dr. Del Rosario. 01/03-lipase level up slightly at 3961. Continued abdominal tenderness with nausea and vomiting. For cholecystectomy this morning following dialysis. Plan an addendum to followed by Dr. Del Rosario. 01/02-ERCP findings noted. Lipase elevated today. For tentative cholecystectomy tomorrow. Plan an addendum to follow Dr. Del Rosario. 12/31-5 day history of abdominal pain with nausea and vomiting. Findings on CT scan and ultrasound as below. LFTs are unremarkable. Elevated lipase levels. Further plan an addendum to follow by Dr. Del Rosario. Current Visit: Yes Qualifiers: Abdominal location: generalized Qualified Code(s): R10.84 - Generalized abdominal pain Gastroenterology - PN: Subj Interval history: CC: Abdominal pain Patient is seen, a little more awake and alert today. States that she rested fairly well last night. She states that she is having continued nausea and vomiting episodes as well. Noted to have temp of up to 100.3 this morning. Infectious disease is following at this time. No repeat labs noted for this morning. Abdomen is soft, nontender. Patient continues with poor appetite at this time. Preliminary blood cultures noted to be positive for yeast. She has had a micafungin started as well. PERC drain is patent with continued bilious output. ROS: Denies shortness of breath or chest Exam (Progress Note) - Constitutional Vitals: Period Temp Pulse Resp BP Sys/Tavares Pulse Ox Last 24 Hr 98.4 F-102.9 F 78-116 18-20 117-146/65-82 94-100 General appearance: normal weight, no acute distress - Head Head exam: Present: normal inspection, normocephalic - Eye Eye exam: Present: other (Lids and conjunctivae unremarkable). Absent: scleral icterus - ENT ENT exam: Present: normal exam, normal oropharynx - Neck Neck exam: Present: normal inspection - Respiratory Respiratory exam: Present: clear to auscultation bilaterally. Absent: rales, rhonchi, wheezes - Cardiovascular Cardiovascular exam: Present: regular rate and rhythm. Absent: diastolic murmur , JVD, systolic murmur - GI/Abdominal GI/Abdominal exam: Present: normal bowel sounds, soft. Absent: ascites, distended, mass, organomegaly, tenderness - Extremities Exam Extremities exam: Present: normal inspection, full ROM - Back Exam Back exam: Present: normal inspection - Neurological Exam Neurological exam: Present: alert, oriented X3 - Psychiatric Psychiatric exam: Present: normal affect, normal mood - Skin Skin exam: Present: normal color, warm, dry Results - Labs CBC & BMP: 01/15/17 08:27 01/14/17 05:02 Lab Results: I have reviewed the past 24 hour labs Specialty Discharge - Follow Up or Referrals Follow up with: Yves Gutierrez MD [Physician] -
[2017-01-16] MEDS: CITALOPRAM 20 MG TABLET PO SCH (10:38)
--- NOTE | 2017-01-16 10:38 | General Surgery Progress Note ---
Assessment and Plan (1) Biliary acute pancreatitis Status: Acute Assessment and plan: Resolved. Continue cholecystostomy tube drainage Current Visit: Yes (2) Fungemia Status: Acute Assessment and plan: Discussed with Dr. Malik. Remove femoral vein central line and use peripheral IV for antifungals. Stop TPN, start PPN. Will leave tunneled dialysis catheter in place for now to see if we can clear fungemia with central line removal. Current Visit: Yes Subjective Patient reports: Present: no new complaints, feels better, fever Narrative: Blood cultures have grown yeast. Discussed with Dr. Tamayo. We will remove the femoral vein catheter and get peripheral IV access. Exam - Constitutional Vitals: Period Temp Pulse Resp BP Sys/Tavares Pulse Ox Last 24 Hr 98.4 F-102.9 F 78-116 18-20 117-146/65-82 94-100 General appearance: normal weight, no acute distress - Head Head exam: Present: normal inspection, normocephalic - Eye Eye exam: Present: EOMI. Absent: scleral icterus Pupils: Present: SHERIF - ENT ENT exam: Present: normal exam Mouth exam: Present: normal external inspection, normal voice - Neck Neck exam: Present: normal inspection, trachea midline - Respiratory Respiratory exam: Present: clear to auscultation bilaterally. Absent: accessory muscle use, chest wall tenderness - Cardiovascular Cardiovascular exam: Present: RRR. Absent: systolic murmur, tachycardia - GI/Abdominal GI/Abdominal exam: Present: soft, other (cholecystostomy tube draining clear bile). Absent: tenderness, rebound - Extremities Exam Extremities exam: Present: normal inspection, normal capillary refill - Back Exam Back exam: Present: normal inspection - Neurological Exam Neurological exam: Present: alert, oriented X3 Speech: Present: normal - Skin Skin exam: Present: normal color, warm Results - Labs CBC & BMP: 01/15/17 08:27 01/14/17 05:02 Quality Measures - VTE Contraindication to Pharmacological VTE Prophylaxis: High Risk of Bleeding Specialty Discharge - Follow Up or Referrals Follow up with: Yves Gutierrez MD [Physician] -
[2017-01-16] MEDS: MICAFUNGIN 100 MG in SODIUM CHLORIDE 0.9% 100 ML IV SCH (10:44)
--- NOTE | 2017-01-16 11:46 | Hospitalist Progress Note ---
Assessment and Plan (1) Intractable nausea and vomiting Status: Acute Assessment and plan: The patient continues to have an elevated lipase. Percutaneous cholecystostomy tube has been placed. Current Visit: Yes (2) Pancreatitis Status: Acute Current Visit: Yes Qualifiers: Chronicity: acute Pancreatitis type: biliary Acute pancreatitis complication: unspecified Qualified Code(s): K85.10 - Biliary acute pancreatitis without necrosis or infection (3) Diabetes mellitus Status: Chronic Assessment and plan: Continue Accu-Cheks and sliding scale insulin. The patient is on TPN. Blood sugars have been adequately controlled in the 150-180 Current Visit: No Qualifiers: Diabetes mellitus type: type 2 Diabetes mellitus complication status: with kidney complications Diabetes mellitus complication detail: with chronic kidney disease Diabetes mellitus intermodal customer service insulin use: without intermodal customer service use Chronic kidney disease stage: on chronic dialysis Qualified Code(s): E11.22 - Type 2 diabetes mellitus with diabetic chronic kidney disease; N18.6 - End stage renal disease; Z99.2 - Dependence on renal dialysis (4) AV fistula thrombosis Status: Resolved Current Visit: Yes Qualifiers: Encounter type: initial encounter Qualified Code(s): T82.868A - Thrombosis due to vascular prosthetic devices, implants and grafts, initial encounter (5) ESRD (end stage renal disease) Status: Chronic Assessment and plan: Nephrology following. Dialysis performed today. Current Visit: Yes (6) Leukocytosis Status: Acute Current Visit: Yes (7) Cholelithiasis Problem details: sludge on U/s although NM HIDA was normal. ERCP did no vis cystic duct and patient now on heparin and surgery has increased risks Status : Acute Assessment and plan: Status post percutaneous cholecystostomy tube Current Visit: Yes Qualifiers: Cholelithiasis location: gallbladder and bile duct (8) Abdominal pain Status: Acute Current Visit: Yes Qualifiers: Abdominal location: generalized Qualified Code(s): R10.84 - Generalized abdominal pain (9) Fungemia Status: Acute Assessment and plan: Multiple positive cultures noted. Infectious disease following. Treatment has been initiated. Continue to monitor closely. Current Visit: Yes Hospitalist: Subjective Interval history: Patient seen and examined. No acute events overnight. Case discussed with nursing staff. Labs reviewed. Patient remains ill-appearing. She reports continued nausea without vomiting. She has been accepted to [facility]. Blood and urine cultures are noted and are positive for yeast. 2 blood culture specimens from the as well as 2 specimens from the are positive for yeast Exam - Constitutional Vitals: Period Temp Pulse Resp BP Sys/Tavares Pulse Ox Last 24 Hr 97.4 F-102.9 F 78-114 18-20 117-140/65-82 95-100 Exam: Constitutional System: Moderate distress. No tremulousness. Thin and frail. Complains of nausea. Head: Normocephalic, atraumatic. Ears, Nose and Throat System: No pain or tenderness. No epistaxis or discharge Eyes System: Pupils equal, round, and reactive. Extraocular muscles intact. Neck: Supple, without adenopathy, No jugular venous distention. No thyromegaly, neck mass, or prior surgery apparent. Respiratory System: Chest clear to auscultation. Cardiovascular System: Heart with regular rate and rhythm. No murmur. GI System: Abdomen is soft and mildly tender. Normo active bowel sounds present. Percutaneous cholecystostomy tube noted Musculoskeletal System: limbs with no pedal edema. Full distal pulses. Normal capillary refill. Results - Labs CBC & BMP: 01/15/17 08:27 01/14/17 05:02 Lab Results: I have reviewed the past 24 hour labs Quality Measures - VTE Contraindication to Pharmacological VTE Prophylaxis: High Risk of Bleeding Specialty Discharge - Follow Up or Referrals Follow up with: Yves Gutierrez MD [Physician] -
[2017-01-16] MEDS: ELECTROLYTE CONCENTRATE 20 ML, TRACE ELEMENTS (5) 1 ML, MULTIVITAMIN INJ 10 ML, INSULIN... IV SCH (11:56)
--- NOTE | 2017-01-16 12:21 | Infectious Disease Progress ---
Assessment and Plan (1) Fever Status: Acute Assessment and plan: We know that this is due to fungemia, likely candidemia. Patient's fever curve down and she actually feels better today, probably responsive the micafungin started yesterday. Recommendations: 1. Continue micafungin 100 mg IV daily 2. I am going to continue meropenem and daptomycin for now but if nothing else on blood cultures tomorrow we will stop to these 3. Femoral central line to be removed today. I discussed the case with Dr. Gutierrez. Will see what repeat blood cultures are and if still positive then we will probably have to remove the tunneled hemodialysis catheter. 4. Repeat blood cultures tomorrow Current Visit: Yes (2) Intractable nausea and vomiting Status: Acute Current Visit: Yes (3) Leukocytosis Status: Acute Current Visit: Yes (4) ESRD (end stage renal disease) Status: Chronic Current Visit: Yes (5) Diabetes mellitus Status: Chronic Current Visit: No Qualifiers: Diabetes mellitus type: type 2 Diabetes mellitus complication status: with kidney complications Diabetes mellitus complication detail: with chronic kidney disease Diabetes mellitus detention insulin use: without detention use Chronic kidney disease stage: on chronic dialysis Qualified Code(s): E11.22 - Type 2 diabetes mellitus with diabetic chronic kidney disease; N18.6 - End stage renal disease; Z99.2 - Dependence on renal dialysis (6) Hypertension Status: Chronic Current Visit: No Infectious Disease - PN: Subj Interval history: No fever since yesterday evening when she spiked 102.2. Today she reports feeling a little better. Still nauseous but trying to take something p.o. Denies abdominal pain. Infectious Disease Exam (PN) - Constitutional Vitals: Temp Pulse Resp BP Pulse Ox 97.4 F L 99 H 20 140/74 100 01/16/17 10:43 01/16/17 10:43 01/16/17 10:43 01/16/17 10:43 01/16/17 10:43 General appearance: normal weight, no acute distress Exam: General appearance: A little more alert and interactive today, less ill looking - Eye Eye exam: Present: EOMI. no icterus Pupils: Present: SHERIF - ENT ENT exam: no oral exudates, but mouth dry - Respiratory Respiratory exam: vesicular BS, no crepitations or wheezes - Cardiovascular Cardiovascular exam: regular rate and rhythm, no murmurs - GI/Abdominal GI/Abdominal exam: Cholecystostomy tube with clear bile draining, normal bowel sounds, soft, non-tender, no organomegaly or mass - Extremities Exam Extremities exam: no edema - Skin Skin exam: no rash Results - Labs CBC & BMP: 01/15/17 08:27 01/14/17 05:02 Lab Results: I have reviewed the past 24 hour labs (Useful for 4 sets of blood cultures) Quality Measures - VTE Contraindication to Pharmacological VTE Prophylaxis: High Risk of Bleeding Specialty Discharge - Follow Up or Referrals Follow up with: Yves Gutierrez MD [Physician] -
[2017-01-16] MEDS: MEROPENEM 1,000 MG in SODIUM CHLORIDE 0.9% 100 ML IV SCH (12:28)
--- NOTE | 2017-01-16 13:02 | Nephrology Progress Note ---
Nephrology - PN: Subj Interval history: She still has nausea but no vomiting. She denies abdominal pain. No shortness of breath. Exam (PN)-Nephrology - Vital Signs Vital signs: Period Temp Pulse Resp BP Sys/Tavarse Pulse Ox Last 24 Hr 97.4 F-102.9 F 78-114 18-20 117-140/65-82 95-100 Exam: Gen.: Alert and oriented x3. ENT: Pupils equal round reactive to light. EOMs intact. Mucous membranes moist. Neck: Supple. No JVD or bruit. Cardiovascular: Regular rate and rhythm. No murmur rub or gallop Lungs: Clear Abdomen: Soft. Nontender. Positive bowel sounds. No organomegaly Extremities: No edema - Lab 01/15/17 08:27 01/14/17 05:02 Most recent lab results Calcium 8.0 MG/DL (8.5-10.1) L 01/14/17 05:02 Phosphorus 1.9 MG/DL (2.5-4.9) L 01/15/17 04:36 Magnesium 2.2 MG/DL (1.8-2.4) 01/14/17 05:02 Assessment and Plan (1) ESRD (end stage renal disease) Status: Chronic Assessment and plan: 61-year-old woman with: * ESRD. Dialysis TTS * Diabetes mellitus * Hypertension. Improved control * Anemia. Secondary to GI bleed. Hematocrit stable * DVT right arm * Cholelithiasis with pancreatitis. Cholecystostomy tube. Continue TPN * Fungal sepsis. Treated appropriately Current Visit: Yes (2) Aspiration into airway Status: Acute Current Visit: Yes (3) Cerebrovascular disease Status: Chronic Current Visit: No (4) Diabetes mellitus Status: Chronic Current Visit: No Qualifiers: Diabetes mellitus type: type 2 Diabetes mellitus complication status: with kidney complications Diabetes mellitus complication detail: with chronic kidney disease Diabetes mellitus terminal operations manager insulin use: without mcc use Chronic kidney disease stage: on chronic dialysis Qualified Code(s): E11.22 - Type 2 diabetes mellitus with diabetic chronic kidney disease; N18.6 - End stage renal disease; Z99.2 - Dependence on renal dialysis (5) Hypertension Status: Chronic Current Visit: No Specialty Discharge - Follow Up or Referrals Follow up with: Yves Gutierrez MD [Physician] -
[2017-01-16] MEDS: FAT EMULSION 20% 250 ML IV SCH (14:34)
[2017-01-16] MEDS ORDERED: LIDOCAINE 1% 20 ML VIAL MISC INJ ONE (17:39)
[2017-01-16] MEDS: APIXABAN 5 MG TABLET PO SCH ×2 (17:47→22:28)
[2017-01-16 21:16] LABS: Hematocrit 27.4 VOL% (35.7-47.0); Hemoglobin 9.7 GM/DL (12.0-16.0)
[2017-01-16 21:36] LABS: INR 1.3; PT Patient Result 13.4 SECS
[2017-01-16 21:43] LABS: Partial Thromboplastin Time 51.7 SECS (0-40)
[2017-01-17] MEDS: ALBUTEROL/IPRATROPIUM 3 ML NEB RESP TX SCH ×4 (00:03→19:14)
[2017-01-17] MEDS: SODIUM CHLORIDE 0.9% 1,000 ML IV SCH ×2 (04:20→04:44)
[2017-01-17] MEDS: INSULIN REGULAR 100 UNIT/ML SUBCUT SCH ×4 (04:21→17:57)
[2017-01-17] MEDS: ONDANSETRON 4 MG/2 ML VIAL IV PRN ×2 (04:44→12:58)
--- NOTE | 2017-01-17 06:38 | General Surgery Progress Note ---
Assessment and Plan (1) Biliary acute pancreatitis Status: Acute Assessment and plan: Resolved. Continue cholecystostomy tube drainage Current Visit: Yes (2) Fungemia Status: Acute Assessment and plan: Central line in groin has been removed. Continue prophylaxis for now and leave tunneled dialysis catheter in place per Dr. Tamayo Current Visit: Yes Subjective Patient reports: Present: no new complaints, fever. Absent: nausea, vomiting Exam - Constitutional Vitals: Period Temp Pulse Resp BP Sys/Tavares Pulse Ox Last 24 Hr 97.4 F-101.5 F 73-107 16-20 103-143/62-78 96-100 General appearance: normal weight, no acute distress - Head Head exam: Present: normal inspection, normocephalic - Eye Eye exam: Present: EOMI. Absent: scleral icterus Pupils: Present: SHERIF - ENT ENT exam: Present: normal exam Mouth exam: Present: normal external inspection, normal voice - Neck Neck exam: Present: normal inspection, trachea midline - Respiratory Respiratory exam: Present: clear to auscultation bilaterally. Absent: accessory muscle use, chest wall tenderness - Cardiovascular Cardiovascular exam: Present: RRR. Absent: systolic murmur, tachycardia - GI/Abdominal GI/Abdominal exam: Present: soft. Absent: tenderness, rebound - Extremities Exam Extremities exam: Present: other (R which he is healing well. Right arm swelling improved) - Neurological Exam Neurological exam: Present: alert, oriented X3 Speech: Present: normal - Skin Skin exam: Present: normal color, warm Results - Labs CBC & BMP: 01/16/17 21:01 01/14/17 05:02 Quality Measures - VTE Contraindication to Pharmacological VTE Prophylaxis: High Risk of Bleeding Specialty Discharge - Follow Up or Referrals Follow up with: Yves Gutierrez MD [Physician] -
[2017-01-17 07:32] LABS: Basophils # 0.1 10*3/uL (0.0-0.2); Basophils % 0.3 % (0.0-0.8); Eosinophils # 0.5 10*3/uL (0.0-0.87); Eosinophils % 2.2 % (0.00-10.9); Hematocrit 24.3 VOL% (35.7-47.0); Hemoglobin 8.5 GM/DL (12.0-16.0); Immature Granulocytes % 1.7 %; Immature Granulocytes Absolute 0.35 #; Lymphocytes # 1.9 10*3/uL (1.4-4.0); Lymphocytes % 9.1 % (21.3-54.2); Mean Corpuscular Hemoglobin 30 PG (27-34); Mean Corpuscular Volume 84.4 FL (87-102); Monocytes # 1.9 10*3/uL (0.11-0.8); Monocytes % 9.2 % (1.7-12.7); Neutrophils # 16.1 10*3/uL (1.4-7.4); Neutrophils % 77.5 % (38.7-73.9); Platelet Count 243 T/CUMM (130-400); Red Blood Count 2.88 MC/CUMM (3.8-5.5); Red Cell Distribution Width 16.4 % (9.3-17.3); White Blood Count 20.8 T/CUMM (4-12)
[2017-01-17 08:05] LABS: Band Neutrophils 3 % (0-10); Eosinophils 4 % (0-10); Lymphocytes 10 % (20-55); Microcytosis Slight; Platelet Estimate Adequate; Segmented Neutrophils 78 % (50-85); Total Cells Counted 100
[2017-01-17 08:06] LABS: Albumin 1.4 G/DL (3.4-5.0); Bilirubin,Total 0.6 MG/DL (0.2-1.0); Calcium 6.7 MG/DL (8.5-10.1); Osmolality,Calculated 295.2 MOS/KG (273-304); Potassium 3.3 MMOL/L (3.5-5.1); Total Protein 5.3 G/DL (6.4-8.3)
[2017-01-17 08:14] LABS: Phosphorous 5.3 MG/DL (2.5-4.9)
--- NOTE | 2017-01-17 11:40 | Gastrointestinal Progress Note ---
Assessment and Plan (1) Abdominal pain Status: Acute Assessment and plan: 01/17-denies pain, nausea vomiting. Febrile overnight. WBCs down at this time. Continue to monitor. Plan an addendum follow by Dr. Del Rosario. 01/16-no complaints of pain however continued nausea and vomiting episodes. Temp up to 100.[address] Tamayo is following at this time. Plan an addendum to follow Dr. Del Rosario. 01/15-no complaints of abdominal pain. Continue nausea vomiting reported. Cortisol level is currently pending for this morning. Plan an addendum to followed by Dr. Del Rosario. 01/14-vague abdominal pain reported. No overt bleeding. Nausea with reported vomiting the patient. H&H as well as lipase pending this morning. Plan an addendum to followed by Dr. Del Rosario. 01/10-no complaints of abdominal pain. Findings of EGD noted as below. Nausea and vomiting controlled at present time. Plan an addendum to followed by Dr. Del Rosario. 01/09-no complaints of pain. TPN initiated. Cholecystostomy tube replaced today. Plan an addendum to followed by Dr. Del Rosario. 01/08-lipase levels trending downward. WBCs down 18,000. Far dietary consult for TPN initiation today. Plan an addendum to followed by Dr. Del Rosario. 01/07-lipase levels elevated at 5663. WBCs elevated at 27,000. For central line placement and repeat CT scan today. N.p.o. status. Continue to monitor this time. Plan an addendum to follow Dr. Rondon 01/04-lipase levels remain elevated at 3917. Percutaneous cholecystostomy tube placed on yesterday. WBCs up at 25,000. CT of abdomen is pending this morning. Plan an addendum to followed by Dr. Del Rosario. 01/03-lipase level up slightly at 3961. Continued abdominal tenderness with nausea and vomiting. For cholecystectomy this morning following dialysis. Plan an addendum to followed by Dr. Rondon 01/02-ERCP findings noted. Lipase elevated today. For tentative cholecystectomy tomorrow. Plan an addendum to follow Dr. Rondon 12/31-5 day history of abdominal pain with nausea and vomiting. Findings on CT scan and ultrasound as below. LFTs are unremarkable. Elevated lipase levels. Further plan an addendum to follow by Dr. Del Rosario. Current Visit: Yes Qualifiers: Abdominal location: generalized Qualified Code(s): R10.84 - Generalized abdominal pain Gastroenterology - PN: Subj Interval history: CC: Abdominal pain Patient is seen in dialysis. She is increasingly lethargic today and seems slightly agitated but denies any pain at this time. She is denying any shortness of breath or acute distress as well. Denies any nausea or vomiting at this time. Abdomen soft, nontender. Fever noted last night at 101.5. WBCs down today at 20,000. H&H 8.5/24.3 without overt bleeding. Creatinine elevated at 7.1. ROS: Denies shortness breath or chest pain Exam (Progress Note) - Constitutional Vitals: Period Temp Pulse Resp BP Sys/Tavares Pulse Ox Last 24 Hr 97.6 F-101.5 F 73-107 16-20 103-143/62-78 96-100 General appearance: normal weight, no acute distress - Head Head exam: Present: normal inspection, normocephalic - Eye Eye exam: Present: other (Lids and conjunctive are unremarkable). Absent: scleral icterus - ENT ENT exam: Present: normal exam, normal oropharynx - Neck Neck exam: Present: normal inspection - Respiratory Respiratory exam: Present: clear to auscultation bilaterally. Absent: rales, rhonchi, wheezes - Cardiovascular Cardiovascular exam: Present: regular rate and rhythm. Absent: diastolic murmur , JVD, systolic murmur - GI/Abdominal GI/Abdominal exam: Present: normal bowel sounds, soft. Absent: ascites, distended, mass, organomegaly, tenderness - Extremities Exam Extremities exam: Present: normal inspection, full ROM - Back Exam Back exam: Present: normal inspection - Neurological Exam Neurological exam: Present: alert, oriented X3 - Psychiatric Psychiatric exam: Present: normal affect, normal mood - Skin Skin exam: Present: normal color, warm, dry Results - Labs CBC & BMP: 01/17/17 07:23 01/17/17 07:23 Lab Results: I have reviewed the past 24 hour labs Specialty Discharge - Follow Up or Referrals Follow up with: Yves Gutierrez MD [Physician] -
--- NOTE | 2017-01-17 11:41 | Nephrology Progress Note ---
Nephrology - PN: Subj Interval history: She is seen during dialysis. Blood pressure is stable. Nausea has improved. No abdominal pain Exam (PN)-Nephrology - Vital Signs Vital signs: Period Temp Pulse Resp BP Sys/Tavares Pulse Ox Last 24 Hr 97.6 F-101.5 F 73-107 16-20 103-143/62-78 96-100 Exam: Gen.: Alert and oriented x3. ENT: Pupils equal round reactive to light. EOMs intact. Mucous membranes moist. Neck: Supple. No JVD or bruit. Cardiovascular: Regular rate and rhythm. No murmur rub or gallop Lungs: Clear Abdomen: Soft. Nontender. Positive bowel sounds. No organomegaly Extremities: No edema - Lab 01/17/17 07:23 01/17/17 07:23 Most recent lab results Calcium 6.7 MG/DL (8.5-10.1) L 01/17/17 07:23 Phosphorus 5.3 MG/DL (2.5-4.9) H 01/17/17 07:23 Magnesium 2.0 MG/DL (1.8-2.4) 01/17/17 07:23 Assessment and Plan (1) ESRD (end stage renal disease) Status: Chronic Assessment and plan: 61-year-old woman with: * ESRD. Stable during dialysis. No heparin being used. * Diabetes mellitus * Hypertension. Improved control * Anemia. Secondary to GI bleed. * DVT right arm. She is now on Eliquis * Cholelithiasis with pancreatitis. Cholecystostomy tube. Continue TPN * Fungal sepsis. Treated appropriately Current Visit: Yes (2) Aspiration into airway Status: Acute Current Visit: Yes (3) Cerebrovascular disease Status: Chronic Current Visit: No (4) Diabetes mellitus Status: Chronic Current Visit: No Qualifiers: Qualified Code(s): E11.22 - Type 2 diabetes mellitus with diabetic chronic kidney disease; N18.6 - End stage renal disease; Z99.2 - Dependence on renal dialysis (5) Hypertension Status: Chronic Current Visit: No Specialty Discharge - Follow Up or Referrals Follow up with: Yves Gutierrez MD [Physician] -
[2017-01-17] MEDS: MEROPENEM 1,000 MG in SODIUM CHLORIDE 0.9% 100 ML IV SCH (12:44)
[2017-01-17] MEDS: CITALOPRAM 20 MG TABLET PO SCH (12:44)
[2017-01-17] MEDS: APIXABAN 5 MG TABLET PO SCH ×2 (12:45→21:36)
[2017-01-17] MEDS: SODIUM CHLOR 0.9% KCL 20 MEQ 20 MEQ/1,000 ML BAG IV SCH (12:48)
[2017-01-17] MEDS: PANTOPRAZOLE 40 MG VIAL IV SCH ×2 (12:49→21:36)
[2017-01-17] MEDS: MICAFUNGIN 100 MG in SODIUM CHLORIDE 0.9% 100 ML IV SCH (13:30)
--- NOTE | 2017-01-17 14:33 | Hospitalist Progress Note ---
Assessment and Plan (1) Intractable nausea and vomiting Status: Acute Assessment and plan: The patient continues to have an elevated lipase. Percutaneous cholecystostomy tube has been placed. Current Visit: Yes (2) Pancreatitis Status: Acute Current Visit: Yes Qualifiers: Chronicity: acute Pancreatitis type: biliary Acute pancreatitis complication: unspecified Qualified Code(s): K85.10 - Biliary acute pancreatitis without necrosis or infection (3) Diabetes mellitus Status: Chronic Assessment and plan: Continue Accu-Cheks and sliding scale insulin. The patient is on TPN. Blood sugars have been adequately controlled in the 150-180 Current Visit: No Qualifiers: Diabetes mellitus type: type 2 Diabetes mellitus complication status: with kidney complications Diabetes mellitus complication detail: with chronic kidney disease Diabetes mellitus tank terminal gauger insulin use: without tank terminal gauger use Chronic kidney disease stage: on chronic dialysis Qualified Code(s): E11.22 - Type 2 diabetes mellitus with diabetic chronic kidney disease; N18.6 - End stage renal disease; Z99.2 - Dependence on renal dialysis (4) AV fistula thrombosis Status: Resolved Assessment and plan: Started on Eliquis due to incompatibilities with heparin and micafungin. Current Visit: Yes Qualifiers: Encounter type: initial encounter Qualified Code(s): T82.868A - Thrombosis due to vascular prosthetic devices, implants and grafts, initial encounter (5) ESRD (end stage renal disease) Status: Chronic Assessment and plan: Nephrology following. Dialysis performed today. Current Visit: Yes (6) Leukocytosis Status: Acute Current Visit: Yes (7) Cholelithiasis Problem details: sludge on U/s although NM HIDA was normal. ERCP did no vis cystic duct and patient now on heparin and surgery has increased risks Status : Acute Assessment and plan: Status post percutaneous cholecystostomy tube Current Visit: Yes Qualifiers: Cholelithiasis location: gallbladder and bile duct (8) Abdominal pain Status: Acute Current Visit: Yes Qualifiers: Abdominal location: generalized Qualified Code(s): R10.84 - Generalized abdominal pain (9) Fungemia Status: Acute Assessment and plan: Multiple positive cultures noted. Infectious disease following. Treatment has been initiated with micafungin. Continue to monitor closely. Current Visit: Yes Hospitalist: Subjective Interval history: Patient seen and examined. No acute events overnight. Case discussed with nursing staff. Labs reviewed. Case discussed with the surgery PA. May consider a Dobbhoff feeding tube for added nutrition if the patient is unable to keep up with oral intake. Exam - Constitutional Vitals: Period Temp Pulse Resp BP Sys/Tavares Pulse Ox Last 24 Hr 97.6 F-101.5 F 73-107 16-20 103-151/62-84 97-100 Exam: Constitutional System: Mild distress. No tremulousness. Thin and frail. No complaints at this time. Seen after dialysis. Head: Normocephalic, atraumatic. Ears, Nose and Throat System: No pain or tenderness. No epistaxis or discharge Eyes System: Pupils equal, round, and reactive. Extraocular muscles intact. Neck: Supple, without adenopathy, No jugular venous distention. No thyromegaly, neck mass, or prior surgery apparent. Respiratory System: Chest clear to auscultation. Cardiovascular System: Heart with regular rate and rhythm. No murmur. GI System: Abdomen is soft and mildly tender. Normo active bowel sounds present. Percutaneous cholecystostomy tube noted Musculoskeletal System: limbs with no pedal edema. Full distal pulses. Normal capillary refill. Results - Labs CBC & BMP: 01/17/17 07:23 01/17/17 07:23 Lab Results: I have reviewed the past 24 hour labs Quality Measures - VTE Contraindication to Pharmacological VTE Prophylaxis: High Risk of Bleeding Specialty Discharge - Follow Up or Referrals Follow up with: Yves Gutierrez MD [Physician] -
--- NOTE | 2017-01-17 16:26 | XRay Report ---
XR chest 1V portable Indication: Weight feeding tube placement. Comparison: Chest x-ray 01/14/2017 Technique: Portable AP chest was performed. Findings: A weighted feeding tube terminates within the gastric fundus. Chest x-rays no change in comparison. Cholecystostomy tube projects in the right upper quadrant. This appears stable. Impression: 1. Feeding tube placement as detailed. 01/17/2017 4:23 PM PROCEDURE INTERPRETED AT [facility] DEPARTMENT OF RADIOLOGY Final Report Signed by: Dr. Jamison Segura
--- NOTE | 2017-01-17 16:35 | Infectious Disease Progress ---
Assessment and Plan (1) Fever Status: Acute Assessment and plan: We know that this is due to fungemia, likely candidemia. Patient's still with intermittent fever but no other organisms isolated in blood cultures. Recommendations: 1. Continue micafungin 100 mg IV daily 2. Discontinue meropenem and daptomycin 3. Repeat blood cultures today Discussed with at bedside Current Visit: Yes (2) Intractable nausea and vomiting Status: Acute Current Visit: Yes (3) Leukocytosis Status: Acute Current Visit: Yes (4) ESRD (end stage renal disease) Status: Chronic Current Visit: Yes (5) Diabetes mellitus Status: Chronic Current Visit: No Qualifiers: Diabetes mellitus type: type 2 Diabetes mellitus complication status: with kidney complications Diabetes mellitus complication detail: with chronic kidney disease Diabetes mellitus fpc insulin use: without terminal make up operator use Chronic kidney disease stage: on chronic dialysis Qualified Code(s): E11.22 - Type 2 diabetes mellitus with diabetic chronic kidney disease; N18.6 - End stage renal disease; Z99.2 - Dependence on renal dialysis (6) Hypertension Status: Chronic Current Visit: No Infectious Disease - PN: Subj Interval history: Patient spiked again last night 101.5. She is feeling unwell again today. Still with nausea and intermittent vomiting. Infectious Disease Exam (PN) - Constitutional Vitals: Temp Pulse Resp BP Pulse Ox 97.7 F 99 H 18 151/84 99 01/17/17 12:30 01/17/17 12:30 01/17/17 14:21 01/17/17 12:30 01/17/17 12:30 General appearance: normal weight, no acute distress Exam: General appearance: ill looking - Eye Eye exam: Present: EOMI. no icterus Pupils: Present: SHERIF - ENT ENT exam: no oral exudates, but mouth dry - Respiratory Respiratory exam: vesicular BS, no crepitations or wheezes - Cardiovascular Cardiovascular exam: regular rate and rhythm, no murmurs - GI/Abdominal GI/Abdominal exam: Cholecystostomy tube with clear bile draining, normal bowel sounds, soft, non-tender, no organomegaly or mass - Extremities Exam Extremities exam: no edema - Skin Skin exam: no rash Results - Labs CBC & BMP: 01/17/17 07:23 01/17/17 07:23 Lab Results: I have reviewed the past 24 hour labs Quality Measures - VTE Contraindication to Pharmacological VTE Prophylaxis: High Risk of Bleeding Specialty Discharge - Follow Up or Referrals Follow up with: Yves Gutierrez MD [Physician] -
[2017-01-18] MEDS: ALBUTEROL/IPRATROPIUM 3 ML NEB RESP TX SCH ×4 (00:34→18:55)
[2017-01-18] MEDS: INSULIN REGULAR 100 UNIT/ML SUBCUT SCH ×4 (00:49→18:27)
[2017-01-18] MEDS: SODIUM CHLOR 0.9% KCL 20 MEQ 20 MEQ/1,000 ML BAG IV SCH ×4 (01:34→23:47)
[2017-01-18 05:43] LABS: Basophils # 0.1 10*3/uL (0.0-0.2); Basophils % 0.2 % (0.0-0.8); Eosinophils # 0.4 10*3/uL (0.0-0.87); Eosinophils % 1.9 % (0.00-10.9); Hematocrit 24.5 VOL% (35.7-47.0); Hemoglobin 8.5 GM/DL (12.0-16.0); Immature Granulocytes % 1.5 %; Immature Granulocytes Absolute 0.35 #; Lymphocytes # 2.6 10*3/uL (1.4-4.0); Lymphocytes % 11.2 % (21.3-54.2); Mean Corpuscular HGB Conc 34.7 GM/DL (32-36); Mean Corpuscular Hemoglobin 29 PG (27-34); Mean Corpuscular Volume 84.8 FL (87-102); Mean Platelet Volume 10.4 FL (9.6-12.0); Monocytes % 8.7 % (1.7-12.7); Neutrophils # 17.5 10*3/uL (1.4-7.4); Neutrophils % 76.5 % (38.7-73.9); Platelet Count 301 T/CUMM (130-400); Red Blood Count 2.89 MC/CUMM (3.8-5.5); Red Cell Distribution Width 16.3 % (9.3-17.3); White Blood Count 22.9 T/CUMM (4-12)
[2017-01-18 06:13] LABS: Osmolality,Calculated 299.1 MOS/KG (273-304); Potassium 3.4 MMOL/L (3.5-5.1)
[2017-01-18 06:24] LABS: Eosinophils 3 % (0-10); Hypochromasia 1+; Lymphocytes 6 % (20-55); Ovalocytes Slight; Platelet Estimate Adequate; Segmented Neutrophils 87 % (50-85); Total Cells Counted 100
[2017-01-18 06:25] LABS: Giant Platelets Few; Microcytosis Slight
[2017-01-18] MEDS: ACETAMINOPHEN 325 MG TABLET PO PRN (09:55)
[2017-01-18] MEDS: CITALOPRAM 20 MG TABLET PO SCH (09:55)
[2017-01-18] MEDS: APIXABAN 5 MG TABLET PO SCH ×2 (09:55→20:08)
[2017-01-18] MEDS: PANTOPRAZOLE 40 MG VIAL IV SCH ×2 (10:13→20:08)
[2017-01-18] MEDS: MICAFUNGIN 100 MG in SODIUM CHLORIDE 0.9% 100 ML IV SCH (10:19)
--- NOTE | 2017-01-18 10:47 | Infectious Disease Progress ---
Assessment and Plan (1) Fever Status: Acute Assessment and plan: We know that this is due to fungemia, likely candidemia. Patient's seems to have defervesced. Recommendations: 1. Continue micafungin 100 mg IV daily 2. Repeat blood cultures Current Visit: Yes (2) Intractable nausea and vomiting Status: Acute Current Visit: Yes (3) Leukocytosis Status: Acute Current Visit: Yes (4) ESRD (end stage renal disease) Status: Chronic Current Visit: Yes (5) Diabetes mellitus Status: Chronic Current Visit: No Qualifiers: Diabetes mellitus type: type 2 Diabetes mellitus complication status: with kidney complications Diabetes mellitus complication detail: with chronic kidney disease Diabetes mellitus shelter insulin use: without continuous churn buttermaker use Chronic kidney disease stage: on chronic dialysis Qualified Code(s): E11.22 - Type 2 diabetes mellitus with diabetic chronic kidney disease; N18.6 - End stage renal disease; Z99.2 - Dependence on renal dialysis (6) Hypertension Status: Chronic Current Visit: No Infectious Disease - PN: Subj Interval history: Patient doing fair, when I saw her today she did not speak you and he nodded her head. Indicated that she felt okay, but overall, denied nausea and apparently has not been vomiting lately. No fever for over 24 hours. Her Keofeed tube came out accidentally today so she is going to try liquids again. Infectious Disease Exam (PN) - Constitutional Vitals: Temp Pulse Resp BP Pulse Ox 98.0 F 110 H 18 112/64 99 01/18/17 06:44 01/18/17 07:26 01/18/17 07:26 01/18/17 06:44 01/18/17 07:26 General appearance: normal weight, no acute distress Exam: General appearance: Chronically ill looking, worried affect - Eye Eye exam: Present: EOMI. no icterus Pupils: Present: SHERIF - ENT ENT exam: no oral exudates, moist oral mucosa - Respiratory Respiratory exam: vesicular BS, no crepitations or wheezes - Cardiovascular Cardiovascular exam: regular rate and rhythm, no murmurs - GI/Abdominal GI/Abdominal exam: Cholecystostomy tube with clear bile draining, normal bowel sounds, soft, non-tender, no organomegaly or mass - Extremities Exam Extremities exam: no edema - Skin Skin exam: no rash Results - Labs CBC & BMP: 01/18/17 05:15 01/18/17 05:15 Lab Results: I have reviewed the past 24 hour labs Quality Measures - VTE Contraindication to Pharmacological VTE Prophylaxis: High Risk of Bleeding Specialty Discharge - Follow Up or Referrals Follow up with: Yves Gutierrez MD [Physician] -
--- NOTE | 2017-01-18 11:38 | Hospitalist Progress Note ---
Assessment and Plan (1) Fungemia Status: Acute Assessment and plan: Multiple positive cultures noted. Infectious disease following. Treatment has been initiated with micafungin. Continue to monitor closely. Current Visit: Yes (2) Intractable nausea and vomiting Status: Resolved Assessment and plan: This has improved. Percutaneous cholecystostomy tube has been placed. Current Visit: Yes (3) Pancreatitis Status: Acute Current Visit: Yes Qualifiers: Chronicity: acute Pancreatitis type: biliary Acute pancreatitis complication: unspecified Qualified Code(s): K85.10 - Biliary acute pancreatitis without necrosis or infection (4) Diabetes mellitus Status: Chronic Assessment and plan: Continue Accu-Cheks and sliding scale insulin. The patient is on TPN. Blood sugars have been adequately controlled in the 150-180 Current Visit: No Qualifiers: Diabetes mellitus type: type 2 Diabetes mellitus complication status: with kidney complications Diabetes mellitus complication detail: with chronic kidney disease Diabetes mellitus oil heaterman insulin use: without oil heaterman use Chronic kidney disease stage: on chronic dialysis Qualified Code(s): E11.22 - Type 2 diabetes mellitus with diabetic chronic kidney disease; N18.6 - End stage renal disease; Z99.2 - Dependence on renal dialysis (5) AV fistula thrombosis Status: Resolved Assessment and plan: Started on Eliquis due to incompatibilities with heparin and micafungin. Current Visit: Yes Qualifiers: Encounter type: initial encounter Qualified Code(s): T82.868A - Thrombosis due to vascular prosthetic devices, implants and grafts, initial encounter (6) ESRD (end stage renal disease) Status: Chronic Assessment and plan: Nephrology following. Dialysis performed today. Current Visit: Yes (7) Leukocytosis Status: Acute Current Visit: Yes (8) Cholelithiasis Problem details: sludge on U/s although NM HIDA was normal. ERCP did no vis cystic duct and patient now on heparin and surgery has increased risks Status : Acute Assessment and plan: Status post percutaneous cholecystostomy tube Current Visit: Yes Qualifiers: Cholelithiasis location: gallbladder and bile duct (9) Abdominal pain Status: Acute Current Visit: Yes Qualifiers: Abdominal location: generalized Qualified Code(s): R10.84 - Generalized abdominal pain Hospitalist: Subjective Interval history: Patient seen and examined. She looks a little bit better today. She reports the nausea has improved. Still not much of an appetite. She really did not eat much breakfast. She has a flat affect and appears depressed Exam - Constitutional Vitals: Period Temp Pulse Resp BP Sys/Tavares Pulse Ox Last 24 Hr 97.4 F-99.1 F 93-112 18-20 112-151/64-84 97-100 Exam: Constitutional System: Mild distress. No tremulousness. Thin and frail. No complaints at this time. Head: Normocephalic, atraumatic. Ears, Nose and Throat System: No pain or tenderness. No epistaxis or discharge Eyes System: Pupils equal, round, and reactive. Extraocular muscles intact. Neck: Supple, without adenopathy, No jugular venous distention. No thyromegaly, neck mass, or prior surgery apparent. Respiratory System: Chest clear to auscultation. Cardiovascular System: Heart with regular rate and rhythm. No murmur. GI System: Abdomen is soft and non- tender. Normo active bowel sounds present. Percutaneous cholecystostomy tube noted Musculoskeletal System: limbs with no pedal edema. Full distal pulses. Normal capillary refill. Results - Labs CBC & BMP: 01/18/17 05:15 01/18/17 05:15 Lab Results: I have reviewed the past 24 hour labs Quality Measures - VTE Contraindication to Pharmacological VTE Prophylaxis: High Risk of Bleeding Specialty Discharge - Follow Up or Referrals Follow up with: Yves Gutierrez MD [Physician] -
--- NOTE | 2017-01-18 12:06 | General Surgery Progress Note ---
Assessment and Plan (1) Biliary acute pancreatitis Status: Acute Assessment and plan: This patient had biliary pancreatitis which was treated with ERCP and sphincterotomy about 2 weeks ago and she developed yeast with fungemia from her urine and her cholecystostomy tube was used to definitively treat some cholecystitis she developed post ERCP because of her high risk with abdominal surgery. This all seems to be doing okay. She did have some bleeding from her sphincterotomy site after she was started on heparin for DVT but this resolved with endoscopic management and now she is on p.o. Eliquis for her DVT due to limited IV access. Her hemoglobin is stable. Current Visit: Yes (2) Fungemia Status: Acute Assessment and plan: This was associated with a left femoral vein triple-lumen catheter which has since been removed. The plan is to treat with IV micafungin and repeat blood cultures per infectious disease. If her bloodstream fungal infection does not clear she will need to have her tunneled dialysis catheter removed but we are hoping this will not be necessary. She also had an AV graft placed in her left arm about a month ago and this was ligated due to severe hand pain afterwards but certainly could pose some difficulty with clearing her bloodstream infection. Repeat cultures per infectious disease. Current Visit: Yes Subjective Patient reports: Present: no new complaints, nausea, vomiting, afebrile Narrative: Tube feedings were started yesterday but the patient threw up her NG tube dobhoff overnight. She was tolerating her tube feeds until her rate was increased. She feels a lot better overall and she actually looks a little bit better today. She is not having fevers any longer. We will attempt oral intake rather than replacing her dobhoff. Exam - Constitutional Vitals: Period Temp Pulse Resp BP Sys/Tavares Pulse Ox Last 24 Hr 97.4 F-99.1 F 93-112 18-20 112-151/64-84 97-100 General appearance: normal weight, no acute distress - Head Head exam: Present: normal inspection, normocephalic - Eye Eye exam: Present: EOMI. Absent: scleral icterus Pupils: Present: SHERIF - ENT ENT exam: Present: normal exam Mouth exam: Present: normal external inspection. Absent: normal voice, dry mucosa - Neck Neck exam: Present: normal inspection. Absent: trachea midline, lymphadenopathy - Respiratory Respiratory exam: Present: clear to auscultation bilaterally. Absent: accessory muscle use, chest wall tenderness - Cardiovascular Cardiovascular exam: Present: tachycardia. Absent: systolic murmur - GI/Abdominal GI/Abdominal exam: Present: soft, other (Cholecystostomy tube is draining clear bile). Absent: tenderness, rebound - Extremities Exam Extremities exam: Present: normal inspection, normal capillary refill - Back Exam Back exam: Present: normal inspection - Neurological Exam Neurological exam: Present: alert, oriented X3 Speech: Present: normal - Skin Skin exam: Present: normal color, warm Results - Labs CBC & BMP: 01/18/17 05:15 01/18/17 05:15 Quality Measures - VTE Contraindication to Pharmacological VTE Prophylaxis: High Risk of Bleeding Specialty Discharge - Follow Up or Referrals Follow up with: Yves Gutierrez MD [Physician] -
--- NOTE | 2017-01-18 12:37 | Nephrology Progress Note ---
Nephrology - PN: Subj Interval history: She is awake and alert. She denies shortness of breath. Nausea has improved. Exam (PN)-Nephrology - Vital Signs Vital signs: Period Temp Pulse Resp BP Sys/Tavares Pulse Ox Last 24 Hr 97.4 F-99.1 F 93-112 18-20 112-137/64-84 97-100 Exam: Gen.: Alert and oriented x3. ENT: Pupils equal round reactive to light. EOMs intact. Mucous membranes moist. Neck: Supple. No JVD or bruit. Cardiovascular: Regular rate and rhythm. No murmur rub or gallop Lungs: Clear Abdomen: Soft. Nontender. Positive bowel sounds. Cholecystostomy tube present Extremities: No edema - Lab 01/18/17 05:15 01/18/17 05:15 Most recent lab results Calcium 7.0 MG/DL (8.5-10.1) L 01/18/17 05:15 Phosphorus 5.3 MG/DL (2.5-4.9) H 01/17/17 07:23 Magnesium 2.0 MG/DL (1.8-2.4) 01/17/17 07:23 Assessment and Plan (1) ESRD (end stage renal disease) Status: Chronic Assessment and plan: 61-year-old woman with: * ESRD. Dialysis TTS * Diabetes mellitus * Hypertension. Improved control * Anemia. Secondary to GI bleed. * DVT right arm. She is now on Eliquis * Cholelithiasis with pancreatitis. Cholecystostomy tube. Continue TPN * Fungal sepsis. Continue micafungin Current Visit: Yes (2) Aspiration into airway Status: Acute Current Visit: Yes (3) Cerebrovascular disease Status: Chronic Current Visit: No (4) Diabetes mellitus Status: Chronic Current Visit: No Qualifiers: Diabetes mellitus type: type 2 Diabetes mellitus complication status: with kidney complications Diabetes mellitus complication detail: with chronic kidney disease Diabetes mellitus oxyacetylene torch operator insulin use: without fpc use Chronic kidney disease stage: on chronic dialysis Qualified Code(s): E11.22 - Type 2 diabetes mellitus with diabetic chronic kidney disease; N18.6 - End stage renal disease; Z99.2 - Dependence on renal dialysis (5) Hypertension Status: Chronic Current Visit: No Specialty Discharge - Follow Up or Referrals Follow up with: Yves Gutierrez MD [Physician] -
[2017-01-19] MEDS: ALBUTEROL/IPRATROPIUM 3 ML NEB RESP TX SCH ×4 (00:34→18:53)
[2017-01-19] MEDS: INSULIN REGULAR 100 UNIT/ML SUBCUT SCH ×4 (00:45→18:04)
[2017-01-19] MEDS: SODIUM CHLOR 0.9% KCL 20 MEQ 20 MEQ/1,000 ML BAG IV SCH ×2 (03:08→18:02)
--- NOTE | 2017-01-19 08:03 | Hospitalist Progress Note ---
Assessment and Plan (1) Diabetes mellitus Status: Chronic Assessment and plan: The patient continues on supportive care on 3[facility]. The patient's pancreatitis seems to be improving very slowly. The patient seems to be appropriate for transition to long-term acute care when possible. Current Visit: No Qualifiers: Diabetes mellitus type: type 2 Diabetes mellitus complication status: with kidney complications Diabetes mellitus complication detail: with chronic kidney disease Diabetes mellitus auto finance sales rep insulin use: without custodial use Chronic kidney disease stage: on chronic dialysis Qualified Code(s): E11.22 - Type 2 diabetes mellitus with diabetic chronic kidney disease; N18.6 - End stage renal disease; Z99.2 - Dependence on renal dialysis (2) ESRD (end stage renal disease) Status: Chronic Current Visit: Yes (3) Biliary acute pancreatitis Status: Acute Current Visit: Yes Hospitalist: Subjective Interval history: The patient is admitted to the hospital with acute cholecystitis and severe pancreatitis. She developed deep vein thrombosis in the right arm and is now being treated with Eliquis. The patient developed fungemia and is now being treated with micafungin. The patient appears more alert than she did when I last saw her a week ago. The patient has mild complaint of abdominal discomfort which is an improvement. Exam - Constitutional Vitals: Period Temp Pulse Resp BP Sys/Tavares Pulse Ox Last 24 Hr 96.5 F-98.0 F 95-114 18-20 123-157/72-92 97-100 Exam: Constitutional System: Mild distress. No tremulousness. Head: Normocephalic, atraumatic. Ears, Nose and Throat System: No evidence of Otitis or Mastoiditis. No epistaxis or discharge Eyes System: Pupils equal, round, and reactive. Extraocular muscles intact. Neck: Supple, without adenopathy, No jugular venous distention. No thyromegaly , neck mass, or prior surgery apparent. Respiratory System: Chest clear to auscultation. Cardiovascular System: Heart with regular rate and rhythm. No murmur. Results - Labs CBC & BMP: 01/18/17 05:15 01/18/17 05:15 Lab Results: I have reviewed the past 24 hour labs Quality Measures - VTE Contraindication to Pharmacological VTE Prophylaxis: High Risk of Bleeding Specialty Discharge - Follow Up or Referrals Follow up with: Yves Gutierrez MD [Physician] -
--- NOTE | 2017-01-19 09:58 | Nephrology Progress Note ---
Nephrology - PN: Subj Interval history: She is seen during dialysis. Nausea improved. Blood pressure stable Exam (PN)-Nephrology - Vital Signs Vital signs: Period Temp Pulse Resp BP Sys/Tavares Pulse Ox Last 24 Hr 96.5 F-98.0 F 95-114 18-20 123-157/72-92 97-100 Exam: Gen.: Alert and oriented x3. ENT: Pupils equal round reactive to light. EOMs intact. Mucous membranes moist. Neck: Supple. No JVD or bruit. Cardiovascular: Regular rate and rhythm. No murmur rub or gallop Lungs: Clear Abdomen: Soft. Nontender. Positive bowel sounds. No organomegaly Extremities: No edema - Lab 01/18/17 05:15 01/18/17 05:15 Most recent lab results Calcium 7.0 MG/DL (8.5-10.1) L 01/18/17 05:15 Phosphorus 5.3 MG/DL (2.5-4.9) H 01/17/17 07:23 Magnesium 2.0 MG/DL (1.8-2.4) 01/17/17 07:23 Assessment and Plan (1) ESRD (end stage renal disease) Status: Chronic Assessment and plan: 61-year-old woman with: * ESRD. Stable during dialysis * Diabetes mellitus * Hypertension. Controlled * Anemia. Secondary to GI bleed. * DVT right arm. She is now on Eliquis * Cholelithiasis with pancreatitis. Cholecystostomy tube. She is tolerating liquids * Fungal sepsis. Continue micafungin Current Visit: Yes (2) Aspiration into airway Status: Acute Current Visit: Yes (3) Cerebrovascular disease Status: Chronic Current Visit: No (4) Diabetes mellitus Status: Chronic Current Visit: No Qualifiers: Diabetes mellitus type: type 2 Diabetes mellitus complication status: with kidney complications Diabetes mellitus complication detail: with chronic kidney disease Diabetes mellitus residential insulin use: without residential use Chronic kidney disease stage: on chronic dialysis Qualified Code(s): E11.22 - Type 2 diabetes mellitus with diabetic chronic kidney disease; N18.6 - End stage renal disease; Z99.2 - Dependence on renal dialysis (5) Hypertension Status: Chronic Current Visit: No Specialty Discharge - Follow Up or Referrals Follow up with: Yves Gutierrez MD [Physician] -
[2017-01-19] MEDS: PANTOPRAZOLE 40 MG VIAL IV SCH ×2 (11:43→20:23)
[2017-01-19] MEDS: MICAFUNGIN 100 MG in SODIUM CHLORIDE 0.9% 100 ML IV SCH (11:47)
[2017-01-19] MEDS: CITALOPRAM 20 MG TABLET PO SCH (11:47)
[2017-01-19] MEDS: APIXABAN 5 MG TABLET PO SCH ×2 (11:47→20:23)
--- NOTE | 2017-01-19 13:12 | Event Note ---
Afebrile vital signs stable. She is mildly tachycardic. She had nausea and vomiting yesterday but says she feels a lot better today. She just had a large liquid bowel movement. She is tolerating her clears this morning without problems. Drain is in place with minimal output. Abdomen is soft and n minimally tender. We will continue with clear liquids for now.
[2017-01-20] MEDS: ALBUTEROL/IPRATROPIUM 3 ML NEB RESP TX SCH ×4 (00:33→19:37)
[2017-01-20] MEDS: SODIUM CHLOR 0.9% KCL 20 MEQ 20 MEQ/1,000 ML BAG IV SCH ×2 (00:45→13:36)
[2017-01-20] MEDS: INSULIN REGULAR 100 UNIT/ML SUBCUT SCH ×4 (01:14→18:39)
--- NOTE | 2017-01-20 10:11 | Hospitalist Progress Note ---
Assessment and Plan (1) ESRD (end stage renal disease) Status: Chronic Assessment and plan: 1)DM- continue SSI. 2)general weakness- conitnue PT. She has a long recovery ahead of her. 3)fungemia- culture called to floor today with fungus- still with positive cultures. darian in blood and a different species in urine. 4)biliary acute pancreatitis. 5)ESRD- dialysis. Current Visit: Yes (2) Fever Status: Acute Current Visit: Yes (3) Pancreatitis Status: Acute Current Visit: Yes Qualifiers: Chronicity: acute Pancreatitis type: biliary Acute pancreatitis complication: unspecified Qualified Code(s): K85.10 - Biliary acute pancreatitis without necrosis or infection (4) Fungemia Status: Acute Current Visit: Yes Hospitalist: Subjective Interval history: Mrs Dominguez reports that she is not hungry and has not eaten for a couple of days. She thinks she might like [place] so we will get her some to try. She denies fever. No focal pain. Very weak. Plans are for transfer to [facility] when there is a bed available. Exam - Constitutional Vitals: Period Temp Pulse Resp BP Sys/Tavares Pulse Ox Last 24 Hr 97.4 F-99.0 F 98-118 16-20 118-150/76-89 95-100 General appearance: normal weight, no acute distress (tremulous when she moves- weak.) - Respiratory Respiratory exam: Present: clear to auscultation bilaterally - Cardiovascular Cardiovascular exam: Present: regular rate and rhythm - GI/Abdominal GI/Abdominal exam: Present: normal bowel sounds, soft - Extremities Exam Extremities exam: Absent: edema - Neurological Exam Neurological exam: Present: alert, oriented X3 Results - Labs CBC & BMP: 01/18/17 05:15 01/18/17 05:15 Lab Results: I have reviewed the past 24 hour labs Quality Measures - VTE Contraindication to Pharmacological VTE Prophylaxis: High Risk of Bleeding Specialty Discharge - Follow Up or Referrals Follow up with: Yves Gutierrez MD [Physician] -
[2017-01-20] MEDS: APIXABAN 5 MG TABLET PO SCH ×2 (10:12→20:21)
[2017-01-20] MEDS: PANTOPRAZOLE 40 MG VIAL IV SCH ×2 (10:12→20:19)
[2017-01-20] MEDS: CITALOPRAM 20 MG TABLET PO SCH (10:12)
--- NOTE | 2017-01-20 11:11 | Event Note ---
No emesis but having some nausea. She is on clear liquids. Afebrile vital signs stable with mild tachycardia. She is getting IV fluids. She is getting treatment for her fungemia. Her abdomen is soft nontender nondistended and the drain is in place with minimal bile tinged fluid. Will continue clear liquids and she is instructed to go slow.
[2017-01-20] MEDS: MICAFUNGIN 100 MG in SODIUM CHLORIDE 0.9% 100 ML IV SCH (12:13)
--- NOTE | 2017-01-20 12:23 | Nephrology Progress Note ---
Nephrology - PN: Subj Interval history: She denies nausea but is anorexic. No shortness of breath. She has been afebrile Exam (PN)-Nephrology - Vital Signs Vital signs: Period Temp Pulse Resp BP Sys/Tavares Pulse Ox Last 24 Hr 97.4 F-99.0 F 100-118 16-20 118-150/78-89 95-100 Exam: Gen.: Alert and oriented x3. ENT: Pupils equal round reactive to light. EOMs intact. Mucous membranes moist. Neck: Supple. No JVD or bruit. Cardiovascular: Regular rate and rhythm. No murmur rub or gallop Lungs: Clear Abdomen: Soft. Nontender. Positive bowel sounds. No organomegaly Extremities: No edema - Lab 01/18/17 05:15 01/18/17 05:15 Most recent lab results Calcium 7.0 MG/DL (8.5-10.1) L 01/18/17 05:15 Phosphorus 5.3 MG/DL (2.5-4.9) H 01/17/17 07:23 Magnesium 2.0 MG/DL (1.8-2.4) 01/17/17 07:23 Assessment and Plan (1) ESRD (end stage renal disease) Status: Chronic Assessment and plan: 61-year-old woman with: * ESRD. Dialysis TTS * Diabetes mellitus * Hypertension. Controlled * Anemia. Secondary to GI bleed. * DVT right arm. She is now on Eliquis * Cholelithiasis with pancreatitis. Cholecystostomy tube. She is tolerating liquids * Fungal sepsis. Repeat cultures positive continue micafungin Current Visit: Yes (2) Aspiration into airway Status: Acute Current Visit: Yes (3) Cerebrovascular disease Status: Chronic Current Visit: No (4) Diabetes mellitus Status: Chronic Current Visit: No Qualifiers: Diabetes mellitus type: type 2 Diabetes mellitus complication status: with kidney complications Diabetes mellitus complication detail: with chronic kidney disease Diabetes mellitus rat exterminator insulin use: without rat exterminator use Chronic kidney disease stage: on chronic dialysis Qualified Code(s): E11.22 - Type 2 diabetes mellitus with diabetic chronic kidney disease; N18.6 - End stage renal disease; Z99.2 - Dependence on renal dialysis (5) Hypertension Status: Chronic Current Visit: No Specialty Discharge - Follow Up or Referrals Follow up with: Yves Gutierrez MD [Physician] -
[2017-01-21] MEDS: ALBUTEROL/IPRATROPIUM 3 ML NEB RESP TX SCH ×4 (00:26→19:39)
[2017-01-21] MEDS: INSULIN REGULAR 100 UNIT/ML SUBCUT SCH ×4 (01:21→18:39)
[2017-01-21] MEDS: SODIUM CHLOR 0.9% KCL 20 MEQ 20 MEQ/1,000 ML BAG IV SCH ×4 (01:24→18:38)
[2017-01-21 03:56] LABS: Calcium 7.5 MG/DL (8.5-10.1); Magnesium 1.6 MG/DL (1.8-2.4); Phosphorous 4.4 MG/DL (2.5-4.9); Potassium 4.1 MMOL/L (3.5-5.1); Prealbumin 20.9 MG/DL (20-40)
[2017-01-21] MEDS: ONDANSETRON 4 MG/2 ML VIAL IV PRN ×2 (09:02→17:33)
--- NOTE | 2017-01-21 09:48 | Event Note ---
The patient is a 61-year-old female with ESRD who underwent AV fistula left upper extremity on 12/26/2016 which subsequently required ligation due to postoperative pain. She has had a prolonged complicated postoperative course. She is currently under the having treatment for fungemia. She has had poor oral intake and is currently on clears which she reports minimal intake secondary to persistent nausea. No emesis overnight. Family at the bedside at the time of my visit. Vital signs stable; persistent tachycardia. Patient appears to feel unwell. No acute distress. Cholecystostomy tube with 110 cc output last 24 hours 50 cc since midnight. Abdomen soft and nontender. Hypoactive bowel sounds. No abdominal distention appreciated. Extremities: calves soft and nontender without edema appreciated Labs: reviewed Micro: Blood cultures: Ingrid tropicalis; urine culture Ingrid krusei; repeat blood cultures with yeast present 01/15 and 01/18 Assessment and plan Continue clears as tolerated. Patient did not tolerate the pulse before for tube feedings. Monitor cholecystostomy tube output. Continue fungemia treatment. Appreciate input from nephrology, infectious disease, and the hospitalist and management of her multiple comorbidities. Repeat labs in a.m.
--- NOTE | 2017-01-21 10:06 | Hospitalist Progress Note ---
Assessment and Plan (1) ESRD (end stage renal disease) Status: Chronic Assessment and plan: 1)DM- continue SSI, controlled. 2)general weakness- continue PT. She has a long recovery ahead of her. 3)fungemia- repeat culture on 01/18 with yeast- still with positive cultures. darian in blood and a different species in urine. On Micafungin. Afebrile. Check CBC now to assess WBC. 4)biliary acute pancreatitis- has cholecystostomy tube draining, probably needs gallbladder out at some point, particularly if that is what is causing her persistent nausea. 5)ESRD- dialysis. 6)very poor nutrition- too nauseated to eat or tolerate tube feeds and no TPN or PPN because of her fungemia. Current Visit: Yes (2) Fever Status: Acute Current Visit: Yes (3) Pancreatitis Status: Acute Current Visit: Yes Qualifiers: Chronicity: acute Pancreatitis type: biliary Acute pancreatitis complication: unspecified Qualified Code(s): K85.10 - Biliary acute pancreatitis without necrosis or infection (4) Fungemia Status: Acute Current Visit: Yes Hospitalist: Subjective Interval history: Mrs Dominguez did not eat any of her clears for breakfast. Her and son are at the bedside. She is sleepy, but does respond to me with nods and shakes of the head. She denies pain or shortness of breath. Exam - Constitutional Vitals: Period Temp Pulse Resp BP Sys/Tavares Pulse Ox Last 24 Hr 97.2 F-98.6 F 90-116 18-22 125-143/71-95 95-100 General appearance: normal weight, no acute distress - Eye Eye exam: Present: EOMI. Absent: scleral icterus - Respiratory Respiratory exam: Present: clear to auscultation bilaterally - Cardiovascular Cardiovascular exam: Present: regular rate and rhythm - GI/Abdominal GI/Abdominal exam: Present: normal bowel sounds, soft - Extremities Exam Extremities exam: Absent: edema - Skin Skin exam: Present: warm, dry Results - Labs CBC & BMP: 01/18/17 05:15 01/21/17 02:55 Lab Results: I have reviewed the past 24 hour labs Quality Measures - VTE Contraindication to Pharmacological VTE Prophylaxis: High Risk of Bleeding Specialty Discharge - Follow Up or Referrals Follow up with: Yves Gutierrez MD [Physician] -
[2017-01-21 10:33] LABS: Basophils % 0.2 % (0.0-0.8); Eosinophils % 0.3 % (0.00-10.9); Hematocrit 23.1 VOL% (35.7-47.0); Hemoglobin 7.4 GM/DL (12.0-16.0); Immature Granulocytes % 1.2 %; Immature Granulocytes Absolute 0.18 #; Lymphocytes # 1.3 10*3/uL (1.4-4.0); Lymphocytes % 8.5 % (21.3-54.2); Mean Corpuscular Hemoglobin 29 PG (27-34); Mean Corpuscular Volume 90.9 FL (87-102); Mean Platelet Volume 9.7 FL (9.6-12.0); Monocytes # 0.9 10*3/uL (0.11-0.8); Neutrophils # 12.7 10*3/uL (1.4-7.4); Neutrophils % 83.8 % (38.7-73.9); Platelet Count 409 T/CUMM (130-400); Red Blood Count 2.54 MC/CUMM (3.8-5.5); White Blood Count 15.1 T/CUMM (4-12)
[2017-01-21] MEDS: PANTOPRAZOLE 40 MG VIAL IV SCH ×2 (12:23→21:04)
[2017-01-21] MEDS: MICAFUNGIN 100 MG in SODIUM CHLORIDE 0.9% 100 ML IV SCH (12:28)
[2017-01-21] MEDS: ACETAMINOPHEN 325 MG TABLET PO PRN (13:34)
[2017-01-21] MEDS: PROMETHAZINE 25 MG/1 ML VIAL IM PRN (13:48)
--- NOTE | 2017-01-21 13:51 | XRay Report ---
EXAM: XR abdomen 1V CLINICAL INDICATION: Abdominal Pain COMPARISON: None Findings: No gastric distention. [No abnormally dilated small bowel loops are identified to suggest obstruction. No free intraperitoneal air.] Pigtail catheter superimposed over the right upper quadrant, uncomplicated. Visceral shadows are normal. No abnormal focal soft tissue masses or calcific densities identified in the abdomen or pelvis. IMPRESSION: Unremarkable radiographic appearance of the abdomen PROCEDURE INTERPRETED AT [facility] DEPARTMENT OF RADIOLOGY Final Report Signed by: Jamison Hector
--- NOTE | 2017-01-21 15:09 | Nephrology Progress Note ---
Nephrology - PN: Subj Interval history: She remains anorexic. No shortness of breath. Denies abdominal pain Exam (PN)-Nephrology - Vital Signs Vital signs: Period Temp Pulse Resp BP Sys/Tavares Pulse Ox Last 24 Hr 96.9 F-98.6 F 110-116 18-22 125-163/71-112 95-100 Exam: Gen.: Alert and oriented x3. ENT: Pupils equal round reactive to light. EOMs intact. Mucous membranes moist. Neck: Supple. No JVD or bruit. Cardiovascular: Regular rate and rhythm. No murmur rub or gallop Lungs: Clear Abdomen: Soft. Nontender. Cholecystostomy tube in place Extremities: No edema - Lab 01/21/17 10:24 01/21/17 02:55 Most recent lab results Calcium 7.5 MG/DL (8.5-10.1) L 01/21/17 02:55 Phosphorus 4.4 MG/DL (2.5-4.9) 01/21/17 02:55 Magnesium 1.6 MG/DL (1.8-2.4) L 01/21/17 02:55 Assessment and Plan (1) ESRD (end stage renal disease) Status: Chronic Assessment and plan: 61-year-old woman with: * ESRD. Dialysis TTS * Diabetes mellitus * Hypertension. Controlled * Anemia. Secondary to GI bleed. Hematocrit decreased to 23.1. Transfuse during dialysis tomorrow * DVT right arm. She is now on Eliquis * Cholelithiasis with pancreatitis. Cholecystostomy tube. She is tolerating liquids * Fungal sepsis. Repeat cultures positive. Continue micafungin Current Visit: Yes (2) Aspiration into airway Status: Acute Current Visit: Yes (3) Cerebrovascular disease Status: Chronic Current Visit: No (4) Diabetes mellitus Status: Chronic Current Visit: No Qualifiers: Diabetes mellitus type: type 2 Diabetes mellitus complication status: with kidney complications Diabetes mellitus complication detail: with chronic kidney disease Diabetes mellitus oil heaterman insulin use: without chcf use Chronic kidney disease stage: on chronic dialysis Qualified Code(s): E11.22 - Type 2 diabetes mellitus with diabetic chronic kidney disease; N18.6 - End stage renal disease; Z99.2 - Dependence on renal dialysis (5) Hypertension Status: Chronic Current Visit: No Specialty Discharge - Follow Up or Referrals Follow up with: Yves Gutierrez MD [Physician] -
[2017-01-21] MEDS: CITALOPRAM 20 MG TABLET PO SCH (18:38)
[2017-01-21] MEDS: APIXABAN 5 MG TABLET PO SCH ×2 (18:38→21:07)
[2017-01-21 20:12] VITALS: BP 112/73
[2017-01-22 00:02] LABS: Basophils % 0.2 % (0.0-0.8); Hematocrit 21.6 VOL% (35.7-47.0); Immature Granulocytes Absolute 1.31 #; Lymphocytes # 2.9 10*3/uL (1.4-4.0); Lymphocytes % 15.7 % (21.3-54.2); Mean Corpuscular HGB Conc 29.6 GM/DL (32-36); Mean Corpuscular Hemoglobin 30 PG (27-34); Mean Platelet Volume 10.5 FL (9.6-12.0); Monocytes # 1.1 10*3/uL (0.11-0.8); Monocytes % 5.8 % (1.7-12.7); NRBC # 0.23 10*3/uL; Neutrophils # 13.4 10*3/uL (1.4-7.4); Neutrophils % 71.3 % (38.7-73.9); Platelet Count 277 T/CUMM (130-400); Red Blood Count 2.16 MC/CUMM (3.8-5.5); Red Cell Distribution Width 16.2 % (9.3-17.3); White Blood Count 18.7 T/CUMM (4-12)
[2017-01-22 00:13] LABS: Hemoglobin 6.4 GM/DL (12.0-16.0)
--- NOTE | 2017-01-22 00:30 | Event Note ---
FLASH SANDS was called at 2314 and room 339 patient of told him. I was the first physician to appear there is so hard to run the code. Patient received 3 doses of high-dose epinephrine IV and 2 Amps of sodium bicarbonate as we continued CPR. She was able to resume her pulse at 2330 at that time patient was sent to the intensive care unit with further marginal blood pressure and plan was to start pressors. Duration 23:14 to23:30 2339 patient lost her pulse again. She was asystolic. 3 doses of high-dose epinephrine and 2 Amps of sodium bicarbonate will use and CPR continued. Patient was asystolic for for the duration. At multiple times rhythm was the analyze for shock and was not. I talked with the patient's regarding inability to achieve effective rhythm and blood pressure. He instructed that if he is not going to work diabetes we should stop the CPR. However as we are planning to stop the seat CPR the patient started having spontaneous parous again. Observe at that time but shortly after 1204 she lost the pulse again. CPR was resumed at that point the patient primary care physician Dr. Gutierrez came. He went and talked to the who said which should try a little bit and then discontinue if she does not resume spontaneous pulse. We checked the pulse again at 1211 patient was pulseless. He does some electrical work she did have some electrical activity with a wide and abdominal rhythm which was an analyzable. Time of exploration left was 1211.
[2017-01-22 00:41] LABS: Lactic Acid 21.1 MMOL/L (0.4-2.0)
--- NOTE | 2017-01-22 00:57 | Discharge Summary ---
Hospital Course - Hospital Course Hospital Course: This patient was found unresponsive by the threes or nurses earlier this evening and CPR was started. She was intubated by the hospitalist service and transferred to the ICU where CPR was continued. I was notified of the patient' s deterioration and came in to evaluate the patient. CPR was ongoing when I came to the ICU. We continued CPR for several more cycles and the patient did have V. fib at one point and was shocked with defibrillation using 200 J. She then went into PEA arrest and never regained return of spontaneous circulation. Given the duration of the CPR prior to my arrival and the lack of return of spontaneous circulation I discussed the situation with the patient's and recommended that we stop CPR at the next pulse check. He was agreeable and understood the need to stop CPR and CPR was discontinued and the code was called at 0011. This patient was admitted on December 26 after an AV graft was performed followed by severe steal syndrome that required immediate ligation of the graft. She then developed nausea and vomiting with abdominal pain and was found to have biliary pancreatitis. She was treated with ERCP and sphincterotomy for this and her gallbladder was not visualized so a cholecystostomy tube was placed because of her inability to tolerate general anesthesia in my opinion. Her lipase level continued to remain elevated and she actually required TPN due to prolonged recovery from her pancreatitis. She failed to resolve her lipase levels completely but on CT scan had really no evidence of pancreatitis and we decided to try to give her some liquids once her abdominal pain had resolved. I did discuss her elevated lipase levels at length with the turntable engineer that was seen her and given lack of pancreatitis on CT scans and lack of abdominal pain this was thought to be a false positive and we decided to stop checking this level at that time. She had persistent nausea and vomiting and this was thought to be potentially secondary to medication reactions given that there was no evidence of pancreatitis on her CT scans or abdominal pain so we decided to stop antibiotics. She then developed a fever and repeat cultures revealed yeast in the urine and in the bloodstream. The patient was placed on micafungin and infectious disease consultation was obtained. The femoral central line was removed and antifungal's were continued. The patient was still having some nausea and small amount vomiting at times, but the end of the week when I saw her she said her nausea was improving and she had not had any vomiting so no NG tube was placed prior to the weekend. An NG tube was attempted at one point in time but the patient removed it that same evening so we decided to stop continuing to place an NG tube. The patient did end up with a GI bleed after she developed a DVT that required anticoagulation. The GI bleed was from her sphincterotomy site and it was stopped with endoscopic management and blood thinners were held for a period of time. On the night of the patient's arrest, she was found unresponsive in her room. A code was called and she was intubated by the ER physician who stated that she had evidence of aspiration on intubation. See the note above in the first paragraph for details of the code. Diagnosis - Discharge Diagnosis (1) Biliary acute pancreatitis Status: Acute (2) Fungemia Status: Acute Specialty Discharge - Follow Up or Referrals Follow up with: Yves Gutierrez MD [Physician] - Discharge Plan - Discharge Data Disposition: - Discharge Medications New HYDROcodone/ACETAMIN 7.5-325 [[place] 7.5-325] 1 tablet PO Q4H PRN #10 tablet PRN Reason: Pain Continue cloNIDine TAB [Catapres Tab] 0.2 mg PO BID Citalopram [CeleXA] 20 mg PO DAILY Insulin Glargine,Hum.rec.anlog [Toujeo SoloStar] 20 unit SUBCUT BID Furosemide Tab [Lasix Tab] 40 mg PO BID DIURETIC #60 tablet Insulin Glargine [Lantus] 50 unit SUBCUT DAILY Carvedilol 12.5 mg PO DAILY - Follow Up or Referral - Forms/Instructions Instructions: Petar AV graft fistula Exam - Constitutional Vitals: Period Temp Pulse Resp BP Sys/Tavares Pulse Ox Last 24 Hr 96.9 F-98.6 F 110-118 16-22 112-163/71-112 95-100 Discharge Results Procedures and tests throughout hospitalization: Pending Orders 01/09/17 09:26 Red Blood Cells Leuko Red Routine Type and Screen Routine 01/10/17 03:45 Red Blood Cells Leuko Red Routine 01/14/17 12:10 Susceptibility Panel, Yeast Routine 01/15/17 10:00 Blood Culture Stat 01/18/17 11:07 Blood Culture Stat 01/21/17 23:39 ABG [Arterial Blood Gas] Stat 01/21/17 23:51 Blood Culture Stat CBC [Comp Blood Count Auto Diff] Stat CMP [Comprehensive Metabolic Panel] Stat Lactic Acid Stat Magnesium Stat Troponin I Only Stat 01/22/17 04:00 Comp Blood Count Auto Diff IN AM Comprehensive Metabolic Panel IN AM 01/23/17 04:00 Comp Blood Count Auto Diff IN AM Comprehensive Metabolic Panel IN AM 01/24/17 04:00 Comp Blood Count Auto Diff IN AM Comprehensive Metabolic Panel IN AM Labs on day of discharge: Labs from last 24 hours 01/21/17 01/21/17 01/21/17 23:51 18:00 10:24 WBC 18.7 H 15.1 H D RBC 2.16 L 2.54 L Hgb 6.4 L* 7.4 L Hct 21.6 L 23.1 L MCV 100.0 90.9 MCH 30 29 MCHC 29.6 L 32.0 RDW 16.2 16.0 Plt Count 277 D 409 H D MPV 10.5 9.7 Neut % (Auto) 71.3 83.8 H Lymph % (Auto) 15.7 L 8.5 L Republic % (Auto) 5.8 6.0 Eos % (Auto) 0.0 0.3 Baso % (Auto) 0.2 0.2 Neut # (Auto) 13.4 H 12.7 H Lymph # (Auto) 2.9 1.3 L Republic # (Auto) 1.1 H 0.9 H Eos # (Auto) 0.0 0.0 Baso # (Auto) 0.0 0.0 Total Counted Pending Immature Gran % 7.0 1.2 Nucleated RBC % 1.2 0.0 Immature Gran # 1.31 0.18 Nucleated RBCs # 0.23 0.00 Immature Plt Fraction 0.0 0.0 Sodium Potassium Chloride Carbon Dioxide Anion Gap BUN Creatinine GFR Calculation BUN/Creatinine Ratio Glucose POC Glucose 96 Calculated Osmolality Calcium Phosphorus Magnesium Prealbumin 01/21/17 01/21/17 01/21/17 06:01 02:55 00:21 WBC RBC Hgb Hct MCV MCH MCHC RDW Plt Count MPV Neut % (Auto) Lymph % (Auto) Republic % (Auto) Eos % (Auto) Baso % (Auto) Neut # (Auto) Lymph # (Auto) Republic # (Auto) Eos # (Auto) Baso # (Auto) Total Counted Immature Gran % Nucleated RBC % Immature Gran # Nucleated RBCs # Immature Plt Fraction Sodium 143 Potassium 4.1 Chloride 113 H Carbon Dioxide 21 Anion Gap 13.1 BUN 29 H Creatinine 4.00 H GFR Calculation 12 BUN/Creatinine Ratio 7.00 Glucose 84 POC Glucose 109 H 78 Calculated Osmolality 289.0 Calcium 7.5 L Phosphorus 4.4 Magnesium 1.6 L Prealbumin 20.9 Preliminary micro results at discharge 01/18/17 11:07 Blood Culture - Preliminary Blood No growth at 3 days 01/18/17 11:07 Blood Culture - Preliminary Blood Yeast 01/15/17 10:00 Blood Culture - Preliminary Blood Yeast 01/15/17 10:00 Blood Culture - Preliminary Blood Yeast DS: Provider Date of admission: 12/26/16 16:04 Primary care physician: Ariane Childers, Attending physician on admission: Yves Gutierrez MD Consults: 12/26/16 16:04 Consult to Physician [CONS] Routine Comment: aspiration in surgery Consulting Provider: Daniel Padilla When should Consulting Provider be notified: Now Consult Notification Comment: has been seen per doctors reports Consult to Physician [CONS] Routine Comment: pt of yours Consulting Provider: Monster Velasquez When should Consulting Provider be notified: In am Consult Notification Comment: has been seen per doctors reports 12/28/16 07:24 Consult to Physician [CONS] Routine Comment: high bp Consulting Provider: Bernard Rhoades Person Notified: Olive Mitchell Date Notified: 12/28/16 Time Notified: 07:24 12/31/16 10:41 Consult to Anesthesiology [CONS] Routine Consulting Provider: Reason for Anesthesiology: Pre-op Clearance 12/31/16 11:28 Consult to Physician [CONS] Routine Comment: pre-op ERCP Consulting Provider: Urban Del Rosario 01/01/17 12:37 Consult to Pharmacy [CONS] Routine Reason for Pharmacy Consult: Dose/Manage Vancomycin 01/02/17 09:31 Consult to Anesthesiology [CONS] Routine Consulting Provider: Reason for Anesthesiology: Pre-op Clearance 01/07/17 08:17 Consult to Pharmacy [CONS] Routine Reason for Pharmacy Consult: Other Comment: COUMADIN 01/08/17 09:25 Consult to Dietitian [CONS] Routine Reason for Dietitian: TPN/PPN-Initiate/Manage Consult Comment: please note hyponatremia 01/09/17 08:25 Consult to Dietitian [CONS] Routine Reason for Dietitian: TPN/PPN-Initiate/Manage Consult Comment: has central line, needs full tpn 01/10/17 13:27 Consult to Wound Care - [place] [CONS] Routine Reason for Wound Care: Other Consult Comment: look at distal sternal scar, tender and old drainage 01/15/17 09:43 Consult to Physician [CONS] Routine Comment: antibiotic management - possible sepsis Consulting Provider: Magnolia Malik Consulting Provider Notified: Yes When should Consulting Provider be notified: Now Person Notified: dr. tamayo Date Notified: 01/15/17 Consult Notification Comment: Dr. Tamayo seen on dialysis 01/17/17 11:32 Consult to Dietitian [CONS] Routine Reason for Dietitian: TF-Initiate/Manage Discharging clinician: Yves Gutierrez MD Expected date of discharge: 01/22/17
[2017-01-22 01:08] LABS: Albumin 1.6 G/DL (3.4-5.0); Bilirubin,Total 0.9 MG/DL (0.2-1.0); Calcium 7.9 MG/DL (8.5-10.1); Magnesium 2.7 MG/DL (1.8-2.4); Osmolality,Calculated 305.9 MOS/KG (273-304); Total Protein 5.6 G/DL (6.4-8.3)
[2017-01-22 01:10] LABS: Potassium 9.4 MMOL/L (3.5-5.1)
[2017-01-22 01:14] LABS: Band Neutrophils 5 % (0-10); Lymphocytes 20 % (20-55); Microcytosis 1+; Platelet Estimate Normal; Segmented Neutrophils 70 % (50-85); Total Cells Counted 100
--- NOTE | 2017-01-22 07:28 | Emergency Department Note ---
Arrival - Arrival Mode of Arrival: Hospital Bed - History of Present Illness HPI Narrative: Was called to the floor for cardiac arrest and asked to intubate the patient during CPR. Using video laryngoscopy the patient was intubated with a 7.5 endotracheal tube with positive end-tidal CO2. The patient was then transferred to ICU. Allergies/Adverse Reactions: Allergies Allergy/AdvReac Type Severity Reaction Status Date / Time No Known Allergies Allergy Verified 12/12/16 14:58 Home Medications: Home Medications Medication Instructions Recorded Confirmed Type HYDROcodone/ACETAMIN 7.5-325 1 tablet PO Q4H PRN #10 tablet 12/26/16 Rx [[place] 7.5-325] Medical,Surgical,& Family Hx - Medical History Cardio: History of: Hypertension Psychological: History of: Depression Neurology: History of: Cerebrovascular Accident (X3 2015 left sided weakness), Migraine (OCCASIONAL) No history of: Seizures HEENT: History of: Eye Problem (GLASSES), Dental Problems (MISSING TEETH) Endocrine: History of: Diabetes Mellitus (IDDM), Dyslipidemia Respiratory: No history of: Respiratory Problems (FLU VAC- YES; PNEU VAC- YES.) Renal: History of: Dialysis (T, TH,SAT), Renal Failure (DR COOPER), Renal Problems (1 kidney) Gastrointestinal: History of: GERD, GI Problems (dysphagia, gerd) - Surgical History Thoracic Surgeries: Surgical HX of;: Kidney (Renal Surgery) Abdominal Surgeries: Surgical HX of: EGD Patient denies: Abdominal Surgery Reproductive Surgeries: Surgical HX of;: Genitourinary Surgery, Gynecologic Surgery, Tubal Ligation - Social History Smoking Status: Current every day smoker Frequency of Alcohol Use: None Type of Drug Use: None Exam Vital Signs: Vital Signs Temperature 97.2 F L 01/21/17 19:15 Pulse Rate 110 H 01/21/17 19:49 Respiratory Rate 22 01/21/17 19:15 Blood Pressure 112/73 01/21/17 19:15 O2 Sat by Pulse Oximetry 100 01/21/17 19:15 Results - Labs CBC & BMP: 01/21/17 23:51 01/21/17 23:51 Disposition Disposition: New Prescriptions: Rx's Medication Instructions Recorded HYDROcodone/ACETAMIN 7.5-325 1 tablet PO Q4H PRN #10 tablet 12/26/16 [[place] 7.5-325]
--- NOTE | 2017-01-28 14:25 | Physician Query Form ---
CLICK EDIT DOCUMENT TO SELECT QUERY ANSWER --> OK --> SIGN Siena Segura RN, CCDS Certified Clinical Finisher [employer] W) [phone] (f) [phone] [email or web address]: Make your selection(s) from the choices in EACH section by typing an "x" and enter comments in the comment section. Please use your independent medical judgment in providing your response. This request does not imply that any particular answer is desired or expected. CLINICAL INDICATORS: (Providers should not edit this section) The medical record indicates that the patient was admitted with renal failure, On the : {WBC 19.1# on the 10th, Bands of 15# on the 10th, Some tachycardia} then On the Temp increased to 103.0#, Tachycardia, WBC of 29.3#, and the patient is being treated for cholecystitis/ Pancreatitis; Patient was on antibiotics Please clarify which, if any, of the following is the etiology of the above symptoms and treatment rendered: (x) Sepsis due to a localized infection, please specify infection: fungemia ( ) Severe Sepsis (sepsis with acute organ failure) - Please specify type acute organ failure: ( ) Septic Shock (severe sepsis with hypotension) ( ) SIRS of noninfectious origin ( ) Sepsis due to a device, implant or graft, please specify: ( ) Localized infection only, without systemic illness, please specify infection : ( ) Bacteremia (abnormal lab finding only, does not indicate systemic illness) ( ) Other condition, please specify: ( ) Clinically unable to determine Criteria for Sepsis (SIRS due to an infection) should be based on 2 or more of the following being present: Temperature > 101F or < 96.8F WBC > 12,000 or < 4,000, or > 10% bands Tachycardia HR > 90 beats/minute Tachypnea RR > 20 breaths/minute or PaCO2 > 32mmHg Lactate level > 2.0 mmol/L (>4 is equivalent to severe sepsis) Altered Mental Status Mottling of skin or prolonged capillary refill Non-diabetic hyperglycemia (blood sugar >120 mg/dl) Other evidence of acute organ failure associated with sepsis ( severe sepsis) COMMENTS: PLEASE ALSO DOCUMENT RESPONSE IN PROGRESS NOTES AND/OR DISCHARGE SUMMARY Use of terms such as suspected, likely, or probable (associated with a specific diagnosis that is being evaluated, monitored, or treated as if it exists) are acceptable and can be restated in the discharge summary if not ruled out. MTDD
== END 2017-01-22 00:11 | disposition expired | DRG 264 ==
LOC: N.OR 05:49 → N.SDSINP 05:50 → N.ICU 17:01 → N.2E 12-27 18:55 → N.ICU 01-09 17:19 → N.3E 01-13 13:47 → N.CC 01-21 23:39
PROVIDERS: ADMIT Surgery; ATTEND Surgery
PROC: ERCPWSP (ICD-10-PCS; 2017-01-01 12:35)